=== PATIENT | male | born 1970 | race Caucasian/White ===

== ENCOUNTER 2020-04-11 14:17 | Outpatient (REF) | payer OTHER, SELFPAY | END 2020-04-11 14:18 | disposition home or self-care (01) | LOC: HO.LNP 14:17 | PROVIDERS: Visit Provider Nurse Practitioner Family | DX: Z20.828 Contact with and (suspected) exposure to other viral communicable diseases (principal) | CPT/HCPCS: U0003 ==

== ENCOUNTER 2020-09-05 15:10 | Emergency (ER) | payer OTHER, SELFPAY ==
[2020-09-05 15:13] VITALS: BP 135/74; PULSE 70; RESP 18; TEMP 36.9; O2SAT 96; BMI 40.8
--- NOTE | 2020-09-05 17:13 | ED.GENADULT ---
HPI - General Adult General Chief complaint: General Medical Stated complaint: vision loss Source: patient Mode of arrival: ambulatory Limitations: no limitations History of Present Illness HPI narrative: 50-year-old male with past medical history of chronic headaches presents with 3 weeks of right eye dilation and changes in vision. 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 He does not report any changes in his headaches, pain on eye movement, loss of balance, difficulty chewing or swallowing, changes in hearing, or any other neurological symptoms. Onset (ago): week(s) (3) Location: eyes Radiation: non-radiation Severity: moderate Severity scale (1-10): 5 Associated symptoms: denies other symptoms Related Data Home Medications Medication Instructions Recorded Confirmed indomethacin 25 mg capsule 0 mg PO 02/16/20 03/05/20 Previous Rx's Medication Instructions Recorded amoxicillin 500 mg capsule 500 mg PO TID 10 Days #30 cap 02/16/20 cetirizine 10 mg tablet 10 mg PO DAILY PRN #30 tab 02/16/20 clotrimazole 1 % topical cream 1 applic TOPICAL BID 28 Days #28 g 02/16/20 diphenhydramine HCl 25 mg capsule 25 mg PO BEDTIME PRN #30 cap 02/16/20 clobetasol 0.05 % lotion 1 appl TOPICAL BEDTIME 14 Days 03/03/20 #118 ml prednisone 20 mg tablet 20 mg PO DAILY 9 Days #18 tab 03/03/20 Allergies Allergy/AdvReac Type Severity Reaction Status Date / Time No Known Allergies Allergy Verified 04/11/20 11:22 Review of Systems Review of Systems: Constitutional: No Fever, No Chills ENT/Mouth: No Ear Pain, No Hoarseness, No sore throat Eyes: Positive right eye change in vision and pupil size, No Eye Pain, No Swelling, No Redness, No Foreign Body Cardiovascular: No Chest Pain, No SOB Respiratory: No Cough, No Dyspnea Gastrointestinal: No Nausea, No Vomiting, No Diarrhea, No abdominal Pain Genitourinary: No Dysuria, No Hematuria Musculoskeletal: No joint pain, No Myalgias, No Joint Swelling Skin: No Skin lacerations, No rash Neuro: No Weakness, No Numbness, No Paresthesias, No Loss of Consciousness, No Dizziness, No Headache Psych: No Anxiety/Panic, No Depression Heme/Lymph: no easy bruising, no Lymphadenopathy Endocrine: No Polyuria, No Polydipsia Yes all other systems are reviewed and are negative [facility] Past Medical History Attestation statement: The following information was validated with the patient. Source: old records reviewed Medical History Rash Social History Social History Alcohol intake: never Cigarettes Per Day: 8 Smoked in Last 30 Days: No Use of substances other than those prescribed or required for medical reasons: No Advance Directives: No Advance Directives Information Provided: No Physical Exam Vital Signs: Vital Signs: Last Vital Signs Temp 98.4 F 09/05/20 15:13 Pulse 70 09/05/20 15:13 Resp 18 09/05/20 15:13 BP 135/74 09/05/20 15:13 Pulse Ox 96 09/05/20 15:13 Body Mass Index 40.8 Appearance: Alert. Oriented X3. No acute distress. Eyes: Right pupil 5 mm in diameter, left pupil approximately 2 mm in diameter under light, minimally reactive right pupil. No pain on eye movement, otherwise cranial nerves are intact. Patient is unable to differentiate color in the right eye. ENT: Pharynx normal. Neck: Normal inspection. Neck supple. CVS: Normal heart rate and rhythm. Pulses normal. Respiratory: No respiratory distress. Breath sounds normal. Abdomen: Soft and nontender. Skin: Skin warm and dry. Normal skin color. Normal skin turgor. Extremities: No lower extremity edema. Neuro: No motor deficit. No sensory deficit. Course Course Course Narrative: 50-year-old male presents with 3 weeks of right eye pupil abnormality and changes in vision. States that he sees blanco, unable to differentiate light. Discussion with Dr. Oswald, right eye pressure on 10 on a tree is 18 x 2, left eye is 26 and 22. Negative ADP test. Plan is to refer to Dr. Mejia in the morning. No further action required at this time. Patient verbalized understanding of and agrees to plan of care discharge home. Consultations Consultation #1: Margret Time: 17:40 Discharge Plan Discharge Clinical Impression: Pupil asymmetry Patient Disposition: Home, Self-Care Instructions: Blurred Vision (ED) Additional Instructions: Please follow-up with Dr Oswald in the morning. Thank you for choosing this emergency department for evaluation. Please follow-up with primary care physician as needed. Return to the emergency department for any new, concerning, or worsening symptoms. Prescriptions: No Action prednisone 20 mg tablet 20 mg PO DAILY 9 Days Qty: 18 RF: 0 clobetasol 0.05 % lotion 1 appl topical BEDTIME 14 Days Qty: 118 RF: 0 indomethacin 25 mg capsule 0 mg PO RF: 0 amoxicillin 500 mg capsule 500 mg PO TID 10 Days Qty: 30 RF: 0 clotrimazole 1 % cream 1 applic topical BID 28 Days Qty: 28 RF: 0 cetirizine [Zyrtec] 10 mg tablet 10 mg PO DAILY PRN (Reason: itching) Qty: 30 RF: 0 diphenhydramine HCl [Benadryl] 25 mg capsule 25 mg PO BEDTIME PRN (Reason: sleep/itch) Qty: 30 RF: 0 Referrals: Moses Oswald [Physician] - 1 day (Please call tomorrow morning for an appointment.)
== END 2020-09-05 18:19 | disposition home or self-care (01) ==
PROVIDERS: Emergency Provider Internal Medicine; PCP Internal Medicine
DX: H57.02 Anisocoria (principal)
CPT/HCPCS: 99282; 99284

== ENCOUNTER 2020-09-06 14:33 | Outpatient (REF) | payer OTHER, SELFPAY ==
[2020-09-06 15:09] LABS: MANUAL DIFF FLAG NO
[2020-09-06 15:17] LABS: Basophils Absolute Auto 0.1 X10*3/uL (0.0-0.2); Basophils Percent Auto 0.8 % (0-2); Eosinophils Absolute Auto 0.3 X10*3/uL (0.0-0.4); Eosinophils Percent Auto 3.1 % (0-4); Hematocrit 43.9 % (42-52); Hemoglobin 14.5 g/dl (14.0-18.0); Imm Gran Abs Auto 0.03 X10*3/uL (0.00-0.03); Imm Gran Pct Auto 0.3 % (0.0-0.4); Lymphocytes Absolute Auto 3.2 X10*3/uL (1.2-4.9); Lymphocytes Percent Auto 29.5 % (20-40); Mean Corpuscular Hemoglobin 28.4 pg (27.0-33.0); Mean Corpuscular Volume 85.9 fL (80-98); Mean Platelet Volume 10.1 fL (9.4-12.4); Monocytes Absolute Auto 0.6 X10*3/uL (0.1-1.2); Monocytes Percent Auto 5.8 % (2-11); Neutrophils Absolute Auto 6.5 X10*3/uL (2.0-8.3); Neutrophils Percent Auto 60.5 % (45-73); Platelet Count 321 X10*3/uL (160-400); Red Blood Count 5.11 X10*6/uL (4.60-5.80); Red Cell Distribution Width 12.6 % (11.0-16.0); White Blood Count 10.8 X10*3/uL (4.8-10.8)
[2020-09-06 16:13] LABS: Erythrocyte Sedimentation Rate 22 MM/HR (0-15)
[2020-09-06 16:53] LABS: Blood Urea Nitrogen 19 mg/dL (9-16); C Reactive Protein 1.05 mg/dL (< or = 0.50); Estimated Glomerular Filt Rate > 60
== END 2020-09-06 14:34 | disposition home or self-care (01) ==
LOC: HO.LAB 14:33
PROVIDERS: PCP Internal Medicine; Visit Provider Ophthalmology
DX: H47.10 Unspecified papilledema (principal)
CPT/HCPCS: 36415; 82565; 84520; 85025; 85652; 86140

== ENCOUNTER → 2021-01-11 12:56 | Outpatient (BNVA) | payer OTHER, SELFPAY | PROVIDERS: PCP Internal Medicine; Visit Provider Surgery Vascular Surgery ==

== ENCOUNTER 2021-01-16 09:00 | Outpatient (REF) | payer OTHER, SELFPAY ==
[2021-01-16 12:18] LABS: Blood Urea Nitrogen 17 mg/dL (9-16); Estimated Glomerular Filt Rate > 60
== END 2021-01-16 09:01 | disposition home or self-care (01) ==
LOC: HO.HMGCLDS 09:00
PROVIDERS: PCP Internal Medicine; Visit Provider Surgery Vascular Surgery
DX: I65.23 Occlusion and stenosis of bilateral carotid arteries (principal)
CPT/HCPCS: 36415; 82565; 84520

== ENCOUNTER 2021-01-18 15:21 | Outpatient (REF) | payer OTHER, SELFPAY ==
--- NOTE | ~2021-01-18 | CT_ITS ---
CT ANGIOGRAM NECK CLINICAL INFORMATION: Occlusion and stenosis of the carotid arteries bilaterally. COMPARISON: None available. TECHNIQUE: Helical imaging was performed in the axial plane from the thoracic inlet to the mid calvarium following the administration of 70 mL of Omnipaque 350 intravenous contrast without complication.. The data was processed at the radiological technologist workstation for generation of MIP sequences. Angled MIPs and volume rendered reformatted images were also generated at an offline 3D workstation under concurrent supervision. Stenoses are assessed in accordance with NASCET criteria unless otherwise indicated. This CT examination was performed using dose optimization techniques as appropriate, variously including the following: *Automated exposure control *Adjustment of mA and/or kV according to patient size (this includes techniques or standardized protocols for targeted exams where dose is matched to indication/reason for exam; i.e. extremities or head) *Use of iterative reconstruction technique FINDINGS: There is a 3 great vessel branch configuration off of the aortic arch. The great vessel origins are widely patent. Left vertebral artery is dominant and the cervical vertebral arteries are widely patent throughout their course. There is a severe greater than 95% preocclusive stenosis of the proximal right internal carotid artery with the right cervical ICA exhibiting markedly small caliber string sign morphology. The intracranial right internal carotid artery is occluded from the petrous segments through the right internal carotid artery terminal segment which is reconstituted by the remaining [place]. The left carotid bifurcation and the left cervical internal carotid artery are widely patent. There is a retropharyngeal course of the left cervical ICA. Intracranial vertebrobasilar system is widely patent. Imaged anterior and middle cerebral artery complexes are widely patent. The imaged upper lungs are clear. There is multilevel cervical spondylosis. There are no significant soft tissue findings within the neck. CT/CT angio neck IMPRESSION: - There is a severe greater than 95% preocclusive stenosis of the proximal right internal carotid artery with the right cervical ICA exhibiting markedly small caliber string sign morphology throughout its entire cervical course. The intracranial right internal carotid artery is occluded from the petrous segments through the right internal carotid artery terminal segment which is reconstituted by the remaining [place]. - The left carotid bifurcation and the left cervical internal carotid artery are widely patent. There is a retropharyngeal course of the left cervical ICA. Covering provider paged with these findings at 2:49 PM on 01/24/2021.
== END 2021-01-18 15:22 | disposition home or self-care (01) ==
LOC: HO.CT 15:21
PROVIDERS: PCP Internal Medicine; Visit Provider Surgery Vascular Surgery
DX: I65.23 Occlusion and stenosis of bilateral carotid arteries (principal)
CPT/HCPCS: 70498

== ENCOUNTER → 2021-01-25 08:58 | Outpatient (BNVA) | payer OTHER, SELFPAY | PROVIDERS: PCP Internal Medicine; Visit Provider Surgery Vascular Surgery ==

== ENCOUNTER 2021-04-18 15:06 | Outpatient (REF) | payer OTHER, SELFPAY ==
[2021-04-18 16:23] LABS: MANUAL DIFF FLAG NO
[2021-04-18 16:27] LABS: Basophils Absolute Auto 0.1 X10*3/uL (0.0-0.2); Basophils Percent Auto 0.9 % (0-2); Eosinophils Absolute Auto 0.3 X10*3/uL (0.0-0.4); Eosinophils Percent Auto 3.2 % (0-4); Hematocrit 41.6 % (42.0-52.0); Hemoglobin 13.7 g/dl (14.0-18.0); Imm Gran Abs Auto 0.02 X10*3/uL (0.00-0.03); Imm Gran Pct Auto 0.2 % (0.0-0.4); Lymphocytes Absolute Auto 2.7 X10*3/uL (1.2-4.9); Lymphocytes Percent Auto 31.1 % (20-40); Mean Corpuscular HGB Conc 32.9 g/dl (31.0-36.0); Mean Corpuscular Hemoglobin 28.8 pg (27.0-33.0); Mean Corpuscular Volume 87.6 fL (80.0-98.0); Mean Platelet Volume 10.7 fL (9.4-12.4); Monocytes Absolute Auto 0.6 X10*3/uL (0.1-1.2); Monocytes Percent Auto 6.9 % (2-11); Neutrophils Absolute Auto 4.9 x10*3/uL (2.0-8.3); Neutrophils Percent Auto 57.7 % (45-73); Platelet Count 282 X10*3/uL (160-400); Red Blood Count 4.75 X10*6/uL (4.60-5.80); White Blood Count 8.6 X10*3/uL (4.8-10.8)
[2021-04-18 17:00] LABS: Alanine Aminotransferase 37 U/L (0-40); Albumin Level 3.9 g/dL (3.5-5.0); Alkaline Phosphatase 82 U/L (39-117); Anion Gap 11 (12-20); Aspartate Amino Transferase 27 U/L (5-37); Bilirubin Total 0.4 mg/dL (0.0-1.0); Blood Urea Nitrogen 14 mg/dL (9-16); Carbon Dioxide 28 mmol/L (22-29); Chloride 108 mmol/L (96-108); Estimated Glomerular Filt Rate > 60; Glucose Random 104 mg/dL (60-115); Potassium 4.4 mmol/L (3.3-5.1); Sodium 143 mmol/L (135-145); Total Protein 6.4 g/dL (6.5-8.0)
[2021-04-20 02:32] LABS: LDL Cholesterol Direct 59 mg/dL (<100)
== END 2021-04-18 15:07 | disposition home or self-care (01) ==
LOC: HO.HMGCLDS 15:06
PROVIDERS: PCP Internal Medicine; Visit Provider Internal Medicine
DX: G44.89 Other headache syndrome (principal); H34.231 Retinal artery branch occlusion, right eye; I10 Essential (primary) hypertension; E66.01 Morbid (severe) obesity due to excess calories
CPT/HCPCS: 36415; 80053; 83721; 85025

== ENCOUNTER 2021-08-02 15:17 | Outpatient (REF) | payer OTHER, SELFPAY ==
--- NOTE | ~2021-08-02 | US_ITS ---
EXAMINATION: US EXTRACRANIAL CAROTID DUPLEX, BILATERAL CLINICAL INFORMATION: This is a 51-year-old male with occlusion and stenosis of the carotid arteries. COMPARISON: CT angiogram dated 01/18/2021 TECHNIQUE: Real-time ultrasound and Doppler techniques (integrating B-mode 2-D vascular images, Doppler spectral analysis and color-flow Doppler imaging) were utilized to interrogate the extracranial carotid arteries, the vertebral arteries and proximal subclavian arteries bilaterally. The degree of stenosis is determined by criteria similar to NASCET. FINDINGS: Right Side: 1. There is moderate atherosclerotic plaque seen in the bifurcation/proximal ICA region. 2. The common carotid artery PSV proximally is 134 cm/s and distally 126 cm/s. 3. The proximal internal carotid artery velocities are 136 cm/s systolic and 12 cm/s diastolic. However, no flow could be demonstrated in the mid and distal internal carotid artery suggesting possible occlusion. 4. The proximal external carotid artery PSV is 212 cm/s. There is a mild stenosis of the external carotid artery. 5. The vertebral artery shows antegrade flow. 6. The subclavian artery waveforms are normal. Left Side: 1. There is moderate atherosclerotic plaque seen in the bifurcation/proximal ICA region. 2. The common carotid artery PSV proximally is 126 cm/s and distally 160 cm/s. 3. The proximal internal carotid artery velocities are 124 cm/s systolic and 88 cm/s diastolic. 4. The proximal external carotid artery PSV is 206 cm/s. There is a mild stenosis of the external carotid artery. 5. The vertebral artery shows antegrade flow. 6. The subclavian artery waveforms are normal. US/US carotid duplex BI IMPRESSION: 1. RIGHT: By velocity criteria, moderately, hemodynamically significant stenosis of the proximal right internal carotid artery corresponding to a 50-79% stenosis by velocity criteria. However, no flow could be demonstrated in the mid and distal internal carotid artery suggesting possible occlusion. This suggests progression of disease when compared to the previous CT angiogram. 2. LEFT: Minimal, non-hemodynamically significant stenosis of the proximal left internal carotid artery corresponding to a 0-49% stenosis by velocity criteria. 3. There is possible occlusion in the mid and distal right internal carotid artery.
== END 2021-08-02 15:18 | disposition home or self-care (01) ==
LOC: HO.HMGCX 15:17
PROVIDERS: PCP Internal Medicine; Visit Provider Surgery Vascular Surgery
DX: I65.23 Occlusion and stenosis of bilateral carotid arteries (principal)
CPT/HCPCS: 93880

== ENCOUNTER → 2021-08-14 11:39 | Outpatient (BNVA) | payer OTHER, SELFPAY | PROVIDERS: PCP Internal Medicine; Visit Provider Surgery Vascular Surgery | DX: I65.23 Occlusion and stenosis of bilateral carotid arteries (principal) ==

== ENCOUNTER 2021-10-16 12:38 | Outpatient (REF) | payer OTHER, SELFPAY ==
[2021-10-16 14:26] LABS: Alanine Aminotransferase 33 U/L (0-40); Albumin Level 4.2 g/dL (3.5-5.0); Alkaline Phosphatase 84 U/L (39-117); Anion Gap 11 (12-20); Aspartate Amino Transferase 23 U/L (5-37); Bilirubin Total 0.6 mg/dL (0.0-1.0); Blood Urea Nitrogen 15 mg/dL (9-16); Calcium 8.6 mg/dL (8.4-10.2); Carbon Dioxide 28 mmol/L (22-29); Chloride 107 mmol/L (96-108); Estimated Glomerular Filt Rate > 60; Glucose Random 121 mg/dL (60-115); Potassium 4.8 mmol/L (3.3-5.1); Sodium 141 mmol/L (135-145); Total Protein 6.6 g/dL (6.5-8.0)
== END 2021-10-16 12:39 | disposition home or self-care (01) ==
LOC: HO.HMGCLDS 12:38
PROVIDERS: PCP Internal Medicine; Visit Provider Internal Medicine
DX: E78.9 Disorder of lipoprotein metabolism, unspecified (principal)
CPT/HCPCS: 36415; 80053

== ENCOUNTER 2021-10-29 13:22 | Outpatient (REF) | payer OTHER, SELFPAY ==
[2021-10-29 13:42] LABS: MANUAL DIFF FLAG NO
[2021-10-29 13:51] LABS: Basophils Absolute Auto 0.1 X10*3/uL (0.0-0.2); Basophils Percent Auto 0.9 % (0-2); Eosinophils Absolute Auto 0.3 X10*3/uL (0.0-0.4); Eosinophils Percent Auto 2.8 % (0-4); Hematocrit 43.2 % (42.0-52.0); Hemoglobin 14.4 g/dl (14.0-18.0); Imm Gran Abs Auto 0.02 X10*3/uL (0.00-0.03); Imm Gran Pct Auto 0.2 % (0.0-0.4); Lymphocytes Absolute Auto 2.6 X10*3/uL (1.2-4.9); Mean Corpuscular HGB Conc 33.3 g/dl (31.0-36.0); Mean Corpuscular Hemoglobin 28.6 pg (27.0-33.0); Mean Corpuscular Volume 85.7 fL (80.0-98.0); Mean Platelet Volume 9.8 fL (9.4-12.4); Monocytes Absolute Auto 0.6 X10*3/uL (0.1-1.2); Monocytes Percent Auto 6.9 % (2-11); Neutrophils Absolute Auto 5.7 x10*3/uL (2.0-8.3); Neutrophils Percent Auto 61.2 % (45-73); Platelet Count 276 X10*3/uL (160-400); Red Blood Count 5.04 X10*6/uL (4.60-5.80); White Blood Count 9.3 X10*3/uL (4.8-10.8)
[2021-10-29 14:22] LABS: Blood Urea Nitrogen 17 mg/dL (9-16); Estimated Glomerular Filt Rate > 60
[2021-10-29 14:43] LABS: Erythrocyte Sedimentation Rate 23 MM/HR (0-15)
[2021-10-31 22:27] LABS: Anti Nuclear Antibody Screen NEGATIVE (NEGATIVE)
== END 2021-10-29 13:23 | disposition home or self-care (01) ==
LOC: HO.LAB 13:22
PROVIDERS: PCP Internal Medicine; Visit Provider Psychiatry & Neurology Neurology
DX: G45.1 Carotid artery syndrome (hemispheric) (principal)
CPT/HCPCS: 36415; 82565; 84520; 85025; 85652; 86038; 86039

== ENCOUNTER 2021-11-06 13:47 | Outpatient (REF) | payer OTHER, SELFPAY ==
--- NOTE | ~2021-11-06 | CT_ITS ---
EXAMINATION: CTA OF THE HEAD AND NECK CLINICAL INFORMATION: Carotid artery occlusion syndrome. COMPARISON: CT angiogram from 01/18/2021. TECHNIQUE: Test bolus sequences followed by intravenous administration 70 mL of Omnipaque 350. Helical imaging was performed in the axial plane from the mediastinum to the skull vertex. Delayed postcontrast imaging of the head was also performed. The data was processed at the radioisotope technologist's workstation for generation of MIP sequences. Three-dimensional volume rendered reformatted images were also generated at an offline 3-D workstation. Stenoses are assessed in accordance with NASCET criteria unless otherwise indicated. This CT examination was performed using dose optimization techniques as appropriate, variously including the following: *Automated exposure control *Adjustment of mA and/or kV according to patient size (this includes techniques or standardized protocols for targeted exams where dose is matched to indication/reason for exam; i.e. extremities or head) *Use of iterative reconstruction technique DLP: 2709 mGy-cm FINDINGS: CT HEAD: There is no evidence of acute intracranial hemorrhage or territorial infarction. There is no loss of blanco to white matter differentiation. No abnormal mass effect or midline shift is seen. No extra-axial fluid collections are identified. There is no abnormal enhancement. The ventricles are normal in size. There is no abnormal attenuation within the brain parenchyma. The osseous structures and soft tissues are normal. The mastoid air cells and visualized portions of the paranasal sinuses are well aerated. CTA NECK: The imaged aortic arch and origins of the great vessels are normal. The common carotid arteries are widely patent. The carotid bifurcations are normal. There is stable gradual tapering and severe luminal narrowing of the cervical right internal carotid artery with diminutive contrast opacification. No contrast is visible within the vessel at the atlantooccipital level. The left cervical internal carotid artery is normal with a retropharyngeal course. The vertebral arteries opacify normally and are of normal caliber. The soft tissues of the neck are unremarkable. [id number] cervical spondylosis again evident. The imaged portions of the lungs are clear. CTA HEAD: The intradural vertebral arteries and basilar artery are normal. The posterior cerebral arteries are widely patent. There is chronic absence of contrast opacification within the right internal carotid artery to the level of the supraclinoid communicating segment where there is reconstitution from collateral flow presumably via the left-sided anterior circulation versus the right PCOM segment. The left internal carotid artery is of normal caliber. The SALLY and MCA vascular complexes bilaterally are normal. The venous sinuses opacify normally. CT/CT angio head neck IMPRESSION: Stable imaging findings of severe tapered stenotic narrowing of the cervical right internal carotid artery with perceived wall thickening. Unchanged absence of contrast in the right ICA at the craniovertebral junction to the level of the supraclinoid communicating segment. No acute intracranial process.
[2021-11-06] MEDS: iohexoL 350 MG/ML 100 ML INFUS..BTL IV (15:24)
== END 2021-11-06 13:48 | disposition home or self-care (01) ==
LOC: HO.CT 13:47
PROVIDERS: PCP Internal Medicine; Visit Provider Psychiatry & Neurology Neurology
DX: G45.1 Carotid artery syndrome (hemispheric) (principal)
CPT/HCPCS: 70496; 70498; Q9967

== ENCOUNTER 2021-11-28 08:51 | Outpatient (REF) | payer OTHER, SELFPAY ==
--- NOTE | ~2021-11-28 | MR_ITS ---
EXAMINATION: MRI OF THE BRAIN WITHOUT AND WITH CONTRAST MRI OF THE ORBITS WITHOUT AND WITH CONTRAST CLINICAL INFORMATION: Optic neuritis. COMPARISON: CTA of the head and neck 11/06/2021.. TECHNIQUE: MRI of the brain and orbits was obtained using routine sequences without and with contrast. Intravenous contrast administration: Gadavist 10 mL. FINDINGS: The right optic nerve has a thinner caliber compared to the left. No abnormal enhancement is noted of the optic nerves on either side. The optic nerve heads appear normal. The extraocular muscles, globes, and lacrimal glands appear normal bilaterally. There is no infiltration of the intra- or extraconal orbital fat. No compressive enhancing mass lesions are seen at either orbital apex. The cavernous sinuses enhance symmetrically. There is loss of the hypointense flow voids from the right petrous, cavernous and paraclinoid internal carotid artery, demonstrated on prior imaging. The optic chiasm appears normal. No diffusion abnormalities are identified to suggest an acute or subacute infarct. No mass effect or midline shift is seen. The ventricles and sulci are normal in size. There are a few foci of hyperintense T2 and FLAIR signal in the periventricular and subcortical white matter which are most consistent with mild chronic microvascular ischemic changes. No extra-axial fluid collections are seen. The brainstem and cerebellum are normal. On postcontrast imaging, there is no abnormal parenchymal or leptomeningeal enhancement. No pathologic magnetic susceptibility artifact is identified on the gradient refocused acquisition. The craniovertebral junction, marrow signal, and midline structures are normal. As described above, the flow void from the right cavernous and paraclinoid internal carotid artery is absent. The flow voids from the other vessels of the [place] are maintained. The dural venous sinus flow-voids are maintained. There is now moderate fluid in the left mastoid air cells. There is mild mucoperiosteal thickening of the ethmoid sinuses bilaterally. MR/MR head/brain wo/w con IMPRESSION: 1. The right optic nerve has a thinner caliber compared to the left, but there is no abnormal enhancement of either optic nerve. No masses are demonstrated in the orbits. The globes appear symmetric. 2. No acute bleeds or infarcts. There are no masses or areas of abnormal enhancement. There are chronic microvascular ischemic changes. 3. The study demonstrates absence of flow in the right petrous, cavernous and supraclinoid internal carotid artery.
--- NOTE | ~2021-11-28 | MR_ITS ---
EXAMINATION: MRI OF THE BRAIN WITHOUT AND WITH CONTRAST MRI OF THE ORBITS WITHOUT AND WITH CONTRAST CLINICAL INFORMATION: Optic neuritis. COMPARISON: CTA of the head and neck 11/06/2021.. TECHNIQUE: MRI of the brain and orbits was obtained using routine sequences without and with contrast. Intravenous contrast administration: Gadavist 10 mL. FINDINGS: The right optic nerve has a thinner caliber compared to the left. No abnormal enhancement is noted of the optic nerves on either side. The optic nerve heads appear normal. The extraocular muscles, globes, and lacrimal glands appear normal bilaterally. There is no infiltration of the intra- or extraconal orbital fat. No compressive enhancing mass lesions are seen at either orbital apex. The cavernous sinuses enhance symmetrically. There is loss of the hypointense flow voids from the right petrous, cavernous and paraclinoid internal carotid artery, demonstrated on prior imaging. The optic chiasm appears normal. No diffusion abnormalities are identified to suggest an acute or subacute infarct. No mass effect or midline shift is seen. The ventricles and sulci are normal in size. There are a few foci of hyperintense T2 and FLAIR signal in the periventricular and subcortical white matter which are most consistent with mild chronic microvascular ischemic changes. No extra-axial fluid collections are seen. The brainstem and cerebellum are normal. On postcontrast imaging, there is no abnormal parenchymal or leptomeningeal enhancement. No pathologic magnetic susceptibility artifact is identified on the gradient refocused acquisition. The craniovertebral junction, marrow signal, and midline structures are normal. As described above, the flow void from the right cavernous and paraclinoid internal carotid artery is absent. The flow voids from the other vessels of the [place] are maintained. The dural venous sinus flow-voids are maintained. There is now moderate fluid in the left mastoid air cells. There is mild mucoperiosteal thickening of the ethmoid sinuses bilaterally. MR/MR orbits face neck wo/w con IMPRESSION: 1. The right optic nerve has a thinner caliber compared to the left, but there is no abnormal enhancement of either optic nerve. No masses are demonstrated in the orbits. The globes appear symmetric. 2. No acute bleeds or infarcts. There are no masses or areas of abnormal enhancement. There are chronic microvascular ischemic changes. 3. The study demonstrates absence of flow in the right petrous, cavernous and supraclinoid internal carotid artery.
== END 2021-11-28 08:52 | disposition home or self-care (01) ==
LOC: HO.MRI 08:51
PROVIDERS: Visit Provider Psychiatry & Neurology Neurology
DX: H46.9 Unspecified optic neuritis (principal)
CPT/HCPCS: 70543; 70553; A9585

== ENCOUNTER 2021-12-25 14:09 | Outpatient (REF) | payer OTHER, SELFPAY ==
[2021-12-25 16:35] LABS: MANUAL DIFF FLAG NO
[2021-12-25 16:37] LABS: Basophils Percent Auto 0.4 % (0-2); Eosinophils Absolute Auto 0.2 X10*3/uL (0.0-0.4); Eosinophils Percent Auto 1.4 % (0-4); Hematocrit 44.7 % (42.0-52.0); Hemoglobin 14.7 g/dl (14.0-18.0); Imm Gran Abs Auto 0.05 X10*3/uL (0.00-0.03); Imm Gran Pct Auto 0.5 % (0.0-0.4); Lymphocytes Absolute Auto 1.8 X10*3/uL (1.2-4.9); Lymphocytes Percent Auto 16.4 % (20-40); Mean Corpuscular HGB Conc 32.9 g/dl (31.0-36.0); Mean Corpuscular Volume 88.2 fL (80.0-98.0); Mean Platelet Volume 9.9 fL (9.4-12.4); Monocytes Absolute Auto 0.8 X10*3/uL (0.1-1.2); Monocytes Percent Auto 7.2 % (2-11); Neutrophils Absolute Auto 8.2 x10*3/uL (2.0-8.3); Neutrophils Percent Auto 74.1 % (45-73); Platelet Count 287 X10*3/uL (160-400); Red Blood Count 5.07 X10*6/uL (4.60-5.80); Red Cell Distribution Width 13.9 % (11.0-16.0); White Blood Count 11.1 X10*3/uL (4.8-10.8)
[2021-12-25 16:44] LABS: Blood Urea Nitrogen 20 mg/dL (9-16); Estimated Glomerular Filt Rate > 60
[2021-12-25 17:18] LABS: Erythrocyte Sedimentation Rate 34 MM/HR (0-15)
== END 2021-12-25 14:10 | disposition home or self-care (01) ==
LOC: HO.HMGCLDS 14:09
PROVIDERS: Surgery Vascular Surgery; PCP Internal Medicine; Visit Provider Psychiatry & Neurology Neurology
DX: I65.23 Occlusion and stenosis of bilateral carotid arteries (principal); H34.9 Unspecified retinal vascular occlusion
CPT/HCPCS: 36415; 82565; 84520; 85025; 85652

== ENCOUNTER 2022-02-19 10:10 | Outpatient (REF) | payer OTHER, SELFPAY ==
[2022-02-19 11:38] LABS: MANUAL DIFF FLAG NO
[2022-02-19 11:57] LABS: Estimated Average Glucose 148 mg/dL; Hemoglobin A1c % 6.8 %
[2022-02-19 12:04] LABS: Basophils Absolute Auto 0.1 X10*3/uL (0.0-0.2); Basophils Percent Auto 0.3 % (0-2); Eosinophils Absolute Auto 0.1 X10*3/uL (0.0-0.4); Eosinophils Percent Auto 0.8 % (0-4); Hematocrit 42.6 % (42.0-52.0); Hemoglobin 13.7 g/dl (14.0-18.0); Imm Gran Abs Auto 0.09 X10*3/uL (0.00-0.03); Imm Gran Pct Auto 0.5 % (0.0-0.4); Lymphocytes Absolute Auto 3.2 X10*3/uL (1.2-4.9); Lymphocytes Percent Auto 18.9 % (20-40); Mean Corpuscular HGB Conc 32.2 g/dl (31.0-36.0); Mean Corpuscular Hemoglobin 29.1 pg (27.0-33.0); Mean Corpuscular Volume 90.6 fL (80.0-98.0); Mean Platelet Volume 10.4 fL (9.4-12.4); Monocytes Absolute Auto 1.1 X10*3/uL (0.1-1.2); Monocytes Percent Auto 6.5 % (2-11); Neutrophils Absolute Auto 12.3 x10*3/uL (2.0-8.3); Platelet Count 351 X10*3/uL (160-400); Red Cell Distribution Width 14.2 % (11.0-16.0); White Blood Count 16.8 X10*3/uL (4.8-10.8)
[2022-02-19 12:31] LABS: Alanine Aminotransferase 33 U/L (0-40); Albumin Level 3.9 g/dL (3.5-5.0); Alkaline Phosphatase 53 U/L (39-117); Anion Gap 15 (12-20); Aspartate Amino Transferase 18 U/L (5-37); Bilirubin Direct 0.4 mg/dL (0.0-0.5); Bilirubin Total 0.9 mg/dL (0.0-1.0); Blood Urea Nitrogen 8 mg/dL (9-16); Calcium 9.1 mg/dL (8.4-10.2); Carbon Dioxide 27 mmol/L (22-29); Chloride 104 mmol/L (96-108); Estimated Glomerular Filt Rate > 60; Glucose Random 176 mg/dL (60-115); Potassium 4.3 mmol/L (3.3-5.1); Sodium 142 mmol/L (135-145); Total Protein 6.3 g/dL (6.5-8.0)
== END 2022-02-19 10:11 | disposition home or self-care (01) ==
LOC: HO.HMGCLDS 10:10
PROVIDERS: PCP Internal Medicine; Visit Provider Nurse Practitioner Family
DX: H53.8 Other visual disturbances (principal); R35.89 Other polyuria; R51.9 Headache, unspecified
CPT/HCPCS: 36415; 80048; 80076; 83036; 85025

== ENCOUNTER 2022-02-28 12:33 | Outpatient (REF) | payer OTHER, SELFPAY ==
[2022-02-28 14:08] LABS: Alanine Aminotransferase 33 U/L (0-40); Albumin Level 3.9 g/dL (3.5-5.0); Alkaline Phosphatase 52 U/L (39-117); Anion Gap 11 (12-20); Aspartate Amino Transferase 19 U/L (5-37); Bilirubin Total 1.2 mg/dL (0.0-1.0); Blood Urea Nitrogen 10 mg/dL (9-16); Calcium 9.7 mg/dL (8.4-10.2); Carbon Dioxide 33 mmol/L (22-29); Chloride 99 mmol/L (96-108); Estimated Glomerular Filt Rate > 60; Glucose Random 127 mg/dL (60-115); Sodium 139 mmol/L (135-145); Total Protein 6.2 g/dL (6.5-8.0)
[2022-03-01 15:17] LABS: Osmolality Urine 222 mosm/kg (373-1093)
== END 2022-02-28 12:34 | disposition home or self-care (01) ==
LOC: HO.HMGCLDS 12:33
PROVIDERS: PCP Internal Medicine; Visit Provider Internal Medicine
DX: E23.2 Diabetes insipidus (principal); E11.9 Type 2 diabetes mellitus without complications; E03.8 Other specified hypothyroidism; R90.0 Intracranial space-occupying lesion found on diagnostic imaging of central nervous system
CPT/HCPCS: 36415; 80053; 83935

== ENCOUNTER 2022-03-26 13:05 | Emergency (ER) | payer OTHER, SELFPAY | END 2022-03-26 19:26 | disposition left against medical advice (07) | PROVIDERS: Emergency Provider Emergency Medicine; PCP Internal Medicine | DX: K64.9 Unspecified hemorrhoids (principal) ==

== ENCOUNTER 2022-03-29 14:02 | Inpatient (IN) | payer OTHER, SELFPAY ==
--- NOTE | ~2022-03-29 | CT_ITS ---
EXAMINATION: CT ABDOMEN AND PELVIS WITH CONTRAST CLINICAL INFORMATION: Diarrhea. Rule out perirectal abscess. COMPARISON: None TECHNIQUE: Multidetector volumetric images were obtained from the superior aspect of the liver through the pubic symphysis following administration 85 mL of Omnipaque 350 intravenous contrast. Sagittal and coronal reformatted images were obtained on the technologist's workstation. Oral contrast: No This CT examination was performed using dose optimization techniques as appropriate, variously including the following: *Automated exposure control *Adjustment of mA and/or kV according to patient size (this includes techniques or standardized protocols for targeted exams where dose is matched to indication/reason for exam; i.e. extremities or head) *Use of iterative reconstruction technique DLP: 1210 mGy-cm FINDINGS: LUNG BASES: The heart size is normal. There is bilateral posterior pleural thickening. Minimal atelectatic changes are seen right lung base. LIVER, GALLBLADDER, AND BILIARY TREE: The liver is normal in size, shape, and attenuation. No focal hepatic lesion or biliary ductal dilatation is present. Small dependent gallstones are noted. No wall thickening or pericholecystic fluid collection. PANCREAS: Unremarkable. SPLEEN: Unremarkable. ADRENAL GLANDS: Unremarkable. KIDNEYS AND URETERS: The kidneys are normal in size, shape, and attenuation. No hydronephrosis, hydroureter, or calculi seen. No perinephric stranding. There is a 1.3 cm cyst upper pole left kidney. BLADDER: Unremarkable. GASTROINTESTINAL TRACT: There is scattered stool, gas and diverticuli seen throughout the colon without distention. The small bowel loops are normal caliber. Appendix is normal caliber. ABDOMINAL WALL: No significant hernia is appreciated. LYMPH NODES: Normal. VASCULAR: Unremarkable. PELVIC VISCERA: There is a left perirectal soft tissue thickening likely a small fissure or a blind-ending fistula but no perianal or ischiorectal abscess. It measures approximately 2.8 x 0.86 cm on coronal image 84/5. There is no fat stranding either. OSSEOUS STRUCTURES: There is vacuum disc phenomena and loss of disc height L4-L5 disc level. No aggressive lytic or sclerotic process seen. CT/CT abdomen pelvis w IV con IMPRESSION: 1. Left perirectal soft tissue thickening likely a small fissure or a blind-ending fistula but no perianal or ischiorectal abscess seen. 2. Colonic diverticulosis without diverticulitis. Mild constipation. 3. Cholelithiasis without wall thickening. Fleischner guidelines were followed.
--- NOTE | 2022-03-29 16:13 | ED_ITS ---
HPI - General Adult General Chief complaint: General Medical <Marta Arias CNP - Last Filed: 03/29/22 16:19> Stated complaint: Hemorrhoids <aMrta Arias CNP - Last Filed: 03/29/22 16:19> Time Seen by Provider: 03/29/22 18:10 <Marta Arias CNP - Last Filed: 03/29/22 16:19> Source: patient <Griselda Cruz MD - Last Filed: 03/29/22 22:06> Mode of arrival: ambulatory <Griselda Cruz MD - Last Filed: 03/29/22 22:06> Limitations: no limitations <Griselda Cruz MD - Last Filed: 03/29/22 22:06> History of Present Illness HPI narrative: Patient comes to the emergency room complaining perirectal pain and draining pus. Patient states it has been about 4 days that he noticed that he had pain, for the last 24 hours he has been constantly been wiping and cleaning pus from the perirectal area. Patient denies fever or chills. <Griselda Cruz MD - Last Filed: 03/29/22 22:06> Related Data Home medications: Home Medications Medication Instructions Recorded Confirmed blood sugar diagnostic (FreeStyle #10 ea 02/28/22 03/01/22 Lite Strips) blood-glucose meter (FreeStyle #1 ea 02/28/22 03/01/22 Lite Meter kit) lancets 28 gauge (FreeStyle #100 ea 02/28/22 03/01/22 Lancets) acetaminophen 325 mg tablet 650 mg PO Q6H PRN Pain (Scale 03/29/22 03/29/22 (Tylenol) Score 1-3) atorvastatin 80 mg tablet 80 mg PO BEDTIME 03/29/22 03/29/22 calcium carbonate 500 mg calcium 500 mg PO BIDWM 03/29/22 03/29/22 (1,250 mg) tablet cholecalciferol (vitamin D3) 25 1 tab PO DAILY 03/29/22 03/29/22 mcg (1,000 unit) tablet desmopressin 0.1 mg tablet 0.05 mg PO QPM 03/29/22 03/29/22 desmopressin 0.1 mg tablet 0.1 mg PO DAILY 03/29/22 03/29/22 dexamethasone 4 mg tablet 1 tab PO Q6H 03/29/22 03/29/22 levothyroxine 175 mcg tablet 1 tab PO DAILY 03/29/22 03/29/22 omeprazole 20 mg capsule,delayed 1 cap PO DAILY 03/29/22 03/29/22 release sodium chloride 0.65 % nasal spray 2 spray intranasal TID PRN 03/29/22 03/29/22 aerosol ([place] Nasal) Congestion sulfamethoxazole 800 1 tab PO BID 03/29/22 03/29/22 mg-trimethoprim 160 mg tablet Previous Rx's Medication Instructions Recorded glipizide 5 mg tablet 5 mg PO DAILY 90 days #90 tabs 03/01/22 <Marta Arias CNP - Last Filed: 03/29/22 16:19> Allergies/adverse reactions: Allergies Allergy/AdvReac Type Severity Reaction Status Date / Time No Known Allergies Allergy Verified 03/29/22 16:19 <Marta Arias CNP - Last Filed: 03/29/22 16:19> Review of Systems Review of Systems: Constitutional : No Weight loss, No Fever, No Chills, No Night Sweats, No Fatigue, No Malaise ENT/Mouth : No Hearing loss, No Ear Pain, No Nasal Congestion, No Sinus Pain, No Hoarseness, No sore throat, No Rhinorrhea, No Swallowing Difficulty Eyes: No Eye Pain, No Swelling, No Redness, No Foreign Body, No Discharge, No Vision Changes Cardiovascular : No Chest Pain, No SOB, No Dyspnea on Exertion, No Orthopnea, No Edema, No Palpitations Respiratory : No Cough, No Sputum, No Wheezing, No Smoke Exposure, No Dyspnea Gastrointestinal : No Nausea, No Vomiting, No Diarrhea, No Constipation, No abdominal Pain, No Hematochezia, No Melena, complaining of perirectal pain and pus drainage Genitourinary : no irregular bleeding, No Dysuria, No Urinary Frequency, No Hematuria, No Urinary Incontinence, No Urgency, No Flank Pain, No Urinary Flow Changes, No Hesitancy Musculoskeletal : No joint pain, No Myalgias, No Joint Swelling Skin : No Skin Lesions, No rash Neuro : No Weakness, No Numbness, No Paresthesias, No Loss of Consciousness, No Dizziness, No Headache Psych : No Anxiety/Panic, No Depression, No SI/HI/AH/VH, No Social Issues, Heme/Lymph: No Bruising, No Bleeding,No Lymphadenopathy Endocrine : No Polyuria, No Polydipsia, No Temperature Intolerance <Griselda Cruz MD - Last Filed: 03/29/22 22:06> [facility] Past Medical History Medical History: Medical History Central hypothyroidism History of lumbar puncture Migraine headache Pituitary tumor Primary central diabetes insipidus Rash <Marta Arias CNP - Last Filed: 03/29/22 16:19> Family History Family History: Family History (Updated 03/01/22 @ 11:08 by Rachell Rose CMA) Brother Brain cancer <Marta Arias CNP - Last Filed: 03/29/22 16:19> Social History Social History: Social History (Updated 03/01/22 @ 11:09 by Rachell Rose CMA) Household Members: None Housing: House Are you a primary patient care technician to a significant other at home: No Do you presently have visiting nurse or other home services: No Alcohol intake: current Alcohol intake frequency: holidays/special occasions only Alcohol type: beer Patient Tobacco Use Status: Current everyday Tobacco user Years Smoked: 20 years Smoked in Last 30 Days: Yes e-Cigarette/Vaping Use: Never Used Use of substances other than those prescribed or required for medical reasons: Yes Substance Use Type: Marijuana Substance Use Frequency: Monthly Advance Directives: No Advance Directives Information Provided: No service: No Current occupational status: unemployed (short term disability) and disabled Cognitive needs: No Hearing needs: No Vision needs: Yes <Marta Arias CNP - Last Filed: 03/29/22 16:19> Physical Exam ED Vital Signs: Vital Signs - 24 hr 03/29/22 16:14 03/29/22 18:22 03/29/22 21:45 Temperature 98.2 F 97.7 F Pulse Rate 92 90 82 Respiratory Rate 24 H 20 18 Blood Pressure 178/112 H 134/67 139/72 Pulse Oximetry 97 96 98 Oxygen Delivery Method Room Air Room Air Room Air BMI result Body Mass Index 46.5 <Marta Arias CNP - Last Filed: 03/29/22 16:19> Vital Signs - 24 hr 03/29/22 16:14 03/29/22 18:22 03/29/22 21:45 Temperature 98.2 F 97.7 F Pulse Rate 92 90 82 Respiratory Rate 24 H 20 18 Blood Pressure 178/112 H 134/67 139/72 Pulse Oximetry 97 96 98 Oxygen Delivery Method Room Air Room Air Room Air BMI result Body Mass Index 46.5 <Griselda Cruz MD - Last Filed: 03/29/22 22:06> Const Other: Appearance: Alert. Oriented X3. No acute distress. Eyes: Pupils equal, round and reactive to light. ENT: Pharynx normal. Neck: Normal inspection. Neck supple. No lymph nodes noted. No crepitus CVS: Normal heart rate and rhythm. Pulses normal. Normal S1 and S2 Respiratory: No respiratory distress. Breath sounds normal. No Wheezing. No rales Abdomen: Soft and nontender. No rigidity. No distention. Patient does have hemorrhoids, patient does have perirectal pus secretion Skin: Skin warm and dry. Normal skin color. Normal skin turgor. Extremities: No lower extremity edema. No Lacerations. No Rash Neuro: Oriented X 3. No motor deficit. No sensory deficit. Moving all extre mities. No slurred speech. CN 2 through 12 grossly intact Psych: calm, cooperative, normal affect <Griselda Cruz MD - Last Filed: 03/29/22 22:06> Course Course Course Narrative: This is an RME: Additional HPI, ROS, PE not included below will be deferred to primary provider. Patient is a 51-year-old male presents to the emergency department with complain ts of rectal pain, rash, hemorrhoids, bleeding;cant differentiate between bright or dark, and pus from rectum with onset 4 days ago. Has been using medicated wipes in creams which have provided him with some relief. Denies associated fevers, chills, nausea, vomiting, abdominal pain. Plan: labs, rectal examination deferred to primary provider <Marta Arias CNP - Last Filed: 03/29/22 16:19> This is an RME: Additional HPI, ROS, PE not included below will be deferred to primary provider. Patient is a 51-year-old male presents to the emergency department with complaints of rectal pain, rash, hemorrhoids, bleeding;cant differentiate between bright or dark, and pus from rectum with onset 4 days ago. Has been using medicated wipes in creams which have provided him with some relief. Denies associated fevers, chills, nausea, vomiting, abdominal pain. Plan: labs, rectal examination deferred to primary provider I discussed the CT scan with Dr. Gaytan. At this time, is borderline whether the patient can go home or should be admitted. However, given that the patient has been draining a fair amount of pus, we will admit him. Patient already received IV fluids, insulin 10 units, vancomycin and Zosyn. We will ask the medicine team to consult for diabetes management. Patient's glucose at 22:00 is 298 <Griselda Cruz MD - Last Filed: 03/29/22 22:06> Medications Administered Discontinued Medications Generic Name Dose Route Start Last Admin Trade Name Freq PRN Reason Stop Dose Admin Sodium Chloride 1,000 mls @ 999 mls/hr 03/29/22 18:49 03/29/22 20:11 Ns IVCONT 03/29/22 19:49 999 mls/hr .Q1H1M ONE Administration Vancomycin HCl 2,000 mg/ 540 mls @ 270 mls/hr 03/29/22 18:49 03/29/22 20:47 Sodium Chloride IV 03/29/22 20:48 270 mls/hr ONCE ONE Administration Piperacillin Sod/Tazobactam 50 mls @ 100 mls/hr 03/29/22 18:49 03/29/22 20:47 Sod 3.375 gm/ Sodium Chloride IV 03/29/22 19:18 Infused ONCE ONE Infusion Insulin Human Regular 10 unit 03/29/22 18:49 03/29/22 20:11 Insulin Regular, Human 100 Unit/Ml 3 Ml Vial IVPUSH 03/29/22 18:50 10 unit ONCE ONE Administration Iohexol 100 ml 03/29/22 20:11 03/29/22 20:11 Iohexol 350 Mg/Ml 100 Ml Infus..Btl IV 03/29/22 20:12 85 ml ONCE ONE Administration <Marta Arias CNP - Last Filed: 03/29/22 16:19> Medications Administered Discontinued Medications Generic Name Dose Route Start Last Admin Trade Name Freq PRN Reason Stop Dose Admin Sodium Chloride 1,000 mls @ 999 mls/hr 03/29/22 18:49 12/30/22 20:11 Ns IVCONT 03/29/22 19:49 999 mls/hr .Q1H1M ONE Administration Vancomycin HCl 2,000 mg/ 540 mls @ 270 mls/hr 03/29/22 18:49 03/29/22 20:47 Sodium Chloride IV 03/29/22 20:48 270 mls/hr ONCE ONE Administration Piperacillin Sod/Tazobactam 50 mls @ 100 mls/hr 03/29/22 18:49 03/29/22 20:47 Sod 3.375 gm/ Sodium Chloride IV 03/29/22 19:18 Infused ONCE ONE Infusion Insulin Human Regular 10 unit 03/29/22 18:49 03/29/22 20:11 Insulin Regular, Human 100 Unit/Ml 3 Ml Vial IVPUSH 03/29/22 18:50 10 unit ONCE ONE Administration Iohexol 100 ml 03/29/22 20:11 03/29/22 20:11 Iohexol 350 Mg/Ml 100 Ml Infus..Btl IV 03/29/22 20:12 85 ml ONCE ONE Administration <Griselda Cruz MD - Last Filed: 03/29/22 22:06> Medical Decision Making Differential Diagnosis Differential Diagnoses: The differential diagnosis associated with the presentation includes (Fistula, perirectal abscess) <Griselda Cruz MD - Last Filed: 03/29/22 22:06> Admission/Observation Consideration of admission/observation: Escalation of care including admission/observation considered <Griselda Cruz MD - Last Filed: 03/29/22 22:06> Consult Healthcare Provider Management of the patient was discussed with: Hospitalist (Dr. Mahajan copy the program evaluation consultant for diabetes management) and Financial Services Specialist (Dr. Gaytan will be admitting the patient) <Griselda Cruz MD - Last Filed: 03/29/22 22:06> Lab Data MDM Lab Attestation statement: I reviewed the patient's lab results. <Griselda Cruz MD - Last Filed: 03/29/22 22:06> Result Diagrams: : 03/29/22 17:09 03/29/22 17:09 <Marta Arias CNP - Last Filed: 03/29/22 16:19> Labs: Lab Results 12/30/22 12/30/22 12/30/22 Range/Units 17:09 17:09 19:26 WBC 12.0 H (4.8-10.8) X10*3/uL RBC 4.26 L (4.60-5.80) X10*6/uL Hgb 12.5 L (14.0-18.0) g/dl Hct 38.7 L (42.0-52.0) % MCV 90.8 (80.0-98.0) fL MCH 29.3 (27.0-33.0) pg MCHC 32.3 (31.0-36.0) g/dl RDW 14.2 (11.0-16.0) % Plt Count 313 (160-400) X10*3/uL MPV 9.4 (9.4-12.4) fL Immature Gran % (Auto) 1.3 H (0.0-0.4) % Neut % (Auto) 90.7 H (45-73) % Lymph % (Auto) 4.6 L (20-40) % [place] % (Auto) 3.2 (2-11) % Eos % (Auto) 0.0 (0-4) % Baso % (Auto) 0.2 (0-2) % Lymph # (Auto) 0.6 L (1.2-4.9) X10*3/uL [place] # (Auto) 0.4 (0.1-1.2) X10*3/uL Eos # (Auto) 0.0 (0.0-0.4) X10*3/uL Baso # (Auto) 0.0 (0.0-0.2) X10*3/uL Abs Immat Gran (auto) 0.15 H (0.00-0.03) X10*3/uL Absolute Neuts (auto) 10.9 H (2.0-8.3) x10*3/uL Absolute Nucleated RBC 0.000 (0.0-0.012) X10*3/uL Nucleated RBC % (auto) 0.0 (0.0-0.2) /100WBC Smear Tech's Comments VERIFIED Sodium 132 L (135-145) mmol/L Potassium 5.2 H D (3.3-5.1) mmol/L Chloride 97 (96-108) mmol/L Carbon Dioxide 27 (22-29) mmol/L Anion Gap 13 (12-20) BUN 18 H (9-16) mg/dL Creatinine 1.16 (0.5-1.4) mg/dL Estim Creat Clear Calc 91.3 Estimated GFR > 60 Random Glucose 660 H* (60-115) mg/dL Lactic Acid (0.5-2.0) mmol/L Calcium 8.9 D (8.4-10.2) mg/dL Total Bilirubin 0.9 0.9 (0.0-1.0) mg/dL Direct Bilirubin 0.6 H (0.0-0.5) mg/dL AST 18 21 (5-37) U/L ALT 70 H 69 H (0-40) U/L Alkaline Phosphatase 112 94 D (39-117) U/L Total Protein 5.7 L 5.7 L (6.5-8.0) g/dL Albumin 3.4 L 3.3 L (3.5-5.0) g/dL COVID-19 (SANDY) (Negative) COVID-19 Clin Com 03/29/22 03/29/22 Range/Units 19:26 19:26 WBC (4.8-10.8) X10*3/uL RBC (4.60-5.80) X10*6/uL Hgb (14.0-18.0) g/dl Hct (42.0-52.0) % MCV (80.0-98.0) fL MCH (27.0-33.0) pg MCHC (31.0-36.0) g/dl RDW (11.0-16.0) % Plt Count (160-400) X10*3/uL MPV (9.4-12.4) fL Immature Gran % (Auto) (0.0-0.4) % Neut % (Auto) (45-73) % Lymph % (Auto) (20-40) % [place] % (Auto) (2-11) % Eos % (Auto) (0-4) % Baso % (Auto) (0-2) % Lymph # (Auto) (1.2-4.9) X10*3/uL [place] # (Auto) (0.1-1.2) X10*3/uL Eos # (Auto) (0.0-0.4) X10*3/uL Baso # (Auto) (0.0-0.2) X10*3/uL Abs Immat Gran (auto) (0.00-0.03) X10*3/uL Absolute Neuts (auto) (2.0-8.3) x10*3/uL Absolute Nucleated RBC (0.0-0.012) X10*3/uL Nucleated RBC % (auto) (0.0-0.2) /100WBC Smear Tech's Comments Sodium (135-145) mmol/L Potassium (3.3-5.1) mmol/L Chloride (96-108) mmol/L Carbon Dioxide (22-29) mmol/L Anion Gap (12-20) BUN (9-16) mg/dL Creatinine (0.5-1.4) mg/dL Estim Creat Clear Calc Estimated GFR Random Glucose (60-115) mg/dL Lactic Acid 2.1 H* (0.5-2.0) mmol/L Calcium (8.4-10.2) mg/dL Total Bilirubin (0.0-1.0) mg/dL Direct Bilirubin (0.0-0.5) mg/dL AST (5-37) U/L ALT (0-40) U/L Alkaline Phosphatase (39-117) U/L Total Protein (6.5-8.0) g/dL Albumin (3.5-5.0) g/dL COVID-19 (SANDY) Negative (Negative) COVID-19 Clin Com See Note <Marta Arias CNP - Last Filed: 03/29/22 16:19> Lab Results 03/29/22 03/29/22 03/29/22 Range/Units 17:09 17:09 19:26 WBC 12.0 H (4.8-10.8) X10*3/uL RBC 4.26 L (4.60-5.80) X10*6/uL Hgb 12.5 L (14.0-18.0) g/dl Hct 38.7 L (42.0-52.0) % MCV 90.8 (80.0-98.0) fL MCH 29.3 (27.0-33.0) pg MCHC 32.3 (31.0-36.0) g/dl RDW 14.2 (11.0-16.0) % Plt Count 313 (160-400) X10*3/uL MPV 9.4 (9.4-12.4) fL Immature Gran % (Auto) 1.3 H (0.0-0.4) % Neut % (Auto) 90.7 H (45-73) % Lymph % (Auto) 4.6 L (20-40) % [place] % (Auto) 3.2 (2-11) % Eos % (Auto) 0.0 (0-4) % Baso % (Auto) 0.2 (0-2) % Lymph # (Auto) 0.6 L (1.2-4.9) X10*3/uL [place] # (Auto) 0.4 (0.1-1.2) X10*3/uL Eos # (Auto) 0.0 (0.0-0.4) X10*3/uL Baso # (Auto) 0.0 (0.0-0.2) X10*3/uL Abs Immat Gran (auto) 0.15 H (0.00-0.03) X10*3/uL Absolute Neuts (auto) 10.9 H (2.0-8.3) x10*3/uL Absolute Nucleated RBC 0.000 (0.0-0.012) X10*3/uL Nucleated RBC % (auto) 0.0 (0.0-0.2) /100WBC Smear Tech's Comments VERIFIED Sodium 132 L (135-145) mmol/L Potassium 5.2 H D (3.3-5.1) mmol/L Chloride 97 (96-108) mmol/L Carbon Dioxide 27 (22-29) mmol/L Anion Gap 13 (12-20) BUN 18 H (9-16) mg/dL Creatinine 1.16 (0.5-1.4) mg/dL Estim Creat Clear Calc 91.3 Estimated GFR > 60 Random Glucose 660 H* (60-115) mg/dL Lactic Acid (0.5-2.0) mmol/L Calcium 8.9 D (8.4-10.2) mg/dL Total Bilirubin 0.9 0.9 (0.0-1.0) mg/dL Direct Bilirubin 0.6 H (0.0-0.5) mg/dL AST 18 21 (5-37) U/L ALT 70 H 69 H (0-40) U/L Alkaline Phosphatase 112 94 D (39-117) U/L Total Protein 5.7 L 5.7 L (6.5-8.0) g/dL Albumin 3.4 L 3.3 L (3.5-5.0) g/dL COVID-19 (SANDY) (Negative) COVID-19 Clin Com 03/29/22 03/29/22 Range/Units 19:26 19:26 WBC (4.8-10.8) X10*3/uL RBC (4.60-5.80) X10*6/uL Hgb (14.0-18.0) g/dl Hct (42.0-52.0) % MCV (80.0-98.0) fL MCH (27.0-33.0) pg MCHC (31.0-36.0) g/dl RDW (11.0-16.0) % Plt Count (160-400) X10*3/uL MPV (9.4-12.4) fL Immature Gran % (Auto) (0.0-0.4) % Neut % (Auto) (45-73) % Lymph % (Auto) (20-40) % [place] % (Auto) (2-11) % Eos % (Auto) (0-4) % Baso % (Auto) (0-2) % Lymph # (Auto) (1.2-4.9) X10*3/uL [place] # (Auto) (0.1-1.2) X10*3/uL Eos # (Auto) (0.0-0.4) X10*3/uL Baso # (Auto) (0.0-0.2) X10*3/uL Abs Immat Gran (auto) (0.00-0.03) X10*3/uL Absolute Neuts (auto) (2.0-8.3) x10*3/uL Absolute Nucleated RBC (0.0-0.012) X10*3/uL Nucleated RBC % (auto) (0.0-0.2) /100WBC Smear Tech's Comments Sodium (135-145) mmol/L Potassium (3.3-5.1) mmol/L Chloride (96-108) mmol/L Carbon Dioxide (22-29) mmol/L Anion Gap (12-20) BUN (9-16) mg/dL Creatinine (0.5-1.4) mg/dL Estim Creat Clear Calc Estimated GFR Random Glucose (60-115) mg/dL Lactic Acid 2.1 H* (0.5-2.0) mmol/L Calcium (8.4-10.2) mg/dL Total Bilirubin (0.0-1.0) mg/dL Direct Bilirubin (0.0-0.5) mg/dL AST (5-37) U/L ALT (0-40) U/L Alkaline Phosphatase (39-117) U/L Total Protein (6.5-8.0) g/dL Albumin (3.5-5.0) g/dL COVID-19 (SANDY) Negative (Negative) COVID-19 Clin Com See Note <Griselda Cruz MD - Last Filed: 03/29/22 22:06> Independent Interpretation I performed an independent interpretation of an: CT Scan (Interpretation: I did not see an obvious perirectal fistula) <Griselda Cruz MD - Last Filed: 03/29/22 22:06> Radiology Impression Discussion of test interpretation with radiology: I have reviewed the radiologist's reading. <Griselda Cruz MD - Last Filed: 03/29/22 22:06> Radiologist Impression: FINDINGS: LUNG BASES: The heart size is normal. There is bilateral posterior pleural thickening. Minimal atelectatic changes are seen right lung base. LIVER, GALLBLADDER, AND BILIARY TREE: The liver is normal in size, shape, and attenuation. No focal hepatic lesion or biliary ductal dilatation is present. Small dependent gallstones are noted. No wall thickening or pericholecystic fluid collection.? PANCREAS: Unremarkable.? SPLEEN: Unremarkable.? ADRENAL GLANDS: Unremarkable.? KIDNEYS AND URETERS: The kidneys are normal in size, shape, and attenuation. No hydronephrosis, hydroureter, or calculi seen. No perinephric stranding. There is a 1.3 cm cyst upper pole left kidney.? BLADDER: Unremarkable.? GASTROINTESTINAL TRACT: There is scattered stool, gas and diverticuli seen throughout the colon without distention. The small bowel loops are normal caliber. Appendix is normal caliber.? ABDOMINAL WALL: No significant hernia is appreciated.? LYMPH NODES: Normal. VASCULAR: Unremarkable. PELVIC VISCERA: There is a left perirectal soft tissue thickening likely a small fissure or a blind-ending fistula but no perianal or ischiorectal abscess. It measures approximately 2.8 x 0.86 cm on coronal image 84/5. There is no fat stranding either.? OSSEOUS STRUCTURES: There is vacuum disc phenomena and loss of disc height L4-L5 disc level. No aggressive lytic or sclerotic process seen. ? CT/CT abdomen pelvis w IV con IMPRESSION: 1.? Left perirectal soft tissue thickening likely a small fissure or a blind-ending fistula but no perianal or ischiorectal abscess seen. 2.? Colonic diverticulosis without diverticulitis. Mild constipation. 3. Cholelithiasis without wall thickening. Fleischner guidelines were followed. <Griselda Cruz MD - Last Filed: 03/29/22 22:06> Discharge Plan Discharge Clinical Impression: Acute hyperglycemia, Perirectal fistula <Marta Arias CNP - Last Filed: 03/29/22 16:19> Patient Disposition: Admitted As Inpatient <Marta Arias CNP - Last Filed: 03/29/22 16:19> Prescriptions: No Action glipizide 5 mg tablet 5 mg PO DAILY 90 Days Qty: 90 0RF levothyroxine 175 mcg tablet 1 tab PO DAILY acetaminophen [Tylenol] 325 mg Tablet 650 mg PO Q6H PRN (Reason: Pain (Scale Score 1-3)) sulfamethoxazole-trimethoprim 800-160 mg tablet 1 tab PO BID calcium carbonate [Calcium 500] 500 mg calcium (1,250 mg) Tablet 500 mg PO BIDWM dexamethasone 4 mg tablet 1 tab PO Q6H omeprazole 20 mg capsule,delayed release(DR/EC) 1 cap PO DAILY desmopressin 0.1 mg tablet 0.1 mg PO DAILY desmopressin 0.1 mg tablet 0.05 mg PO QPM [place] Nasal 0.65 % Aerosol,[place] 2 spray INTRANASAL TID PRN (Reason: Congestion) cholecalciferol (vitamin D3) 25 mcg (1,000 unit) tablet 1 tab PO DAILY atorvastatin 80 mg tablet 80 mg PO BEDTIME (DME) lancets [FreeStyle Lancets] 28 gauge misc See Rx Instructions .ROUTE .MEDSUPPLY Qty: 100 Rx Instructions: As directed (DME) FreeStyle Lite Strips Strip See Rx Instructions .ROUTE .MEDSUPPLY Qty: 10 Rx Instructions: As directed (DME) blood-glucose meter [FreeStyle Lite Meter] Kit See Rx Instructions .ROUTE .MEDSUPPLY Qty: 1 Rx Instructions: As directed <Marta Arias, SURGERY TEACHER - Last Filed: 03/29/22 16:19>
[2022-03-29 16:14] VITALS: BP 178/112; PULSE 92; RESP 24; TEMP 36.8; O2SAT 97; BMI 46.5
[2022-03-29 17:17] LABS: Basophils Percent Auto 0.2 % (0-2); Hematocrit 38.7 % (42.0-52.0); Hemoglobin 12.5 g/dl (14.0-18.0); Imm Gran Abs Auto 0.15 X10*3/uL (0.00-0.03); Imm Gran Pct Auto 1.3 % (0.0-0.4); Lymphocytes Absolute Auto 0.6 X10*3/uL (1.2-4.9); Lymphocytes Percent Auto 4.6 % (20-40); MANUAL DIFF FLAG SCAN; Mean Corpuscular HGB Conc 32.3 g/dl (31.0-36.0); Mean Corpuscular Hemoglobin 29.3 pg (27.0-33.0); Mean Corpuscular Volume 90.8 fL (80.0-98.0); Mean Platelet Volume 9.4 fL (9.4-12.4); Monocytes Absolute Auto 0.4 X10*3/uL (0.1-1.2); Monocytes Percent Auto 3.2 % (2-11); Neutrophils Absolute Auto 10.9 x10*3/uL (2.0-8.3); Neutrophils Percent Auto 90.7 % (45-73); Platelet Count 313 X10*3/uL (160-400); Red Blood Count 4.26 X10*6/uL (4.60-5.80); Red Cell Distribution Width 14.2 % (11.0-16.0); SCAN SMEAR FLAG 1
[2022-03-29 17:41] LABS: Alanine Aminotransferase 70 U/L (0-40); Albumin Level 3.4 g/dL (3.5-5.0); Alkaline Phosphatase 112 U/L (39-117); Anion Gap 13 (12-20); Aspartate Amino Transferase 18 U/L (5-37); Bilirubin Total 0.9 mg/dL (0.0-1.0); Blood Urea Nitrogen 18 mg/dL (9-16); Calcium 8.9 mg/dL (8.4-10.2); Carbon Dioxide 27 mmol/L (22-29); Chloride 97 mmol/L (96-108); Creatinine Clr Calc Pharmacy 91.3; Estimated Glomerular Filt Rate > 60; Glucose Random 660 mg/dL (60-115); Potassium 5.2 mmol/L (3.3-5.1); Sodium 132 mmol/L (135-145); Total Protein 5.7 g/dL (6.5-8.0)
[2022-03-29 17:49] LABS: SLIDE REVIEW VERIFIED
[2022-03-29 18:22] VITALS: BP 134/67; PULSE 90; RESP 20; TEMP 36.5; O2SAT 96
[2022-03-29 19:49] LABS: COVID-19 Test Negative (Negative); IDNOW Serial# 6674DD1D
[2022-03-29 19:53] LABS: Alanine Aminotransferase 69 U/L (0-40); Albumin Level 3.3 g/dL (3.5-5.0); Alkaline Phosphatase 94 U/L (39-117); Aspartate Amino Transferase 21 U/L (5-37); Bilirubin Direct 0.6 mg/dL (0.0-0.5); Bilirubin Total 0.9 mg/dL (0.0-1.0); Lactic Acid 2.1 mmol/L (0.5-2.0); Total Protein 5.7 g/dL (6.5-8.0)
[2022-03-29] MEDS: 0.9 % Sodium Chloride 1,000 ML 999 ML IVCONT (20:11)
[2022-03-29] MEDS: iohexoL 350 MG/ML 100 ML INFUS..BTL IV (20:11)
[2022-03-29] MEDS: Insulin Regular, Human 100 UNIT/ML 3 ML VIAL 10 UNIT IVPUSH (20:11)
[2022-03-29] MEDS: Piperacillin Sodium/Tazobactam 3.375 GM in 0.9 % Sodium Chloride 50 ML IV (20:12)
--- NOTE | 2022-03-29 20:35 | PHA.MEDREC ---
Pharmacy Consult ? Medication Reconciliation Pharmacy has completed the medication reconciliation.
[2022-03-29 21:31] LABS: Reflex Lactate? Lactic Acid Added
[2022-03-29 21:45] VITALS: BP 139/72; PULSE 82; RESP 18; O2SAT 98
[2022-03-29 22:03] LABS: Glucose, Whole Blood 298 mg/dL (60-115)
[2022-03-29 22:46] LABS: ~Lactic Acid-LAB USE ONLY 2.3 mmol/L (0.5-2.0)
[2022-03-29] MEDS: 0.9 % Sodium Chloride 1,000 ML 100 ML IVCONT (22:55)
[2022-03-30] VITALS (8 sets, daily range): BP systolic 131–178; BP diastolic 73–111; PULSE 71–97; RESP 16–18; TEMP 36.1–36.3; O2SAT 97–99; BMI 46.0
[2022-03-30 00:26] LABS: Reflex Lactate? 2 Y
[2022-03-30] MEDS: 0.9 % Sodium Chloride Flush 3 ML SYRINGE IVFLUSH ×4 (01:23→21:19)
[2022-03-30] MEDS: Piperacillin Sodium/Tazobactam 3.375 GM in 0.9 % Sodium Chloride 50 ML IV ×4 (02:25→20:56)
[2022-03-30] MEDS: oxyCODONE HCl Immed Release 5 MG TABLET PO ×2 (06:06→21:10)
[2022-03-30 07:05] LABS: Hematocrit 34.2 % (42.0-52.0); Hemoglobin 11.3 g/dl (14.0-18.0); Imm Gran Pct Auto 1.1 % (0.0-0.4); Lymphocytes Absolute Auto 0.4 X10*3/uL (1.2-4.9); Lymphocytes Percent Auto 4.6 % (20-40); MANUAL DIFF FLAG SCAN; Mean Corpuscular Hemoglobin 29.5 pg (27.0-33.0); Mean Corpuscular Volume 89.3 fL (80.0-98.0); Mean Platelet Volume 9.2 fL (9.4-12.4); Monocytes Absolute Auto 0.2 X10*3/uL (0.1-1.2); Monocytes Percent Auto 2.7 % (2-11); Neutrophils Absolute Auto 8.3 x10*3/uL (2.0-8.3); Neutrophils Percent Auto 91.6 % (45-73); Platelet Count 234 X10*3/uL (160-400); Red Blood Count 3.83 X10*6/uL (4.60-5.80); Red Cell Distribution Width 14.3 % (11.0-16.0); SCAN SMEAR FLAG 1
[2022-03-30 07:16] LABS: Lactic Acid 2.5 mmol/L (0.5-2.0)
[2022-03-30 07:19] LABS: Glucose, Whole Blood 369 mg/dL (60-115)
[2022-03-30 07:20] LABS: Anion Gap 10 (12-20); Blood Urea Nitrogen 15 mg/dL (9-16); Calcium 8.4 mg/dL (8.4-10.2); Carbon Dioxide 27 mmol/L (22-29); Chloride 104 mmol/L (96-108); Creatinine Clr Calc Pharmacy 127.6; Estimated Glomerular Filt Rate > 60; Glucose Random 401 mg/dL (60-115); Potassium 4.5 mmol/L (3.3-5.1); Sodium 136 mmol/L (135-145)
[2022-03-30 07:37] LABS: SLIDE REVIEW VERIFIED
[2022-03-30 08:59] LABS: Reflex Lactate? Lactic Acid Added
--- NOTE | 2022-03-30 09:05 | PC.NURSE ---
the surgeon at bedside evaluating the pt, plan for the pt to go to surgery this afternoon because pt had breakfast, pt aware of npo starting now. spoke the the surgeon about the elevated glucose and if this rn will be covering it since pt is npo, surgeon responds to hold until she speaks to Vanna the hospitalist
[2022-03-30] MEDS: 0.9 % Sodium Chloride 1,000 ML 100 ML IVCONT (09:56)
[2022-03-30 10:08] LABS: ~Lactic Acid-LAB USE ONLY 2.5 mmol/L (0.5-2.0)
--- NOTE | 2022-03-30 10:49 | P.CONAN_ITS ---
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) Migraine headache (Acute) Cellulitis of foot (Acute) Tinea pedis (Acute) Atopic dermatitis (Acute) Encounter for screening for COVID-19 (Acute) Dissection of right carotid artery (Acute) Headache syndrome (Acute) Hospital discharge follow-up (Acute) Elevated blood pressure reading (Acute) Blind right eye (Acute) Morbid obesity due to excess calories (Acute) Carotid stenosis, bilateral (Acute) Hypertension, essential (Acute) Right retinal artery branch occlusion (Acute) Lipid disorder (Acute) Blurred vision, left eye (Acute) Encounter for screening colonoscopy (Acute) New onset type 2 diabetes mellitus (Acute) Intracranial mass (Acute) Acute hyperglycemia (Acute) Rash (Acute) Past Medical History Medical History Central hypothyroidism History of lumbar puncture Migraine headache Pituitary tumor Primary central diabetes insipidus Rash Functional capacity: independent ambulation Family History Family History Brother Brain cancer Family history of problems with anesthesia: No Surgical History History of Problems with Anesthesia: No Social History Social History Household Members: None Housing: House Are you a primary hourly caregiver to a significant other at home: No Do you presently have visiting nurse or other home services: No Alcohol intake: current Alcohol intake frequency: holidays/special occasions only Alcohol type: beer Patient Tobacco Use Status: Current everyday Tobacco user Years Smoked: 20 years e-Cigarette/Vaping Use: Never Used Substance Use Type: Marijuana service: No Current occupational status: unemployed (short term disability) and disabled Cognitive needs: No Hearing needs: No Vision needs: Yes Meds Allergies Allergy/AdvReac Type Severity Reaction Status Date / Time No Known Allergies Allergy Verified 03/29/22 16:19 Active Medications: Current Medications Dextrose (Dextrose 50 % 25 Gm/50 Ml Syringe) 25 gm IVPUSH Q15M PRN; Protocol PRN Reason: per Hypoglycemia Standing Ord. Glucose (Glucose Gel 15 Gm Gel..Gram.) 15 gm PO Q15M PRN; Protocol PRN Reason: per Hypoglycemia Standing Ord. Sodium Chloride (Ns) 1,000 mls @ 100 mls/hr IVCONT .Q10H [facility] Last Admin: 03/30/22 09:56 Dose: 100 mls/hr Piperacillin Sod/Tazobactam (Sod 3.375 gm/ Sodium Chloride) 50 mls @ 100 mls/hr IV Q6H [facility] Last Infusion: 03/30/22 09:09 Dose: Infused Insulin Human Lispro (Insulin Lispro 100 Unit/Ml 3 Ml Vial) 0 unit SUBCUT QIDACHS [facility]; Protocol Oxycodone HCl (Oxycodone Hcl Immed Release 5 Mg Tablet) 5 mg PO Q4H PRN PRN Reason: Pain, Severe (Pain Scale 7-10) Last Admin: 03/30/22 06:06 Dose: 5 mg Sodium Chloride (0.9 % Sodium Chloride Flush 3 Ml Syringe) [facility] Last Admin: 03/30/22 08:02 Dose: 3 ml Home Medications Medication Instructions Recorded Confirmed Last Taken Type blood sugar diagnostic (FreeStyle #10 ea 02/28/22 03/01/22 Unknown History Lite Strips) blood-glucose meter (FreeStyle #1 ea 02/28/22 03/01/22 Unknown History Lite Meter kit) lancets 28 gauge (FreeStyle #100 ea 02/28/22 03/01/22 Unknown History Lancets) acetaminophen 325 mg tablet 650 mg PO Q6H PRN Pain (Scale 03/29/22 03/29/22 Unknown History (Tylenol) Score 1-3) atorvastatin 80 mg tablet 80 mg PO BEDTIME 03/29/22 03/29/22 03/28/22 History calcium carbonate 500 mg calcium 500 mg PO BIDWM 03/29/22 03/29/22 03/29/22 History (1,250 mg) tablet cholecalciferol (vitamin D3) 25 1 tab PO DAILY 03/29/22 03/29/22 03/29/22 History mcg (1,000 unit) tablet desmopressin 0.1 mg tablet 0.05 mg PO QPM 03/29/22 03/29/22 03/28/22 History desmopressin 0.1 mg tablet 0.1 mg PO DAILY 03/29/22 03/29/22 03/29/22 History dexamethasone 4 mg tablet 1 tab PO Q6H 03/29/22 03/29/22 03/29/22 History levothyroxine 175 mcg tablet 1 tab PO DAILY 03/29/22 03/29/22 03/29/22 History omeprazole 20 mg capsule,delayed 1 cap PO DAILY 03/29/22 03/29/22 03/29/22 History release sodium chloride 0.65 % nasal spray 2 spray intranasal TID PRN 03/29/22 03/29/22 Unknown History aerosol ([place] Nasal) Congestion sulfamethoxazole 800 1 tab PO BID 03/29/22 03/29/22 03/29/22 History mg-trimethoprim 160 mg tablet Exam Exam Date and Time: March 30, 2022 1049 Height,Weight and Vital Signs: Height 5 ft 5 in Weight 127.006 kg Last Vital Signs Temp 97.7 F 03/29/22 18:22 Pulse 93 03/30/22 08:11 Resp 18 03/30/22 08:11 BP 148/75 H 03/30/22 08:11 Pulse Ox 99 03/30/22 08:11 O2 Del Method 03/30/22 08:11 Pertinent Lab Results Pertinent Lab Results: Laboratory Tests 03/29/22 03/29/22 03/29/22 17:09 17:09 19:26 WBC 12.0 H RBC 4.26 L Hgb 12.5 L Hct 38.7 L MCV 90.8 MCH 29.3 MCHC 32.3 RDW 14.2 Plt Count 313 MPV 9.4 Immature Gran % (Auto) 1.3 H Neut % (Auto) 90.7 H Lymph % (Auto) 4.6 L [place] % (Auto) 3.2 Eos % (Auto) 0.0 Baso % (Auto) 0.2 Lymph # (Auto) 0.6 L [place] # (Auto) 0.4 Eos # (Auto) 0.0 Baso # (Auto) 0.0 Abs Immat Gran (auto) 0.15 H Absolute Neuts (auto) 10.9 H Absolute Nucleated RBC 0.000 Nucleated RBC % (auto) 0.0 Smear Tech's Comments VERIFIED Sodium 132 L Potassium 5.2 H D Chloride 97 Carbon Dioxide 27 Anion Gap 13 BUN 18 H Creatinine 1.16 Estim Creat Clear Calc 91.3 Estimated GFR > 60 POC Glucose Random Glucose 660 H* Lactic Acid Lactic Acid F/U @ 2Hr Lactic Acid F/U @ 4Hr Calcium 8.9 D Total Bilirubin 0.9 0.9 Direct Bilirubin 0.6 H AST 18 21 ALT 70 H 69 H Alkaline Phosphatase 112 94 D Total Protein 5.7 L 5.7 L Albumin 3.4 L 3.3 L COVID-19 ([facility]) COVID-19 Clin Com 03/29/22 03/29/22 03/29/22 19:26 19:26 21:59 WBC RBC Hgb Hct MCV MCH MCHC RDW Plt Count MPV Immature Gran % (Auto) Neut % (Auto) Lymph % (Auto) [place] % (Auto) Eos % (Auto) Baso % (Auto) Lymph # (Auto) [place] # (Auto) Eos # (Auto) Baso # (Auto) Abs Immat Gran (auto) Absolute Neuts (auto) Absolute Nucleated RBC Nucleated RBC % (auto) Smear Tech's Comments Sodium Potassium Chloride Carbon Dioxide Anion Gap BUN Creatinine Estim Creat Clear Calc Estimated GFR POC Glucose 298 H Random Glucose Lactic Acid 2.1 H* Lactic Acid F/U @ 2Hr Lactic Acid F/U @ 4Hr Calcium Total Bilirubin Direct Bilirubin AST ALT Alkaline Phosphatase Total Protein Albumin COVID-19 ([facility]) Negative COVID-19 [employer] Com See Note 03/29/22 03/30/22 03/30/22 22:19 01:15 06:54 WBC 9.0 RBC 3.83 L Hgb 11.3 L Hct 34.2 L MCV 89.3 MCH 29.5 MCHC 33.0 RDW 14.3 Plt Count 234 D MPV 9.2 L Immature Gran % (Auto) 1.1 H Neut % (Auto) 91.6 H Lymph % (Auto) 4.6 L [place] % (Auto) 2.7 Eos % (Auto) 0.0 Baso % (Auto) 0.0 Lymph # (Auto) 0.4 L [place] # (Auto) 0.2 Eos # (Auto) 0.0 Baso # (Auto) 0.0 Abs Immat Gran (auto) 0.10 H Absolute Neuts (auto) 8.3 Absolute Nucleated RBC 0.000 Nucleated RBC % (auto) 0.0 Smear Tech's Comments VERIFIED Sodium Potassium Chloride Carbon Dioxide Anion Gap BUN Creatinine Estim Creat Clear Calc Estimated GFR POC Glucose Random Glucose Lactic Acid Lactic Acid F/U @ 2Hr 2.3 H* Lactic Acid F/U @ 4Hr 1.0 Calcium Total Bilirubin Direct Bilirubin AST ALT Alkaline Phosphatase Total Protein Albumin COVID-19 ([facility]) COVID-19 [employer] 03/30/22 03/30/22 03/30/22 06:54 06:54 07:15 WBC RBC Hgb Hct MCV MCH MCHC RDW Plt Count MPV Immature Gran % (Auto) Neut % (Auto) Lymph % (Auto) [place] % (Auto) Eos % (Auto) Baso % (Auto) Lymph # (Auto) [place] # (Auto) Eos # (Auto) Baso # (Auto) Abs Immat Gran (auto) Absolute Neuts (auto) Absolute Nucleated RBC Nucleated RBC % (auto) Smear Tech's Comments Sodium 136 Potassium 4.5 Chloride 104 Carbon Dioxide 27 Anion Gap 10 L BUN 15 Creatinine 0.83 Estim Creat Clear Calc 127.6 Estimated GFR > 60 POC Glucose 369 H* Random Glucose 401 H* Lactic Acid 2.5 H* Lactic Acid F/U @ 2Hr Lactic Acid F/U @ 4Hr Calcium 8.4 Total Bilirubin Direct Bilirubin AST ALT Alkaline Phosphatase Total Protein Albumin COVID-19 ([facility]) COVID-19 [employer] 03/30/22 09:31 WBC RBC Hgb Hct MCV MCH MCHC RDW Plt Count MPV Immature Gran % (Auto) Neut % (Auto) Lymph % (Auto) [place] % (Auto) Eos % (Auto) Baso % (Auto) Lymph # (Auto) [place] # (Auto) Eos # (Auto) Baso # (Auto) Abs Immat Gran (auto) Absolute Neuts (auto) Absolute Nucleated RBC Nucleated RBC % (auto) Smear Tech's Comments Sodium Potassium Chloride Carbon Dioxide Anion Gap BUN Creatinine Estim Creat Clear Calc Estimated GFR POC Glucose Random Glucose Lactic Acid Lactic Acid F/U @ 2Hr 2.5 H* Lactic Acid F/U @ 4Hr Calcium Total Bilirubin Direct Bilirubin AST ALT Alkaline Phosphatase Total Protein Albumin COVID-19 ([facility]) COVID-19 [employer] Mallampati Class: IV TM Dist: >3cm Neck ROM: Full Heart: RRR Lungs: CTA Assessment and Plan Final Anesthetic Review Family History of Problems with Anesthesia: No History of Problems with Anesthesia: No ASA Class: III and Emergency Final Preanesthetic Review: Meds/Allgs Chart Reviewed, Consent Obtained/Reviewed and Anes Risks/Benef Reviewed Patient Risk: High Procedure Risk: Low Anesthetic Plan Anesthetic Plan: GA Disposition: Standard PACU
[2022-03-30 11:42] LABS: Reflex Lactate? 2 Y
--- NOTE | 2022-03-30 12:06 | HO.PM.IMCN ---
History of Present Illness Data of Consult Service Date: 03/30/22 Primary Care Provider: Ulisses Whitmore MD [facility] Reason for consult: Diabetes and Medical Management Patient is 51-year-old male does the past history significant for central diabetes insipidus, DM2, and blindness in right eye who presents to the ED today with a 4-day history of perirectal pain with bleeding and draining pus. Pt is admitted under general surgery who will evaluate him for a drainable abscess later in the day. Pt's labs showed elevated POC and random glucose. Hospitalist consult for diabetes and medical management. Pt was recently diagnosed with DM2, non-insulin dependent on glipizide. Besides his presenting symptoms, pt has no other acute complaints. Denies F/C, headache, N/V. No chest pain/pressure, palpitations, SOB. No orthopnea. Review of Systems Review of Systems: Perirectal pain with draining pus x4 days No chest pain/pressure Denies SOB Denies abdominal pain Yes all other systems are reviewed and are negative [facility] Medical History Central hypothyroidism History of lumbar puncture Migraine headache Pituitary tumor Primary central diabetes insipidus Rash Family History (Updated 03/01/22 @ 11:08 by Rachell Rose CMA) Brother Brain cancer Social History (Updated 03/01/22 @ 11:09 by Rachell Rose CMA) Household Members: None Housing: House Are you a primary complex care nurse to a significant other at home: No Do you presently have visiting nurse or other home services: No Alcohol intake: current Alcohol intake frequency: holidays/special occasions only Alcohol type: beer Patient Tobacco Use Status: Current everyday Tobacco user Years Smoked: 20 years Smoked in Last 30 Days: Yes e-Cigarette/Vaping Use: Never Used Use of substances other than those prescribed or required for medical reasons: Yes Substance Use Type: Marijuana Substance Use Frequency: Monthly Advance Directives: No Advance Directives Information Provided: No service: No Current occupational status: unemployed (short term disability) and disabled Cognitive needs: No Hearing needs: No Vision needs: Yes Meds Allergies Allergy/AdvReac Type Severity Reaction Status Date / Time No Known Allergies Allergy Verified 03/29/22 16:19 Active Medications: Current Medications Dextrose (Dextrose 50 % 25 Gm/50 Ml Syringe) 25 gm IVPUSH Q15M PRN; Protocol PRN Reason: per Hypoglycemia Standing Ord. Glucose (Glucose Gel 15 Gm Gel..Gram.) 15 gm PO Q15M PRN; Protocol PRN Reason: per Hypoglycemia Standing Ord. Sodium Chloride (Ns) 1,000 mls @ 100 mls/hr IVCONT .Q10H [facility] Last Admin: 03/30/22 09:56 Dose: 100 mls/hr Piperacillin Sod/Tazobactam (Sod 3.375 gm/ Sodium Chloride) 50 mls @ 100 mls/hr IV Q6H [facility] Last Infusion: 03/30/22 09:09 Dose: Infused Insulin Human Lispro (Insulin Lispro 100 Unit/Ml 3 Ml Vial) 0 unit SUBCUT QIDACHS [facility]; Protocol Oxycodone HCl (Oxycodone Hcl Immed Release 5 Mg Tablet) 5 mg PO Q4H PRN PRN Reason: Pain, Severe (Pain Scale 7-10) Last Admin: 03/30/22 06:06 Dose: 5 mg Sodium Chloride (0.9 % Sodium Chloride Flush 3 Ml Syringe) [facility] Last Admin: 03/30/22 08:02 Dose: 3 ml Home Medications Medication Instructions Recorded Confirmed Last Taken Type blood sugar diagnostic (FreeStyle #10 ea 02/28/22 03/01/22 Unknown History Lite Strips) blood-glucose meter (FreeStyle #1 ea 02/28/22 03/01/22 Unknown History Lite Meter kit) lancets 28 gauge (FreeStyle #100 ea 02/28/22 03/01/22 Unknown History Lancets) acetaminophen 325 mg tablet 650 mg PO Q6H PRN Pain (Scale 03/29/22 03/29/22 Unknown History (Tylenol) Score 1-3) atorvastatin 80 mg tablet 80 mg PO BEDTIME 03/29/22 03/29/22 03/28/22 History calcium carbonate 500 mg calcium 500 mg PO BIDWM 03/29/22 03/29/22 03/29/22 History (1,250 mg) tablet cholecalciferol (vitamin D3) 25 1 tab PO DAILY 03/29/22 03/29/22 03/29/22 History mcg (1,000 unit) tablet desmopressin 0.1 mg tablet 0.05 mg PO QPM 03/29/22 03/29/22 03/28/22 History desmopressin 0.1 mg tablet 0.1 mg PO DAILY 03/29/22 03/29/22 03/29/22 History dexamethasone 4 mg tablet 1 tab PO Q6H 03/29/22 03/29/22 03/29/22 History levothyroxine 175 mcg tablet 1 tab PO DAILY 03/29/22 03/29/22 03/29/22 History omeprazole 20 mg capsule,delayed 1 cap PO DAILY 03/29/22 03/29/22 03/29/22 History release sodium chloride 0.65 % nasal spray 2 spray intranasal TID PRN 03/29/22 03/29/22 Unknown History aerosol ([place] Nasal) Congestion sulfamethoxazole 800 1 tab PO BID 03/29/22 03/29/22 03/29/22 History mg-trimethoprim 160 mg tablet Physical Exam Vital Signs and Narrative: Vital Signs: Last Vital Signs Temp 97.7 F 03/29/22 18:22 Pulse 93 03/30/22 08:11 Resp 18 03/30/22 08:11 BP 148/75 H 03/30/22 08:11 Pulse Ox 99 03/30/22 08:11 O2 Del Method 03/30/22 08:11 BMI result Body Mass Index 46.5 General: AOx3, no acute distress Resp: CTA bilaterally CVS: S1, S2, RRR GI: +BS, NT, no distention Skin: No rash Neuro: Motor grossly intact Extremities: 3+ pitting edema bilaterally Psych: Appropriate affect Results Labs CBC and Chem 7: 03/30/22 06:54 03/30/22 06:54 Labs: Laboratory Results - last 24 hr 03/29/22 03/29/22 03/29/22 17:09 17:09 19:26 MCV 90.8 MCH 29.3 MCHC 32.3 RDW 14.2 Plt Count 313 MPV 9.4 Immature Gran % (Auto) 1.3 H Neut % (Auto) 90.7 H Lymph % (Auto) 4.6 L [place] % (Auto) 3.2 Eos % (Auto) 0.0 Baso % (Auto) 0.2 Lymph # (Auto) 0.6 L [place] # (Auto) 0.4 Eos # (Auto) 0.0 Baso # (Auto) 0.0 Abs Immat Gran (auto) 0.15 H Absolute Neuts (auto) 10.9 H Absolute Nucleated RBC 0.000 Nucleated RBC % (auto) 0.0 Smear Tech's Comments VERIFIED Anion Gap 13 Estim Creat Clear Calc 91.3 Estimated GFR > 60 POC Glucose Random Glucose 660 H* Lactic Acid Lactic Acid F/U @ 2Hr Lactic Acid F/U @ 4Hr Calcium 8.9 D Total Bilirubin 0.9 0.9 Direct Bilirubin 0.6 H AST 18 21 ALT 70 H 69 H Alkaline Phosphatase 112 94 D Total Protein 5.7 L 5.7 L Albumin 3.4 L 3.3 L COVID-19 ([facility]) COVID-19 Clin Com 03/29/22 03/29/22 03/29/22 19:26 19:26 21:59 MCV MCH MCHC RDW Plt Count MPV Immature Gran % (Auto) Neut % (Auto) Lymph % (Auto) [place] % (Auto) Eos % (Auto) Baso % (Auto) Lymph # (Auto) [place] # (Auto) Eos # (Auto) Baso # (Auto) Abs Immat Gran (auto) Absolute Neuts (auto) Absolute Nucleated RBC Nucleated RBC % (auto) Smear Tech's Comments Anion Gap Estim Creat Clear Calc Estimated GFR POC Glucose 298 H Random Glucose Lactic Acid 2.1 H* Lactic Acid F/U @ 2Hr Lactic Acid F/U @ 4Hr Calcium Total Bilirubin Direct Bilirubin AST ALT Alkaline Phosphatase Total Protein Albumin COVID-19 ([facility]) Negative COVID-19 Clin Com See Note 03/29/22 03/30/22 03/30/22 22:19 01:15 06:54 MCV 89.3 MCH 29.5 MCHC 33.0 RDW 14.3 Plt Count 234 D MPV 9.2 L Immature Gran % (Auto) 1.1 H Neut % (Auto) 91.6 H Lymph % (Auto) 4.6 L [place] % (Auto) 2.7 Eos % (Auto) 0.0 Baso % (Auto) 0.0 Lymph # (Auto) 0.4 L [place] # (Auto) 0.2 Eos # (Auto) 0.0 Baso # (Auto) 0.0 Abs Immat Gran (auto) 0.10 H Absolute Neuts (auto) 8.3 Absolute Nucleated RBC 0.000 Nucleated RBC % (auto) 0.0 Smear Tech's Comments VERIFIED Anion Gap Estim Creat Clear Calc Estimated GFR POC Glucose Random Glucose Lactic Acid Lactic Acid F/U @ 2Hr 2.3 H* Lactic Acid F/U @ 4Hr 1.0 Calcium Total Bilirubin Direct Bilirubin AST ALT Alkaline Phosphatase Total Protein Albumin COVID-19 ([facility]) COVID-19 [employer] 03/30/22 03/30/22 03/30/22 06:54 06:54 07:15 MCV MCH MCHC RDW Plt Count MPV Immature Gran % (Auto) Neut % (Auto) Lymph % (Auto) [place] % (Auto) Eos % (Auto) Baso % (Auto) Lymph # (Auto) [place] # (Auto) Eos # (Auto) Baso # (Auto) Abs Immat Gran (auto) Absolute Neuts (auto) Absolute Nucleated RBC Nucleated RBC % (auto) Smear Tech's Comments Anion Gap 10 L Estim Creat Clear Calc 127.6 Estimated GFR > 60 POC Glucose 369 H* Random Glucose 401 H* Lactic Acid 2.5 H* Lactic Acid F/U @ 2Hr Lactic Acid F/U @ 4Hr Calcium 8.4 Total Bilirubin Direct Bilirubin AST ALT Alkaline Phosphatase Total Protein Albumin COVID-19 ([facility]) [employer] 03/30/22 09:31 MCV MCH MCHC RDW Plt Count MPV Immature Gran % (Auto) Neut % (Auto) Lymph % (Auto) [place] % (Auto) Eos % (Auto) Baso % (Auto) Lymph # (Auto) [place] # (Auto) Eos # (Auto) Baso # (Auto) Abs Immat Gran (auto) Absolute Neuts (auto) Absolute Nucleated RBC Nucleated RBC % (auto) Smear Tech's Comments Anion Gap Estim Creat Clear Calc Estimated GFR POC Glucose Random Glucose Lactic Acid Lactic Acid F/U @ 2Hr 2.5 H* Lactic Acid F/U @ 4Hr Calcium Total Bilirubin Direct Bilirubin AST ALT Alkaline Phosphatase Total Protein Albumin COVID-19 ([facility]Y) COVID-19 [employer] [facility] Radiologist's Impressions: Impressions Abdomen/Pelvis CT 03/29/22 20:12 IMPRESSION: 1. Left perirectal soft tissue thickening likely a small fissure or a blind-ending fistula but no perianal or ischiorectal abscess seen. 2. Colonic diverticulosis without diverticulitis. Mild constipation. 3. Cholelithiasis without wall thickening. Fleischner guidelines were followed. Assessment and Plan (1) Perirectal abscess: Status: Acute (2) Primary central diabetes insipidus: Status: Acute (3) Morbid obesity due to excess calories: Status: Acute (4) New onset type 2 diabetes mellitus: Status: Acute Plan Patient is 51-year-old male does the past history significant for central diabetes insipidus, DM2, and blindness in right eye who presents to the ED today with a 4-day history of perirectal pain with bleeding and draining pus. Pt is admitted under general surgery who will evaluate him for a drainable abscess later in the day. Pt's labs showed elevated POC and random glucose. Hospitalist consult for diabetes and medical management. # hyperglycemia -- POC elevated at 298 and then 369, possibly secondary to stress, infection -- A1C 6.8 on 02/19/22 -- pt non-insulin dependent DM on glipizide -- hold glipizide -- ssi for now, recheck POC after surgery -- repeat A1C -- diabetic diet once no longer NPO # diabetes insipidus -- secondary to pituitary tumor, under outpatient management -- continue steroids, desmopression # peripheral edema -- 3+ pitting edema bilaterally, apparently chronic but worse since starting steroids a month ago -- possibly secondary to steroid use, hypothyroidism -- check BNP # hypothyroisdim -- recheck TSH, T4 levels -- continue levothyroxine Thank you for allowing us to participate in the care of this patient. We will follow him during his stay in the hospital. Time Spent With Patient Time: Total time managing care of this patient today ____ minutes.
--- NOTE | 2022-03-30 12:20 | P.HPGS_ITS ---
History of Present Illness History of Present Illness Date of Service: 03/30/22 Chief complaint: Rectal Pain Narrative: Gurdeep Jordan is a 51 year old male who has been having rectal pain and discomfort over the last 3-4 days and daughter was putting cream on what they thought was hemorrhoids and noticed pus draining. pt has been able to have bowel movements no blood. has never had this before but has had hemorrhoids in past. he recently had a pituitary mass biopsied and is diabetic. Review of Systems Constitutional: Constitutional: Reports no additional constitutional complain ts Cardiovascular: Cardiovascular: Denies chest pain Gastrointestinal: Gastrointestinal: Denies abdominal pain, Denies change in bowel habits and Denies change in stool character Musculoskeletal: Musculoskeletal: Reports no additional musculoskeletal complaints Psychiatric: Psychiatric: Reports no additional psychiatric complaints [facility] Past Medical History Medical History Central hypothyroidism History of lumbar puncture Migraine headache Pituitary tumor Primary central diabetes insipidus Rash Family History Family History (Updated 03/01/22 @ 11:08 by Rachell Rose CMA) Brother Brain cancer Social History Social History (Updated 03/01/22 @ 11:09 by Rachell Rose CMA) Household Members: None Housing: House Are you a primary pet care assistant to a significant other at home: No Do you presently have visiting nurse or other home services: No Alcohol intake: current Alcohol intake frequency: holidays/special occasions only Alcohol type: beer Patient Tobacco Use Status: Current everyday Tobacco user Years Smoked: 20 years Smoked in Last 30 Days: Yes e-Cigarette/Vaping Use: Never Used Use of substances other than those prescribed or required for medical reasons: Yes Substance Use Type: Marijuana Substance Use Frequency: Monthly Advance Directives: No Advance Directives Information Provided: No service: No Current occupational status: unemployed (short term disability) and disabled Cognitive needs: No Hearing needs: No Vision needs: Yes Meds Allergies Allergy/AdvReac Type Severity Reaction Status Date / Time No Known Allergies Allergy Verified 03/29/22 16:19 Active Medications: Current Medications Dextrose (Dextrose 50 % 25 Gm/50 Ml Syringe) 25 gm IVPUSH Q15M PRN; Protocol PRN Reason: per Hypoglycemia Standing Ord. Glucose (Glucose Gel 15 Gm Gel..Gram.) 15 gm PO Q15M PRN; Protocol PRN Reason: per Hypoglycemia Standing Ord. Sodium Chloride (Ns) 1,000 mls @ 100 mls/hr IVCONT .Q10H [facility] Last Admin: 03/30/22 09:56 Dose: 100 mls/hr Piperacillin Sod/Tazobactam (Sod 3.375 gm/ Sodium Chloride) 50 mls @ 100 mls/hr IV Q6H [facility] Last Infusion: 03/30/22 09:09 Dose: Infused Insulin Human Lispro (Insulin Lispro 100 Unit/Ml 3 Ml Vial) 0 unit SUBCUT QIDACHS [facility]; Protocol Oxycodone HCl (Oxycodone Hcl Immed Release 5 Mg Tablet) 5 mg PO Q4H PRN PRN Reason: Pain, Severe (Pain Scale 7-10) Last Admin: 03/30/22 06:06 Dose: 5 mg Sodium Chloride (0.9 % Sodium Chloride Flush 3 Ml Syringe) [address] [facility] Last Admin: 03/30/22 08:02 Dose: 3 ml Home Medications Medication Instructions Recorded Confirmed Last Taken Type blood sugar diagnostic (FreeStyle #10 ea 02/28/22 03/01/22 Unknown History Lite Strips) blood-glucose meter (FreeStyle #1 ea 02/28/22 03/01/22 Unknown History Lite Meter kit) lancets 28 gauge (FreeStyle #100 ea 02/28/22 03/01/22 Unknown History Lancets) acetaminophen 325 mg tablet 650 mg PO Q6H PRN Pain (Scale 03/29/22 03/29/22 Unknown History (Tylenol) Score 1-3) atorvastatin 80 mg tablet 80 mg PO BEDTIME 03/29/22 03/29/22 03/28/22 History calcium carbonate 500 mg calcium 500 mg PO BIDWM 03/29/22 03/29/22 03/29/22 History (1,250 mg) tablet cholecalciferol (vitamin D3) 25 1 tab PO DAILY 03/29/22 03/29/22 03/29/22 History mcg (1,000 unit) tablet desmopressin 0.1 mg tablet 0.05 mg PO QPM 03/29/22 03/29/22 03/28/22 History desmopressin 0.1 mg tablet 0.1 mg PO DAILY 03/29/22 03/29/22 03/29/22 History dexamethasone 4 mg tablet 1 tab PO Q6H 03/29/22 03/29/22 03/29/22 History levothyroxine 175 mcg tablet 1 tab PO DAILY 03/29/22 03/29/22 03/29/22 History omeprazole 20 mg capsule,delayed 1 cap PO DAILY 03/29/22 03/29/22 03/29/22 History release sodium chloride 0.65 % nasal spray 2 spray intranasal TID PRN 03/29/22 03/29/22 Unknown History aerosol ([place] Nasal) Congestion sulfamethoxazole 800 1 tab PO BID 03/29/22 03/29/22 03/29/22 History mg-trimethoprim 160 mg tablet Physical Exam Vital Signs: Vital Signs: Last Vital Signs Temp 97.7 F 03/29/22 18:22 Pulse 93 03/30/22 08:11 Resp 18 03/30/22 08:11 BP 148/75 H 03/30/22 08:11 Pulse Ox 99 03/30/22 08:11 O2 Del Method 03/30/22 08:11 BMI result Body Mass Index 46.5 Const: General: cooperative, healthy appearing and acute distress mild HEENT: Head: Yes normal to inspection Neck: Neck: Yes normal visual inspection Resp: Effort & Inspection: normal respiratory effort Cardio: Rate: regular rate Rhythm: regular rhythm GI: Other: soft obese nontender Inspection: No distended Rectal Exam - Male: Yes other (anal area with raw skin area bilateral external but too uncomfortable recta) Results Results Labs: Short CBC 03/29/22 03/30/22 Range/Units 17:09 06:54 WBC 12.0 H 9.0 (4.8-10.8) X10*3/uL Hgb 12.5 L 11.3 L (14.0-18.0) g/dl Hct 38.7 L 34.2 L (42.0-52.0) % Plt Count 313 234 D (160-400) X10*3/uL BMP 03/29/22 03/30/22 17:09 06:54 Sodium 132 L 136 Potassium 5.2 H D 4.5 Chloride 97 104 Carbon Dioxide 27 27 BUN 18 H 15 Creatinine 1.16 0.83 Calcium 8.9 D 8.4 Liver Function 03/29/22 03/29/22 Range/Units 17:09 19:26 Total Bilirubin 0.9 0.9 (0.0-1.0) mg/dL Direct Bilirubin 0.6 H (0.0-0.5) mg/dL AST 18 21 (5-37) U/L ALT 70 H 69 H (0-40) U/L Alkaline Phosphatase 112 94 D (39-117) U/L Albumin 3.4 L 3.3 L (3.5-5.0) g/dL CT scan - pelvis: report reviewed and image reviewed Additional studies: Ordering Physician: Griselda Cruz MD Date of Service: 03/29/22 Procedure(s): CT abdomen pelvis w IV con Accession Number(s): [id number] cc: Griselda Cruz MD~ EXAMINATION: CT ABDOMEN AND PELVIS WITH CONTRAST? CLINICAL INFORMATION: Diarrhea. Rule out perirectal abscess.? COMPARISON: None? TECHNIQUE: Multidetector volumetric images were obtained from the superior aspect of the liver through the pubic symphysis following administration 85 mL of Omnipaque 350 intravenous contrast. Sagittal and coronal reformatted images were obtained on the technologist's workstation.? Oral contrast: No This CT examination was performed using dose optimization techniques as appropriate, variously including the following: *Automated exposure control *Adjustment of mA and/or kV according to patient size (this includes techniques or standardized protocols for targeted exams where dose is matched to indication/reason for exam; i.e. extremities or head) *Use of iterative reconstruction technique DLP: 1210 mGy-cm FINDINGS: LUNG BASES: The heart size is normal. There is bilateral posterior pleural thickening. Minimal atelectatic changes are seen right lung base. LIVER, GALLBLADDER, AND BILIARY TREE: The liver is normal in size, shape, and attenuation. No focal hepatic lesion or biliary ductal dilatation is present. Small dependent gallstones are noted. No wall thickening or pericholecystic fluid collection.? PANCREAS: Unremarkable.? SPLEEN: Unremarkable.? ADRENAL GLANDS: Unremarkable.? KIDNEYS AND URETERS: The kidneys are normal in size, shape, and attenuation. No hydronephrosis, hydroureter, or calculi seen. No perinephric stranding. There is a 1.3 cm cyst upper pole left kidney.? BLADDER: Unremarkable.? GASTROINTESTINAL TRACT: There is scattered stool, gas and diverticuli seen throughout the colon without distention. The small bowel loops are normal caliber. Appendix is normal caliber.? ABDOMINAL WALL: No significant hernia is appreciated.? LYMPH NODES: Normal. VASCULAR: Unremarkable. PELVIC VISCERA: There is a left perirectal soft tissue thickening likely a small fissure or a blind-ending fistula but no perianal or ischiorectal abscess. It measures approximately 2.8 x 0.86 cm on coronal image 84/5. There is no fat stranding either.? OSSEOUS STRUCTURES: There is vacuum disc phenomena and loss of disc height L4-L5 disc level. No aggressive lytic or sclerotic process seen. ? CT/CT abdomen pelvis w IV con IMPRESSION: 1.? Left perirectal soft tissue thickening likely a small fissure or a blind-ending fistula but no perianal or ischiorectal abscess seen. 2.? Colonic diverticulosis without diverticulitis. Mild constipation. 3. Cholelithiasis without wall thickening. Fleischner guidelines were followed. Dictated By: Sav Sweet MD Signed By: <Electronically signed by Sav Sweet MD in [place]> 03/29/222108 DD/ 11 TD/TT:? Quarter Section Ironer: ARLEN Assessment and Plan (1) Perirectal abscess: Start date: 03/30/22 Status: Acute 51 year old diabetic male with perirectal abscess- pt has purulent drainage but ct scan not showing true abscess collection - pt admitted overnight and by am still with pain and drainage but after vanco and zosyn wbc normal but lactic acid still high and gluocse level still high - vitals ok plan to take to OR to do EUA and drain abscess as needed - cont to do iv antibx and warm compresss and med management for hyperglycemia and other causes of lactic acidosis. pt understands and agrees with the plan (2) New onset type 2 diabetes mellitus: Status: Acute Time Spent With Patient Time: Total time managing care of this patient today ____ minutes. Quality Stroke Does the patient have a stroke diagnosis?: No VTE Prior VTE?: No VTE Risk Level:: Surgical - low VTE Device Contraindication: Treatment Not Indicated VTE Drug Contraindication: Treatment Not Indicated Procedures Date of Service Date of Service: 03/30/22
[2022-03-30 12:22] LABS: ~Lactic Acid-LAB USE ONLY 1.5 mmol/L (0.5-2.0)
--- NOTE | 2022-03-30 12:25 | PC.NURSE ---
report given to norm greene at pac[facility]
[2022-03-30 12:29] LABS: Glucose, Whole Blood 292 mg/dL (60-115)
[2022-03-30 12:37] LABS: Estimated Average Glucose 166 mg/dL; Hemoglobin A1c % 7.4 %
[2022-03-30] MEDS: Insulin Lispro 100 UNIT/ML 3 ML VIAL SUBCUT ×3 (12:39→21:08)
--- NOTE | 2022-03-30 12:47 | PC.NURSE ---
pt of to or with norm greene, insulin given prior by anesthesiologist order
[2022-03-30 13:00] LABS: Thyroid Stimulating Hormone < 0.01 uIU/mL (0.32-4.0)
--- NOTE | 2022-03-30 14:47 | PM.EVENT ---
Event Note Date of Service: 03/30/22 Event Note: pt to OR and only raw circumferential skin breakdown noted - ulcerated areas no purulent drainage - rectal exam felt normal and exam with direct visualization distal rectal vault normal - more proximal with stool present bx taken an zinc oxide placed pt will need cscope at some point no findings to explain his persistent lactic acidosis and elevated glucose cont with iv antibx management for 24 hrs and glucose control and consider dc home tomorrow with po meds for antibx and see GI as outpt for Cscope Time Spent With Patient Time: Total time managing care of this patient today ____ minutes.
[2022-03-30 14:51] LABS: Glucose, Whole Blood 217 mg/dL (60-115)
[2022-03-30 16:40] LABS: Glucose, Whole Blood 220 mg/dL (60-115)
[2022-03-30] MEDS: dexAMETHasone 4 MG TABLET PO (17:54)
[2022-03-30 18:54] LABS: B Type Natriuretic Peptide 46 pg/mL (<100)
[2022-03-30 20:39] LABS: Glucose, Whole Blood 323 mg/dL (60-115)
[2022-03-30] MEDS: Desmopressin Acetate 0.2 MG TABLET 0.05 MG PO (21:08)
[2022-03-30] MEDS: Atorvastatin Calcium 80 MG TABLET PO (21:11)
[2022-03-30] MEDS: Sulfamethox/Trimeth 800/160 TABLET 1 TAB PO (22:06)
[2022-03-31] MEDS: Piperacillin Sodium/Tazobactam 3.375 GM in 0.9 % Sodium Chloride 50 ML IV ×2 (01:55→08:15)
[2022-03-31] MEDS: dexAMETHasone 4 MG TABLET PO ×3 (01:55→12:51)
[2022-03-31 03:19] VITALS: BP 135/66; PULSE 80; RESP 14; TEMP 36.1; O2SAT 96
[2022-03-31] MEDS: oxyCODONE HCl Immed Release 5 MG TABLET PO (03:38)
[2022-03-31] MEDS: Omeprazole 20 MG CAPSULE.DR PO (05:56)
[2022-03-31] MEDS: Levothyroxine Sodium 175 MCG TABLET PO (05:56)
[2022-03-31 07:11] VITALS: BP 129/78; PULSE 72; RESP 18; TEMP 36.4; O2SAT 95
[2022-03-31 07:40] LABS: Glucose, Whole Blood 247 mg/dL (60-115)
[2022-03-31] MEDS: Insulin Lispro 100 UNIT/ML 3 ML VIAL SUBCUT ×2 (08:09→11:32)
[2022-03-31] MEDS: Desmopressin Acetate 0.2 MG TABLET 0.1 MG PO (08:11)
[2022-03-31] MEDS: Cholecalciferol (Vitamin D3) 25 MCG TABLET PO (08:12)
[2022-03-31] MEDS: 0.9 % Sodium Chloride Flush 3 ML SYRINGE IVFLUSH (08:21)
[2022-03-31] MEDS: Nystatin Cream 15 GM TUBE 1 APPL TOPICAL (08:21)
[2022-03-31] MEDS: Zinc Oxide 20% Ointment 28.35 GM TUBE 1 APPL TOPICAL (08:21)
[2022-03-31] MEDS: glipiZIDE 10 MG TABLET PO (08:34)
--- NOTE | 2022-03-31 09:41 | HO.PM.IMPN ---
Subjective Subjective Date of Service: 03/31/22 Interval History: the patient was seen and evaluated this morning Laying in bed, feels comfortable Denies any fever, chills or shortness of breath still reporting pain in lower back No reported other overnight events. Review of Systems Review of Systems: Yes all other systems are reviewed and are negative Physical Exam Vital Signs: Vital Signs: Last Vital Signs Temp 97.6 F 03/31/22 07:11 Pulse 72 03/31/22 07:11 Resp 18 03/31/22 07:11 BP 129/78 03/31/22 07:11 Pulse Ox 95 03/31/22 07:11 O2 Del Method 03/31/22 07:11 BMI result Body Mass Index 46.0 Const: Other: Constitutional : Awake, interactive, castellanos face, not in distress Neck : Normal inspection, Supple Cardiovascular : RRR, no JVP, +1 bilateral lower extremity edema Respiratory : good bilateral air entry, no crackles, wheezes or rhonchi Gastrointestinal: soft, lax, Normal bowel sounds, Non tender Skin : Warm, Dry Neurological : Alert & oriented x3, No focal deficit Objective Data Active Medications Acetaminophen (Acetaminophen 325 Mg Tablet) 650 mg PO Q6H PRN PRN Reason: Pain (Scale Score 1-3) Atorvastatin Calcium (Atorvastatin Calcium 80 Mg Tablet) 80 mg PO BEDTIME REPLACED BY [facility] Last Admin: 03/30/22 21:11 Dose: 80 mg Documented By: EVON Calcium Carbonate (Calcium Carbonate 500 Mg Tablet) 500 mg PO BIDWM REPLACED BY [facility] Last Admin: 03/31/22 08:12 Dose: 500 mg Documented By: ALESSIO Desmopressin Acetate (Desmopressin Acetate 0.2 Mg Tablet) 0.05 mg PO BEDTIME REPLACED BY [facility] Last Admin: 03/30/22 21:08 Dose: 0.05 mg Documented By: EVON Desmopressin Acetate (Desmopressin Acetate 0.2 Mg Tablet) 0.1 mg PO DAILY REPLACED BY [facility] Last Admin: 03/31/22 08:11 Dose: 0.1 mg Documented By: ALESSIO Dexamethasone (Dexamethasone 4 Mg Tablet) 4 mg PO Q6H REPLACED BY [facility] Last Admin: 03/31/22 05:56 Dose: 4 mg Documented By: EVON Dextrose (Dextrose 50 % 25 Gm/50 Ml Syringe) 25 gm IVPUSH Q15M PRN; Protocol PRN Reason: per Hypoglycemia Standing Ord. Glipizide (Glipizide 10 Mg Tablet) 10 mg PO DAILY REPLACED BY [facility] Last Admin: 03/31/22 08:34 Dose: 10 mg Documented By: ALESSIO Glucose (Glucose Gel 15 Gm Gel..Gram.) 15 gm PO Q15M PRN; Protocol PRN Reason: per Hypoglycemia Standing Ord. Piperacillin Sod/Tazobactam (Sod 3.375 gm/ Sodium Chloride) 50 mls @ 100 mls/hr IV Q6H REPLACED BY [facility] Last Infusion: 03/31/22 09:01 Dose: 100 mls/hr Documented By: ALESSIO Insulin Human Lispro (Insulin Lispro 100 Unit/Ml 3 Ml Vial) 0 unit SUBCUT QIDACHS REPLACED BY [facility]; Protocol Last Admin: 03/31/22 08:09 Dose: 4 unit Documented By: ALESSIO Levothyroxine Sodium (Levothyroxine Sodium 175 Mcg Tablet) 175 mcg PO DAILY@0600 REPLACED BY [facility] Last Admin: 03/31/22 05:56 Dose: 175 mcg Documented By: EVON Nystatin (Nystatin Cream 15 Gm Tube) 1 appl TOPICAL DAILY REPLACED BY [facility]; Protocol Last Admin: 03/31/22 08:21 Dose: 1 appl Documented By: ALESSIO Omeprazole (Omeprazole 20 Mg Capsule.Dr) 20 mg PO DAILY@0630 REPLACED BY [facility] Last Admin: 03/31/22 05:56 Dose: 20 mg Documented By: EVON Oxycodone HCl (Oxycodone Hcl Immed Release 5 Mg Tablet) 5 mg PO Q4H PRN PRN Reason: Pain, Severe (Pain Scale 7-10) Last Admin: 03/31/22 03:38 Dose: 5 mg Documented By: EVON Oxycodone HCl (Oxycodone Hcl Immed Release 5 Mg Tablet) 5 mg PO Q6H PRN PRN Reason: Pain, Severe (Pain Scale 7-10) Sodium Chloride (0.9 % Sodium Chloride Flush 3 Ml Syringe) 3 ml IVFLUSH QSHIFT REPLACED BY [facility] Last Admin: 03/31/22 08:21 Dose: 3 ml Documented By: ALESSIO Sodium Chloride (Sodium Chloride 0.65 % Nasal 44 Ml Sprbtl) 2 spray NOSTRIL-B TID PRN PRN Reason: Congestion Trimethoprim/Sulfamethoxazole (Sulfamethox/Trimeth 800/160 Tablet) 1 tab PO MoWeFr@0900 [facility] Last Admin: 03/30/22 22:06 Dose: 1 tab Documented By: EVON Vitamin D (Cholecalciferol (Vitamin D3) 25 Mcg Tablet) 25 mcg PO DAILY [facility] Last Admin: 03/31/22 08:12 Dose: 25 mcg Documented By: ALESSIO Zinc Oxide (Zinc Oxide 20% Ointment 28.35 Gm Tube) 1 appl TOPICAL DAILY [facility]; Protocol Last Admin: 03/31/22 08:21 Dose: 1 appl Documented By: ALESSIO Labs CBC & Chem 7: 03/30/22 06:54 03/30/22 06:54 Labs: Laboratory Results - last 24 hr 03/30/22 03/30/22 03/30/22 06:54 06:54 09:31 POC Glucose Estimat Average Glucose 166 Hemoglobin A1c % 7.4 Lactic Acid F/U @ 2Hr 2.5 H* Lactic Acid F/U @ 4Hr B-Natriuretic Peptide TSH < 0.01 L 03/30/22 03/30/22 03/30/22 11:58 12:23 14:45 POC Glucose 292 H 217 H Estimat Average Glucose Hemoglobin A1c % Lactic Acid F/U @ 2Hr Lactic Acid F/U @ 4Hr 1.5 B-Natriuretic Peptide TSH 03/30/22 03/30/22 03/30/22 16:16 18:10 20:31 POC Glucose 220 H 323 H Estimat Average Glucose Hemoglobin A1c % Lactic Acid F/U @ 2Hr Lactic Acid F/U @ 4Hr B-Natriuretic Peptide 46 TSH 03/31/22 07:16 POC Glucose 247 H Estimat Average Glucose Hemoglobin A1c % Lactic Acid F/U @ 2Hr Lactic Acid F/U @ 4Hr B-Natriuretic Peptide TSH Microbiology Microbiology Results: Microbiology 03/29/22 20:06 Blood Culture - Preliminary Blood - Venous No growth after 24 hours. 03/29/22 19:26 Blood Culture - Preliminary Blood - Venous No growth after 24 hours. Assessment and Plan (1) Perirectal abscess: Status: Acute (2) Acute hyperglycemia: Status: Acute Plan ?51-year-old male does the past history significant for central diabetes insipidus, DM2, and blindness in right eye who presents to the ED today with a 4-day history of perirectal pain with bleeding and draining pus.? Blood work was consistent with hyperglycemia. # Hyperglycemia secondary to steroid usage No history of diabetes per the patient On high steroid therapy for brain mass Increase glipizide to 10 mg daily Patient mentions plan to start weaning down steroids HbA1c of 7.6 He will continue to monitor sugar as outpatient, to be discharged on glipizide 10 mg daily for now # peripheral edema Plus two bilateral edema, likely related to steroid usage and hypothyroidism Patient being followed for apparently diabetes insipidus from pituitary tumor, will defer this management to his primary team # skin breakdown Evaluated by surgery Plan to discharge on oral antibiotics Thank you for the consult, conduct hospital stay with any further questions Time Spent With Patient Time: Total time managing care of this patient today ____ minutes. Quality Stroke Does the patient have a stroke diagnosis?: No VTE Prior VTE?: No VTE Risk Level:: Surgical - low VTE Device Contraindication: Treatment Not Indicated VTE Drug Contraindication: Treatment Not Indicated
[2022-03-31 11:30] LABS: Glucose, Whole Blood 312 mg/dL (60-115)
--- NOTE | 2022-03-31 13:14 | P.DS_ITS ---
DS: Providers Provider Date of Service: 03/31/22 Date of admission: 03/29/22 21:59 Date of discharge: 03/31/22 Primary care physician: Ulisses Whitmore MD Admitting clinician: Prachi Ricks Lucila Consults: 03/30/22 09:24 Consult to Hospitalist Routine Consulting Provider: Hospitalist Reason For Exam: diabetes and med management DS: Diagnosis Discharge Diagnosis (1) Perirectal abscess: Status: Acute (2) Acute hyperglycemia: Status: Acute DS: Summary Hospital Course Hospital Course: pt is a 51 year old male who was rcently diagnosed with apituitary tumor and who has had a bx and who is being treated for it in [place] - getting high dose steroids. treatment has lead to hyperglycemia dn noeeds better control. came in complaining of rectal pain and ulcers and draining pus. pt had CT scan which showed mayb fistula but no abscess but sugars remained high and lactic acid so was taken to OR for exam and noted no fistula or abscess but perianal ulcerations no pus noted. bx of skin taken. pt should have cscope at some time soon too. he was treated with antibx and feeling better. topical zinc oxide and nystatin cream. f.u oupt prn but needs to work with his [facility] marketing proposal coordinator for tightr glucose control - wass 600+ when he came in and now better in 200-300 range. pt understands and agrees with the plan Status at Discharge Functional status at discharge: independent ambulation Time Spent with Patient Time attestation: Total time managing care of this patient today ____ minutes. Discharge coordination time: Less than 30 minutes Quality: Safe Use of Opioids Does Pt have an Active Cancer Diagnosis on the Problem List?: No Quality: Stroke Does the patient have a stroke diagnosis?: No Physical Exam Vital Signs: Vital Signs: Last Vital Signs Temp 97.6 F 03/31/22 07:11 Pulse 72 03/31/22 07:11 Resp 18 03/31/22 07:11 BP 129/78 03/31/22 07:11 Pulse Ox 95 03/31/22 07:11 O2 Del Method 03/31/22 07:11 BMI result Body Mass Index 46.0 Skin: Other: improved Psych: Appearance: grossly normal DS: Data Data Completed and Pending Pending studies at discharge: Pending at discharge 03/30/22 15:14 Surgical [PTH] Routine Labs on day of discharge: Laboratory Results - last 24 hr 03/30/22 03/30/22 03/30/22 14:45 16:16 18:10 POC Glucose 217 H 220 H B-Natriuretic Peptide 46 03/30/22 03/31/22 03/31/22 20:31 07:16 11:02 POC Glucose 323 H 247 H 312 H B-Natriuretic Peptide Preliminary micro results at discharge 03/29/22 20:06 Blood Culture - Preliminary Blood - Venous No growth after 24 hours. 03/29/22 19:26 Blood Culture - Preliminary Blood - Venous No growth after [address] scan - pelvis: Radiologist's impression: ITS Impressions Abdomen/Pelvis CT 03/29/22 20:12 IMPRESSION: 1. Left perirectal soft tissue thickening likely a small fissure or a blind-ending fistula but no perianal or ischiorectal abscess seen. 2. Colonic diverticulosis without diverticulitis. Mild constipation. 3. Cholelithiasis without wall thickening. Fleischner guidelines were followed. Discharge Plan Discharge Anticipated Discharge Date/Time: 03/31/22 13:08 Patient Disposition: Home, Self-Care Discharge Diagnosis: perianal ulcers and hyperglycemia Referrals: Ulisses Whitmore MD [Primary Care Provider] - 1 Week Discharge Medications: New glipizide 10 mg Tablet 10 mg PO DAILY 30 Days Qty: 30 0RF cephalexin 500 mg capsule 500 mg PO QID Qty: 20 0RF Discontinued glipizide 5 mg tablet 5 mg PO DAILY 90 Days Qty: 90 0RF No Action levothyroxine 175 mcg tablet 1 tab PO DAILY acetaminophen [Tylenol] 325 mg Tablet 650 mg PO Q6H PRN (Reason: Pain (Scale Score 1-3)) sulfamethoxazole-trimethoprim 800-160 mg tablet 1 tab PO BID calcium carbonate [Calcium 500] 500 mg calcium (1,250 mg) Tablet 500 mg PO BIDWM dexamethasone 4 mg tablet 1 tab PO Q6H omeprazole 20 mg capsule,delayed release(DR/EC) 1 cap PO DAILY desmopressin 0.1 mg tablet 0.1 mg PO DAILY desmopressin 0.1 mg tablet 0.05 mg PO QPM Brenda Nasal 0.65 % Aerosol,[place] 2 spray INTRANASAL TID PRN (Reason: Congestion) cholecalciferol (vitamin D3) 25 mcg (1,000 unit) tablet 1 tab PO DAILY atorvastatin 80 mg tablet 80 mg PO BEDTIME (DME) lancets [FreeStyle Lancets] 28 gauge misc See Rx Instructions .ROUTE .MEDSUPPLY Qty: 100 Rx Instructions: As directed (DME) FreeStyle Lite Strips Strip See Rx Instructions .ROUTE .MEDSUPPLY Qty: 10 Rx Instructions: As directed (DME) blood-glucose meter [FreeStyle Lite Meter] Kit See Rx Instructions .ROUTE .MEDSUPPLY Qty: 1 Rx Instructions: As directed Discharge Orders: Discharge Order (Routine); Ordered 03/31/22 Ordered By: Prachi Gaytan Diet: Diabetic diet Activity on Discharge: As tolerated Stand Alone Forms: Patient Portal Discharge page Activity Restrictions/Additional Instructions: use zinc oxide and antifungal cream to perianal area daily and as needed until run out of tubes. then use over the ocunter zinc oxide. can use baby wipes for care of skin Care Plan Goals: fu with marketing proposal coordinator at [facility] for tighter glucose control and titration with steroid meds Health Concerns: hypergycemia - diet counselling and checking in closer with [facility] marketing proposal coordinator Plan of Treatment: fu with surgical office at [facility] prn Assessment: doing well, feeling better. glucose meds adjusted
--- NOTE | 2022-04-01 13:40 | P.OP_ITS ---
Operative Note Operative Note Date of Service: 03/30/22 Narrative: Preop diagnosis-- perirectal abscess postop diagnosis-- perianal skin ulcers procedure done-- exam under anesthesia and biopsy of skin surgeon-- Javyjian anesthesia-- general endotracheal tube anesthesia the patient is a 51-year-old male who has been complaining perirectal pain and who has been having some purulent drainage from that area. He has been using hemorrhoid cream for it but the pain got really bad that he came into the emergency room. Here it was noted that he had purulent drainage but it was difficult to evaluate. CT scan did not reveal a true abscess but did show questionable fistula and blind and connection. Patient was admitted and treated with antibiotics however continue to have a high lactic acidosis and to rule out missing anything was brought to the operative room to carry out exam under anesthesia potential drainage of abscess. Findings-- all around the anal opening there was ulcerated raw tissue but no true abscess was noted. The tissue here was very soft not from an injury it. Rectal exam did not reveal any significant collections or irritation. Procedure-- patient was brought to the operative room and placed in lithotomy position underwent at [facility]. Please see anesthesia records for details. The perineal and perianal area low was prepped and draped in standard surgical fashion. In examining the area once again no purulent material was noted to be draining in that area seemed very soft. The skin around the perianal opening circumferentially was very raw with ulcers going into the fatty tissue. Rectal exam and examining with partial scope did not reveal any intra anal or lower rectal collections. There was stool in the rectal vault. It was decided to do a biopsy of some of the skin and this was done with the scalpel. Specimen was sent for pathology. Local was used to numb the area and then barrier cream was used to applied circumferentially around the anal opening to these raw areas. Patient has never had a colonoscopy and would recommend 1 to rule out Crohn's disease and perianal manifestations of the skin. Patient was extubated returned stable to the recovery room. All sponge instrument needle counts are correct estimated blood loss was minimal specimen sent was the skin of the perianal
--- NOTE | 2022-04-02 14:24 | HO.POSTANES ---
Post Anesthesia Evaluation Post Anesthesia Evaluation Anesthesia: General Endotracheal-GETA Mental Status: Awake Pain Control: Satisfactory Nausea/Vomiting: None Hydration: Adequate Anesthesia-Related Issues: No Anes. Related Issues
== END 2022-03-31 14:18 | disposition home or self-care (01) | DRG 380 ==
LOC: HO.ED 22:06 → HO.EDOVER 22:13 → HO.S3 03-30 13:10
PROVIDERS: Nurse Practitioner Family; Student in an Organized Health Care Education/Training Program; Admitting Provider Surgery; Emergency Provider Emergency Medicine; PCP Internal Medicine; Visit Provider Surgery
PROC: 0HB9XZX Excision of Perineum Skin, External Approach, Diagnostic (ICD-10-PCS; CPT 46040; principal; 2022-03-30 13:00)
DX: L98.491 Non-pressure chronic ulcer of skin of other sites limited to breakdown of skin (principal); E23.2 Diabetes insipidus; E03.8 Other specified hypothyroidism; F17.210 Nicotine dependence, cigarettes, uncomplicated; Z68.42 Body mass index [BMI] 45.0-49.9, adult; E66.01 Morbid (severe) obesity due to excess calories; E11.65 Type 2 diabetes mellitus with hyperglycemia; Z71.6 Tobacco abuse counseling; Z79.84 Long term (current) use of oral hypoglycemic drugs; Z79.890 Hormone replacement therapy; Z79.899 Other long term (current) drug therapy
CPT/HCPCS: 46999; 36415; 74177; 80048; 80053; 80076; 82947; 83036; 83605; 83880; 84443; 85025; 87040; 87635; 88304; 88305; 96361; 96365; 96375; 99218; 99221; 99285; J2250; J2405; J2543; J2765; J3010; J3370; J8540; Q9967

== ENCOUNTER 2022-04-04 12:43 | Outpatient (RCR) | payer OTHER, SELFPAY | END 2022-06-07 16:00 | disposition home or self-care (01) | LOC: HO.WCC 12:43 | PROVIDERS: PCP Internal Medicine; Visit Provider Surgery | DX: E11.628 Type 2 diabetes mellitus with other skin complications (principal); L20.89 Other atopic dermatitis; E23.6 Other disorders of pituitary gland; Z87.891 Personal history of nicotine dependence | CPT/HCPCS: 99213 ==

== ENCOUNTER 2022-09-19 12:54 | Outpatient (REF) | payer OTHER, SELFPAY ==
[2022-09-19 13:47] LABS: MANUAL DIFF FLAG NO
[2022-09-19 14:08] LABS: Basophils Absolute Auto 0.1 X10*3/uL (0.0-0.2); Basophils Percent Auto 0.5 % (0-2); Eosinophils Absolute Auto 0.1 X10*3/uL (0.0-0.4); Hematocrit 42.9 % (42.0-52.0); Hemoglobin 13.5 g/dl (14.0-18.0); Imm Gran Abs Auto 0.03 X10*3/uL (0.00-0.03); Imm Gran Pct Auto 0.3 % (0.0-0.4); Lymphocytes Percent Auto 8.5 % (20-40); Mean Corpuscular HGB Conc 31.5 g/dl (31.0-36.0); Mean Corpuscular Hemoglobin 27.4 pg (27.0-33.0); Mean Platelet Volume 10.6 fL (9.4-12.4); Monocytes Absolute Auto 0.4 X10*3/uL (0.1-1.2); Monocytes Percent Auto 3.6 % (2-11); Neutrophils Percent Auto 86.1 % (45-73); Platelet Count 382 X10*3/uL (160-400); Red Blood Count 4.93 X10*6/uL (4.60-5.80); Red Cell Distribution Width 14.5 % (11.0-16.0); White Blood Count 11.6 X10*3/uL (4.8-10.8)
[2022-09-19 14:41] LABS: Estimated Average Glucose 91 mg/dL; Hemoglobin A1c % 4.8 %
[2022-09-19 14:59] LABS: Alanine Aminotransferase 32 U/L (0-40); Albumin Level 3.6 g/dL (3.5-5.0); Alkaline Phosphatase 73 U/L (39-117); Anion Gap 10 (12-20); Aspartate Amino Transferase 30 U/L (5-37); Bilirubin Total 0.7 mg/dL (0.0-1.0); Blood Urea Nitrogen 6 mg/dL (9-16); Calcium 9.2 mg/dL (8.4-10.2); Carbon Dioxide 28 mmol/L (22-29); Chloride 112 mmol/L (96-108); Estimated Glomerular Filt Rate > 60; Glucose Random 146 mg/dL (60-115); Potassium 3.8 mmol/L (3.3-5.1); Sodium 146 mmol/L (135-145); Total Protein 6.4 g/dL (6.5-8.0)
== END 2022-09-19 12:55 | disposition home or self-care (01) ==
LOC: HO.HMGCLDS 12:54
PROVIDERS: PCP Internal Medicine; Visit Provider Internal Medicine
DX: D35.2 Benign neoplasm of pituitary gland (principal); E11.9 Type 2 diabetes mellitus without complications; I10 Essential (primary) hypertension; E23.2 Diabetes insipidus
CPT/HCPCS: 36415; 80053; 83036; 85025

== ENCOUNTER 2022-11-08 06:41 | Emergency (ER) | payer OTHER, SELFPAY ==
[2022-11-08 06:51] VITALS: BP 121/82; PULSE 91; RESP 16; TEMP 36.6; O2SAT 96; BMI 39.0
--- NOTE | 2022-11-08 07:40 | ED.GENADULT ---
HPI - General Adult General Chief complaint: Eye Problems Stated complaint: Eye swelling/itchy Time Seen by Provider: 11/08/22 07:15 Source: patient Mode of arrival: ambulatory Limitations: no limitations History of Present Illness HPI narrative: 52-year-old male who presents to the emergency department for evaluation facial rash. He states that 2 weeks ago he did notice a rash to the back of his left calf area which was consistent with his eczema. He has been applying cortisone cream. States that 3 days prior he did have 1 episode of shaking chills which then resolved. He then developed a rash on his face. He states that the rash initially started around his eyes then spread to his forehead and cheeks. The rash is pruritic and painful. He has applied cortisone cream to the rash which did not help and actually burned when he applied it. The patient has been taking Benadryl with no relief of the pain more rash. Patient was concerned that his eyelids were getting swollen so came to the emergency department for evaluation. He denied fever but did have 1 episode of shaking chills 3 days prior. He denied rhinorrhea, sore throat, cough, chest pain, shortness of breath, nausea, vomiting or diarrhea. The patient states this is 1st time he has had a rash on his face. Related Data Home Medications Medication Instructions Recorded Confirmed blood sugar diagnostic (FreeStyle #10 ea 02/28/22 09/19/22 Lite Strips) blood-glucose meter (FreeStyle #1 ea 02/28/22 09/11/22 Lite Meter kit) lancets 28 gauge (FreeStyle #100 ea 02/28/22 09/19/22 Lancets) sodium chloride 0.65 % nasal spray 2 spray intranasal TID PRN 03/29/22 09/11/22 aerosol ([place] Nasal) Congestion calcium carbonate 500 mg calcium See Rx Instructions PO DAILY 09/06/22 09/19/22 (1,250 mg) tablet prednisone 5 mg tablet 10 mg PO DAILY 09/06/22 09/19/22 Previous Rx's Medication Instructions Recorded acetaminophen 325 mg tablet 325 mg PO Q6H Pain (Scale Score 09/09/22 (Tylenol) 1-3) 90 days #360 tabs cholecalciferol (vitamin D3) 25 25 mcg PO DAILY #180 tabs 09/09/22 mcg (1,000 unit) tablet levothyroxine 150 mcg tablet 150 mcg PO DAILY #90 tabs 09/09/22 omeprazole 20 mg capsule,delayed 20 mg PO DAILY #90 caps 09/09/22 release desmopressin 0.1 mg tablet 0.05 mg PO BID 90 days #90 tabs 09/19/22 cephalexin 500 mg capsule 500 mg PO QID 10 days #40 caps 11/08/22 Allergies Allergy/AdvReac Type Severity Reaction Status Date / Time No Known Allergies Allergy Verified 11/08/22 06:55 Review of Systems Review of Systems: Yes all other systems are reviewed and are negative [facility] Past Medical History [facility] Narrative: Past medical history: 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, hypertension, hyperlipidemia, migraines, eczema, patient states that he has an immunodeficiency and does received IVIG. Social history: He does smoke cigarettes. He denies alcohol use. He denies drug use. Medical History Central hypothyroidism History of lumbar puncture Migraine headache Pituitary tumor Primary central diabetes insipidus Rash Family History Family History Brother Brain cancer Social History Social History Household Members: None Household Members Other:: 1 Housing: House Are you a primary administrator health care facility to a significant other at home: No Do you presently have visiting nurse or other home services: No Alcohol intake: current Alcohol intake frequency: holidays/special occasions only Alcohol type: beer Patient Tobacco Use Status: Current everyday Tobacco user Tobacco use type: Cigarette Cigarettes Per Day: 4 Years Smoked: 20 years e-Cigarette/Vaping Use: Never Used Substance Use Type: Marijuana Advance Directives: No service: No Current occupational status: unemployed (short term disability) and disabled Cognitive needs: No Hearing needs: No Vision needs: Yes Physical Exam ED Vital Signs: Vital Signs - 24 hr 11/08/22 06:51 Temperature 97.8 F Pulse Rate 91 Respiratory Rate 16 Blood Pressure 121/82 Pulse Oximetry 96 Oxygen Delivery Method Room Air BMI result Body Mass Index 39.0 Vital signs were normal Exam General: Awake, alert in no distress Head: Normocephalic, atraumatic EENT: PERRL, patient does have angioedema of his upper and lower eyelids, he has a course, erythematous, warm rash to his forehead and along his cheeks and a butterfly pattern, the rash does petra with pressure, there is no discharge from the rash Neck: Supple, no adenopathy, trachea midline and nontender Lung: breath sounds symmetric, no wheezing, rales or rhonchi Chest: symmetric movement, nontender Heart: regular rate and rhythm, normal S1, S2 no murmurs or rubs Abdomen: soft, non-tender, nondistended, normal bowel sounds Back: no vertebral tenderness, no CVAT Extremities: no deformities, moves all extremities symmetrically Skin: Facial rash as described above, no lesion Neuro: Awake, alert, oriented, normal speech, cranial nerves intact, moves all extremities symmetrically Psych: Pleasant, cooperative Medications Administered Discontinued Medications Generic Name Dose Route Start Last Admin Trade Name Freq PRN Reason Stop Dose Admin Cephalexin HCl 500 mg 11/08/22 07:38 11/08/22 07:52 Cephalexin 500 Mg Capsule PO 11/08/22 07:39 500 mg ONCE ONE Administration Medical Decision Making Medical Decision Making [facility] Narrative: 52-year-old male who presents emergency department for evaluation of a facial rash x3 days which is getting worse. He did have 1 episode of shaking chills 3 days prior but has had no further episodes and no fever. The patient's facial rash is consistent with erysipelas. I did discuss this with the patient. The patient was treated with Keflex 500 mg orally here in the emergency department. He was started on Keflex 500 mg 4 times a day for 10 days. The patient is immunocompromised and states that he does get IVIG but he does not having systemic signs and does not appear to be septic or toxic therefore I believe they can star oral antibiotics as an outpatient however I did strongly advised him to return to the emergency department if he develops any systemic symptoms. Patient was discharged home with printed and verbal instructions Differential Diagnosis Differential Diagnoses: The differential diagnosis associated with the presentation includes Differential diagnosis includes but is not limited to cellulitis, erysipelas, allergic reaction Admission/Observation Consideration of admission/observation: Escalation of care including admission/observation considered Given the fact that he is immunocompromised I did consider admission however at this time I think that he can start oral antibiotic and if there is no significant improvement he was advised to return for possible admission. Tests considered The following testing was considered but not selected: Laboratory evaluation Prescription Management I considered prescription management with: Antibiotic Chronic Conditions Patient?s care impacted by: Diabetes, Hypertension and Other (Hyperlipidemia, immunocompromise treated with IVIG) Discharge Plan Discharge Clinical Impression: Erysipelas Patient Disposition: Home, Self-Care Instructions: Cellulitis (ED) Additional Instructions: The rash on your skin is consistent with erysipelas which is an infection caused by either Streptococcus or Staph like coccus bacteria. Take Keflex (cephalexin) 500 mg pills, 1 pill 4 times a day for 10 days. Cellulitis Discharge Instructions You have an infection of your skin. This is called cellulitis and 1 involves the face with a butterfly and forehead pattern the cellulitis is called Aricept list. This is usually caused by bacteria on your skin that gets under your skin and then causes the infection Take Keflex 500 mg pills, 1 pill 4 times a day for 10 days. This is an antibiotic that should help your body fight off the infection. Also apply a heating pad on low or a warm compress for 15 minutes, 4-6 times a day. This will increase the blood flow to the area and will bring white blood cells to the area which will help your body fight off the infection. Take Motrin(ibuprofen) 200mg pills, 2 pills every 6 hours as needed for pain. Also take Tylenol( acetaminophen) 325 mg pills, 2 pills every 4 hours as needed for pain. Other signs of worsening infection include fever, chills, weakness, increased pain, increased redness, or increased swelling. If you develop any of these symptoms or any other symptoms that are concerning to you, see your doctor immediately or return to the Emergency Department. Follow up with your doctor in 3 days for a recheck Please read the other printed instructions that we printed for you. Prescriptions: New cephalexin 500 mg capsule 500 mg PO QID 10 Days Qty: 40 0RF No Action acetaminophen [Tylenol] 325 mg tablet 325 mg PO Q6H 90 Days Qty: 360 0RF cholecalciferol (vitamin D3) 25 mcg (1,000 unit) tablet 25 mcg PO DAILY Qty: 180 0RF levothyroxine 150 mcg tablet 150 mcg PO DAILY Qty: 90 0RF omeprazole 20 mg capsule,delayed release(DR/EC) 20 mg PO DAILY Qty: 90 0RF [place] Nasal 0.65 % Aerosol,[place] 2 spray INTRANASAL TID PRN (Reason: Congestion) calcium carbonate 500 mg calcium (1,250 mg) tablet See Rx Instructions PO DAILY Rx Instructions: 600mg orally daily; prednisone 5 mg tablet 10 mg PO DAILY desmopressin 0.1 mg tablet 0.05 mg PO BID 90 Days Qty: 90 0RF (DME) lancets [FreeStyle Lancets] 28 gauge misc See Rx Instructions .ROUTE .MEDSUPPLY Qty: 100 Rx Instructions: As directed (DME) FreeStyle Lite Strips Strip See Rx Instructions .ROUTE .MEDSUPPLY Qty: 10 Rx Instructions: As directed (DME) blood-glucose meter [FreeStyle Lite Meter] Kit See Rx Instructions .ROUTE .MEDSUPPLY Qty: 1 Rx Instructions: As directed Stand Alone Forms: Work/School Release Interventions: ED Discharge Assessment Last Done: 11/08/22 07:53 Discharge Date/Time: 11/08/22 07:53
[2022-11-08] MEDS: cephALEXin 500 MG CAPSULE PO (07:52)
== END 2022-11-08 07:53 | disposition home or self-care (01) ==
PROVIDERS: Emergency Provider Emergency Medicine Emergency Medical Services; PCP Internal Medicine
DX: A46 Erysipelas (principal); R21 Rash and other nonspecific skin eruption; E11.9 Type 2 diabetes mellitus without complications; I10 Essential (primary) hypertension; E78.5 Hyperlipidemia, unspecified; F17.210 Nicotine dependence, cigarettes, uncomplicated; F12.90 Cannabis use, unspecified, uncomplicated
CPT/HCPCS: 99282; 99283

== ENCOUNTER 2022-11-19 12:41 | Outpatient (AMB) | payer OTHER, SELFPAY ==
[2022-11-19 12:43] VITALS: BP 106/64; PULSE 87; O2SAT 98; BMI 38.8
--- NOTE | 2022-11-19 12:43 | MHC.PC.OV ---
Vital Signs 11/19/22 12:43 Height 5 ft 5 in Weight 233 lb BMI 38.8 BP 106/64 Blood Pressure Location Lt brachial Position Sitting Pulse 87 Pulse Source Pulse Oximeter Pulse Oximetry (%) 98 Oxygen Delivery Method Room Air Intake Visit Reasons: [facility] for eye infection 11/08 recurring Intake Note: Pt is here today for Hospital follow up visit.Pt states that his R eue is still swollen and painful. Allergies No Known Allergies Allergy (Verified 11/19/22 12:47) Medication List - Last Reconciled 11/19/22 by Ulisses Whitmore MD acetaminophen (Tylenol) 325 mg PO Q6H 90 days blood sugar diagnostic (FreeStyle Lite Strips) As directed blood-glucose meter (FreeStyle Lite Meter kit) As directed calcium carbonate 600mg orally daily; cholecalciferol (vitamin D3) 25 mcg PO DAILY desmopressin 0.05 mg (1/2 x 0.1 mg) PO BID 90 days lancets (FreeStyle Lancets) As directed levothyroxine 150 mcg PO DAILY omeprazole 20 mg PO DAILY prednisone 10 mg PO DAILY sodium chloride 0.65% ([place] Nasal) 2 sprays intranasal TID PRN Tobacco use date assessed: 05/21/22 Dental Screening Dental Screen Date: 11/19/22 Did you have a dental visit in the last 12 months?: No Did you have a dental problem in the last 6 months where you did not have access to dental care?: No Was dental information given to patient?: Patient declined [facility] for eye infection 11/08 recurring HPI Details Patient is 52-year-old gentlemen who was in emergency room on 11/08/2022 with a chief complaint of facial rash. Patient states that 2 weeks ago he noticed a rash back of his left calf which responded to cortisone cream. He does have a history of eczema. He then developed rash on his face starting and on his forehead and then cheeks, he applied [id number] cortisone cream which did not help rash is pruritic and painful. Patient have blurring of vision to begin with In emergency room he was treated with Keflex 500 mg orally and then was discharge 4 times a day for 10 days Patient is immunocompromised and is getting IVIG His next dose is on December 06 Patient says that while he was taking antibiotic his rash improved and he was feeling better He finished the does 2 days ago and rash is coming back Last set of labs was in August, I have ordered a new set of lab for the patient I have sent Augmentin to be taken b.i.d. for 10 days. Patient is to call me in 10 days to update me. [facility] Medical History Central hypothyroidism History of lumbar puncture Migraine headache Pituitary tumor Primary central diabetes insipidus Rash Family History Brother Brain cancer Social History Household Members: None Household Members Other:: 1 Housing: House Are you a primary healthcare advisory services manager to a significant other at home: No Do you presently have visiting nurse or other home services: No Alcohol intake: current Alcohol intake frequency: holidays/special occasions only Alcohol type: beer Patient Tobacco Use Status: Current everyday Tobacco user Tobacco use type: Cigarette Cigarettes Per Day: 4 Years Smoked: 20 years e-Cigarette/Vaping Use: Never Used Substance Use Type: Marijuana service: No Current occupational status: unemployed (short term disability) and disabled Cognitive needs: No Hearing needs: No Vision needs: Yes Questionnaire PHQ-9 Over the last 2 weeks, how often have you been bothered by any of the following problems? 1. Little interest or pleasure in doing things: several days 2. Feeling down, depressed, or hopeless: not at all 3. Trouble falling or staying asleep, or sleeping too much: more than half the days 4. Feeling tired or having little energy: more than half the days 5. Poor appetite or overeating: several days 6. Feeling bad about yourself - or that you are a failure or have let yourself or your family down: not at all 7. Trouble concentrating on things, such as reading the newspaper or watching television: not at all 8. Moving or speaking so slowly that other people could have noticed. Or the opposite - being so fidgety or restless that you have been moving around a lot more than usual: not at all 9. Thoughts that you would be better off or of hurting yourself in some way: not at all Total score: 6 Depression Screening Interpretation: Negative [id number] - PHQ-9 Billing: Yes Source: Developed by Drs. Alfred Duran, Ivanna Samayoa, Jermain Sue and colleagues, with an educational alli from [employer]. Thrive Questionnaire Date Thrive assessed: 11/19/22 I am a: Patient What is your living situation today?: I have a steady place to live Within the past 12 months, did the food you bought not last and you didn't have the money to get more?: Never true Within the past 12 months, did you worry whether your food would run out before you got money to buy more?: Never true Do you have trouble paying for medicines?: No Do you have trouble getting transportation to medical appointments?: No Do you have trouble paying your heating and electricity bill?: No Do you have trouble taking care of your child, family member or friend?: No Do you have trouble with day-to-day activities such as bathing, preparing meals, shopping, managing finances, etc.?: No Are you currently unemployed and looking for a job?: No Are you interested in more education?: No RAMONA-7 AMB Questionnaire RAMONA-7 Date RAMONA - 7 assessed: 11/19/22 Source: Developed by Drs. Alfred Duran, Ivanna Samayoa, Jermain Sue and colleagues, with an educational alli from [employer]. RAMONA-7 Assessment Billing RAMONA-7 Assessment Tool: pt declined-do not bill Review of Systems Const Denies chills and Denies fever(s) ENT Denies epistaxis and Denies nasal discharge Card Denies chest pain Resp Denies chest congestion, Denies cough and Denies hemoptysis GI Denies diarrhea and Denies nausea Skin/Breast Denies rash Neuro Reports no additional complaints Psych Reports no additional complaints Endo Reports no additional complaints Physical exam (Primary Care) Vital Signs: Last Vital Signs Pulse 87 11/19/22 12:43 BP 106/64 11/19/22 12:43 Pulse Ox 98 11/19/22 12:43 Oxygen Delivery Method Room Air 11/19/22 12:43 BMI result Body Mass Index 38.8 Tobacco/Smoking Status: Tobacco use Status Tobacco use date assessed 05/21/22 11/19/22 12:44 Patient Tobacco Use Status Current everyday Tobacco 11/19/22 12:44 Tobacco use type Cigarette 11/19/22 12:44 e-Cigarette/Vaping Use Never Used 11/19/22 12:44 PHQ-9: PHQ-9 Score PHQ-9: Total score 6 11/19/22 13:02 Depression Screening Interpretation: Negative Thrive Assessment: Date of Thrive Assessment Date Thrive assessed 11/19/22 11/19/22 12:51 Const General: cooperative, comfortable and no acute distress Orientation/consciousness: patient oriented x3 HENMT Head: Yes normocephalic Eyes Eyes/upper lids images: 1. Inflammation and erythema conjunctiva slightly injected but no discharge noticed no pain with palpation 2. Same findings as above Neck Neck: Yes supple Resp Effort & Inspection: normal respiratory effort, no cough and no stridor Cardio Rhythm: regular rhythm Heart sounds: S1 normal heart sound present and S2 normal heart sound present Skin General skin exam: turgor normal Neuro General: patient oriented x3, tone normal and moves all extremities Assessment and Plan Assessment & Plan (1) Cellulitis, face: Code(s): L03.211 - Cellulitis of face (2) Pituitary adenoma: Code(s): D35.2 - Benign neoplasm of pituitary gland (3) Diabetes insipidus: Code(s): E23.2 - Diabetes insipidus (4) Primary central diabetes insipidus: Code(s): E23.2 - Diabetes insipidus (5) Central hypothyroidism: Code(s): E03.8 - Other specified hypothyroidism (6) Migraine headache: Code(s): G43.909 - Migraine, unspecified, not intractable, without status migrainosus (7) Hypertension, essential: Code(s): I10 - Essential (primary) hypertension (8) Blurred vision, left eye: Code(s): H53.8 - Other visual disturbances (9) New onset type 2 diabetes mellitus: Code(s): E11.9 - Type 2 diabetes mellitus without complications (10) Rash: Code(s): R21 - Rash and other nonspecific skin eruption Plan Patient is 52-year-old gentlemen who was in emergency room on 11/08/2022 with a chief complaint of facial rash. Patient states that 2 weeks ago he noticed a rash back of his left calf which responded to cortisone cream. He does have a history of eczema. He then developed rash on his face starting and on his forehead and then cheeks, he applied [id number] cortisone cream which did not help rash is pruritic and painful. Patient have blurring of vision to begin with In emergency room he was treated with Keflex 500 mg orally and then was discharge 4 times a day for 10 days Patient is immunocompromised and is getting IVIG due to pituitary adenoma His next dose is on December 06 Patient has central diabetes insipidus and central hypothyroidism as well as diabetes Patient says that while he was taking antibiotic his rash improved and he was feeling better He finished the does 2 days ago and rash is coming back Last set of labs was in August, I have ordered a new set of lab for the patient I have sent Augmentin to be taken b.i.d. for 10 days. Patient is to call me in 10 days to update me. Orders: Orders Comprehensive Met. Panel Today D35.2 - Benign neoplasm of pituitary gland, E03.8 - Other specified hypothyroidism, E11.9 - Type 2 diabetes mellitus without complications, E23.2 - Diabetes insipidus, G43.909 - Migraine, unspecified, not intractable, without status migrainosus, H53.8 - Other visual disturbances, I10 - Essential (primary) hypertension, R21 - Rash and other nonspecific skin eruption Complete Blood Count Auto Diff Today D35.2 - Benign neoplasm of pituitary gland, E03.8 - Other specified hypothyroidism, E11.9 - Type 2 diabetes mellitus without complications, E23.2 - Diabetes insipidus, G43.909 - Migraine, unspecified, not intractable, without status migrainosus, H53.8 - Other visual disturbances, I10 - Essential (primary) hypertension, R21 - Rash and other nonspecific skin eruption Medications: New amoxicillin-pot clavulanate 875-125 mg 1 tab PO BID 20 tabs 0RF 10 days Coding Level of Care Code Est Pt Level 4 (71862) Diagnoses Cellulitis, face L03.211 Pituitary adenoma D35.2 Diabetes insipidus E23.2 Primary central diabetes insipidus E23.2 Central hypothyroidism E03.8 Migraine headache G43.909 Hypertension, essential I10 Blurred vision, left eye H53.8 New onset type 2 diabetes mellitus E11.9 Rash R21
== END 2022-11-19 14:20 | disposition home or self-care (01) ==
PROVIDERS: PCP Internal Medicine; Visit Provider Internal Medicine
DX: L03.211 Cellulitis of face (principal); D35.2 Benign neoplasm of pituitary gland; E23.2 Diabetes insipidus; E03.8 Other specified hypothyroidism; G43.909 Migraine, unspecified, not intractable, without status migrainosus; I10 Essential (primary) hypertension; H53.8 Other visual disturbances; E11.9 Type 2 diabetes mellitus without complications; R21 Rash and other nonspecific skin eruption
CPT/HCPCS: 99214

== ENCOUNTER 2022-11-19 13:04 | Outpatient (REF) | payer OTHER, SELFPAY ==
[2022-11-19 16:10] LABS: MANUAL DIFF FLAG NO
[2022-11-19 16:19] LABS: Basophils Absolute Auto 0.1 X10*3/uL (0.0-0.2); Basophils Percent Auto 0.9 % (0-2); Eosinophils Absolute Auto 0.7 X10*3/uL (0.0-0.4); Eosinophils Percent Auto 6.4 % (0-4); Hematocrit 43.2 % (42.0-52.0); Hemoglobin 13.9 g/dl (14.0-18.0); Imm Gran Abs Auto 0.03 X10*3/uL (0.00-0.03); Imm Gran Pct Auto 0.3 % (0.0-0.4); Lymphocytes Absolute Auto 1.6 X10*3/uL (1.2-4.9); Lymphocytes Percent Auto 14.9 % (20-40); Mean Corpuscular HGB Conc 32.2 g/dl (31.0-36.0); Mean Corpuscular Hemoglobin 27.9 pg (27.0-33.0); Mean Corpuscular Volume 86.7 fL (80.0-98.0); Mean Platelet Volume 10.8 fL (9.4-12.4); Monocytes Absolute Auto 0.9 X10*3/uL (0.1-1.2); Monocytes Percent Auto 8.4 % (2-11); Neutrophils Absolute Auto 7.4 x10*3/uL (2.0-8.3); Neutrophils Percent Auto 69.1 % (45-73); Platelet Count 413 X10*3/uL (160-400); Red Blood Count 4.98 X10*6/uL (4.60-5.80); Red Cell Distribution Width 13.4 % (11.0-16.0); White Blood Count 10.7 X10*3/uL (4.8-10.8)
[2022-11-19 17:01] LABS: Alanine Aminotransferase 37 U/L (0-40); Albumin Level 3.9 g/dL (3.5-5.0); Alkaline Phosphatase 63 U/L (39-117); Anion Gap 12 (12-20); Aspartate Amino Transferase 35 U/L (5-37); Bilirubin Total 0.4 mg/dL (0.0-1.0); Blood Urea Nitrogen 9 mg/dL (9-16); Calcium 10.1 mg/dL (8.4-10.2); Carbon Dioxide 25 mmol/L (22-29); Chloride 110 mmol/L (96-108); Estimated Glomerular Filt Rate > 60; Glucose Random 89 mg/dL (60-115); Sodium 143 mmol/L (135-145); Total Protein 6.7 g/dL (6.5-8.0)
== END 2022-11-19 13:05 | disposition home or self-care (01) ==
LOC: HO.HMGCLDS 13:04
PROVIDERS: PCP Internal Medicine; Visit Provider Internal Medicine
DX: D35.2 Benign neoplasm of pituitary gland (principal); E03.8 Other specified hypothyroidism; E11.9 Type 2 diabetes mellitus without complications; E23.2 Diabetes insipidus; G43.909 Migraine, unspecified, not intractable, without status migrainosus; H53.8 Other visual disturbances; I10 Essential (primary) hypertension; R21 Rash and other nonspecific skin eruption
CPT/HCPCS: 36415; 80053; 85025

== ENCOUNTER 2022-11-27 06:59 | Emergency (ER) | payer OTHER, SELFPAY ==
[2022-11-27 07:05] VITALS: BP 113/75; PULSE 94; RESP 19; TEMP 36.6; O2SAT 97; BMI 38.9
--- NOTE | 2022-11-27 07:58 | ED_ITS ---
HPI - General Adult General Chief complaint: General Medical Stated complaint: Bacteria infection? Seen 2 weeks ago Time Seen by Provider: 11/27/22 07:42 Source: patient Mode of arrival: ambulatory History of Present Illness HPI narrative: 52-year-old male comes in with worsening redness around both eyes, with increased skin flaking and itchiness that also involves bilateral lower extremities with edema that is nonpitting, areas noted to the back of the neck as well. Patient denies any fevers or chills. Related Data Home Medications Medication Instructions Recorded Confirmed blood sugar diagnostic (FreeStyle #10 ea 02/28/22 11/19/22 Lite Strips) blood-glucose meter (FreeStyle #1 ea 02/28/22 11/19/22 Lite Meter kit) lancets 28 gauge (FreeStyle #100 ea 02/28/22 11/19/22 Lancets) sodium chloride 0.65 % nasal spray 2 spray intranasal TID PRN 03/29/22 11/19/22 aerosol ([place] Nasal) Congestion calcium carbonate 500 mg calcium See Rx Instructions PO DAILY 09/06/22 11/19/22 (1,250 mg) tablet prednisone 5 mg tablet 10 mg PO DAILY 09/06/22 11/19/22 Previous Rx's Medication Instructions Recorded acetaminophen 325 mg tablet 325 mg PO Q6H Pain (Scale Score 09/09/22 (Tylenol) 1-3) 90 days #360 tabs cholecalciferol (vitamin D3) 25 25 mcg PO DAILY #180 tabs 09/09/22 mcg (1,000 unit) tablet levothyroxine 150 mcg tablet 150 mcg PO DAILY #90 tabs 09/09/22 omeprazole 20 mg capsule,delayed 20 mg PO DAILY #90 caps 09/09/22 release desmopressin 0.1 mg tablet 0.05 mg PO BID 90 days #90 tabs 09/19/22 amoxicillin 875 mg-potassium 1 tab PO BID 10 days #20 tabs 11/19/22 clavulanate 125 mg tablet polymyxin B sulfate 10,000 1 drp ophthalmic (eye) QID 7 days 11/22/22 unit-trimethoprim 1 mg/mL eye #10 mL drops (Polytrim) naphazoline 0.025 %-pheniramine 1 drp ophthalmic (eye) BID-QID PRN 11/26/22 0.3 % eye drops (Naphcon-A) Itchy eyes 30 days #15 mL prednisone 50 mg tablet 50 mg PO DAILY 4 days #4 tabs 11/27/22 Allergies Allergy/AdvReac Type Severity Reaction Status Date / Time No Known Allergies Allergy Verified 11/27/22 07:04 Review of Systems Review of Systems: Pertinent positives and negatives as stated in [facility] Past Medical History Source: nursing notes reviewed Medical History Central hypothyroidism History of lumbar puncture Migraine headache Pituitary tumor Primary central diabetes insipidus Rash Family History Family History Brother Brain cancer Social History Social History Household Members: None Household Members Other:: 1 Housing: House Are you a primary certified social workers in health care to a significant other at home: No Do you presently have visiting nurse or other home services: No Alcohol intake: current Alcohol intake frequency: does not drink Alcohol type: beer Patient Tobacco Use Status: Current everyday Tobacco user Tobacco use type: Cigarette Cigarettes Per Day: 4 Years Smoked: 20 years Smoked in Last 30 Days: Yes e-Cigarette/Vaping Use: Never Used Use of substances other than those prescribed or required for medical reasons: No Substance Use Type: Marijuana Advance Directives: No Advance Directives Information Provided: No service: No Current occupational status: unemployed (short term disability) and disabled Cognitive needs: No Hearing needs: No Vision needs: Yes Physical Exam ED Vital Signs: Vital Signs - 24 hr 11/27/22 07:05 11/27/22 08:36 11/27/22 10:15 Temperature 98 F 98.5 F 98.4 F Pulse Rate 94 81 85 Respiratory Rate 19 16 16 Blood Pressure 113/75 116/59 L 113/68 Pulse Oximetry 97 100 98 Oxygen Delivery Method Room Air Room Air Room Air BMI result Body Mass Index 38.9 VITAL SIGNS: Reviewed. GENERAL: Well developed, well nourished, in no acute distress. HEAD: Normocephalic/atraumatic EYES: PERRLA, EOMI, bilateral periorbital mild discoloration/erythema with significant skin flaking EARS: Ext canals without abnormality NOSE: Nares patent bilateral OROPHARYNX: no oral lesions noted, posterior pharynx clear NECK: Supple, no adenopathy LUNGS: Normal breath sounds. No adventitious sounds or accessory muscle use. SpO2<97> CARDIOVASCULAR: Regular rate and rhythm without noted murmurs ABDOMEN: Soft, non-tender, non-distended with bowel sounds. MUSCULOSKELETAL: No tenderness, deformities, or effusions noted on gross inspection. EXTREMITIES: No cyanosis, clubbing or edema. BLLE: There is swelling that involves bilateral lower extremities with nonpitting edema and evidence of patient having scratched the skin significantly SKIN: Inspection of the skin reveals no rashes NEUROLOGIC: Alert and oriented x 4. Strength and sensation to light touch were grossly intact x 4. Medical Decision Making Medical Decision Making MDM Narrative: 52-year-old male with history and clinical presentation, DDX: Psoriasis or other autoimmune condition. 1208: I finally was able to get a hold of patient's information assistant who is managing his underlying pituitary adenoma with does month prazosin and this was Dr. Roper, who says that he can go on a short course of prednisone for his skin condition and then resume the 5 mg of prednisone after that is complete. This was communicated with the patient and he understands to reach out to the primary care provider today to get a referral for Dermatology. Differential Diagnosis Differential Diagnoses: The differential diagnosis associated with the presentation includes Please see the discussion above Lab Data Labs: Lab Results 11/27/22 Range/Units 08:35 POC Glucose 112 (60-115) mg/dL Critical Care Time Critical Care Time Critical Care Time: Yes Total Critical Care Time: 30 Attestation: I personally attest to this time spent taking care of the patient. Discharge Plan Discharge Clinical Impression: Dermatitis, Dermatitis contact, eyelid Patient Disposition: Home, Self-Care Instructions: Dermatitis (ED) Additional Instructions: 1. Resume all home medications except your 5 mg of prednisone. You will be taking 50 mg of prednisone for the next 4 days and then should resume your 5 mg of prednisone thereafter. This has been approved by your information assistant in [place]. 2. You will complete a short course of oral steroids and be aware that this will increase your blood pressure and your sugar levels. 3. Please call your primary care doctor today to get a referral to follow-up with Dermatology for better evaluation and characterization of your skin condition which could be either a version of eczema or psoriasis. Return to the ER for any worsening symptoms. Prescriptions: New prednisone 50 mg tablet 50 mg PO DAILY 4 Days Qty: 4 0RF No Action acetaminophen [Tylenol] 325 mg tablet 325 mg PO Q6H 90 Days Qty: 360 0RF cholecalciferol (vitamin D3) 25 mcg (1,000 unit) tablet 25 mcg PO DAILY Qty: 180 0RF levothyroxine 150 mcg tablet 150 mcg PO DAILY Qty: 90 0RF omeprazole 20 mg capsule,delayed release(DR/EC) 20 mg PO DAILY Qty: 90 0RF polymyxin B sulf-trimethoprim [Polytrim] 10,000 unit- 1 mg/mL drops 1 drp ophthalmic (eye) QID 7 Days Qty: 10 0RF Naphcon-A 0.025-0.3 % drops 1 drp ophthalmic (eye) BID-QID PRN (Reason: Itchy eyes) 30 Days Qty: 15 0RF [place] Nasal 0.65 % Aerosol,[place] 2 spray INTRANASAL TID PRN (Reason: Congestion) calcium carbonate 500 mg calcium (1,250 mg) tablet See Rx Instructions PO DAILY Rx Instructions: 600mg orally daily; prednisone 5 mg tablet 10 mg PO DAILY desmopressin 0.1 mg tablet 0.05 mg PO BID 90 Days Qty: 90 0RF amoxicillin-pot clavulanate 875-125 mg tablet 1 tab PO BID 10 Days Qty: 20 0RF (DME) lancets [FreeStyle Lancets] 28 gauge misc See Rx Instructions .ROUTE .MEDSUPPLY Qty: 100 Rx Instructions: As directed (DME) FreeStyle Lite Strips Strip See Rx Instructions .ROUTE .MEDSUPPLY Qty: 10 Rx Instructions: As directed (DME) blood-glucose meter [FreeStyle Lite Meter] Kit See Rx Instructions .ROUTE .MEDSUPPLY Qty: 1 Rx Instructions: As directed Referrals: Ulisses Whitmore MD [Primary Care Provider] -
[2022-11-27 08:36] VITALS: BP 116/59; PULSE 81; RESP 16; TEMP 36.9; O2SAT 100
[2022-11-27 08:45] LABS: Glucose, Whole Blood 112 mg/dL (60-115)
[2022-11-27 10:15] VITALS: BP 113/68; PULSE 85; RESP 16; TEMP 36.9; O2SAT 98
[2022-11-27 12:00] VITALS: RESP 16
[2022-11-27] MEDS: predniSONE 10 MG TABLET 50 MG PO (12:10)
== END 2022-11-27 12:31 | disposition home or self-care (01) ==
PROVIDERS: Emergency Provider Student in an Organized Health Care Education/Training Program; PCP Internal Medicine
DX: L25.9 Unspecified contact dermatitis, unspecified cause (principal); H01.8 Other specified inflammations of eyelid; R60.0 Localized edema; E11.9 Type 2 diabetes mellitus without complications; I10 Essential (primary) hypertension; E78.5 Hyperlipidemia, unspecified; D49.7 Neoplasm of unspecified behavior of endocrine glands and other parts of nervous system; E66.9 Obesity, unspecified; Z68.38 Body mass index [BMI] 38.0-38.9, adult; F17.210 Nicotine dependence, cigarettes, uncomplicated
CPT/HCPCS: 82947; 99283; 99284

== ENCOUNTER 2022-11-28 10:27 | Outpatient (AMB) | payer OTHER, SELFPAY ==
--- NOTE | 2022-11-28 10:24 | MHC.PC.OV ---
Intake Visit Reasons: follow up on HD Allergies No Known Allergies Allergy (Verified 11/27/22 07:04) Medication List - Last Reconciled 11/28/22 by Ulisses Whitmore MD acetaminophen (Tylenol) 325 mg PO Q6H 90 days amoxicillin-pot clavulanate 875-125 mg 1 tab PO BID 10 days blood sugar diagnostic (FreeStyle Lite Strips) As directed blood-glucose meter (FreeStyle Lite Meter kit) As directed calcium carbonate 600mg orally daily; cholecalciferol (vitamin D3) 25 mcg PO DAILY desmopressin 0.05 mg (1/2 x 0.1 mg) PO BID 90 days lancets (FreeStyle Lancets) As directed levothyroxine 150 mcg PO DAILY naphazoline-pheniramine 0.025-0.3 % (Naphcon-A) 1 drp ophthalmic (eye) BID-QID PRN 30 days omeprazole 20 mg PO DAILY polymyxin B sulf-trimethoprim 10,000 unit- 1 mg/mL (Polytrim) 1 drp ophthalmic (eye) QID 7 days prednisone 50 mg PO DAILY 4 days prednisone 10 mg PO DAILY sodium chloride 0.65% ([place] Nasal) 2 sprays intranasal TID PRN Tobacco use date assessed: 11/28/22 Dental Screening Dental Screen Date: 11/28/22 Did you have a dental visit in the last 12 months?: Yes Did you have a dental problem in the last 6 months where you did not have access to dental care?: No Was dental information given to patient?: No HPI follow up on HD HPI Details Patient is 52-year-old gentleman this is a telemedicine video visit. Patient has developed redness and itching all over his face few days ago he was evaluated in emergency room and was treated with antibiotic. Patient responded to antibiotic the rash got better but stays around his eyes. He was seen by me after that and was treated with another course of antibiotic the rash did get better with antibiotic and then came back again. He also complaining of dating in his eyes so he was directed to emergency room again as he could not sees eye doctor for another few days. Patient is under care of surface water manager for the management of pituitary adenoma Dr. Roper Patient is on small dose of prednisone 5 mg daily through endocrinology. Emergency room provider was able to get hold of surface water manager and discuss patient care is. Short course of higher dose of prednisone was consulted and then started. Patient is now taking prednisone 50 mg he was given 5 tablets 5 days. I sent in a fog on a eyedrops earlier which patient is using as well and it has helped with itching in his eyes. High dose of prednisone has helped with redness and itching. Today on a medial conference I see that his rash has improved a lot. I have sent 7 tablets of 20 mg prednisone that he is to take after he had done with the 50 mg 5 days of 20 mg and then half a tablet until finished. And then he can go back to his baseline prednisone dose of 5 mg I have also placed dermatology referral urgent. [facility] Medical History Central hypothyroidism History of lumbar puncture Migraine headache Pituitary tumor Primary central diabetes insipidus Rash Family History Brother Brain cancer Social History Household Members: None Household Members Other:: 1 Housing: House Are you a primary rn progressive care unit to a significant other at home: No Do you presently have visiting nurse or other home services: No Alcohol intake: current Alcohol intake frequency: does not drink Alcohol type: beer Patient Tobacco Use Status: Current everyday Tobacco user Tobacco use type: Cigarette Cigarettes Per Day: 4 Years Smoked: 20 years Packs per year/per ci.00 e-Cigarette/Vaping Use: Never Used Substance Use Type: Marijuana service: No Current occupational status: unemployed (short term disability) and disabled Cognitive needs: No Hearing needs: No Vision needs: Yes Questionnaire Thrive Questionnaire Date Thrive assessed: 11/19/22 AUDIT C Alcohol Use Questionnaire (AUDIT-C) 1. How often do you have a drink containing alcohol?: Never 3. How often do you have six or more drinks on one occasion?: Never Total Score: 0 Score Reviewed/Action Taken: Yes RAMONA-7 AMB Questionnaire RAMONA-7 Date RAMONA - 7 assessed: 11/19/22 Source: Developed by Drs. Alfred Duran, Ivanna Samayoa, Jermain Sue and colleagues, with an educational alli from [facility]. Review of Systems Const Denies chills and Denies fever(s) ENT Denies epistaxis and Denies nasal discharge Card Denies chest pain Resp Denies chest congestion, Denies cough and Denies hemoptysis GI Denies diarrhea and Denies nausea Neuro Reports no additional complaints Psych Reports no additional complaints Endo Reports no additional complaints Physical exam (Primary Care) Tobacco/Smoking Status: Tobacco use Status Tobacco use date assessed 11/28/22 11/28/22 10:25 Patient Tobacco Use Status Current everyday Tobacco 11/28/22 10:25 Tobacco use type Cigarette 11/28/22 10:25 e-Cigarette/Vaping Use Never Used 11/28/22 10:25 Thrive Assessment: Date of Thrive Assessment Date Thrive assessed 11/19/22 11/28/22 10:25 Const General: cooperative, comfortable and no acute distress Orientation/consciousness: patient oriented x3 HENMT Head: Yes normocephalic Eyes General: appearance normal, both eyes and all related structures Neck Neck: Yes supple Resp Effort & Inspection: normal respiratory effort, no cough and no stridor Cardio Rhythm: regular rhythm Heart sounds: S1 normal heart sound present and S2 normal heart sound present Skin General skin exam: turgor normal Neuro General: patient oriented x3, tone normal and moves all extremities Extrem Right lower extremity: no edema Left lower extremity: no edema Telehealth Telehealth Location of provider rendering services: practice address Location of patient: address on file Patient Identification confirmed using: Name, : Yes Telehealth method: video Patient verbally consented to treatment: Yes Patient verbally consented to billing insurance company: Yes Patient informed of any privacy concerns related to visit: Yes Assessment and Plan Assessment & Plan (1) Facial dermatitis: Code(s): L30.9 - Dermatitis, unspecified (2) Pituitary adenoma: Code(s): D35.2 - Benign neoplasm of pituitary gland (3) Blind right eye: Code(s): H54.40 - Blindness, one eye, unspecified eye (4) Blurred vision, left eye: Code(s): H53.8 - Other visual disturbances (5) Itch of eye: Code(s): H57.9 - Unspecified disorder of eye and adnexa (6) Pruritic condition: Code(s): L29.9 - Pruritus, unspecified Plan Patient is 52-year-old gentleman this is a telemedicine video visit. Patient has developed redness and itching all over his face few days ago he was evaluated in emergency room and was treated with antibiotic. Patient responded to antibiotic the rash got better but stays around his eyes. He was seen by me after that and was treated with another course of antibiotic the rash did get better with antibiotic and then came back again. He also complaining of dating in his eyes so he was directed to emergency room again as he could not sees eye doctor for another few days. Patient is under care of surface water manager for the management of pituitary adenoma Dr. Roper Patient is on small dose of prednisone 5 mg daily through endocrinology. Emergency room provider was able to get hold of surface water manager and discuss patient care is. Short course of higher dose of prednisone was consulted and then started. Patient is now taking prednisone 50 mg he was given 5 tablets 5 days. I sent in a fog on a eyedrops earlier which patient is using as well and it has helped with itching in his eyes. High dose of prednisone has helped with redness and itching. Today on a medial conference I see that his rash has improved a lot. I have sent 7 tablets of 20 mg prednisone that he is to take after he had done with the 50 mg 5 days of 20 mg and then half a tablet until finished. And then he can go back to his baseline prednisone dose of 5 mg I have also placed dermatology referral urgent. Orders: Referrals Dermatology Referral L30.9 - Dermatitis, unspecified Medications: Changed From omeprazole 20 mg PO DAILY 90 caps 0RF To omeprazole 20 mg PO DAILY 7 caps 0RF 7 days Coding Level of Care Code Tele Est Pt Level 4 (96864) Diagnoses Facial dermatitis L30.9 Pituitary adenoma D35.2 Blind right eye H54.40 Blurred vision, left eye H53.8 Itch of eye H57.9 Pruritic condition L29.9 Time Spent (min) 30 Comment 5 preparation, 15 with patient, 10 charting/ref/meds
== END 2022-11-28 15:26 | disposition home or self-care (01) ==
LOC: HO.HMGC 10:27
PROVIDERS: PCP Internal Medicine; Visit Provider Internal Medicine
DX: L30.9 Dermatitis, unspecified (principal); D35.2 Benign neoplasm of pituitary gland; H54.40 Blindness, one eye, unspecified eye; H53.8 Other visual disturbances; H57.9 Unspecified disorder of eye and adnexa; L29.9 Pruritus, unspecified
CPT/HCPCS: 99214

== ENCOUNTER 2022-12-24 08:43 | Outpatient (AMB) | payer OTHER, SELFPAY ==
[2022-12-24 08:45] VITALS: BP 110/72; PULSE 96; BMI 41.3
--- NOTE | 2022-12-24 08:45 | A.OFFVIS_ITS ---
Intake Vital Signs 12/24/22 08:45 Height 5 ft 5 in Weight 248 lb 3.848 oz BMI 41.3 BP 110/72 Blood Pressure Location Lt brachial Position Sitting Pulse 96 Pulse Source Pulse Oximeter Intake Visit Reasons: Benign neoplasm of pituitary gland/Confirmed Intake Note: New patient present today for Benign Neoplasm of Pituitary gland visit. Strap Cutter Required: No Accompanied by: Self / Same As Patient Allergies No Known Allergies Allergy (Verified 12/24/22 08:51) Medication List - Last Reconciled 12/24/22 by Alfred Wheatley MD acetaminophen (Tylenol) 325 mg PO Q6H 90 days blood sugar diagnostic (FreeStyle Lite Strips) As directed blood-glucose meter (FreeStyle Lite Meter kit) As directed calcium carbonate 600mg orally daily; cholecalciferol (vitamin D3) 25 mcg PO DAILY desmopressin 0.05 mg (1/2 x 0.1 mg) PO BID 90 days lancets (FreeStyle Lancets) As directed levothyroxine 150 mcg PO DAILY naphazoline-pheniramine 0.025-0.3 % (Naphcon-A) 1 drp ophthalmic (eye) BID-QID PRN 30 days omeprazole 20 mg PO DAILY 90 days polymyxin B sulf-trimethoprim 10,000 unit- 1 mg/mL (Polytrim) 1 drp ophthalmic (eye) QID 7 days prednisone 10 mg PO DAILY sodium chloride 0.65% ([place] Nasal) 2 sprays intranasal TID PRN HPI HPI Comments History of Present Illness Details This is a 52-year-old male followed by [facility] neuroendocrine unit last seen on 09/26/2022. 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 He has resultant panhypopituitarism with central hypothyroidism, central adrenal insufficiency and central diabetes insipidus. He is currently on prednisone 5 mg daily and rituximab infusions as well as IVIG therapy started on 07/22/2022 he is currently on desmopressin 0.1 mg q.a.m. and 0.5 mg q.p.m.. He takes prednisone 5 mg daily. He also takes levothyroxine 150 mcg q.d.. No frequent urination. No energy level or libido. Does snore at night . Not worked up for sleep apnea. No hx of DVT or PE PFSH Medical History (Updated 12/24/22 @ 09:04 by Alfrde Wheatley MD) Panhypopituitarism Pituitary tumor History of lumbar puncture Central hypothyroidism Primary central diabetes insipidus Migraine headache Rash Family History Brother Brain cancer Social History Household Members: None Household Members Other:: 1 Housing: House Are you a primary body care manager to a significant other at home: No Do you presently have visiting nurse or other home services: No Alcohol intake: current Alcohol intake frequency: does not drink Alcohol type: beer Patient Tobacco Use Status: Current everyday Tobacco user Tobacco use type: Cigarette Cigarettes Per Day: 4 Years Smoked: 20 years e-Cigarette/Vaping Use: Never Used Substance Use Type: Marijuana service: No Current occupational status: unemployed and disabled Cognitive needs: No Hearing needs: No Vision needs: Yes Physical Exam Vital Signs: Last Vital Signs Pulse 96 12/24/22 08:45 BP 110/72 12/24/22 08:45 BMI result Body Mass Index 41.3 Const Other: Absence of visual field loss by gross confrontation. Presence of cushingoid features. Thyroid gland is normal size weighs about 15 g . Lungs are clear to auscultation. Heart is S1-S2. 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 He is currently replaced on levothyroxine, DDAVP and prednisone. Recent electrolytes within normal limits. He also has secondary hypogonadism Plan is to check free T4, a.m. will adjust levothyroxine keep free T4 in mid normal range. Continue current prednisone dose and desmopressin dose Will talk to patient about possible testosterone initiation. Before we can do so, patient will talk to primary care provider about getting referral for sleep study and if sleep apnea is present will need CPAP. Will recheck LH, FSH in a.m. testosterone. Will also speak to patient about growth or replacement and may retest IGF-1. Well we can supplement with local care, Considering complexity of situation and rare diagnosis, patient should follow up with [facility] Orders: Orders Lutenizing Hormone Today E23.0 - Hypopituitarism Follicle Stimulating Hormone Today E23.0 - Hypopituitarism IGF-1 (Somatomedin C) Today E23.0 - Hypopituitarism Testosterone, Free/Total Today E23.0 - Hypopituitarism Prostate Specific Antigen Today E23.0 - Hypopituitarism Coding Level of Care Code New Pt Level 4 (22424) Diagnoses Panhypopituitarism E23.0
== END 2022-12-24 09:31 | disposition home or self-care (01) ==
PROVIDERS: PCP Internal Medicine; Visit Provider Internal Medicine Endocrinology, Diabetes & Metabolism
DX: E23.0 Hypopituitarism (principal)
CPT/HCPCS: 99204

== ENCOUNTER → 2022-12-24 08:43 | Outpatient (BNVA) | payer OTHER, SELFPAY | PROVIDERS: PCP Internal Medicine; Visit Provider Internal Medicine Endocrinology, Diabetes & Metabolism ==

== ENCOUNTER 2022-12-24 12:47 | Outpatient (AMB) | payer OTHER, SELFPAY ==
--- NOTE | 2022-12-24 12:48 | MHC.PC.OV ---
Vital Signs 12/24/22 12:56 Height 5 ft 5 in Weight 250 lb BMI 41.6 BP 120/70 Blood Pressure Location Rt brachial Position Sitting Pulse 93 Pulse Source Pulse Oximeter Pulse Oximetry (%) 97 Oxygen Delivery Method Room Air Intake Visit Reasons: 3m follow up Allergies No Known Allergies Allergy (Verified 12/24/22 12:48) Medication List - Last Reconciled 12/24/22 by Ulisses Whitmore MD acetaminophen (Tylenol) 325 mg PO Q6H 90 days blood sugar diagnostic (FreeStyle Lite Strips) As directed blood-glucose meter (FreeStyle Lite Meter kit) As directed calcium carbonate 600mg orally daily; cholecalciferol (vitamin D3) 25 mcg PO DAILY desmopressin 0.05 mg (1/2 x 0.1 mg) PO BID 90 days lancets (FreeStyle Lancets) As directed levothyroxine 150 mcg PO DAILY naphazoline-pheniramine 0.025-0.3 % (Naphcon-A) 1 drp ophthalmic (eye) BID-QID PRN 30 days omeprazole 20 mg PO DAILY 90 days polymyxin B sulf-trimethoprim 10,000 unit- 1 mg/mL (Polytrim) 1 drp ophthalmic (eye) QID 7 days prednisone 10 mg PO DAILY sodium chloride 0.65% ([place] Nasal) 2 sprays intranasal TID PRN Tobacco use date assessed: 12/24/22 Dental Screening Dental Screen Date: 12/24/22 Did you have a dental problem in the last 6 months where you did not have access to dental care?: No HPI 3m follow up HPI Details Patient is 52-year-old gentleman with a jittery adenoma causing diabetes, hypothyroidism, diabetes insipidus, most slightly low testosterone level Patient has seen Dr. Wheatley recently note reviewed. More labs were ordered to see his testosterone level Patient is morbidly obese with BMI of 41.6 He is also complaining of snoring and daytime somnolence I have ordered home sleep study, most likely patient have sleep apnea. He also brought in disability paperwork to be filled. 50% time was spent feeling paperwork for the patient. Patient is totally disabled and is not able to work He is blind in his right eye and have blurred vision in left. [facility] Medical History Panhypopituitarism Pituitary tumor History of lumbar puncture Central hypothyroidism Primary central diabetes insipidus Migraine headache Rash Family History Brother Brain cancer Social History Household Members: None Household Members Other:: 1 Housing: House Are you a primary certified social workers in health care to a significant other at home: No Do you presently have visiting nurse or other home services: No Alcohol intake: current Alcohol intake frequency: does not drink Alcohol type: beer Patient Tobacco Use Status: Current everyday Tobacco user Tobacco use type: Cigarette Cigarettes Per Day: 4 Years Smoked: 20 years Packs per year/per ci.00 e-Cigarette/Vaping Use: Never Used Substance Use Type: Marijuana service: No Current occupational status: unemployed and disabled Cognitive needs: No Hearing needs: No Vision needs: Yes Questionnaire Thrive Questionnaire Date Thrive assessed: 11/19/22 AUDIT C Alcohol Use Questionnaire (AUDIT-C) 1. How often do you have a drink containing alcohol?: Never 3. How often do you have six or more drinks on one occasion?: Never Total Score: 0 Score Reviewed/Action Taken: Yes RAMONA-7 AMB Questionnaire RAMONA-7 Date RAMONA - 7 assessed: 11/19/22 Source: Developed by Drs. Alfred Duran, Ivanna Samayoa, Jermain Sue and colleagues, with an educational alli from [employer]. Review of Systems Const Denies chills and Denies fever(s) ENT Denies epistaxis and Denies nasal discharge Card Denies chest pain Resp Denies chest congestion, Denies cough and Denies hemoptysis GI Denies diarrhea and Denies nausea Skin/Breast Denies rash Neuro Reports no additional complaints Psych Reports no additional complaints Endo Reports no additional complaints Physical exam (Primary Care) Vital Signs: Last Vital Signs Pulse 93 12/24/22 12:56 BP 120/70 12/24/22 12:56 Pulse Ox 97 12/24/22 12:56 Oxygen Delivery Method Room Air 12/24/22 12:56 BMI result Body Mass Index 41.6 Tobacco/Smoking Status: Tobacco use Status Tobacco use date assessed 12/24/22 12/24/22 12:50 Patient Tobacco Use Status Current everyday Tobacco 12/24/22 12:50 Tobacco use type Cigarette 12/24/22 12:50 e-Cigarette/Vaping Use Never Used 12/24/22 12:50 Thrive Assessment: Date of Thrive Assessment Date Thrive assessed 11/19/22 12/24/22 12:50 Const General: cooperative, comfortable and no acute distress Orientation/consciousness: patient oriented x3 HENMT Head: Yes normocephalic Neck Neck: Yes supple Resp Effort & Inspection: normal respiratory effort, no cough and no stridor Cardio Rhythm: regular rhythm Heart sounds: S1 normal heart sound present and S2 normal heart sound present Skin General skin exam: turgor normal Neuro General: patient oriented x3, tone normal and moves all extremities Assessment and Plan Assessment & Plan (1) Morbid obesity due to excess calories: Code(s): E66.01 - Morbid (severe) obesity due to excess calories (2) Snoring: Code(s): R06.83 - Snoring (3) Daytime somnolence: Code(s): R40.0 - Somnolence (4) Pituitary adenoma: Code(s): D35.2 - Benign neoplasm of pituitary gland (5) Blind right eye: Code(s): H54.40 - Blindness, one eye, unspecified eye Qualifiers: Left eye visual impairment category: left - category 3 Qualified Code(s): H54.3 - Unqualified visual loss, both eyes (6) Blurred vision, left eye: Code(s): H53.8 - Other visual disturbances (7) Primary central diabetes insipidus: Code(s): E23.2 - Diabetes insipidus (8) Central hypothyroidism: Code(s): E03.8 - Other specified hypothyroidism Plan Patient is 52-year-old gentleman with a jittery adenoma causing diabetes, hypothyroidism, diabetes insipidus, most slightly low testosterone level Patient has seen Dr. Wheatley recently note reviewed. More labs were ordered to see his testosterone level Patient is morbidly obese with BMI of 41.6 He is also complaining of snoring and daytime somnolence I have ordered home sleep study, most likely patient have sleep apnea. He also brought in disability paperwork to be filled. 50% time was spent feeling paperwork for the patient. Patient is totally disabled and is not able to work He is blind in his right eye and have blurred vision in left. Orders: Orders RT home sleep study Today E66.01 - Morbid (severe) obesity due to excess calories, R06.83 - Snoring, R40.0 - Somnolence Coding Level of Care Code Est Pt Level 4 (87752) Diagnoses Morbid obesity due to excess calories E66.01 Snoring R06.83 Daytime somnolence R40.0 Pituitary adenoma D35.2 Blindness of right eye with category 3 blindness of left eye H54.3 Left eye visual impairment category: left - category 3 Blurred vision, left eye H53.8 Primary central diabetes insipidus E23.2 Central hypothyroidism E03.8
[2022-12-24 12:56] VITALS: BP 120/70; PULSE 93; O2SAT 97; BMI 41.6
== END 2022-12-24 13:56 | disposition home or self-care (01) ==
PROVIDERS: PCP Internal Medicine; Visit Provider Internal Medicine
DX: E23.2 Diabetes insipidus (principal); E66.01 Morbid (severe) obesity due to excess calories; D35.2 Benign neoplasm of pituitary gland; Z68.41 Body mass index [BMI] 40.0-44.9, adult; E03.8 Other specified hypothyroidism; R06.83 Snoring; R40.0 Somnolence; H54.3 Unqualified visual loss, both eyes; H53.8 Other visual disturbances
CPT/HCPCS: 99214

== ENCOUNTER 2023-03-05 14:51 | Outpatient (AMB) | payer OTHER, SELFPAY ==
--- NOTE | 2023-03-05 14:54 | A.OFFPC_ITS ---
Vital Signs 03/05/23 14:55 Height 5 ft 5 in Weight 238 lb BMI 39.6 BP 124/72 Blood Pressure Location Rt brachial Position Sitting Pulse 84 Pulse Source Pulse Oximeter Pulse Oximetry (%) 98 Oxygen Delivery Method Room Air Intake Visit Reasons: Blurred vision, Diabetes Insipidus Allergies No Known Allergies Allergy (Verified 03/05/23 14:55) Medication List - Last Reconciled 03/05/23 by Ulisses Whitmore MD acetaminophen (Tylenol) 325 mg PO Q6H 90 days blood sugar diagnostic (FreeStyle Lite Strips) As directed blood-glucose meter (FreeStyle Lite Meter kit) As directed calcium carbonate 600mg orally daily; cholecalciferol (vitamin D3) 25 mcg PO DAILY desmopressin 0.05 mg (1/2 x 0.1 mg) PO BID 90 days lancets (FreeStyle Lancets) As directed levothyroxine 150 mcg PO DAILY naphazoline-pheniramine 0.025-0.3 % (Naphcon-A) 1 drp ophthalmic (eye) BID-QID PRN 30 days omeprazole 20 mg PO DAILY 90 days polymyxin B sulf-trimethoprim 10,000 unit- 1 mg/mL (Polytrim) 1 drp ophthalmic (eye) QID 7 days prednisone 10 mg PO DAILY sodium chloride 0.65% ([place] Nasal) 2 sprays intranasal TID PRN Tobacco use date assessed: 03/05/23 Dental Screening Dental Screen Date: 03/05/23 Did you have a dental visit in the last 12 months?: Yes Did you have a dental problem in the last 6 months where you did not have access to dental care?: No Was dental information given to patient?: Patient has dentist HPI Blurred vision, Diabetes Insipidus HPI Details Patient is 52-year-old gentleman with pituitary adenoma causing diabetes, hypothyroidism, diabetes insipidus, Patient is currently seeing Dr. Wheatley endocrinology [facility] for the management Patient says that Dr. Wheatley has ordered some labs but every time he goes to lab it is closed He came in here to ask me if he can go somewhere else I see the order in the system but I do not see the TSH level and I noticed that it has not been done for a while I have added TSH along with metabolic profile and CBC as well. Patient may have labs done in next door to this clinic Patient has managed to lose some weight his BMI is now 39.6 it was about 40 before Patient is on disability he is blind in his right eye and his left eye has a blurry vision Currently patient is having cough and chest congestion on auscultation I heard some rhonchi right side of his lung I have ordered chest x-ray as well I have sent extra prednisone for 3 days along with azithromycin. Further management after the chest x-ray report [facility] Medical History Panhypopituitarism Pituitary tumor History of lumbar puncture Central hypothyroidism Primary central diabetes insipidus Migraine headache Rash Family History Brother Brain cancer Social History Household Members: None Household Members Other:: 1 Housing: House Are you a primary manager long term care to a significant other at home: No Do you presently have visiting nurse or other home services: No Alcohol intake: current Alcohol intake frequency: does not drink Alcohol type: beer Patient Tobacco Use Status: Current everyday Tobacco user Tobacco use type: Cigarette Cigarettes Per Day: 4 Years Smoked: 20 years e-Cigarette/Vaping Use: Never Used Substance Use Type: Marijuana service: No Current occupational status: unemployed and disabled Cognitive needs: No Hearing needs: No Vision needs: Yes Questionnaire Thrive Questionnaire Date Thrive assessed: 11/19/22 AUDIT C Alcohol Use Questionnaire (AUDIT-C) 1. How often do you have a drink containing alcohol?: Never 3. How often do you have six or more drinks on one occasion?: Never Total Score: 0 RAMONA-7 AMB Questionnaire RAMONA-7 Date RAMONA - 7 assessed: 11/19/22 Source: Developed by Drs. Alfred Duran, Ivanna Samayoa, Jermain Sue and colleagues, with an educational alli from [employer]. Review of Systems Const Denies chills and Denies fever(s) ENT Denies epistaxis and Denies nasal discharge Card Denies chest pain Resp Denies hemoptysis GI Denies diarrhea and Denies nausea Skin/Breast Denies rash Neuro Reports no additional complaints Psych Reports no additional complaints Endo Reports no additional complaints Physical exam (Primary Care) Vital Signs: Last Vital Signs Pulse 84 03/05/23 14:55 BP 124/72 03/05/23 14:55 Pulse Ox 98 03/05/23 14:55 Oxygen Delivery Method Room Air 03/05/23 14:55 BMI result Body Mass Index 39.6 Tobacco/Smoking Status: Tobacco use Status Tobacco use date assessed 03/05/23 03/05/23 14:58 Patient Tobacco Use Status Current everyday Tobacco 03/05/23 14:58 Tobacco use type Cigarette 03/05/23 14:58 e-Cigarette/Vaping Use Never Used 03/05/23 14:58 Thrive Assessment: Date of Thrive Assessment Date Thrive assessed 11/19/22 03/05/23 14:58 Const General: cooperative, comfortable and no acute distress Orientation/consciousness: patient oriented x3 HENMT Head: Yes normocephalic Neck Neck: Yes supple Resp Other: Rhonchi right lower base posteriorly Effort & Inspection: normal respiratory effort and no stridor Cardio Rhythm: regular rhythm Heart sounds: S1 normal heart sound present and S2 normal heart sound present Skin General skin exam: turgor normal Neuro General: patient oriented x3, tone normal and moves all extremities Assessment and Plan Assessment & Plan (1) Chest congestion: Code(s): R09.89 - Other specified symptoms and signs involving the circulatory and respiratory systems (2) Other specified hypothyroidism: Code(s): E03.8 - Other specified hypothyroidism (3) Panhypopituitarism: Code(s): E23.0 - Hypopituitarism (4) Pituitary adenoma: Code(s): D35.2 - Benign neoplasm of pituitary gland (5) Morbid obesity due to excess calories: Code(s): E66.01 - Morbid (severe) obesity due to excess calories (6) Blind right eye: Code(s): H54.40 - Blindness, one eye, unspecified eye Qualifiers: Left eye visual impairment category: left - category 3 Qualified Code(s): H54.3 - Unqualified visual loss, both eyes (7) Blurred vision, left eye: Code(s): H53.8 - Other visual disturbances (8) Primary central diabetes insipidus: Code(s): E23.2 - Diabetes insipidus (9) Central hypothyroidism: Code(s): E03.8 - Other specified hypothyroidism Plan Patient is 52-year-old gentleman with pituitary adenoma causing diabetes, hypothyroidism, diabetes insipidus, Patient is currently seeing Dr. Wheatley endocrinology [facility] for the management Patient says that Dr. Wheatley has ordered some labs but every time he goes to lab it is closed He came in here to ask me if he can go somewhere else I see the order in the system but I do not see the TSH level and I noticed that it has not been done for a while I have added TSH along with metabolic profile and CBC as well. Patient may have labs done in next door to this clinic Patient has managed to lose some weight his BMI is now 39.6 it was about 40 before Patient is on disability he is blind in his right eye and his left eye has a blurry vision Currently patient is having cough and chest congestion on auscultation I heard some rhonchi right side of his lung I have ordered chest x-ray as well I have sent extra prednisone for 3 days along with azithromycin. Further management after the chest x-ray report Orders: Orders TSH reflex Free T4 Today E03.8 - Other specified hypothyroidism Complete Blood Count Auto Diff Today D35.2 - Benign neoplasm of pituitary gland, E03.8 - Other specified hypothyroidism, E23.0 - Hypopituitarism, E23.2 - Diabetes insipidus Comprehensive Met. Panel Today D35.2 - Benign neoplasm of pituitary gland, E03.8 - Other specified hypothyroidism, E23.0 - Hypopituitarism, E23.2 - Diabetes insipidus Vitamin D 25-OH (D2 and D3) Today D35.2 - Benign neoplasm of pituitary gland, E03.8 - Other specified hypothyroidism, E23.0 - Hypopituitarism, E23.2 - Diabetes insipidus XR chest 2V Today R09.89 - Other specified symptoms and signs involving the circulatory and respiratory systems Medications: New azithromycin Take 2 tablets today then 1 daily 250 mg PO ONCE 6 tabs 0RF 5 days J06.9 - Acute upper respiratory infection, unspecified Changed From prednisone 10 mg PO DAILY To prednisone 10 mg (2 x 5 mg) PO DAILY 6 tabs 0RF 3 days Coding Level of Care Code Est Pt Level 4 (13916) Diagnoses Chest congestion R09.89 Other specified hypothyroidism E03.8 Panhypopituitarism E23.0 Pituitary adenoma D35.2 Morbid obesity due to excess calories E66.01 Blindness of right eye with category 3 blindness of left eye H54.3 Left eye visual impairment category: left - category 3 Blurred vision, left eye H53.8 Primary central diabetes insipidus E23.2 Central hypothyroidism E03.8
[2023-03-05 14:55] VITALS: BP 124/72; PULSE 84; O2SAT 98; BMI 39.6
== END 2023-03-05 16:02 | disposition home or self-care (01) ==
PROVIDERS: PCP Internal Medicine; Visit Provider Internal Medicine
DX: E23.0 Hypopituitarism (principal); E66.01 Morbid (severe) obesity due to excess calories; Z68.39 Body mass index [BMI] 39.0-39.9, adult; E23.2 Diabetes insipidus; D35.2 Benign neoplasm of pituitary gland; R09.89 Other specified symptoms and signs involving the circulatory and respiratory systems; E03.8 Other specified hypothyroidism; H54.3 Unqualified visual loss, both eyes; H53.8 Other visual disturbances
CPT/HCPCS: 99214

== ENCOUNTER 2023-03-05 15:13 | Outpatient (REF) | payer OTHER, SELFPAY ==
--- NOTE | ~2023-03-05 | XR_ITS ---
EXAMINATION: XR CHEST CLINICAL INFORMATION: Patient states cough for one week. COMPARISON: 10/22/2019 TECHNIQUE: 2 views of the chest were obtained. FINDINGS: There is no gross pneumothorax. Heart size is normal. Moderate degenerative changes in the [id number] thoracic spine. Horizontal opacity along the lateral aspect of the mid right hemithorax likely represents fluid in the fissure with possible subsegmental atelectasis/scar. XR/XR chest 2V IMPRESSION: Horizontal opacity along the lateral aspect of the mid right hemithorax likely represents fluid in the fissure with possible subsegmental atelectasis/scar. Recommend follow-up imaging in 4-6 weeks to confirm resolution and exclude underlying pathology.
[2023-03-05 16:09] LABS: MANUAL DIFF FLAG NO
[2023-03-05 16:25] LABS: Basophils Absolute Auto 0.1 X10*3/uL (0.0-0.2); Basophils Percent Auto 1.1 % (0-2); Eosinophils Absolute Auto 0.2 X10*3/uL (0.0-0.4); Eosinophils Percent Auto 1.9 % (0-4); Hematocrit 44.7 % (42.0-52.0); Hemoglobin 14.4 g/dl (14.0-18.0); Imm Gran Abs Auto 0.02 X10*3/uL (0.00-0.03); Imm Gran Pct Auto 0.2 % (0.0-0.4); Lymphocytes Percent Auto 21.1 % (20-40); Mean Corpuscular HGB Conc 32.2 g/dl (31.0-36.0); Mean Corpuscular Hemoglobin 27.8 pg (27.0-33.0); Mean Corpuscular Volume 86.3 fL (80.0-98.0); Mean Platelet Volume 10.4 fL (9.4-12.4); Monocytes Absolute Auto 0.6 X10*3/uL (0.1-1.2); Monocytes Percent Auto 6.8 % (2-11); Neutrophils Absolute Auto 6.5 x10*3/uL (2.0-8.3); Neutrophils Percent Auto 68.9 % (45-73); Platelet Count 400 X10*3/uL (160-400); Red Blood Count 5.18 X10*6/uL (4.60-5.80); Red Cell Distribution Width 13.2 % (11.0-16.0); White Blood Count 9.4 X10*3/uL (4.8-10.8)
[2023-03-05 17:09] LABS: Alanine Aminotransferase 23 U/L (0-40); Albumin Level 4.2 g/dL (3.5-5.0); Alkaline Phosphatase 77 U/L (39-117); Anion Gap 12 (12-20); Aspartate Amino Transferase 28 U/L (5-37); Bilirubin Total 0.5 mg/dL (0.0-1.0); Blood Urea Nitrogen 7 mg/dL (9-16); Calcium 9.8 mg/dL (8.4-10.2); Carbon Dioxide 28 mmol/L (22-29); Chloride 108 mmol/L (96-108); Estimated Glomerular Filt Rate > 60; Glucose Random 102 mg/dL (60-115); Potassium 3.7 mmol/L (3.3-5.1); Sodium 144 mmol/L (135-145); Total Protein 7.3 g/dL (6.5-8.0)
[2023-03-05 17:24] LABS: Prostate Specific Antigen 0.41 ng/mL (<0.05-4.0)
[2023-03-05 17:48] LABS: TSH reflex Free T4 < 0.01 uIU/mL (0.32-4.0)
[2023-03-05 18:51] LABS: Free T4 (Free Thyroxine) 1.79 ng/dL (0.71-1.85)
[2023-03-09 09:18] LABS: Follicle Stimulating Hormone 3.8 mIU/mL (1.4-12.8); Lutenizing Hormone 1.8 mIU/mL (1.5-9.3)
[2023-03-11 18:35] LABS: Vitamin D 25-OH, D2 <4 ng/mL; Vitamin D 25-OH, D3 47 ng/mL; Vitamin D 25-OH, Total 47 ng/mL (30-100)
[2023-03-12 19:43] LABS: Testosterone, Total 41 ng/dL (250-1100)
[2023-03-13 14:34] LABS: IGF-1 (Somatomedin C) 88 ng/mL (50-317); IGF-1 Z Score (Male) -0.9 SD (-2.0 - +2.0)
== END 2023-03-05 15:14 | disposition home or self-care (01) ==
LOC: HO.HMGCX 15:13
PROVIDERS: Internal Medicine Endocrinology, Diabetes & Metabolism; PCP Internal Medicine; Visit Provider Internal Medicine
DX: R09.89 Other specified symptoms and signs involving the circulatory and respiratory systems (principal); E23.0 Hypopituitarism; E03.8 Other specified hypothyroidism; D35.2 Benign neoplasm of pituitary gland; E23.2 Diabetes insipidus
CPT/HCPCS: 36415; 71046; 80053; 82306; 83001; 83002; 84153; 84305; 84402; 84403; 84439; 84443; 85025

== ENCOUNTER 2023-08-20 12:29 | Outpatient (AMB) | payer OTHER, SELFPAY ==
--- NOTE | 2023-08-20 12:38 | MHC.PC.OV ---
Vital Signs 08/20/23 12:39 Weight 265 lb BP 128/84 Blood Pressure Location Rt brachial Position Sitting Pulse 82 Pulse Source Pulse Oximeter Pulse Oximetry (%) 98 Oxygen Delivery Method Room Air Intake Visit Reasons: Pituitary adenoma, Diabetes Insipidus, Blindness Allergies No Known Allergies Allergy (Verified 08/20/23 12:39) Medication List - Last Reviewed 08/20/23 by CURT Jimenez acetaminophen (Tylenol) 325 mg PO Q6H 90 days azithromycin 250 mg PO ONCE 5 days blood sugar diagnostic (FreeStyle Lite Strips) As directed blood-glucose meter (FreeStyle Lite Meter kit) As directed calcium carbonate 600mg orally daily; cholecalciferol (vitamin D3) 25 mcg PO DAILY desmopressin Take 1 tab 0.1 in AM and 1/2 tab 0.05 mg in PM orally 2 times a day; lancets (FreeStyle Lancets) As directed levothyroxine 150 mcg PO DAILY naphazoline-pheniramine 0.025-0.3 % (Naphcon-A) 1 drp ophthalmic (eye) BID-QID PRN 30 days omeprazole 20 mg PO DAILY 90 days prednisone 10 mg (2 x 5 mg) PO DAILY 3 days sodium chloride 0.65% ([place] Nasal) 2 sprays intranasal TID PRN testosterone enanthate 50 mg subcut QWEEK Tobacco use date assessed: 03/05/23 Dental Screening Dental Screen Date: 03/05/23 HPI Pituitary adenoma, Diabetes Insipidus, Blindness HPI Details Patient is 53-year-old gentleman with pituitary adenoma causing diabetes, hypothyroidism, diabetes insipidus, and hypogonadism Patient was seeing Dr. Wheatley endocrinology [facility] but now is only being managed by endocrinology and neuro night shift supervisor in [place] Dr. Gunter catalyst plant supervisor and neuro night shift supervisor Patient have MRI scheduled September 05 in [place] and follow-up appointment with Dr. Gunter September 24 He has appointment with neuro night shift supervisor November 09 He also had labs done in June through those providers Patient is on disability he is blind in his right eye and his left eye has a blurry vision He came in today with his daughter Melanie Patient is at his baseline taking all his medications Complaining of crackling sound in his ears On examination he has developed some fluid behind the tympanic membrane There is no pain or hearing difficulty there is no wax. [facility] Medical History Panhypopituitarism Pituitary tumor History of lumbar puncture Central hypothyroidism Primary central diabetes insipidus Migraine headache Rash Family History Brother Brain cancer Social History Household Members: None Household Members Other:: 1 Housing: House Are you a primary hospice care consultant to a significant other at home: No Do you presently have visiting nurse or other home services: No Alcohol intake: current Alcohol intake frequency: does not drink Alcohol type: beer Patient Tobacco Use Status: Current everyday Tobacco user Tobacco use type: Cigarette Cigarettes Per Day: 4 Years Smoked: 20 years e-Cigarette/Vaping Use: Never Used Substance Use Type: Marijuana service: No Current occupational status: unemployed and disabled Cognitive needs: No Hearing needs: No Vision needs: Yes Questionnaire Thrive Questionnaire Date Thrive assessed: 11/19/22 RAMONA-7 AMB Questionnaire RAMONA-7 Date RAMONA - 7 assessed: 11/19/22 Source: Developed by Drs. Alfred Duran, Ivanna Samayoa, Jermain Sue and colleagues, with an educational alli from [employer]. Review of Systems Const Denies chills and Denies fever(s) ENT Denies epistaxis and Denies nasal discharge Card Denies chest pain Resp Denies chest congestion, Denies cough and Denies hemoptysis GI Denies diarrhea and Denies nausea Skin/Breast Denies rash Neuro Reports no additional complaints Psych Reports no additional complaints Endo Reports no additional complaints Physical exam (Primary Care) Vital Signs: Last Vital Signs Pulse 82 08/20/23 12:39 BP 128/84 08/20/23 12:39 Pulse Ox 98 08/20/23 12:39 Oxygen Delivery Method Room Air 08/20/23 12:39 Tobacco/Smoking Status: Tobacco use Status Tobacco use date assessed 03/05/23 08/20/23 12:39 Patient Tobacco Use Status Current everyday Tobacco 08/20/23 12:39 Tobacco use type Cigarette 08/20/23 12:39 e-Cigarette/Vaping Use Never Used 08/20/23 12:39 Thrive Assessment: Date of Thrive Assessment Date Thrive assessed 11/19/22 08/20/23 12:39 Const General: cooperative, comfortable and no acute distress Orientation/consciousness: patient oriented x3 HENMT Other: No signs of infection, no wax there is no pain with tricuspid pressure, slight dullness of tympanic membrane noted bilateral Head: Yes normocephalic Neck Neck: Yes supple Resp Effort & Inspection: normal respiratory effort, no cough and no stridor Cardio Rhythm: regular rhythm Heart sounds: S1 normal heart sound present and S2 normal heart sound present Skin General skin exam: turgor normal Neuro General: patient oriented x3, tone normal and moves all extremities Extrem Right lower extremity: no edema Left lower extremity: no edema Assessment and Plan Assessment & Plan (1) Blind right eye: Code(s): H54.40 - Blindness, one eye, unspecified eye Qualifiers: Left eye visual impairment category: left - category 3 Qualified Code(s): H54.3 - Unqualified visual loss, both eyes (2) Morbid obesity due to excess calories: Code(s): E66.01 - Morbid (severe) obesity due to excess calories (3) Carotid stenosis, bilateral: Code(s): I65.23 - Occlusion and stenosis of bilateral carotid arteries (4) Hypertension, essential: Code(s): I10 - Essential (primary) hypertension (5) Lipid disorder: Code(s): E78.9 - Disorder of lipoprotein metabolism, unspecified (6) Primary central diabetes insipidus: Code(s): E23.2 - Diabetes insipidus (7) Central hypothyroidism: Code(s): E03.8 - Other specified hypothyroidism (8) Pituitary tumor: Code(s): D49.7 - Neoplasm of unspecified behavior of endocrine glands and other parts of nervous system (9) Panhypopituitarism: Code(s): E23.0 - Hypopituitarism (10) 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: Code(s): E11.9 - Type 2 diabetes mellitus without complications Qualifiers: 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 type: type 2 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 assisted insulin use: without adjunct faculty for medical terminology use 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 complication status: with other specified complication Qualified Code(s): E11.69 - Type 2 diabetes mellitus with other specified complication (11) Pituitary adenoma: Code(s): D35.2 - Benign neoplasm of pituitary gland (12) Blurred vision, left eye: Code(s): H53.8 - Other visual disturbances (13) Crackling sound in ear: Code(s): H93.8X9 - Other specified disorders of ear, unspecified ear Qualifiers: Laterality: bilateral Qualified Code(s): H93.8X3 - Other specified disorders of ear, bilateral Plan Patient is 53-year-old gentleman with pituitary adenoma causing diabetes, hypothyroidism, diabetes insipidus, and hypogonadism Patient was seeing Dr. Wheatley endocrinology [facility] but now is only being managed by endocrinology and neuro night shift supervisor in [place] Dr. Gunter catalyst plant supervisor and neuro night shift supervisor Patient have MRI scheduled September 05 in [place] and follow-up appointment with Dr. Gunter September 24 He has appointment with neuro night shift supervisor November 09 He also had labs done in June through those providers Patient is on disability he is blind in his right eye and his left eye has a blurry vision He came in today with his daughter Melanie Patient is at his baseline taking all his medications Complaining of crackling sound in his ears On examination he has developed some fluid behind the tympanic membrane There is no pain or hearing difficulty there is no wax. Orders: Orders TSH reflex Free T4 Today D49.7 - Neoplasm of unspecified behavior of endocrine glands and other parts of nervous system, E03.8 - Other specified hypothyroidism, E11.9 - Type 2 diabetes mellitus without complications, E23.0 - Hypopituitarism, E23.2 - Diabetes insipidus, E66.01 - Morbid (severe) obesity due to excess calories, E78.9 - Disorder of lipoprotein metabolism, unspecified, I10 - Essential (primary) hypertension, I65.23 - Occlusion and stenosis of bilateral carotid arteries Complete Blood Count Auto Diff Today D49.7 - Neoplasm of unspecified behavior of endocrine glands and other parts of nervous system, E03.8 - Other specified hypothyroidism, E11.9 - Type 2 diabetes mellitus without complications, E23.0 - Hypopituitarism, E23.2 - Diabetes insipidus, E66.01 - Morbid (severe) obesity due to excess calories, E78.9 - Disorder of lipoprotein metabolism, unspecified, I10 - Essential (primary) hypertension, I65.23 - Occlusion and stenosis of bilateral carotid arteries Comprehensive Met. Panel Today D49.7 - Neoplasm of unspecified behavior of endocrine glands and other parts of nervous system, E03.8 - Other specified hypothyroidism, E11.9 - Type 2 diabetes mellitus without complications, E23.0 - Hypopituitarism, E23.2 - Diabetes insipidus, E66.01 - Morbid (severe) obesity due to excess calories, E78.9 - Disorder of lipoprotein metabolism, unspecified, I10 - Essential (primary) hypertension, I65.23 - Occlusion and stenosis of bilateral carotid arteries Hemoglobin A1c Today D49.7 - Neoplasm of unspecified behavior of endocrine glands and other parts of nervous system, E03.8 - Other specified hypothyroidism, E11.9 - Type 2 diabetes mellitus without complications, E23.0 - Hypopituitarism, E23.2 - Diabetes insipidus, E66.01 - Morbid (severe) obesity due to excess calories, E78.9 - Disorder of lipoprotein metabolism, unspecified, I10 - Essential (primary) hypertension, I65.23 - Occlusion and stenosis of bilateral carotid arteries Coding Level of Care Code Est Pt Level 4 (46575) Diagnoses Blindness of right eye with category 3 blindness of left eye H54.3 Left eye visual impairment category: left - category 3 Morbid obesity due to excess calories E66.01 Carotid stenosis, bilateral I65.23 Hypertension, essential I10 Lipid disorder E78.9 Primary central diabetes insipidus E23.2 Central hypothyroidism E03.8 Pituitary tumor D49.7 Panhypopituitarism E23.0 Type 2 diabetes mellitus with other specified complication, without long-term current use of insulin E11.69 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 type: type 2 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 adjunct faculty for medical terminology insulin use: without assisted use 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 complication status: with other specified complication Pituitary adenoma D35.2 Blurred vision, left eye H53.8 Crackling sound in both ears H93.8X3 Laterality: bilateral
[2023-08-20 12:39] VITALS: BP 128/84; PULSE 82; O2SAT 98
== END 2023-08-20 13:01 | disposition home or self-care (01) ==
PROVIDERS: PCP Internal Medicine; Visit Provider Internal Medicine
DX: E11.69 Type 2 diabetes mellitus with other specified complication (principal); E66.01 Morbid (severe) obesity due to excess calories; E23.2 Diabetes insipidus; E23.0 Hypopituitarism; D35.2 Benign neoplasm of pituitary gland; H54.3 Unqualified visual loss, both eyes; I65.23 Occlusion and stenosis of bilateral carotid arteries; I10 Essential (primary) hypertension; E78.9 Disorder of lipoprotein metabolism, unspecified; E03.8 Other specified hypothyroidism; D49.7 Neoplasm of unspecified behavior of endocrine glands and other parts of nervous system; H53.8 Other visual disturbances
CPT/HCPCS: 99214

== ENCOUNTER 2023-11-14 11:27 | Outpatient (REF) | payer OTHER, SELFPAY ==
--- NOTE | ~2023-11-14 | MM_ITS ---
EXAMINATION: BONE DENSITOMETRY CLINICAL INDICATION: Adrenal insufficiency. COMPARISON: This is the patient's baseline examination. TECHNIQUE: Using a Mind Palette DXA System (software version: 13.1) manufactured by [employer], dual-energy x-ray absorptiometry was performed of the lumbar spine and left hip. The images are of good technical quality. Summary results are attached. FINDINGS: LEFT FEMUR, NECK: BMD 0.831 g/cm2, Z-score -1.6, T-score -1.8, osteopenia. LEFT FEMUR, TOTAL: BMD 0.846 g/cm2, Z-score -1.8, T-score -1.8, osteopenia. AP SPINE L1-L4: BMD 0.892 g/cm2, Z-score -3.2, T-score -2.7, osteoporosis. IDENTIFIED RISK FACTORS: Glucocorticoids, current smoker. HISTORY OF FRACTURE: None listed. MEDICATIONS: None listed. MM/XR DEXA axial skeleton IMPRESSION: 1. DIAGNOSIS: Osteoporosis based on the lowest T-score value of -2.7 in the lumbar spine applying World Health Organization criteria. 2. 10-YEAR FRACTURE RISK PREDICTION, FRAX: According to the guidelines, FRAX calculation should only be performed on patients in the osteopenia bone density category. Therefore, FRAX was not performed on this patient. 3. Treatment Recommendations: NOF guidelines recommend consideration for treatment in postmenopausal women and men age 50 and older presenting with the following: -A hip or vertebral (clinical or morphometric) fracture. -T-score less than or equal to -2.5 at the femoral neck or spine after appropriate evaluation to exclude secondary causes. -Low bone mass at the hip or spine and a 10-year fracture probability by FRAX of greater than or equal to 3% for hip fracture or greater than or equal to 20% for major osteoporotic fracture based on the [place] adapted WHO algorithm. 4. Other Recommendations: All treatment decisions require clinical judgment and consideration of individual patient factors, including patient preferences, comorbidities, previous drug use, risk factors not captured in the FRAX model (e.g. frailty, falls, vitamin D deficiency, increased bone turnover, interval significant decline in bone density) and possible under or overestimation of fracture risk by FRAX. Additional medical evaluation for secondary cause of low bone mineral density may be appropriate. FUTURE SCAN RECOMMENDATION: People with diagnosed cases of osteoporosis or at high risk for fracture should have regular bone mineral density tests. For patients eligible for Medicare, routine testing is allowed once every 2 years. The testing frequency can be increased to one year for patients who have rapidly progressing disease, those who are receiving or discontinuing medical therapy to restore bone mass, or have additional risk factors.
== END 2023-11-14 11:28 | disposition home or self-care (01) ==
LOC: HO.MAMMO 11:27
PROVIDERS: PCP Internal Medicine; Visit Provider Internal Medicine
DX: Z13.820 Encounter for screening for osteoporosis (principal); E27.40 Unspecified adrenocortical insufficiency; M81.0 Age-related osteoporosis without current pathological fracture
CPT/HCPCS: 77080

== ENCOUNTER 2023-11-20 11:59 | Outpatient (AMB) | payer OTHER, SELFPAY ==
--- NOTE | 2023-11-20 12:00 | AM.OFFWIN_ITS ---
Intake Vital Signs 11/20/23 12:04 Height 5 ft 5 in Weight 264 lb BMI 43.9 BP 110/74 Blood Pressure Location Rt brachial Position Sitting Pulse 95 Pulse Source Pulse Oximeter Temp 98.7 F Temp Source Oral Pulse Oximetry (%) 96 Oxygen Delivery Method Room Air Intake Visit Reasons: EP- UTI?, fever, nauseous , burning, cloudy Intake Note: pt c/o Fever, nausea, burning while urinating and cloudy urine. Started 4 days ago Patient Tobacco Use Status: Current everyday Tobacco user Allergies No Known Allergies Allergy (Verified 11/20/23 12:00) Do you need a note to return to daycare/school/sports/work: No HPI HPI Comments History of Present Illness Details 53 y/o male patient who presents to the walk in clinic with c/o urinary symptoms for the past 2 days now. Reports urinary urgency and dsyuria. He also does c/o Nausea, vomiting and diarrhea. He does admit eating out these past few days. [facility] Medical History Panhypopituitarism Pituitary tumor History of lumbar puncture Central hypothyroidism Primary central diabetes insipidus Migraine headache Rash Family History Brother Brain cancer Social History Household Members: None Household Members Other:: 1 Housing: House Are you a primary intensive care ambulance paramedic to a significant other at home: No Do you presently have visiting nurse or other home services: No Alcohol intake: current Alcohol intake frequency: does not drink Alcohol type: beer Patient Tobacco Use Status: Current everyday Tobacco user Tobacco use type: Cigarette Cigarettes Per Day: 4 Years Smoked: 20 years e-Cigarette/Vaping Use: Never Used Substance Use Type: Marijuana service: No Current occupational status: unemployed and disabled Cognitive needs: No Hearing needs: No Vision needs: Yes Review of Systems Const All systems reviewed & are unremarkable except as noted in HPI and below Physical Exam Vital Signs: Last Vital Signs Temp 98.7 F 11/20/23 12:04 Pulse 95 11/20/23 12:04 BP 110/74 11/20/23 12:04 Pulse Ox 96 11/20/23 12:04 Oxygen Delivery Method Room Air 11/20/23 12:04 BMI result Body Mass Index 43.9 Const General: cooperative and no acute distress Nutritional Appearance: obese Orientation/consciousness: patient oriented x3 GI Inspection: Yes Abdominal panniculus present Palpation (GI): Soft to palpation, not firm, Tenderness to palpation present (GI) suprapubicly and No hepatosplenomegaly present Auscultation: normal bowel sounds Rectal Exam - Male: Yes deferred General: Yes no CVA tenderness Back/Spine/Pelvis Back: no CVA tenderness Skin General skin exam: no rashes or lesions noted Neuro General: patient oriented x3, gait normal and moves all extremities Psych Speech and movement: Normal speech and movement present Results AMB Urinalysis, Automated UA Leukoctes 0 Facundo/uL Last Edit by Thom Garner CMA on 11/20/23 12:40 UA Nitrite Negative Last Edit by Thom Garner CMA on 11/20/23 12:40 UA Urobilinogen 0.2 mg/dL Last Edit by Thom Garner CMA on 11/20/23 12:40 UA Protein 0 mg/dL Last Edit by Thom Garner CMA on 11/20/23 12:40 UA pH Last Edit by Thom Garner CMA on 11/20/23 12:40 UA Blood 0 Gorge/uL Last Edit by Thom Garner CMA on 11/20/23 12:40 UA Specific Dunnegan 1.010 Last Edit by Thom Garner CMA on 11/20/23 12:40 UA Ketone Negative Last Edit by Thom Garner CMA on 11/20/23 12:40 UA Bilirubin 0 mg/dL Last Edit by Thom Garner CMA on 11/20/23 12:40 UA Glucose 0 mg/dL Last Edit by hTom Garner CMA on 11/20/23 12:40 Assessment & Plan Assessment & Plan (1) Urinary tract infection symptoms: Code(s): R39.9 - Unspecified symptoms and signs involving the genitourinary system Plan: Sent urine for culture. In office U/A negative. (2) Nausea vomiting and diarrhea: Code(s): R11.2 - Nausea with vomiting, unspecified; R19.7 - Diarrhea, unspecified Plan: Ordered Reglan Advised to avoid spicy and oily foods. BLAND diet. Orders: Orders AMB Urinalysis Automated Today Violeta Thompson PA-C Z13.9 - Encounter for screening, unspecified UA CC w/rflx Micro + Cult Today Caridad Londono NP R39.9 - Unspecified symptoms and signs involving the genitourinary system Medications: New metoclopramide HCl (Reglan) 10 mg PO Q6H PRN 30 tabs 0RF nausea and vomiting Caridad Londono NP R11.2 - Nausea with vomiting, unspecified, R19.7 - Diarrhea, unspecified Coding Level of Care Code Est Pt Level 3 (50953) Diagnoses Urinary tract infection symptoms R39.9 Nausea vomiting and diarrhea R11.2; R19.7 Time Spent (min) 15
[2023-11-20 12:04] VITALS: BP 110/74; PULSE 95; TEMP 37.1; O2SAT 96; BMI 43.9
--- OUTSIDE RECORDS SUMMARY | 2023-11-22 23:43 | XMS_ITS | Continuity of Care Document ---
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 Attending Physician: Lizeth Block Admitting Physician: AdmtrLizeth Referring Physician: Admtr, Ar8 Allergies, Adverse Reactions, Alerts No Known Allergies Medications (Vitamin D3) Cholecalciferol 400 RESIDENTIAL units/mL oral syringe 1 mL = 10 mcg, By Mouth, Daily, 0 Refills, Maintenance, 03/29/22 13:01:00 EST, Partial fill upon patientrequest if the prescription is for a schedule II opioid drug. Start Date: 03/29/22 Status: Ordered Alcohol Pads See Instructions, # 200 each, Maintenance, To use 2-3 times/day for DM2, 02/25/22 13:40:00 EST, Supply, 165, cm, 02/25/22 7:22:00 EST, Height, 127, kg, 02/22/22 16:01:00 EST, Dry Weight Start Date: 02/25/22 Status: Ordered Aspirin Tablet 81 mg, By Mouth, Daily, Refills 0, Maintenance, 02/22/22 16:04:00 EST, Partial fill upon patient request if the prescription is for a schedule II opioid drug. Start Date: 02/22/22 Status: Ordered brimonidine 0.2% ophthalmic solution 1 drops, Eye, Left, 2 times a day, 0 Refills, Maintenance, 02/22/22 16:03:00 EST, Partial fill uponpatient request if the prescription is for a schedule II opioid drug. Start Date: 02/22/22 Status: Ordered Calcium Carbonate By Mouth, 0 Refills, Maintenance, 03/29/22 13:00:00 EST, Partial fill upon patient request if the prescription is for a schedule II opioid drug. Start Date: 03/29/22 Status: Ordered desmopressin 0.1 mg oral tablet 0.5 tablet = 0.05 mg, By Mouth, Daily at bedtime, # 15 tablet, 0 Refills, Maintenance, 02/25/22 13:00:00 EST, Tablet, [facility], Partial fill upon patient request if the prescription is for a schedule II opioid drug., 165, cm, 02/25/22... Start Date: 02/25/22 Status: Ordered GlipiZIDE By Mouth, Daily, 0 Refills, Maintenance, 03/29/22 13:01:00 EST, Partial fill upon patient request if the prescription is for a schedule II opioid drug. Start Date: 03/29/22 Status: Ordered Glucose Monitor See Instructions, # 1 each, Maintenance, Newly diagnosed DM, 02/25/22 13:39:00 EST, Supply, 165, cm, 02/25/22 7:22:00 EST, Height, 127, kg, 02/22/22 16:01:00 EST, Dry Weight Start Date: 02/25/22 Status: Ordered Glucose Test Strips See Instructions, # 100 each, Maintenance, to use 2-3 times/day, 02/25/22 13:39:00 EST, Supply, 165, cm, 02/25/22 7:22:00 EST, Height, 127, kg, 02/22/22 16:01:00 EST, Dry Weight Start Date: 02/25/22 Status: Ordered indomethacin 50 mg oral capsule 1 capsule = 50 mg, By Mouth, 2 times a day with meals, 0 Refills, Maintenance, 02/22/22 16:03:00 EST, Partial fill upon patient request if the prescription is for a schedule II opioid drug. Start Date: 02/22/22 Status: Ordered Lancets See Instructions, # 200 each, Maintenance, to use 2-3 times /day, 02/25/22 13:40:00 EST, Supply, 165, cm, 02/25/22 7:22:00 EST, Height, 127, kg, 02/22/22 16:01:00 EST, Dry Weight Start Date: 02/25/22 Status: Ordered levothyroxine 125 mcg (0.125 mg) oral tablet = 125 mcg, By Mouth, Daily, # 30 tablet, 0 Refills, Maintenance, 02/25/22 12:57:00 EST, Tablet, [facility], Partial fill upon patient request if the prescription is for a schedule II opioid drug., 165, cm, 02/25/22 7:22:00 EST, Height, 1... Start Date: 02/25/22 Status: Ordered Lipitor 80 mg oral tablet 1 tablet = 80 mg, By Mouth, Daily at bedtime, 0 Refills, Maintenance, 02/22/22 16:03:00 EST, Partial fill upon patient request if the prescription is for a schedule II opioid drug. Start Date: 02/22/22 Status: Ordered metFORMIN 500 mg oral tablet 1 tablet = 500 mg, By Mouth, 2 times a day, # 60 tablet, 0 Refills, Maintenance, 02/25/22 13:02:00 EST, Tablet, [facility], Partial fill upon patient request if the prescription is for a schedule II opioid drug., 165, cm, 02/25/22 7:22:0... Start Date: 02/25/22 Status: Ordered Omeprazole By Mouth, Daily, 0 Refills, Maintenance, 03/29/22 13:02:00 EST, Partial fill upon patient request if the prescription is for a schedule II opioid drug. Start Date: 03/29/22 Status: Ordered predniSONE 5 mg oral tablet 4 tablet = 20 mg, By Mouth, Daily, Taper as directed, 0 Refills, Maintenance, 02/22/22 16:04:00 EST, Partial fill upon patient request if the prescription is for a schedule II opioid drug. 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 Name: Zoey Castro RN Position: [facility] RN Member Role: Primary Care Nurse Care Team Related Persons Name: MICHAEL DELAROSA Address: [place] [address]
--- OUTSIDE RECORDS SUMMARY | 2023-11-22 23:43 | XMS_ITS | Continuity of Care Document ---
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 Start Date: 02/22/22 Status: Ordered desmopressin 0.1 mg oral tablet 0.5 tablet = 0.05 mg, By Mouth, Daily at bedtime, # 15 tablet, 0 Refills, Maintenance, 02/25/22 13:00:00 EST, Tablet, [facility], Partial fill upon patient request if the prescription is for a schedule II opioid drug., 165, cm, 02/25/22... Start Date: 02/25/22 Status: Ordered Glucose Monitor See Instructions, # [...] 0 Refills, Maintenance, 02/25/22 12:57:00 EST, Tablet, [facility] 3, Partial fill upon patient request if [...] 0 Refills, Maintenance, 02/25/22 13:02:00 EST, Tablet, [facility], Partial fill upon patient request if the prescription is for a schedule II opioid drug., 165, cm, 02/25/22 7:22:0... Start Date: 02/25/22 Status: Ordered predniSONE 5 mg oral tablet [...] Care team information Care Team Personnel Name: Haim TIPTON, Ulisses Position: [facility] Physician (General Medicine) Member Role: PCP Address: Address: [address] [place] [address]- Name: Zoey Castro RN Position: [facility] RN Member Role: Primary Care Nurse Care Team Related Persons Name: MICHAEL DELAROSA Address: [place] [address]
--- OUTSIDE RECORDS SUMMARY | 2023-11-22 23:43 | XMS_ITS | Continuity of Care Document ---
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 Refills 0, Maintenance, 09/08/20 14:33:00 EDT, Route to Pharmacy Electronically, [facility] 3, Partial fill upon patient request if the prescription is for a schedule II opioid drug., 1... Start Date: 09/08/20 Stop Date: 10/08/20 Status: Ordered atorvastatin 80 mg oral tablet 1 tablet = 80 mg, By Mouth, Daily, # 30 tablet, 0 Refills, Maintenance, 09/08/20 14:34:00 EDT, Tablet, [facility], Partial fill upon patient request if the prescription is for a schedule II opioid drug., 163, cm, 09/08/20 10:59:00 EDT, H... Start Date: 09/08/20 Status: Ordered gabapentin 300 mg oral capsule 300 mg, 1, capsule, By Mouth, 3 times a day, # 90 capsule, Refills 0, Tot. Refills 0, Maintenance, 09/08/20 14:34:00 EDT, Route to Pharmacy Electronically, [facility], Partial fill uponpatient request if the prescription is for a schedu... Start Date: 09/08/20 Status: Ordered gabapentin 300 mg oral capsule 300 mg, Capsule, By Mouth, 09/08/20 15:00:00 EDT Start Date: 09/08/20 Stop Date: 09/08/20 Status: Completed Vital Signs Most recent to oldest [Reference Range]: 1 2 3 Height 163 cm (09/08/20 10:59 AM) 163 cm (09/07/20 8:40 PM) 163 cm (09/07/20 2:04 PM) Weight 115 kg (09/07/20 2:04 PM) 115 kg (09/07/20 10:47 AM) 115 kg (09/07/20 9:58 AM) Oxygen Saturation [94-100 %] 99 % (09/08/20 3:00 PM) 97 % (09/08/20 10:59 AM) 96 % (09/08/20 8:00 AM) Pulse Rate [55-90 bpm] 64 bpm (09/08/20 3:00 PM) 62 bpm (09/08/20 10:59 AM) 70 bpm (09/08/20 8:00 AM) Body Mass Index [18.5-24.99] 43.28 *>HHI* (09/07/20 2:04 PM) 43.28 *>HHI* (09/07/20 10:47 AM) 43.28 *>HHI* (09/07/20 9:58 AM) Blood Pressure [90-138/55-84 mm Hg] 136/94mm Hg (09/08/20 3:00 PM) 124/66mm Hg (09/08/20 10:59 AM) 127/77mm Hg (09/08/20 8:00 AM) Respiratory Rate [16-30 br/min] 18 br/min (09/08/20 4:49 PM) 18 br/min (09/08/20 3:00 PM) 18 br/min (09/08/20 10:59 AM) Temperature [96.8-100.4 DegF] 98.2 DegF (09/08/20 3:00 PM) 97.0 DegF (09/08/20 10:59 AM) 98.0 DegF (09/08/20 8:00 AM) Mode of Delivery (Oxygen) Room air (09/08/20 3:00 PM) Room air (09/08/20 10:59 AM) Room air (09/08/20 8:00 AM) Blood pressure sites Arm, right (09/08/20 3:00 PM) Arm, right (09/08/20 10:59 AM) Arm, left (09/08/20 8:00 AM) Temperature Route Oral (09/08/20 3:00 PM) Temporal (09/08/20 10:59 AM) Oral (09/08/20 8:00 AM)
--- OUTSIDE RECORDS SUMMARY | 2023-11-22 23:44 | XMS_ITS | Continuity of Care Document ---
Author Organization [facility] ter Address [address] [place] [id number] Care Team Providers Care Pantograph Watcher Name Role Phone Haim TIPTON, [facility] Primary [facility] Phys[facility] [phone] Encounter [facility] Date(s): 02/22/22 - 02/25/[address] [id number] Encounter Diagnosis Central hypothyroidism(Final) - 02/22/22 Discharge Disposition: A-D/C Home Attending Physician: Niru Rosa MD Admitting Physician: Chelo TIPTON, Fred Referring Physician: Not on Staff, Referring MD Allergies, Adverse Reactions, Alerts No Known Allergies [...] 0 Refills, Maintenance, 02/25/22 13:00:00 EST, Tablet, [facility], Partial fill upon patient [...] 0 Refills, Maintenance, 02/25/22 12:57:00 EST, Tablet, [facility], Partial fill upon patient [...] 0 Refills, Maintenance, 02/25/22 13:02:00 EST, Tablet, [facility], Partial fill upon patient [...] obesity Confirmed Active Visual loss Confirmed Active Results Orders for Microbiology Reports Name Date CSF Culture w/ Gram Smear 02/24/22 Microbiology Reports TEST:Spinal Fluid Culture STATUS:Unauthenticated BODY SITE: SOURCE:CEREBR COLLECTED DATE/TIME:02/24/22 1:41 PM Spinal Fluid Culture SPECIMEN DESCRIPTION : CEREBROSPINAL FLUID SPECIAL REQUESTS : NONE GRAM STAIN : 1+ WHITE BLOOD CELLS NO ORGANISMS SEEN CULTURE : NO GROWTH TO DATE REPORT STATUS : PRELIMINARY REPORT Radiology Reports * Exam Date Time Procedure Performing Provider Status 02/24/22 10:[address] Abd/Pelvis W/ IV Contrast Only Negin Rausch; Auth (Verified) Notes: (CT Abd/Pelvis W/ IV Contrast Only) Reason For Exam: pituitary tumor;Other: RESULT: CT Abd/Pelvis W/ IV Contrast Only CT Chest W/ Contrast, CT Abd/Pelvis W/ IV Contrast Only INDICATION: Pituitary lesion; Clinical Question(s): Carcinoma TECHNIQUE: Helical CT scan of the chest, abdomen, and pelvis with IV contrast, formatted in 3 planes. 100 cc of Omnipaque 300 was administered intravenously. This study was performed without oral contrast. Weight-based protocol was performed using automatic exposure control. CTDIvol Body: 27.60 mGy, DLP Body: 1925 mGy*cm. COMPARISON: None. FINDINGS: Buttermaker view findings, lines and tubes: None. Trachea and airways: Patent without evidence of tracheal or endobronchial lesion. Lungs and pleura: Right lower lobe calcified granuloma. Lungs are otherwise clear. No effusion or pneumothorax. Mediastinum and renae: No mass or hematoma. No mediastinal or hilar lymphadenopathy. No esophageal abnormality. Heart: Heart is normal in size. No pericardial effusion. Aorta: No aortic aneurysm. Pulmonary arteries: Normal caliber. No evidence of pulmonary embolism on this study performed without angiographic technique. Chest wall soft tissues: No acute abnormality. Diaphragm: Intact. Liver: Normal in attenuation and morphology. No suspicious lesion. Gallbladder: Cholelithiasis without evidence of acute cholecystitis. Bile ducts: No biliary ductal dilation. Spleen: Normal in size. Pancreas: No suspicious lesion or ductal dilatation. Adrenal glands: No nodule. Kidneys and ureters: No hydronephrosis, stone, or suspicious lesion. Dilated calyx versus cyst in the left upper pole, requiring no further follow-up. Bladder: No wall thickening or surrounding stranding. Reproductive organs: Unremarkable. Stomach, small bowel, and large bowel: Normal caliber stomach and bowel loops. Mild colonic diverticulosis. No surrounding inflammatory changes. Appendix: Normal appendix. Peritoneum and retroperitoneum: No ascites or pneumoperitoneum. No omental or mesenteric lesions. Lymph nodes: No enlarged lymph nodes. Blood vessels: No vascular calcifications or aneurysm. Retroaortic left renal vein. No evidence of venous thrombosis. Abdominal and pelvic wall soft tissues: No acute abnormality. Bones: No acute abnormality. Mild degenerative change in the thoracolumbar spine. IMPRESSION: 1. No evidence of primary or metastatic lesion in the chest abdomen or pelvis. 2. Cholelithiasis without evidence of acute cholecystitis. I have personally reviewed the images and I agree with this report. WSN: [id number] Ordering Physician: Niru Rosa Dictated By: Terrance Anthony DO Dictated Date/Time: 02/25/22 9:34 am Reviewed By: Dianna Martines MD Signed By: Dianna Martines MD Signed Date/Time: 02/25/22 9:39 am Transcribed By: PAULIE Transcribed Date/Time: 02/25/22 9:18 am * Exam Date Time Procedure Performing Provider Status 02/24/22 10:[address] Chest W/ Contrast Negin Rausch; Auth (Verified) Notes: (CT Chest W/ Contrast) Reason For Exam: pitutary lesion;Other: RESULT: CT Chest W/ Contrast CT Chest W/ Contrast, CT Abd/Pelvis W/ IV Contrast Only INDICATION: Pituitary lesion; Clinical Question(s): Carcinoma TECHNIQUE: Helical CT scan of the chest, abdomen, and pelvis with IV contrast, formatted in 3 planes. 100 cc of Omnipaque 300 was administered intravenously. This study was performed without oral contrast. Weight-based protocol was performed using automatic exposure control. CTDIvol Body: 27.60 mGy, DLP Body: 1925 mGy*cm. COMPARISON: None. FINDINGS: Buttermaker view findings, lines and tubes: None. Trachea and airways: Patent without evidence of tracheal or endobronchial lesion. Lungs and pleura: Right lower lobe calcified granuloma. Lungs are otherwise clear. No effusion or pneumothorax. Mediastinum and renae: No mass or hematoma. No mediastinal or hilar lymphadenopathy. No esophageal abnormality. Heart: Heart is normal in size. No pericardial effusion. Aorta: No aortic aneurysm. Pulmonary arteries: Normal caliber. No evidence of pulmonary embolism on this study performed without angiographic technique. Chest wall soft tissues: No acute abnormality. Diaphragm: Intact. Liver: Normal in attenuation and morphology. No suspicious lesion. Gallbladder: Cholelithiasis without evidence of acute cholecystitis. Bile ducts: No biliary ductal dilation. Spleen: Normal in size. Pancreas: No suspicious lesion or ductal dilatation. Adrenal glands: No nodule. Kidneys and ureters: No hydronephrosis, stone, or suspicious lesion. Dilated calyx versus cyst in the left upper pole, requiring no further follow-up. Bladder: No wall thickening or surrounding stranding. Reproductive organs: Unremarkable. Stomach, small bowel, and large bowel: Normal caliber stomach and bowel loops. Mild colonic diverticulosis. No surrounding inflammatory changes. Appendix: Normal appendix. Peritoneum and retroperitoneum: No ascites or pneumoperitoneum. No omental or mesenteric lesions. Lymph nodes: No enlarged lymph nodes. Blood vessels: No vascular calcifications or aneurysm. Retroaortic left renal vein. No evidence of venous thrombosis. Abdominal and pelvic wall soft tissues: No acute abnormality. Bones: No acute abnormality. Mild degenerative change in the thoracolumbar spine. IMPRESSION: 1. No evidence of primary or metastatic lesion in the chest abdomen or pelvis. 2. Cholelithiasis without evidence of acute cholecystitis. I have personally reviewed the images and I agree with this report. WSN: [id number] Ordering Physician: Niru Rosa Dictated By: Terrance Anthony DO Dictated Date/Time: 02/25/22 9:34 am Reviewed By: Dianna Martines MD Signed By: Dianna Martines MD Signed Date/Time: 02/25/22 9:39 am Transcribed By: PAULIE Transcribed Date/Time: 02/25/22 9:18 am * Exam Date Time Procedure Performing Provider Status 02/23/22 7:58 PM MRI Pituitary W+W/O Contrast Juliette Beal; Auth (Verified) Notes: (MRI Pituitary W+W/O Contrast) Reason For Exam: Panhypopituitarism RESULT: MRI Pituitary W+W/O Contrast MRI Pituitary W+W/O Contrast INDICATION / CLINICAL QUESTION: Reason: Panhypopituitarism; Clinical Question(s): Pituitary Tumor; Order Comment: Please see Reference Text for complete list of contraindications Pituitary Tumor TECHNIQUE: MRI of the brain with attention to the sella was performed with and without contrast utilizing sagittal T1, coronal T1, coronal T2, coronal FLAIR, and post-contrast sagittal and coronal T1-weighted sequences. 10 mL of Clariscan was administered intravenously. COMPARISON: MRI of the brain performed earlier in the day. FINDINGS: SELLA: A sellar mass is identified measuring approximately 14 mm in height and 16 x 18 mm transversely. This structure heterogeneously enhances. There is no discrete separate visualization of the pituitary gland. Abnormal tissue extends superiorly into the suprasellar cistern. The optic high as some is expanded and demonstrates areas of enhancement. A 5 mm ring enhancing structure demonstrating central T2 hyperintensity is present within, or immediately adjacent to, the chiasm. There is questionably an additional 2 mm ring-enhancing structure in the midline of the chiasm. There is mild T2 hyperintensity of the optic nerves immediately anterior to the chiasm as well as mild T2 hyperintensityof the left optic track anteriorly. The anterior communicating artery is mildly displaced anteriorly. There is no definite evidence for cavernous sinus invasion but the enhancing tissue extends superior to the left internal carotid artery flow void. There is either occlusion or slow flow in the right internal carotid artery with an absent flow void and enhancement of the lumen. There is questionable thickening of the right cavernous sinus but no abnormal enhancement is noted. There is extensionof T2 hyperintensity superiorly from the chiasm into the hypothalamus. The abnormal enhancing tissue extends posterior to the dorsum sella slightly bulging into the prepontine cistern. There is retrosellar component measures approximately 2 mm in thickness. No invasion of the sphenoid sinus is shown Abnormality involving the chiasm and hypothalamus measures from 8 to 13 mm. BRAIN and EXTRA-AXIAL SPACES: No significant abnormality is noted elsewhere. No additional site of abnormal contrast enhancement is noted but the entirety of the brain is not included on the enhancedexamination and the prior study did not include enhancement. EXTRACRANIAL SOFT TISSUES: Visualized portions of the extracranial soft tissues are unremarkable. BONES: Visualized marrow signal is preserved. IMPRESSION: Heterogeneously enhancing mass involving the pituitary gland and extending into the suprasellar cistern to involve the optic chiasm and hypothalamus. There is slight extension of abnormal T2 hyperintensity into the anterior left optic track and posterior optic nerves. The pituitary component measures up to 18 mm in diameter and the chiasmatic/hypothalamic abnormality measures up to 13 mm. The appearance is unusual and lymphocytic hypophysitis, lymphoma and pituitary carcinoma should be considered. Langerhans' cell histiocytosis and metastasis are also possible. The appearance would be atypical for pituitary adenoma. Correlation with CSF cytology and enhanced MRI of the entire brain is suggested. WSN: [id number] Ordering Physician: Niru Rosa Dictated By: Ron Gómez MD Dictated Date/Time: 02/25/22 7:53 am Reviewed By: Ron Gómez MD Signed By: Ron Gómez MD Signed Date/Time: 02/25/22 7:53 am Transcribed By: PAULIE Transcribed Date/Time: 02/25/22 7:34 am * Exam Date Time Procedure Performing Provider Status 02/23/22 12:40 AM MRI Brain W/O Contrast David Hopkins; Auth (Verified) Notes: (MRI Brain W/O Contrast) Reason For Exam: Central hypo-pit;Other: RESULT: MRI Brain W/O Contrast MRI Brain W/O Contrast INDICATION: Reason: Other:; Central hypo-pit; Clinical Question(s): Infarction; Patient's deficits;Order Comment: Please see Reference Text for complete list of contraindications Infarction TECHNIQUE: MRI of the brain was performed without contrast utilizing sagittal T1, axial T2, axial FLAIR, axial SWAN, and axial DWI sequences. COMPARISON: MRI of 09/07/2020, CT of 11/08/2021, CTA of 09/06/2020 FINDINGS: BRAIN and EXTRA-AXIAL SPACES: The pituitary gland appears irregular and mildly increased in size when compared to the prior examination with heterogeneous T2 signal and restricted diffusion. There isabnormal FLAIR hyperintensity involving the infundibulum which appears thickened extending into thehypothalamus posteriorly and optic chiasm anterosuperiorly. The optic chiasm appears thickened withabnormal signal which appears to extend into the immediate prechiasmatic optic nerves. There is also abnormal signal extending posteriorly into the optic tracts. The mamillary bodies appear intact and displaced posteriorly. There may be susceptibility signal within the pituitary gland. The midline structures, including sella, corpus callosum, and craniocervical junction, are otherwise unremarkable. There is no midline shift or effacement of the basal cisterns. On diffusion weighted imaging, there are no regions of restricted diffusion to indicate an acute or subacute infarct. There is no evide nce of intracranial hemorrhage on susceptibility sensitive sequence. Brain parenchyma demonstrates no significant signal abnormality. Ventricles, cisterns, and sulci are normal in size and configuration, without hydrocephalus. No abnormal extra-axial fluid collections are seen. Meningeal surfaces are normal. There is lack of a flow void involving the right intracranial internal carotid artery to the level of the supraclinoid segment, similar to prior CTA of 09/06/2020 consistent with occlusion. EXTRACRANIAL SOFT TISSUES: Orbits are unremarkable. The paranasal sinuses are clear. There is fluidin the left mastoid air cells. The right mastoid air cells are clear. BONES: Marrow signal is preserved. IMPRESSION: New abnormal contour of a mildly enlarged pituitary gland with abnormal signal and thickening of the infundibulum extending to the hypothalamus posterior superiorly, abnormal signal of the optic chiasm which appears thickened with signal extending into the immediate prechiasmatic optic nerves and posteriorly into the optic tracts. Possible evidence of blood products within the pituitary gland. Differential considerations would include lymphocytic hypophysitis as well as other granulomatous hypophysitis. The imaging characteristics are not typical of pituitary hemorrhage, although it is not excluded. Consider a dedicated MRI of the pituitary with and without contrast to better characterize the pituitary soft tissues. No acute/subacute infarct or intraparenchymal hemorrhage. A critical result message ([place]) has been communicated via the [employer] system on 02/23/2022 7:25 AM, Message ID [id number]. WSN: [id number] Ordering Physician: Rene Pandya Dictated By: Miriam Cabral MD Dictated Date/Time: 02/23/22 7:25 am Reviewed By: Miriam Cabral MD Signed By: Miriam Cabral MD Signed Date/Time: 02/23/22 7:25 am Transcribed By: PAULIE Transcribed Date/Time: 02/23/22 6:58 am * Exam Date Time Procedure Performing Provider Status 02/22/22 1:18 PM Chest 2 Views Frontal and Lat Farhan , Felipa; Auth (Verified) Notes: (Chest 2 Views Frontal and Lat) Reason For Exam: Shortness of Breath RESULT: Chest 2 Views Frontal and Lat Chest 2 Views Frontal and Lat Hx of Present Illness: Pt from home c o weak for the past 2 weeks, +dehydration, increased urination, + nausea, no vomiting, + headache, + dry mouth; Reason: Shortness of Breath; Clinical Question(s): CHF COMPARISON: None. FINDINGS: No acute cardiopulmonary process IMPRESSION: No acute abnormality. WSN: [id number] Ordering Physician: Rene Pandya Dictated By: Nilo Sweet MD Dictated Date/Time: 02/22/22 1:22 pm Reviewed By: Nilo Sweet MD Signed By: Nilo Sweet MD Signed Date/Time: 02/22/22 1:22 pm Transcribed By: PAULIE Transcribed Date/Time: 02/22/22 1:21 pm Vital Signs Most recent to oldest [Reference Range]: 1 2 3 Height 165 cm (02/25/22 7:22 AM) 165 cm (02/25/22 4:00 AM) 165 cm (02/24/22 7:21 PM) Weight 127 kg (02/22/22 4:01 PM) 127 kg (02/22/22 11:31 AM) 127 kg (02/22/22 11:23 AM) Oxygen Saturation [94-100 %] 99 % (02/25/22 7:22 AM) 99 % (02/25/22 4:00 AM) 98 % (02/24/22: PM) Pulse Rate [55-90 bpm] 85 bpm (02/25/22:22 AM) 65 bpm (02/25/22 4:00 AM) 70 bpm (02/24/22 7: PM) Body Mass Index [18.5-24.99 kg/m2] 46.65 kg/m2 *>HHI* (02/22/22 4:01 PM) 46.65 kg/m2 *>HHI* (02/22/22 11:23 AM) Blood Pressure [90-138/55-84 mm Hg] 150/80mm Hg *H* (02/25/22:22 AM) 124/79mm Hg (02/25/22 4:00 AM) 142/87mm Hg *H* (02/24/22: PM) Respiratory Rate [16-30 br/min] 18 br/min (02/25/22 9:21 AM) 20 br/min (02/25/22: AM) 19 br/min (02/25/22 4:00 AM) Temperature [96.8-100.4 DegF] 98.6 DegF (02/25/22:22 AM) 97.7 DegF (02/25/22 4:00 AM) 97.9 DegF (02/24/22: PM) Mode of Delivery (Oxygen) Room air (02/25/22:22 AM) Room air (02/25/22 4:00 AM) Room air (02/24/22 7: PM) Blood pressure sites Arm, left (02/25/22: AM) Arm, left (02/25/22 4:00 AM) Arm, left (02/24/22: PM) Temperature Route Oral (02/25/22:22 AM) Oral (02/25/22 4:00 AM) Oral (02/24/22: PM) Dry Weight 127 kg (02/22/22 4:01 PM) 127 kg (02/22/22 11:31 AM) 127 kg (02/22/22 11:23 AM) Weight Obtained Via Patient/family state d (02/22/22 11:23 AM) Dry Weight Obtained Via Patient/family s tated (02/22/22 11:23 AM) Note * Viloeta Diaz RN: PERFORM Event Display: Discharge/Transfer Note Hospital Authored Date: [id number] Nursing Discharge Note Entered On: 02/25/2022 16:14 EST Performed On: 02/25/2022 16:14 EST by Violeta Diaz RN Nursing Discharge Note 2 Discharge Time : 02/25/2022 15:21 EST Discharge Level of Care at Discharge : Home/Longterm/Foster Care Patient Left Unit Via : Wheelchair Patient Accompanied Off Unit with : Responsible adult DC Instructions Provided & Signed by Pt : Yes Patient Understands D/C Instructions : Yes Patient Instructions Discharge Signed : Yes Did Pt have Specialty Bed or Wound Vac : No Violeta Diaz RN - 02/25/2022 16:14 EST * Gabe TIPTON, Isaac: MODIFY, MODIFY, MODIFY, MODIFY, PERFORM, MODIFY, MODIFY, MODIFY, MODIFY Event Display: Discharge/Transfer Note Hospital Authored Date: [id number] Patient: ??SAMAN JORDAN ? Age:??51 Years?Sex:??Male?:??1970?? 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 Secondary diagnoses: Iatrogenic adrenal insufficiency from long-term high-dose steroids. ?? 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 _ Discharge Medications Aspirin (Aspirin Tablet)?81?Milligram?By Mouth?Daily Atorvastatin (Lipitor 80 mg oral tablet)?1?tab(s)?80?Milligram?By Mouth?Daily at bedtime Brimonidine Ophthalmic (brimonidine 0.2% ophthalmic solution)?1?Drops?Eye, Left?2 timesa day Desmopressin (desmopressin 0.1 mg oral tablet)?0.5?tab(s)?0.05?Milligram?By Mouth?Daily at bedtime Indomethacin (indomethacin 50 mg oral capsule)?1?capsule?50?Milligram?By Mouth?2 times a day with meals Levothyroxine (levothyroxine 125 mcg (0.125 mg) oral tablet)?125?Microgram?By Mouth?Daily Metformin (metFORMIN 500 mg oral tablet)?1?tab(s)?500?Milligram?By Mouth?2 times a day PredniSONE (predniSONE 5 mg oral tablet)?4?tab(s)?20?Milligram?By Mouth?Daily?Taper as directed ?? Medications Started Levothyroxine (levothyroxine 125 mcg (0.125 mg) oral tablet)?125?Microgram?By Mouth?Daily Metformin (metFORMIN 500 mg oral tablet)?1?tab(s)?500?Milligram?By Mouth?2 times a day Medications Discontinued None Doses Changed None Allergies Allergies ?(Active and Proposed Allergies Only) NKA? (Severity: Unknown severity, Onset: Unknown) No Known Medication Allergies? (Severity: Unknown severity, Onset: Unknown) ? 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 Patient was found to be hyperglycemic with an HbA1c of 7.1 central DI, and central hypothyroidism. The patient underwent an MRI of his brain and his pituitary which showed a mass involving the pituitary gland and extending into the suprasellar cistern to involve the optic chiasm and hypothalamus. The appearance was atypical for pituitary adenoma and more concerning for other etiologies such as lymphocytic hypophysitis, lymphoma and pituitary carcinoma. Langerhans' cell histiocytosis and metastasis are also possible. Thus, the patient underwent an LP for further evaluation. As the pituitary is a difficult location to be biopsied, he underwent a contreras-CT scan of his chest, abdomen and pelvis to evaluate for sources of potential infiltrative deposits that can be biopsied that were unremarkable except for cholelithiasis with no evidence of cholecystitis. The patient was started on levothyroxine for his hypothyroidism, desmopressin for the diabetes insipidus, and metformin for??diabetes mellitus.?? The patient??will follow up with endocrinology and??ophthalmology outpatient??for further evaluation and management of his??pituitary findings. Objective Vital Signs?? Temperature: 98.6 DegF (02/25/22 07:22:00) Temperature Route: Oral (02/25/22 07:22:00) Pulse Rate: 85 bpm (02/25/22 07:22:00) Respiratory Rate: 18 br/min (02/25/22 09:21:00) Systolic Blood Pressure:??150 mm Hg??High (02/25/22 07:22:00) Diastolic Blood Pressure: 80 mm Hg (02/25/22 07:22:00) Blood pressure sites: Arm, left (02/25/22 07:22:00) Mean Arterial Pressure: 103 mm Hg (02/25/22 07:22:00) Pulse Pressure: 70 mm Hg (02/25/22 07:22:00) Oxygen Saturation: 99 % (02/25/22 07:22:00) Mode of Delivery (Oxygen): Room air (02/25/22 07:22:00) Early Warning Score: 0 (02/25/22 12:15:21) ? . Physical Exam General:??No acute distress Respiratory:??Clear to auscultation bilaterally, no increased work of breathing Cardiovascular:??Normal rate, regular rhythm, no murmurs Abdomen:??Normal active bowel sounds. Non tender, distended abdomen. Musculoskeletal: Normal ROM Neurologic:??Alert & Oriented Skin:??Warm and dry Psychiatric:??Normal mood/affect, normal cognition, normal judgement Consultants Chadwick TIPTON, Daniela Hanks - Endocrinology Patient Education Titles Hypothyroidism?? The Role of the Thyroid Gland?? Desmopressin Oral Tablet?? The Role of the Thyroid Gland?? Patient Instructions You presented to the hospital complaining of excessive urination and increased thirst, nausea and arecent headache however progressive to the point where he had to come to the hospital.?He had some blood work done which showed abnormal thyroid gland function and so you were started on a medication called levothyroxine which is basically a thyroid hormone supplement. 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 This can happen when there are problems with a hormone called antidiuretic hormone, which helps balance the amount of fluid in the body. the body doesn't make enough antidiuretic hormone to keep the amount of fluid in balance.?is a condition that causes the body to make too much urine. This can happen when there are problems with ahormone called antidiuretic hormone, which helps balance the amount of fluid in the body. Your??body doesn't make enough antidiuretic hormone to keep the amount of fluid in balance, which explains her symptoms needing to urinate often, making large amounts of urine, and feeling very thirsty. ??Thus, you were started on a medication called desmopressin.?In order??to??figure out the right doseof desmopressin for you,??you need to go to the lab in 1 week to have the blood work that is already ordered for you, preferably in the afternoon.?Your sugar levels were also found to be??elevated, likely due to your??chronic prednisone use??, so you now have diabetes mellitus type 2 so you werestarted on??an antidiabetic medication called??metformin that you should take twice daily and you should??keep checking your??blood sugar levels. During your stay, you also had imaging of your brain?? done to evaluate your symptoms and you were found to have??some abnormal findings of your pituitarygland on your??brain MRI, so you need to follow-up with your design printer balloon??outpatient??for further evaluation. ?? Please make sure??to keep up with all of your medications??and your doctor appointments. ?? Please make sure to follow-up with your PCP. Post Discharge Care Code Status: ?? Full Resuscitation Results Discharge Labs BLOOD COUNT & DIFF WBC 13.1 k/mm3 (High)?? 02/25/2022 01:29 RBC 4.61 m/mm3 (Low)?? 02/25/2022 01:29 Hgb 13.4 Gm/dL (Low)?? 02/25/2022 01:29 Hct 42.8 % ()?? 02/25/2022 01:29 MCV 92.8 femtoliters ()?? 02/25/2022 01:29 MCH 29.1 pg ()?? 02/25/2022 01:29 MCHC 31.3 g/dL (Low)?? 02/25/2022 01:29 Platelet Count 272 k/mm3 ()?? 02/25/2022 01:29 RDW-SD 49.4 femtoliters (High)?? 02/25/2022 01:29 MPV 10.0 femtoliters ()?? 02/25/2022 01:29 Nucleated RBC (Automated) 0.0 #/100 WBC'S ()?? 02/25/2022 01:29 Abs. NRBC 0.0 k/mm3 ()?? 02/25/2022 01:29 Abs. Neut 12.1 k/mm3 (High)?? 02/22/2022 12:18 Abs. Lymph 2.3 k/mm3 ()?? 02/22/2022 12:18 Abs. [place] 0.9 k/mm3 ()?? 02/22/2022 12:18 Abs. Eo 0.1 k/mm3 ()?? 02/22/2022 12:18 Abs. Baso 0.1 k/mm3 ()?? 02/22/2022 12:18 Neut % 77.6 % (High)?? 02/22/2022 12:18 Lymph % 14.5 % (Low)?? 02/22/2022 12:18 [place] % 5.6 % ()?? 02/22/2022 12:18 Eos % 0.7 % ()?? 02/22/2022 12:18 Baso % 0.4 % ()?? 02/22/2022 12:18 Imm Gran 1.2 % ()?? 02/22/2022 12:18 Abs. Imm Gran 0.2 k/mm3 ()?? 02/22/2022 12:18 ?? CARDIAC CK, Total 93 units/L ()?? 02/22/2022 14:00 CK MB Confirmation - Quant 1.1 ng/mL ()?? 02/22/2022 14:00 High Sensitivity Troponin (HSTnT) 12 ng/L ()?? 02/22/2022 14:00 ? CHEM GENERAL Sodium 144 mmol/L ()?? 02/25/2022 08:31 Potassium 4.4 mmol/L ()?? 02/25/2022 08:31 Chloride 103 mmol/L ()?? 02/25/2022 08:31 Bicarbonate Level 27 mmol/L ()?? 02/25/2022 08:31 Anion Gap 14 ()?? 02/25/2022 08:31 Glucose Level 169 mg/dL (High)?? 02/25/2022 08:31 Glucose, POC 136 mg/dL (High)?? 02/25/2022 12:10 Hemoglobin A1C (Monitoring) 7.1 % (High)?? 02/22/2022 12:18 BUN 13 mg/dL ()?? 02/25/2022 08:31 Creatinine-Blood 1.2 mg/dL ()?? 02/25/2022 08:31 Estimated GFR Creatinine 74 ML/MIN/1.73 M2 ()?? 02/25/2022 08:31 Calcium 9.4 mg/dL ()?? 02/25/2022 08:31 Phosphorus 3.8 mg/dL ()?? 02/25/2022 01:29 Magnesium 2.2 mg/dL ()?? 02/25/2022 01:29 AST (SGOT) 16 units/L ()?? 02/22/2022 12:18 ALT (SGPT) 32 units/L ()?? 02/22/2022 12:18 ?? CSF CSF Cell Count Color COLORLESS ()?? 02/24/2022 13:41 CSF Cell Count Appearance CLEAR ()?? 02/24/2022 13:41 CSF Cell Count WBC 120 per Cubic Millimeter (High)?? 02/24/2022 13:41 CSF Cell Count RBC 68 per Cubic Millimeter (High)?? 02/24/2022 13:41 CSF Cells, Seg 1 % ()?? 02/24/2022 13:41 CSF Cells, Lymph 98 % ()?? 02/24/2022 13:41 Total Protein, CSF 77 mg/dL (High)?? 02/24/2022 13:41 Glucose, CSF 93 mg/dL (High)?? 02/24/2022 13:41 LDH, CSF 30 units/L (Low)?? 02/24/2022 13:41 ? ENDOCRINE/TUMOR MARKER TSH 0.04 uIU/mL (Low)?? 02/22/2022 12:18 Free T4 0.47 ng/dL (Low)?? 02/22/2022 12:18 T3, Free 1.8 pg/mL (Low)?? 02/22/2022 18:49 Prolactin 20.5 ng/mL (High)?? 02/24/2022 09:26 ?? HEME OTHER Hold Lavender Top SPECIMEN DISCARDED AFTER 24 HOURS. ()?? 02/25/2022 08:31 Hold Blue Top SPECIMEN DISCARDED AFTER 4 HOURS. ()?? 02/22/2022 12:18 ?? MISC. CHEMISTRY Procalcitonin 0.07 ng/mL ()?? 02/24/2022 09:26 ? UA/URINALYSIS Appear/Color, Urine COLORLESS ()?? 02/22/2022 11:56 Specific [place], Urine 1.002 ()?? 02/22/2022 11:56 pH, Urine 6.5 ()?? 02/22/2022 11:56 Albumin, Urine NEGATIVE ()?? 02/22/2022 11:56 Glucose, Urine NEGATIVE ()?? 02/22/2022 11:56 Ketones, Urine NEGATIVE ()?? 02/22/2022 11:56 Bilirubin, Urine NEGATIVE ()?? 02/22/2022 11:56 Hemoglobin, Urine NEGATIVE ()?? 02/22/2022 11:56 Nitrite, Urine NEGATIVE ()?? 02/22/2022 11:56 Leukocyte, Urine NEGATIVE ()?? 02/22/2022 11:56 Urobilinogen NORMAL mg/dL ()?? 02/22/2022 11:56 WBC's, Urine NONE SEEN /HPF ()?? 02/22/2022 11:56 RBC's, Urine <1 /HPF ()?? 02/22/2022 11:56 Bacteria SLIGHT HPF (Abnormal)?? 02/22/2022 11:56 Hold Urine Culture Testing available 48 hours from time of collection. ()?? 02/22/2022 11:56 ? URINE OTHER Calcium, Urine Random 3.2 mg/dL ()?? 02/22/2022 19:40 Creatinine, Urine Random 45.2 mg/dL ()?? 02/22/2022 19:40 Sodium, Urine Random 29 mmol/L ()?? 02/24/2022 20:32 Osmolality, Urine Random 138 mOsm/kg ()?? 02/24/2022 20:32 Magnesium, Urine Meq/L 1.6 mg/dL ()?? 02/22/2022 19:40 ? VIROLOGY Influenza A PCR NEGATIVE ()?? 02/22/2022 12:10 Influenza B PCR NEGATIVE ()?? 02/22/2022 12:10 RSV PCR NEGATIVE ()?? 02/22/2022 12:10 COVID-19 PCR Specimen Source NASAL ()?? 02/22/2022 12:10 COVID-19 PCR Result NEGATIVE ()?? 02/22/2022 12:10 ? Imaging(s) ?CT Chest W/ Contrast ?? 02/24/2022 22:55??by Dianna Martines MD ?1. No evidence of primary or metastatic lesion in the chest abdomen or pelvis. 2. Cholelithiasis without evidence of acute cholecystitis. ?MRI Brain W/O Contrast ?? 02/23/2022 00:40??by Miriam Cabral MD ?New abnormal contour of a mildly enlarged pituitary gland with abnormal signal and thickening of the infundibulum extending to the hypothalamus posterior superiorly, abnormal signal of the optic chiasm which appears thickened with signal extending into the immediate prechiasmatic optic nerves and posteriorly into the optic tracts. Possible evidence of blood products within the pituitary gland. Differential considerations would include lymphocytic hypophysitis as well as other granulomatous hypophysitis. The imaging characteristics are not typical of pituitary hemorrhage, although it is not excluded. Consider a dedicated MRI of the pituitary with and without contrast to better characterize the pituitary soft tissues. ?? No acute/subacute infarct or intraparenchymal hemorrhage. ?CT Abd/Pelvis W/ IV Contrast Only ?? 02/24/2022 22:55??by Dianna Martines MD ?1. No evidence of primary or metastatic lesion in the chest abdomen or pelvis. 2. Cholelithiasis without evidence of acute cholecystitis. ?MRI Pituitary W+W/O Contrast ?? 02/23/2022 19:58??by Ron Gómez MD ?Heterogeneously enhancing mass involving the pituitary gland and extending into the suprasellar cistern to involve the optic chiasm and hypothalamus. There is slight extension of abnormalT2 hyperintensity into the anterior left optic track and posterior optic nerves. The pituitary component measures up to 18 mm in diameter and the chiasmatic/hypothalamic abnormality measures up to 13mm. The appearance is unusual and lymphocytic hypophysitis, lymphoma and pituitary carcinoma shouldbe considered. Langerhans' cell histiocytosis and metastasis are also possible. The appearance would be atypical for pituitary adenoma. Correlation with CSF cytology and enhanced MRI of the entire brain is suggested. ?Other Image ?EKG showing normal sinus rhythm with a heart rate of 60 ? Patient has been??seen and discussed with Dr. Shelley Gray??MD [facility] ?? 60??minutes spent on discharge * Niru Rosa MD: PERFORM Event Display: Discharge/Transfer Note Hospital Authored Date: Patient was seen and examined at bedside Discussed the case and his management with the resident Agree with documentation above Patient will be on metformin 500 mg twice daily for diabetes, prescription strips and lancets provided on discharge He will be on desmopressin 0.5 mg daily, Intracranial recommends to obtain electrolytes, urine osmolality in 1 week, discussed this with the patient, patient mention he will follow-up with his PCP, he will call his PCP office tomorrow to arrange this follow-up labs ??Pt has appointment with Ophthalmology tomorrow * Joe LINDQUIST, Violeta: PERFORM Event Display: Patient Education/Instruction Authored Date: [id number] Inpatient Adult Discharge Instructions [address] [address] Name: SAMAN JORDAN : 1970 Visit: 02/22/2022 14:43:00 Current Date: 02/25/2022 14:48 Account: [id number] Inpatient Adult Discharge Instructions We would like to thank you for allowing us to assist you with your healthcare needs. The following includes patient education materials and information regarding your injury/illness. Our entire staffstrives to provide an excellent experience for our patients and their families. PLEASE ENSURE YOU FOLLOW-UP PER THE INSTRUCTIONS BELOW! ?? YOUR OPINION IS IMPORTANT TO US! Please complete the survey you may receive by mail or email. Your feedback will be used to make improvements to the healthcare experiences of our patients and their families. Surveys are administered by [employer] ?? If further treatment with your primary care physician or another doctor is recommended, it is important for you to keep the appointment. Call your primary care physician or return to the Emergency Department immediately if your condition worsens, fails to improve, or new symptoms develop. If you need to find a doctor, you can call [facility] for a referral at [phone] or toll free at [phone] ([phone]) or log in to [email or web address].. ?? You can view and manage your care through the patient portal or by using a health care megan of your choosing. [email or web address] is a website that allows you to securely view your medical information including your hospital discharge summary, office visit summaries, medications and follow-up visits. You can also request appointments, renew medications, and request access to your medical information using a health care megan of your choosing, or just ask a question. You can enroll at [email or web address] or register during your next office visit. You have been discharged from [facility], Patient Care Unit: D3B. If you have any questions regarding these instructions after you leave, please call us and we will be happy to assist you. [facility] Your Care Team Attending Physician Shelley TIPTON, Niru Consulting Providers Niru Rosa MD; Emre TIPTON, Luna; Marcos TIPTON, Vincent; Daniela Genao MD Discharging Providers Niru Rosa MD Reason for Admission Pt from home c/o weak for the past 2 weeks, +dehydration, increased urination, + nausea, no vomiting, + headache, + dry mouth denies PMH diabetes Your Diagnosis Central hypothyroidism Tests Performed Below is a partial list of the tests performed during your hospitalization. You may have had other tests and procedures not included in this list. Please discuss all test results with your provider. ALT AST Basic Metabolic Panel BUN CBC CBC w/ Differential Cell Count CSF CK (CREATINE KINASE) CKMB CONFIRMATION/QUANT COVID-19, RSV, and Flu A/B, Rapid PCR Creatinine CSF-DIFFERENTIAL Electrolytes FREE T3 FREE T4 Glucose CSF GLUCOSE POC HEMOGLOBIN A1C High??Sensitivity??Troponin T HOLD BLUE TUBE HOLD LAVENDER TUBE LDH CSF Magnesium Level Phosphorus Level PROCALCITONIN, SERUM PROLACTIN Protein CSF Sodium Urine TSH with T4 Reflex (Adults Only) Urinalysis w/hold for Urine Culture Urine Calcium Urine Creatinine Urine Magnesium Urine Na Urine Osmolality Urine Sodium Chest CT W/ Contrast CT Abd/Pelvis W/ IV Contrast Only MRI Brain W/O Contrast MRI Pituitary W+W/O Contrast XR Chest 2 Views Frontal and Lat Primary Care Provider Hami TIPTON, Asma Advance Directive Health Care Proxy on File Yes - Health Care Proxy No qualifying data available. Discharge Vitals Temperature: 98.6 DegF Height: 165 cm Pulse Rate: 85 bpm Weight: 127 kg Respiratory Rate: 18 br/min Body Mass Index:??46.65 kg/m2??Critical Systolic Blood Pressure:??150 mm Hg??High Body surface area: 2.41 Diastolic Blood Pressure: 80 mm Hg ?? Oxygen Saturation: 99 % ?? Studies Pending All tests and labs ordered during this hospital stay have been completed unless listed below. Please discuss all pending results with your provider listed above in these instructions. ?? AFP CSF Add On Lab Order Angiotensin Converting Enzyme BUN Basic Metabolic Panel CBC COVID-19 (2019 Novel Coronavirus) PCR CSF Culture w/ Gram Smear Creatinine Cytology CSF Tube Cytology Reports General () Hold Lavender Tube (BB) Misc Referral Lab Test Osmolality Urine (Urine Osmolality) Prolactin Monomeric (PROLACTIN, MONOMERIC) Sodium Urine (Urine Sodium) Somatomedin C (SOMATOMEDIN) What to do next Instructions From Your Doctor You presented to the hospital complaining of excessive urination and increased thirst, nausea and arecent headache however progressive to the point where he had to come to the hospital.?He had some blood work done which showed abnormal thyroid gland function and so you were started on a medication called levothyroxine which is basically a thyroid hormone supplement. 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 This can happen when there are problems with a hormone called antidiuretic hormone, which helps balance the amount of fluid in the body. the body doesn't make enough antidiuretic hormone to keep the amount of fluid in balance.?is a condition that causes the body to make too much urine. This can happen when there are problems with ahormone called antidiuretic hormone, which helps balance the amount of fluid in the body. Your??body doesn't make enough antidiuretic hormone to keep the amount of fluid in balance, which explains her symptoms needing to urinate often, making large amounts of urine, and feeling very thirsty. ??Thus, you were started on a medication called desmopressin.?In order??to??figure out the right doseof desmopressin for you,??you need to go to the lab in 1 week to have the blood work that is already ordered for you, preferably in the afternoon.?Your sugar levels were also found to be??elevated, likely due to your??chronic prednisone use??, so you now have diabetes mellitus type 2 so you werestarted on??an antidiabetic medication called??metformin that you should take twice daily and you should??keep checking your??blood sugar levels. During your stay, you also had imaging of your brain?? done to evaluate your symptoms and you were found to have??some abnormal findings of your pituitarygland on your??brain MRI, so you need to follow-up with your design printer balloon??outpatient??for further evaluation. ?? Please make sure??to keep up with all of your medications??and your doctor appointments. ?? Please make sure to follow-up with your PCP. Discharge Orders Code Status:?? Full Resuscitation Discharge Medications SAMAN JORDAN :1970 Visit Date:02/22/2022 Medications: Please continue your medications until treatment is completed or stopped by your provider. Medications not listed below should be discontinued. Discuss any questions related to medications with your provider. What How Much When Instructions Next Dose New Desmopressin (desmopressin 0.1 mg oral tablet) 0.5 tab(s) Oral Daily at Bedtime Pickup at [place] [address] tonight New Durable Medical Equipment (Alcohol Pads) See instructions To use ??2-3 times/ day ??for DM2 ?? Pickup at [place] [address] as ordered New Durable Medical Equipment (Glucose Monitor) See instructions Newly diagnosed DM ?? Pickup at [place] [address] as ordered New Durable Medical Equipment (Glucose Test Strips) See instructions to use 2-3 times/ day ?? Pickup at [place] [address] as ordered New Durable Medical Equipment (Lancets) See instructions to use 2-3 times / day ?? Pickup at [place] [address] as ordered New Levothyroxine (levothyroxine 125 mcg (0.125 mg) oral tablet) 125 Microgram Oral Daily Pickup at [place] [address] 02/26 before breakfast New Metformin (metFORMIN 500 mg oral tablet) 1 tab(s) Oral Twice a day Pickup at [place] [address] 02/25 at dinnertime Unchanged Aspirin (Aspirin Tablet) 81 Milligram Oral Daily 02/26 9am Unchanged Atorvastatin (Lipitor 80 mg oral tablet) 1 tab(s) Oral Daily at Bedtime tonight Unchanged Brimonidine Ophthalmic (brimonidine 0.2% ophthalmic solution) 1 Drops Left eye Twice a day tonight Unchanged Indomethacin (indomethacin 50 mg oral capsule) 1 capsule Oral Two times a day with meals tonight Unchanged PredniSONE (predniSONE 5 mg oral tablet) 4 tab(s) Oral Daily Taper as directed ?? 02/26 9 am Pharmacy Information [facility]: [address], [place] [id number] [phone] Test Results Below is a partial list of the most recent Laboratory test results done prior to this discharge. You may have had other tests and procedures not included in this list. Please discuss all test resultswith your provider. ALT (02/22/2022) ???ALT (SGPT) - 32 units/L AST (02/22/2022) ???AST (SGOT) - 16 units/L Basic Metabolic Panel (02/25/2022) ???Sodium - 144 mmol/L???Potassium - 4.4 mmol/L???Chloride - 103 mmol/L???Bicarbonate Level - 27 mmol/L???Anion Gap - 14???Glucose Level - 169 mg/dL???BUN - 13 mg/dL???Creatinine-Blood - 1.2 mg/dL???Estimated GFR Creatinine - 74 ML/MIN/1.73 M2???Calcium - 9.4 mg/dL BUN (02/25/2022) ???BUN - 15 mg/dL CBC (02/25/2022) ???WBC - 13.1 k/mm3???RBC - 4.61 m/mm3???Hgb - 13.4 Gm/dL???Hct - 42.8 %???MCV - 92.8 femtoliters???MCH - 29.1 pg???MCHC - 31.3 g/dL???Platelet Count - 272 k/mm3???RDW-SD - 49.4 femtoliters???MPV - 10.0 femtoliters???Nucleated RBC (Automated) - 0.0 #/100 WBC'S???Abs. NRBC - 0.0 k/mm3 CBC w/ Differential (02/22/2022) ???WBC - 15.6 k/mm3???RBC - 4.90 m/mm3???Hgb - 14.3 Gm/dL???Hct - 45.3 %???MCV - 92.4 femtoliters???MCH - 29.2 pg???MCHC - 31.6 g/dL???Platelet Count - 338 k/mm3???RDW-SD - 48.6 femtoliters???MPV - 10.0 femtoliters???Nucleated RBC (Automated) - 0.0 #/100 WBC'S???Abs. NRBC - 0.0 k/mm3???Abs. Neut - 12.1 k/mm3???Abs. Lymph - 2.3 k/mm3???Abs. [place] - 0.9 k/mm3???Abs. Eo - 0.1 k/mm3???Abs. Baso - 0.1 k/mm3???Neut % - 77.6 %???Lymph % - 14.5 %???[place] % - 5.6 %???Eos % - 0.7 %???Baso % - 0.4 %???Imm Gran - 1.2 %???Abs. Imm Gran - 0.2 k/mm3 Cell Count CSF (02/24/2022) ???CSF Cell Count Color - COLORLESS???CSF Cell Count Appearance - CLEAR???CSF Cell Count WBC - 120 per Cubic Millimeter???CSF Cell Count RBC - 68 per Cubic Millimeter CK (CREATINE KINASE) (02/22/2022) ???CK, Total - 93 units/L CKMB CONFIRMATION/QUANT (02/22/2022) ???CK MB Confirmation - Quant - 1.1 ng/mL COVID-19, RSV, and Flu A/B, Rapid PCR (02/22/2022) ???Influenza A PCR - NEGATIVE???Influenza B PCR - NEGATIVE???RSV PCR - NEGATIVE???COVID-19 PCR Specimen Source - NASAL???COVID-19 PCR Result - NEGATIVE Creatinine (02/25/2022) ???Creatinine-Blood - 1.1 mg/dL???Estimated GFR Creatinine - 80 ML/MIN/1.73 M2 CSF-DIFFERENTIAL (02/24/2022) ???CSF Cells, Seg - 2 %???CSF Cells, Lymph - 98 % Electrolytes (02/25/2022) ???Sodium - 142 mmol/L???Potassium - 4.3 mmol/L???Chloride - 104 mmol/L???Bicarbonate Level - 27 mmol/L???Anion Gap - 11 FREE T3 (02/22/2022) ???T3, Free - 1.8 pg/mL FREE T4 (02/22/2022) ???Free T4 - 0.47 ng/dL Glucose CSF (02/24/2022) ???Glucose, CSF - 93 mg/dL GLUCOSE POC (02/25/2022) ???Glucose, POC - 136 mg/dL HEMOGLOBIN A1C (02/22/2022) ???Hemoglobin A1C (Monitoring) - 7.1 % High??Sensitivity??Troponin T (02/22/2022) ???High Sensitivity Troponin (HSTnT) - 12 ng/L HOLD BLUE TUBE (02/22/2022) ???Hold Blue Top - SPECIMEN DISCARDED AFTER 4 HOURS. HOLD LAVENDER TUBE (02/25/2022) ???Hold Lavender Top - SPECIMEN DISCARDED AFTER 24 HOURS. LDH CSF (02/24/2022) ???LDH, CSF - 30 units/L Magnesium Level (02/25/2022) ???Magnesium - 2.2 mg/dL Phosphorus Level (02/25/2022) ???Phosphorus - 3.8 mg/dL PROCALCITONIN, SERUM (02/24/2022) ???Procalcitonin - 0.07 ng/mL PROLACTIN (02/24/2022) ???Prolactin - 20.5 ng/mL Protein CSF (02/24/2022) ???Total Protein, CSF - 77 mg/dL Sodium Urine (02/24/2022) ???Sodium, Urine Random - 29 mmol/L TSH with T4 Reflex (Adults Only) (02/22/2022) ???TSH - 0.04 uIU/mL Urinalysis w/hold for Urine Culture (02/22/2022) ???Appear/Color, Urine - COLORLESS???Specific [place], Urine - 1.002???pH, Urine - 6.5???Albumin, Urine - NEGATIVE???Glucose, Urine - NEGATIVE???Ketones, Urine - NEGATIVE???Bilirubin, Urine - NEGATIVE???Hemoglobin, Urine - NEGATIVE???Nitrite, Urine - NEGATIVE???Leukocyte, Urine - NEGATIVE???Urobilinogen - NORMAL? ?WBC's, Urine - NONE SEEN? ?RBC's, Urine - <1 /HPF? ?Bacteria - SLIGHT? ?Hold Urine Culture - Testing available 48 hours from time of collection. Urine Calcium (02/22/2022) ???Calcium, Urine Random - 3.2 mg/dL Urine Creatinine (02/22/2022) ???Creatinine, Urine Random - 45.2 mg/dL Urine Magnesium (02/22/2022) ???Magnesium, Urine Meq/L - 1.6 mg/dL Urine Na (02/22/2022) ? ?Sodium, Urine Random - <20 mmol/L Urine Osmolality (02/25/2022) ???Osmolality, Urine Random - 113 mOsm/kg Urine Sodium (02/25/2022) ???Sodium, Urine Random - 22 mmol/L Allergies (NKA means No Known Allergies) NKA No Known Medication Allergies Problems Active Problems??(4) AION (anterior ischemic optic neuropathy)?? Central retinal artery occlusion of right eye?? Severe obesity?? Visual loss?? Education Materials Below is the list of Educational Leaflet Providered with your Discharge Instructions. Hypothyroidism?? The Role of the Thyroid Gland?? Desmopressin Oral Tablet?? The Role of the Thyroid Gland?? Valuables and Belongings I fully understand and agree that [facility] accepts no responsibility for all my personal property including clothing, toilet articles, radios, jewelry, dentures, hearing aids, rings, money, or any other property that is in my possession or is brought to me after admission. I understand certain valuables may be placed in a hospital safe for a short period of time. I understand that the hospital is not liable for loss or damage due to accident, fire, or other natural occurrence while said property is in the safe. I accept full responsibility for any personal property that I keep with me, and will not hold the hospital responsible in case of loss or disappearance. I acknowledge that i have been encouraged to send valuables and belongings home. ?? Review of Valuable and Belonging List: With patient Date for Pt to Sign Valuables/Belongings: 02/22/22 14:36:00 ?? Other Discharge Information ? Pulmonary Rehab Status?? Pulmonary Rehab Discharge Status?? Respiratory Rate: 18 br/min ? Common Emergency Awareness Tips IS IT A STROKE? Act FAST and Check for these signs: FACE Does the face look uneven? ARM Does one arm drift down? SPEECH Does their speech sound strange? TIME Call at any sign of stroke ?? Heart Attack Signs Chest discomfort: Most heart attacks involve discomfort in the center of the chest and lasts more than a few minutes, or goes away and comes back. It can feel like uncomfortable pressure, squeezing, fullness or pain. Discomfort in upper body: Symptoms can include pain or discomfort in one or both arms, back, neck, jaw or stomach. Shortness of breath: With or without discomfort. Other signs: Breaking out in a cold sweat, nausea, or lightheaded. Remember, MINUTES DO MATTER. If you experience any of these heart attack warning signs, call to get immediate medical attention! ?? Smoking can increase your chances of developing chronic health problems and can cause harmful effects to other family members in your house. If you smoke, you are strongly encouraged to quit. Please call [facility] at [phone] or [phone] or log in to [email or web address] for referrals to smoking cessation programs. ?? The National Suicide Prevention Hotline is available 21/10 if you or someone you know needs to find a reason to keep living. By calling 4-104-176-3sun (8333) you'll be connected to a skilled, trained counselor at a crisis center in your area. INPATIENT DISCHARGE INSTRUCTIONS SIGNATURE PAGE SAMAN JORDAN Location:[facility] Registration Date and Time:02/22/2022 14:43 EST Primary Care Physician: Haim TIPTON, Asma, I SAMAN JORDAN, have received the above patient education materials/instructions and have verbalized understanding. If ambulance or transport services are being used I further acknowledge being givena choice of service. ?? If you need to contact me, please call me at this number: . 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 [id number] Hypothyroidism You have been diagnosed with hypothyroidism. This means your thyroid gland doesn't make enough thyroid hormone. This hormone is vital to body growth and metabolism. If you don???t make enough, many body processes slow down. This can cause symptoms. Hypothyroidism can range from mild to severe. The most severe form is called myxedema coma. There are many causes of hypothyroidism. A common cause is Colby???s thyroiditis. This is a disease that causes the immune system to attack the thyroid gland. Other causes include: ??? Radiation to the thyroid gland ??? Surgery to remove the thyroid gland ??? Not enough hormones from the pituitary gland ??? Medicines such as lithium or amiodarone Symptoms of hypothyroidism can include: ??? Fatigue ??? Trouble concentrating, thinking clearly, or remembering ??? Dry skin ??? Hair loss ??? Weight gain ??? Low tolerance to cold ??? Constipation ??? Depression ??? Personality changes ??? Tingling or prickling of the hands or feet ??? Heavy, absent, or irregular periods Older adults may sometimes have other symptoms. These can include: ??? Muscle aches and weakness ??? Confusion ??? Problems controlling urine or stool (incontinence) ??? Trouble moving around ??? Falling Treatment for hypothyroidism is done by taking thyroid hormone pills daily. These pills replace thehormone your thyroid doesn???t make. You'll likely??need to take a daily pill for the rest of your life. Tips for taking this medicine are below. Home care Tips for taking your medicine ??? Take your thyroid hormone pills exactly as prescribed. This is most often 1 pill a day on an empty stomach. Use a pillbox labeled with the days of the week. This will help you remember to take your pill each day. ??? Don???t take iron, calcium, or antacids within 4 hours of taking your thyroid hormone pills. ??? Don???t take other medicines with your thyroid hormone pill without checking withyour provider first. ??? Tell your provider if you have any side effects from your medicines. Tell them if you have chest pain or irregular heartbeats. ??? Don't change the dose??or stop taking your thyroid pills. Talk to your provider first. General care ??? Always talk with your provider before trying other treatments for your thyroid. ??? Tell all of your healthcare providers you have hypothyroidism. ??? Tell your provider if you get . Your dose of thyroid hormone will need to be changed. ?? Follow-up care See your provider for checkups as advised. You'll need regular tests to check the level of thyroid hormone in your blood. ?? When to get medical care Call your healthcare provider right away if you have any of these: ??? New symptoms ??? Symptoms that return, continue, or get worse even with treatment ??? Extreme fatigue ??? Puffy hands, face, or feet ??? Fast or irregular heartbeat ??? Confusion ?? Call 911 Call 911 if any of these occur: ??? Fainting ??? Chest pain ??? Shortness of breath or trouble breathing ?? Last Reviewed Date: 2021 ?? 6929-1168 [employer]. All rights reserved. This information is not intended as a substitute for professional medical care. Always follow your healthcare professional's instructions. ?? * Isaac Bernal MD: PERFORM Event Display: Patient Education Leaflets Authored Date: [id number] The Role of the Thyroid Gland ?? [id number] The Role of the Thyroid Gland The thyroid is a gland in the neck, just below the voicebox. It is an endocrine gland. Endocrine glands make hormones. These are chemicals that carry messages through the bloodstream to other parts of the body. The thyroid gland makes thyroid hormones. The thyroid gland is managed by the pituitary gland, which sits at the base of the brain. Keeping the body working right Thyroid hormones help keep all the cells in the body working right. It does this by controlling themetabolism. This is the rate at which every part of the body functions. The right amount of thyroidhormones keep the metabolism at a healthy pace. This helps the brain, heart, muscles, and other organs work well. A balanced metabolism also helps ensure a healthy temperature, heart rate, energy level, and growth rate. Thyroid hormones also play a vital role in children's growth. ?? The thyroid-pituitary cycle The thyroid hormone needs to be kept at a healthy level. A complex cycle maintains this level. The cycle starts with the pituitary gland. This gland checks the thyroid hormone level in the blood. Depending on the level, the pituitary sends thyroid stimulating hormone (TSH) through the blood to the thyroid gland. TSH tells the thyroid gland how much thyroid hormone to make. In response to TSH,the thyroid makes thyroid hormone. Then thyroid hormone is sent into the blood to the rest of the body. The pituitary senses the hormone level, adjusts the TSH level, and the cycle continues. ?? Last Reviewed Date: 2019 ?? [id number] [employer]. All rights reserved. This information is not intended as a substitute for professional medical care. Always follow your healthcare professional's instructions. ?? * BHSPNAEL noble S: TRANSCRIBE Ron Gómez MD: VERIFY Event Display: Result: Authored Date: [id number] MRI Pituitary W+W/O Contrast INDICATION / CLINICAL QUESTION: Reason: Panhypopituitarism; Clinical Question(s): Pituitary Tumor; Order Comment: Please see Reference Text for complete list of contraindications Pituitary Tumor TECHNIQUE: MRI of the brain with attention to the sella was performed with and without contrast utilizing sagittal T1, coronal T1, coronal T2, coronal FLAIR, and post-contrast sagittal and coronal T1-weighted sequences. 10 mL of Clariscan was administered intravenously. COMPARISON: MRI of the brain performed earlier in the day. FINDINGS: SELLA: A sellar mass is identified measuring approximately 14 mm in height and 16 x 18 mm transversely. This structure heterogeneously enhances. There is no discrete separate visualization of the pituitary gland. Abnormal tissue extends superiorly into the suprasellar cistern. The optic high as some is expanded and demonstrates areas of enhancement. A 5 mm ring enhancing structure demonstrating central T2 hyperintensity is present within, or immediately adjacent to, the chiasm. There is questionably an additional 2 mm ring-enhancing structure in the midline of the chiasm. There is mild T2 hyperintensity of the optic nerves immediately anterior to the chiasm as well as mild T2 hyperintensityof the left optic track anteriorly. The anterior communicating artery is mildly displaced anteriorly. There is no definite evidence for cavernous sinus invasion but the enhancing tissue extends superior to the left internal carotid artery flow void. There is either occlusion or slow flow in the right internal carotid artery with an absent flow void and enhancement of the lumen. There is questionable thickening of the right cavernous sinus but no abnormal enhancement is noted. There is extensionof T2 hyperintensity superiorly from the chiasm into the hypothalamus. The abnormal enhancing tissue extends posterior to the dorsum sella slightly bulging into the prepontine cistern. There is retrosellar component measures approximately 2 mm in thickness. No invasion of the sphenoid sinus is shown Abnormality involving the chiasm and hypothalamus measures from 8 to 13 mm. BRAIN and EXTRA-AXIAL SPACES: No significant abnormality is noted elsewhere. No additional site of abnormal contrast enhancement is noted but the entirety of the brain is not included on the enhancedexamination and the prior study did not include enhancement. EXTRACRANIAL SOFT TISSUES: Visualized portions of the extracranial soft tissues are unremarkable. BONES: Visualized marrow signal is preserved. IMPRESSION: Heterogeneously enhancing mass involving the pituitary gland and extending into the suprasellar cistern to involve the optic chiasm and hypothalamus. There is slight extension of abnormal T2 hyperintensity into the anterior left optic track and posterior optic nerves. The pituitary component measures up to 18 mm in diameter and the chiasmatic/hypothalamic abnormality measures up to 13 mm. The appearance is unusual and lymphocytic hypophysitis, lymphoma and pituitary carcinoma should be considered. Langerhans' cell histiocytosis and metastasis are also possible. The appearance would be atypical for pituitary adenoma. Correlation with CSF cytology and enhanced MRI of the entire brain is suggested. WSN: [id number] Ordering Physician: Niru Rosa Dictated By: Ron Gómez MD Dictated Date/Time: 02/25/22 7:53 am Reviewed By: Ron Gómez MD Signed By: Ron Gómez MD Signed Date/Time: 02/25/22 7:53 am Transcribed By: PAULIE Transcribed Date/Time: 02/25/22 7:34 am * Event Display: Cytology Reports General Authored Date: [id number] Patient Name: SAMAN JORDAN Patient : 1970 (Age: 51) Lab Collection Date: 02/24/2022 Accession Date: 02/25/2022 Sign Out Date: 02/25/2022 Tissue Source: 1: CEREBROSPINAL FLUID: Final Diagnosis: CEREBROSPINAL FLUID: NEGATIVE FOR MALIGNANT CELLS. Clinical History: Date of Last Menstrual Period: not available Menstrual History: not available Contraceptive History: not available Ancillary Testing: not available Clinical History (other): 51 year old male with optical neuropathy obesity, hypertension presents with fatigue + Polydipsia + Polyuria + Left RENE. Pituitary mass on MRI with evidence of central hypothyroidism + diabetes insipidus. Received an add on requisition that is a duplicate order Gross Description: Received 1cc of colorless, clear fluid 1 ThinPrep cellular enhancement technique Primary Pathologist: JERMAINE HARVEY M.D. Phone #: [phone], On-Call Pathologist: [id number] * Zoey Castro RN: PERFORM Event Display: Patient Education Leaflets Authored Date: [id number] Desmopressin Oral Tablet ?? [id number] Desmopressin Oral Tablet Brands: DDAVP Uses This medicine is used for the following purposes: ??? bed wetting ??? hormone imbalance ?? Instructions It is very important that you take the medicine at about the same time every day. It will work bestif you do this. Store at room temperature away from heat, light, and moisture. Do not keep in the bathroom. Limit the amount of water or other beverages while using this medicine. Tell your doctor if you have severe or persistent sweating, diarrhea or vomiting. These can increase your risk of a serious side effect. If you are using this medicine regularly, it is important to take each dose of medicine on time. Keep taking the medicine even if you feel well. If you forget to take a dose on time, take it as soon as you remember. If it is almost time for thenext dose, do not take the missed dose. Return to your normal dosing schedule. Do not take 2 doses of this medicine at one time. Drug interactions can change how medicines work or increase risk for side effects. Tell your healthcare providers about all medicines taken. Include prescription and jgjv-sfd-innqlow medicines, vitamins, and herbal medicines. Speak with your doctor or pharmacist before starting or stopping any medicine. Tell your doctor if symptoms do not get better or if they get worse. Keep all appointments for medical exams and tests while on this medicine. ?? Cautions Tell your doctor and pharmacist if you ever had an allergic reaction to a medicine. Some patients taking this medicine have experienced serious side effects. Please speak with your doctor to understand the risks and benefits associated with this medicine. Do not use the medication any more than instructed. Please check with your doctor before drinking alcohol while on this medicine. Avoid becoming overheated during exercise or other activities. Try to stay cool in hot weather. Call the doctor if there are any signs of confusion or unusual changes in behavior. Contact your doctor if you develop any signs of a new infection such as fever, cough, sore throat, or chills. Tell the doctor or pharmacist if you are , planning to be , or . Do not share this medicine with anyone who has not been prescribed this medicine. ?? Side Effects The following is a list of some common side effects from this medicine. Please speak with your doctor about what you should do if you experience these or other side effects. ??? feeling of heat or flushing ??? nausea ??? stomach upset or abdominal pain Call your doctor or get medical help right away if you notice any of these more serious side effects: ??? confusion ??? dizziness or drowsiness ??? severe or persistent headache ??? high blood pressure??? mood changes ??? muscle cramps ??? restlessness ??? seizures ??? unusual or unexplained tiredness or weakness A few people may have an allergic reaction to this medicine. Symptoms can include difficulty breathing, skin rash, itching, swelling, or severe dizziness. If you notice any of these symptoms, seek medical help quickly. ?? Extra Please speak with your doctor, nurse, or pharmacist if you have any questions about this medicine. ?? [email or web address] IMPORTANT NOTE: This document tells you briefly how to take your medicine, but it does not tell youall there is to know about it. Your doctor or pharmacist may give you other documents about your medicine. Please talk to them if you have any questions. Always follow their advice. There is a more complete description of this medicine available in [employer] [place]. Scan this code on your smartphone or tablet or use the web address below. You can also ask your pharmacist for a printout. If you have any questions, please ask your pharmacist. The display and use of this drug information is subject to Terms of Use. Copyright(c) 2021 [employer]. ?? [employer]. All rights reserved. This information is not intended as a substitute for professional medical care. Always follow your healthcare professional's instructions. ?? * BHSPowerscribe , CIS S: TRANSCRIBE Nilo Sweet MD: VERIFY Event Display: Result: Authored Date: Chest 2 Views Frontal and Lat Hx of Present Illness: Pt from home c o weak for the past 2 weeks, +dehydration, increased urination, + nausea, no vomiting, + headache, + dry mouth; Reason: Shortness of Breath; Clinical Question(s): CHF COMPARISON: None. FINDINGS: No acute cardiopulmonary process IMPRESSION: No acute abnormality. WSN: [id number] Ordering Physician: Rene Pandya Dictated By: Nilo Sweet MD Dictated Date/Time: 02/22/22 1:22 pm Reviewed By: Nilo Sweet MD Signed By: Nilo Sweet MD Signed Date/Time: 02/22/22 1:22 pm Transcribed By: PAULIE Transcribed Date/Time: 02/22/22 1:21 pm History and physical note * Rudy Velazquez DO S: MODIFY, MODIFY, MODIFY, PERFORM Event Display: History and Physical Hospital Authored Date: [id number] Patient: ??SAMAN JORDAN ? Age:??51 Years?Sex:??Male?:??1970?? Chief Complaint/Reason for Consultation Pt from home c/o weak for the past 2 weeks, +dehydration, increased urination, + nausea, no vomiting, + headache, + dry mouth denies PMH diabetes History of Present Illness This is a 51-year-old male??with past medical history??of central retinal??artery occlusion??versus??anterior ischemic optic neuropathy??affecting bilateral??with??right-sided??visual loss,??and hypertension,??who currently presents to??hospital??with complaint??increased thirst, night sweats,??and headache.?? The patient reports that the symptoms began about 2 weeks ago??when he noticed that he was increasingly more thirsty than normal.?? This continued to worsen and then he developed??headache, primarily??on the left side of his head and??with??tenderness even to the touch.?? Subsequently he noted having night sweats??and then would awaken in the morning with??shaking chills??and feeling cold.?? Due to progressively worsening symptoms, he presented to??the ED for further assessment.?? In the ED, the patient had lab work done that showed him to have a white count of 15.6.?? Other labs were notable for slightly elevated sodium of 146 with a bicarb level of 33 and a glucose level of 157.?? Hemoglobin A1c was obtained and noted to be 7.1.?? The patient's TSH was 0.04 with a free T4 of0.47 and free T3 of 1.8.?? UA was unremarkable.?? The patient did undergo a chest x-ray in the ED that showed no acute abnormality.?? 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 Began steroids about 2 months ago and was initially on 80 mg daily.?? He states that he is currently on 20 mg a day. The patient's low TSH, low free T4 and T3, endocrinology was contacted by the ED.?? Their recommendation was for an MRI of the brain/pituitary gland to evaluate for central hypothyroidism versus progression of thyroiditis from hyperactive hypothyroid phase.?? In addition, they recommended strict I's and O's and following the sodium level and urine osmolality given this patient's polydipsia, polyuria, and hypernatremia.?? The patient is now admitted for further management. Review of Systems A complete review of systems was obtained and noted to be negative except as stated above in the HPI. Objective Measurements?? Height: 165 cm (02/22/22) Weight: 127 kg (02/22/22) Dry Weight: 127 kg (02/22/22) Body Mass Index:??46.65 kg/m2??Critical (02/22/22) ? Vital Signs?? Temperature: 97.6 DegF (02/22/22 23:08:00) Temperature Route: Oral (02/22/22:08:00) Pulse Rate: 72 bpm (02/22/22:08:00) Respiratory Rate: 18 br/min (02/22/22 23:08:00) Systolic Blood Pressure: 131 mm Hg (02/22/22 23:08:00) Diastolic Blood Pressure: 81 mm Hg (02/22/22:08:00) Blood pressure sites: Arm, left (02/22/22:08:00) Mean Arterial Pressure: 98 mm Hg (02/22/22 23:08:00) Pulse Pressure: 50 mm Hg (02/22/22:08:00) Oxygen Saturation: 100 % (02/22/22:08:00) Mode of Delivery (Oxygen): Room air (02/22/22 23:08:00) Early Warning Score: 2 (02/22/22::22) ? Physical Exam General: Alert, in no acute cardiopulmonary distress. Mental Status: Oriented to person, place and time. Normal affect. Head: Normocephalic. Eyes: Pupils are equal, round and reactive to light. Extraocular muscles intact. Ear, Nose and Throat: Oropharynx clear, mucous membranes moist. Ears and nose without masses, lesions or deformities. Trachea midline. Neck: Supple, Full range of motion. Respiratory: Clear to auscultation and percussion. No wheezing, rales or rhonchi. Cardiovascular: Heart sounds normal. Regular rate and rhythm, no murmurs, rubs or gallops. Gastrointestinal: Abdomen soft, non-tender, non-distended. Normal bowel sounds. No pulsatile mass. No hepatosplenomegaly. Neurologic: Cranial nerves II-XII grossly intact. No focal neurological deficits. Moves all extremities spontaneously. Sensation intact bilaterally. Skin: No rashes or lesions. No petechiae or purpura.?? Trace to 1+ lower extremity edema bilaterally Musculoskeletal: No cyanosis or clubbing. No gross deformities. Normal range of motion. Assessment/Plan This is a 51-year-old male with past medical history as noted above,[facility] of??polydipsia,??polyuria,??left-sided headache,??night sweats??and morning c hills.?? His lab work here was notable for an elevated white count of 15.6. ??He also??was noted chris hyperglycemic??with a hemoglobin A1c of 7.1.?? His TSH was noted to be low??at??0.04,??with a low free T4 and free T3 as well. ?? Central hypothyroidism ??(E03.8) This patient will be admitted to an observation??medical bed.?? He presents with multiple symptoms??as outlined above, and was noted??on laboratory evaluation to have a low TSH,??as well as low free T4 and??T3.?? These laboratory results suggest possible??abnormal hypothalamic???pituitary function??and central hypothyroidism.?? An MRI scan of the brain has been??ordered and is pending.?? As per recommendations from??endocrinology, the patient has been initiated on levothyroxine 125 mcg daily. ?? Polyuria,??polydipsia,??mild hyponatremia We will follow his Is/Os closely on this patient.?? We will follow-up??on serial sodium and urine osmolality levels. ?? Adrenal insufficiency gated??steroid usage. Patient has been??steroids for the last 2 months, beginning at 80 mg??of prednisone daily.?? He is currently on 20 which we will??continue him on. ?? Leukocytosis. Patient with elevated white count, but likely in the setting of steroid use. ??We will continue to monitor. ?? 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. Patient noted to have an elevated??we will follow POC's and cover with sliding scale insulin coverage for now. ?? CODE STATUS. ??Patient is a full code. ?? DVT prophylaxis. ??We will use subcu.?? Lovenox and encourage early mobilization. ?? Patient seen on February 22, 2022. ? Histories Allergies Allergies ?(Active and Proposed Allergies Only) NKA? (Severity: Unknown severity, Onset: Unknown) No Known Medication Allergies? (Severity: Unknown severity, Onset: Unknown) ? Past Medical History/Problem List Active Problems??(4) ?AION (anterior ischemic optic neuropathy) ?Central retinal artery occlusion of right eye Severe obesity Visual loss Hyperlipidemia ? Past Surgical History Patient denies ? Social History She is single and lives alone.?? He??is a former smoker,??half pack a day starting at age 18 and quit a month ago.?? He denies significant alcohol intake and denies any drug use history. ?? Family Medical History Mother at 78 with congestive heart failure.?? Father at 85 with MT and COPD. Medications Home Medications??(Confirmed with the patient) Aspirin (Aspirin Tablet)?81?Milligram?By Mouth?Daily Atorvastatin (Lipitor 80 mg oral tablet)?1?tab(s)?80?Milligram?By Mouth?Daily at bedtime Brimonidine Ophthalmic (brimonidine 0.2% ophthalmic solution)?1?Drops?Eye, Left?2 timesa day Indomethacin (indomethacin 50 mg oral capsule)?1?capsule?50?Milligram?By Mouth?2 times a day with meals PredniSONE (predniSONE 5 mg oral tablet)?4?tab(s)?20?Milligram?By Mouth?Daily?Taper as directed ? Results Recent Labs BLOOD COUNT & DIFF WBC 15.6 k/mm3 (High)?? 02/22/2022 12:18 RBC 4.90 m/mm3 ()?? 02/22/2022 12:18 Hgb 14.3 Gm/dL ()?? 02/22/2022 12:18 Hct 45.3 % ()?? 02/22/2022 12:18 MCV 92.4 femtoliters ()?? 02/22/2022 12:18 MCH 29.2 pg ()?? 02/22/2022 12:18 MCHC 31.6 g/dL (Low)?? 02/22/2022 12:18 Platelet Count 338 k/mm3 ()?? 02/22/2022 12:18 RDW-SD 48.6 femtoliters (High)?? 02/22/2022 12:18 MPV 10.0 femtoliters ()?? 02/22/2022 12:18 Nucleated RBC (Automated) 0.0 #/100 WBC'S ()?? 02/22/2022 12:18 Abs. NRBC 0.0 k/mm3 ()?? 02/22/2022 12:18 Abs. Neut 12.1 k/mm3 (High)?? 02/22/2022 12:18 Abs. Lymph 2.3 k/mm3 ()?? 02/22/2022 12:18 Abs. [place] 0.9 k/mm3 ()?? 02/22/2022 12:18 Abs. Eo 0.1 k/mm3 ()?? 02/22/2022 12:18 Abs. Baso 0.1 k/mm3 ()?? 02/22/2022 12:18 Neut % 77.6 % (High)?? 02/22/2022 12:18 Lymph % 14.5 % (Low)?? 02/22/2022 12:18 [place] % 5.6 % ()?? 02/22/2022 12:18 Eos % 0.7 % ()?? 02/22/2022 12:18 Baso % 0.4 % ()?? 02/22/2022 12:18 Imm Gran 1.2 % ()?? 02/22/2022 12:18 Abs. Imm Gran 0.2 k/mm3 ()?? 02/22/2022 12:18 ?? CARDIAC CK, Total 93 units/L ()?? 02/22/2022 14:00 CK MB Confirmation - Quant 1.1 ng/mL ()?? 02/22/2022 14:00 High Sensitivity Troponin (HSTnT) 12 ng/L ()?? 02/22/2022 14:00 ?? CHEM GENERAL Sodium 143 mmol/L ()?? 02/22/2022 18:49 Potassium 4.5 mmol/L ()?? 02/22/2022 18:49 Chloride 104 mmol/L ()?? 02/22/2022 18:49 Bicarbonate Level 29 mmol/L ()?? 02/22/2022 18:49 Anion Gap 10 ()?? 02/22/2022 18:49 Glucose Level 157 mg/dL (High)?? 02/22/2022 12:18 Glucose, POC 135 mg/dL (High)?? 02/22/2022 20:19 Hemoglobin A1C (Monitoring) 7.1 % (High)?? 02/22/2022 12:18 BUN 8 mg/dL ()?? 02/22/2022 12:18 Creatinine-Blood 1.1 mg/dL ()?? 02/22/2022 12:18 Estimated GFR Creatinine 80 ML/MIN/1.73 M2 ()?? 02/22/2022 12:18 Calcium 9.5 mg/dL ()?? 02/22/2022 12:18 Magnesium 2.2 mg/dL ()?? 02/22/2022 12:18 AST (SGOT) 16 units/L ()?? 02/22/2022 12:18 ALT (SGPT) 32 units/L ()?? 02/22/2022 12:18 ?? ENDOCRINE/TUMOR MARKER TSH 0.04 uIU/mL (Low)?? 02/22/2022 12:18 Free T4 0.47 ng/dL (Low)?? 02/22/2022 12:18 T3, Free 1.8 pg/mL (Low)?? 02/22/2022 18:49 ?? HEME OTHER Hold Blue Top SPECIMEN DISCARDED AFTER 4 HOURS. ()?? 02/22/2022 12:18 ?? UA/URINALYSIS Appear/Color, Urine COLORLESS ()?? 02/22/2022 11:56 Specific [place], Urine 1.002 ()?? 02/22/2022 11:56 pH, Urine 6.5 ()?? 02/22/2022 11:56 Albumin, Urine NEGATIVE ()?? 02/22/2022 11:56 Glucose, Urine NEGATIVE ()?? 02/22/2022 11:56 Ketones, Urine NEGATIVE ()?? 02/22/2022 11:56 Bilirubin, Urine NEGATIVE ()?? 02/22/2022 11:56 Hemoglobin, Urine NEGATIVE ()?? 02/22/2022 11:56 Nitrite, Urine NEGATIVE ()?? 02/22/2022 11:56 Leukocyte, Urine NEGATIVE ()?? 02/22/2022 11:56 Urobilinogen NORMAL mg/dL ()?? 02/22/2022 11:56 WBC's, Urine NONE SEEN /HPF ()?? 02/22/2022 11:56 RBC's, Urine <1 /HPF ()?? 02/22/2022 11:56 Bacteria SLIGHT HPF (Abnormal)?? 02/22/2022 11:56 Hold Urine Culture Testing available 48 hours from time of collection. ()?? 02/22/2022 11:56 ?? URINE OTHER Calcium, Urine Random 3.2 mg/dL ()?? 02/22/2022 19:40 Creatinine, Urine Random 45.2 mg/dL ()?? 02/22/2022 19:40 Sodium, Urine Random <20 mmol/L ()?? 02/22/2022 19:40 Osmolality, Urine Random 135 mOsm/kg ()?? 02/22/2022 19:40 Magnesium, Urine Meq/L 1.6 mg/dL ()?? 02/22/2022 19:40 ?? VIROLOGY Influenza A PCR NEGATIVE ()?? 02/22/2022 12:10 Influenza B PCR NEGATIVE ()?? 02/22/2022 12:10 RSV PCR NEGATIVE ()?? 02/22/2022 12:10 COVID-19 PCR Specimen Source NASAL ()?? 02/22/2022 12:10 COVID-19 PCR Result NEGATIVE ()?? 02/22/2022 12:10 ? Imaging(s) ?Other Image ?EKG showing normal sinus rhythm with a heart rate of 60 ?(02/22/2022 13:18 EST Chest 2 Views Frontal and Lat) IMPRESSION: ?? No acute abnormality. [1] [1]??Chest 2 Views Frontal and Lat; Nilo Sweet MD 02/22/2022 13:18 [facility] Hospital Progress note * Marcial Lucio MD: PERFORM, MODIFY, MODIFY Event Display: Progress Note Hospital Authored Date: Patient: ??SAMAN JORDAN ? Age:??51 Years?Sex:??Male?:??1970?? Subjective He had the LP performed yesterday, he noted some headache after, which is resolving today. He stated that he noticed his thirst and urination increases again around 4-5PM. This morning, sodium 144, overnight UOsm 138, Kannan 29, 24hr UOP 3.13L. Chest/Abdomen/Pelvic CT, without evidence of lesions suggestive of malignancy. Pituitary MRI done: Heterogeneously enhancing mass involving the pituitary gland and extending into the suprasellar cistern to involve the optic chiasm and hypothalamus. There is slight extension of abnormal T2 hyperintensity into the anterior left optic track and posterior optic nerves. The pituitary component measures up to 18 mm in diameter and the chiasmatic/hypothalamic abnormality measures up to 13 mm. The appearance is unusual and lymphocytic hypophysitis, lymphoma and pituitary carcinoma should be considered. Langerhans' cell histiocytosis and metastasis are also possible. The appearance would be atypical for pituitary adenoma. Correlation with CSF cytology and enhanced MRI of the entire brain is suggested. Review of Systems Reviewed and negative except??as noted??above. Allergies Allergies ?(Active and Proposed Allergies Only) NKA? (Severity: Unknown severity, Onset: Unknown) No Known Medication Allergies? (Severity: Unknown severity, Onset: Unknown) ? 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 Past Surgical History No surgery history documented. ? Social History No social history documented. ? Psychosocial History ? Family History No family history recorded. ? Objective Vital Signs?? Temperature: 98.6 DegF (02/25/22 07:22:00) Temperature Route: Oral (02/25/22 07:22:00) Pulse Rate: 85 bpm (02/25/22 07:22:00) Respiratory Rate: 18 br/min (02/25/22 09:21:00) Systolic Blood Pressure:??150 mm Hg??High (02/25/22 07:22:00) Diastolic Blood Pressure: 80 mm Hg (02/25/22 07:22:00) Blood pressure sites: Arm, left (02/25/22 07:22:00) Mean Arterial Pressure: 103 mm Hg (02/25/22 07:22:00) Pulse Pressure: 70 mm Hg (02/25/22 07:22:00) Oxygen Saturation: 99 % (02/25/22 07:22:00) Mode of Delivery (Oxygen): Room air (02/25/22 07:22:00) Early Warning Score: 0 (02/25/22 10:01:54) ? Physical Exam GENERAL APPEARANCE:??In no acute distress. HEENT: sclerae anicteric, conjunctivae pink and moist. EOMI. Oral mucosa moist NECK: Supple and symmetric. LUNGS: No respiratory distress. CARDIOVASCULAR: Regular rate and rhythm. SKIN: no rashes, ulcerations or petechiae. EXTREMITIES: No cyanosis or clubbing. NEUROLOGIC: Alert and oriented x 3. Normal affect. ??Right eye vision loss. _ Inpatient Medications Medications (15) Active SCHEDULED: (8) Aspirin 81 mg EC Tablet (Aspirin Tablet) ??81 mg, By Mouth, Daily Atorvastatin 80 mg Tablet (Lipitor 80 mg oral tablet) ??80 mg, By Mouth, Daily at bedtime Brimonidine 0.2% Ophthalmic Solution (brimonidine 0.2% ophthalmic solution) ??0.2 % 1 drops, Eye, Left, 2 times a day DDAVP ??0.1 mg Tablet (desmopressin 0.1 mg oral tablet) ??0.05 mg, By Mouth, Daily at bedtime Insulin Lispro 100 units/mL Inj (3mL) (Insulin LISPRO Sliding Scale) ??2-10 units, Subcutaneous Injection, 3 times a day before meals Levothyroxine 125 mcg Tablet (levothyroxine 0.125 mg oral tablet) ??125 mcg, By Mouth, Daily NaCl 0.9% Flush 3ml (NaCL 0.9% Flush) ??3 mL, IV Push, Every 8 hours PredniSONE 20 mg Tablet (predniSONE 20 mg oral tablet) ??20 mg, By Mouth, Daily CONTINUOUS: (0) PRN: (7) Acetaminophen 325 mg Tablet (Acetaminophen Tablet) ??650 mg, By Mouth, Every 4 hours Dextromethorphan-Guaifenesin 20 mg-200 mg/10 mL Liqu UD (Robitussin DM Liquid) ??10 mL, By Mouth, Every 4 hours Melatonin 3 mg Tablet (Melatonin Tablet) ??3 mg, By Mouth, Daily at bedtime NaCl 0.9% Flush 3ml (NaCL 0.9% Flush) ??3 mL, IV Push, Every 8 hours Polyethylene Glycol 17 Gm Powder (MiraLax Powder) ??17 Gm 1 pack/packet, By Mouth, Daily Senna 8.6 mg / Docusate 50 mg tablet (Docusate/Senna Tablet) ??1 tablet, By Mouth, 2 times a day Simethicone 80 mg Chewable Tablet (Simethicone Tablet) ??80 mg, Chew, 3 times a day ? Results Recent Labs BLOOD COUNT & DIFF WBC 13.1 k/mm3 (High)?? 02/25/2022 01:29 RBC 4.61 m/mm3 (Low)?? 02/25/2022 01:29 Hgb 13.4 Gm/dL (Low)?? 02/25/2022 01:29 Hct 42.8 % ()?? 02/25/2022 01:29 MCV 92.8 femtoliters ()?? 02/25/2022 01:29 MCH 29.1 pg ()?? 02/25/2022 01:29 MCHC 31.3 g/dL (Low)?? 02/25/2022 01:29 Platelet Count 272 k/mm3 ()?? 02/25/2022 01:29 RDW-SD 49.4 femtoliters (High)?? 02/25/2022 01:29 MPV 10.0 femtoliters ()?? 02/25/2022 01:29 Nucleated RBC (Automated) 0.0 #/100 WBC'S ()?? 02/25/2022 01:29 Abs. NRBC 0.0 k/mm3 ()?? 02/25/2022 01:29 ?? CHEM GENERAL Sodium 144 mmol/L ()?? 02/25/2022 08:31 Potassium 4.4 mmol/L ()?? 02/25/2022 08:31 Chloride 103 mmol/L ()?? 02/25/2022 08:31 Bicarbonate Level 27 mmol/L ()?? 02/25/2022 08:31 Anion Gap 14 ()?? 02/25/2022 08:31 Glucose Level 169 mg/dL (High)?? 02/25/2022 08:31 Glucose, POC 93 mg/dL ()?? 02/25/2022 06:21 BUN 13 mg/dL ()?? 02/25/2022 08:31 Creatinine-Blood 1.2 mg/dL ()?? 02/25/2022 08:31 Estimated GFR Creatinine 74 ML/MIN/1.73 M2 ()?? 02/25/2022 08:31 Calcium 9.4 mg/dL ()?? 02/25/2022 08:31 Phosphorus 3.8 mg/dL ()?? 02/25/2022 01:29 Magnesium 2.2 mg/dL ()?? 02/25/2022 01:29 ?? CSF CSF Cell Count Color COLORLESS ()?? 02/24/2022 13:41 CSF Cell Count Appearance CLEAR ()?? 02/24/2022 13:41 CSF Cell Count WBC 120 per Cubic Millimeter (High)?? 02/24/2022 13:41 CSF Cell Count RBC 68 per Cubic Millimeter (High)?? 02/24/2022 13:41 CSF Cells, Seg 1 % ()?? 02/24/2022 13:41 CSF Cells, Lymph 98 % ()?? 02/24/2022 13:41 Total Protein, CSF 77 mg/dL (High)?? 02/24/2022 13:41 Glucose, CSF 93 mg/dL (High)?? 02/24/2022 13:41 LDH, CSF 30 units/L (Low)?? 02/24/2022 13:41 ?? ENDOCRINE/TUMOR MARKER Prolactin 20.5 ng/mL (High)?? 02/24/2022 09:26 ?? HEME OTHER Hold Lavender Top SPECIMEN DISCARDED AFTER 24 HOURS. ()?? 02/25/2022 08:31 ?? MISC. CHEMISTRY Procalcitonin 0.07 ng/mL ()?? 02/24/2022 09:26 ?? URINE OTHER Sodium, Urine Random 29 mmol/L ()?? 02/24/2022 20:32 Osmolality, Urine Random 138 mOsm/kg ()?? 02/24/2022 20:32 ? Abnormal Labs ?? BLOOD COUNT & DIFF ??Abs. NRBC ??0.0 k/mm3 () ??02/25/2022 01:29 ??Hgb ??13.4 Gm/dL (Low) ??02/25/2022 01:29 ??MCHC ??31.3 g/dL (Low) ??02/25/2022 01:29 ??Nucleated RBC (Automated) ??0.0 #/100 WBC'S () ??02/25/2022 01:29 ??RBC ??4.61 m/mm3 (Low) ??02/25/2022 01:29 ??RDW-SD ??49.4 femtoliters (High) ??02/25/2022 01:29 ??WBC ??13.1 k/mm3 (High) ??02/25/2022 01:29 ? CHEM GENERAL ??Estimated GFR Creatinine ??74 ML/MIN/1.73 M2 () ??02/25/2022 08:31 ??Glucose Level ??169 mg/dL (High) ??02/25/2022 08:31 ? CSF ??CSF Cell Count Color ??COLORLESS () ??02/24/2022 13:41 ??CSF Cell Count Appearance ??CLEAR () ??02/24/2022 13:41 ??CSF Cell Count WBC ??120 per Cubic Millimeter (High) ??02/24/2022 13:41 ??CSF Cell Count RBC ??68 per Cubic Millimeter (High) ??02/24/2022 13:41 ??Glucose, CSF ??93 mg/dL (High) ??02/24/2022 13:41 ??LDH, CSF ??30 units/L (Low) ??02/24/2022 13:41 ??Total Protein, CSF ??77 mg/dL (High) ??02/24/2022 13:41 ? HEME OTHER ??Hold Lavender Top ??SPECIMEN DISCARDED AFTER 24 HOURS. () ??02/25/2022 08:31 ? URINE OTHER ??Sodium, Urine Random ??29 mmol/L () ??02/24/2022 20:32 ? Note: Critical results are displayed in red. ? Blood Glucose Trend Glucose Level:??169 mg/dL??High (02/25/22 08:31:00) Glucose Level:??144 mg/dL??High (02/24/22 21:40:00) Glucose, POC: 93 mg/dL (02/25/22 06:21:00) Glucose, POC:??142 mg/dL??High (02/24/22 20:19:00) Glucose, POC:??114 mg/dL??High (02/24/22 17:22:00) Glucose, POC:??147 mg/dL??High (02/24/22 12:47:00) ? Blood Gases?? No qualifying data available. ?? Assessment/Plan 51-year-old male with medical history of central retinal artery occlusion of the right eye, opticalneuropathy of the left eye required high-dose prednisone for visual loss, obesity, hypertension present on 02/22/2022 with multiple complaints of profound fatigue, polydipsia, polyuria, night sweats and left- sided headache that have been progressively worsening.?? On initial evaluation thyroid function labs were obtained and were abnormal with suppressed TSH along with low free T4 and free T3, which prompted an endocrinology consult due to concern of central hypothyroidism. ? #Abnormal pituitary findings on brain MRI Given the brain MRI findings in the setting of??biochemical evidence of??central hypothyroidism??and clinical symptoms of diabetes insipidus, will evaluate for other??functional abnormalities of the pituitary??that are appropriate at this time.??IGF-1 ordered and pending. Prolactin mildly elevated 20.5.?? Due to the acute setting,??the gonadal axis will be accessed as an outpatient when patient is more stable. Since he is already on prednisone,??the adrenal axis??cannot be assessed. Differentials of these findings include??infiltrative/granulomatous process??versus malignancy. REESE ordered and pending. LP completed, elevated WBC, protein and glucose, but low LDH. Cytology, AFP, culture and gram stainordered and pending. Chest/Abdomen/Pelvic?? CT without evidence of any lesions that are amenable to biopsy. Dedicated pituitary MRI findings detailed above. He can be tentatively discharged??today from the endocrine standpoint since clinically he appears stable. He will need to follow up with endocrine on discharge to have further outpatient workup completed. ?? #Abnormal thyroid function: TSH 0.04, free T4 0.47, free T3 1.8.?? Likely secondary to central hypothyroidism??in the setting of abnormal??pituitary MRI??and??no history of??symptoms??suggestive of thyroiditis??in the past few weeks. CK normal. Continue levothyroxine 125 mcg daily. We discussed the appropriate way to take??Levothyroxine, first thing in the morning on an empty stomach,??with water and wait at??least??1 hour before??meals or taking other medications. ? 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 This morning, sodium 144, overnight UOsm 138, Kannan 29, 24hr UOP 3.13L.?? Continue??DDAVP 0.05 mg at bedtime.?We discussed the possibility of taking 0.025 (1/4 of tablet)if symptoms during the day are very bothersome, however, we prefer if he just drinks to thirst and avoid this additional dosing due to the chances of him becoming hyponatremic. He was encouraged to drink to thirst. He will need closing monitoring outpatient. He will need repeat BMP, urine osmolality and urine sodium in 1 week, ideally in the afternoon to determine the dosing appropriateness of DDAVP. ?? #Iatrogenic adrenal insufficiency from long-term high-dose steroids. ?? Started on prednisone 80 mg??daily back in September for optic neuropathy, at this time he is on prednisone 20 mg daily.? Continue prednisone 20mg daily. We discussed the importance of continuing steroids, since he likelyhas panhypopituitarism at this time and one of the hormones under control of the pituitary is cortisol. ?? #Steroid-induced hyperglycemia HbA1c 7.1% on 02/22/22. Glycemic trends reviewed. ??Continue??Humalog sliding scale 2 units start at 150mg/dL with intervalincrease of 2 units for every??50mg/dL 3 times daily AC while inpatient. He can be discharged on Metformin 500mg BID. Please provide him with a prescription for glucometer, test strips and lancets on discharge. He was advised to test twice a day, fasting and at bedtime. His goal blood glucose will be <150,however, if BG is consistently >180, he should contact his PCP for further dose titration. ? Plan of care discussed with Dr. Andrea, addendum to follow. The plan was also discussed with the patient and the primary team.? Thank you for the consultation. Please contact us with any questions or concerns.? Marcial Lucio MD Endocrinology Fellow, PGY-IV ?Order Date/Time ??Order Action ??Order Name ??Order Detail ??02/25/2022 10:23 ??Cancel ??Angiotensin Converting Enzyme ??KRISTINE, 02/25/22 10:06:00 EST ??02/25/2022 10:22 ??Order ??Angiotensin Converting Enzyme ??ADDON, 02/25/22 8:31:00 EST ??02/25/2022 10:06 ??Order ??Angiotensin Converting Enzyme ??KRISTINE, 02/25/22 10:06:00 EST ??02/25/2022 10:06 ??Discontinue ??Add On Lab Order ??Routine, Test(s) Requested: angiotensin converting enzyme, Use Last Specimen, If Spec Is Unacceptable: Notify Ordering Physician, 02/25/22 9:17:00 EST ??02/25/2022 09:17 ??Order ??Add On Lab Order ??Routine, Test(s) Requested: angiotensin converting enzyme, Use Last Specimen, If Spec Is Unacceptable: Notify Ordering Physician, 02/25/22 9:17:00 EST ??02/25/2022 09:17 ??Discontinue ??Add On Lab Order ??Routine, Test(s) Requested: REESE, Use Last Specimen, If Spec Is Unacceptable: Notify Ordering Physician, 02/25/22 9:16:00 EST ??02/25/2022 09:16 ??Order ??Add On Lab Order ??Routine, Test(s) Requested: REESE, Use Last Specimen, If Spec Is Unacceptable: Notify Ordering Physician, 02/25/22 9:16:00 EST ??02/25/2022 09:14 ??Order ??Hold Lavender Top Tube ??Routine, 02/25/22 8:31:00 EST ? * Luna Andrea MD: PERFORM Event Display: Progress Note Hospital Authored Date: ??I have seen and evaluated this patient. ??I have discussed the case and its management with the fellow and agree with the findings and plan as documented in the fellow???s note.?? * Violeta Diaz RN: VERIFY, PERFORM, SIGN Event Display: Progress Note Hospital Authored Date: Patient: SAMAN JORDAN Age: 51 years Sex: Male : 1970 Associated Diagnoses: None Author: Violeta Diaz RN Findings Narrative/Incidental Denies pain, lilghtheadedness dizziness. Bandaid CDI to low back puncture site. POC 93. Patient educated on taking Thyroid pill on empty stomach.. * Niru Rosa MD: PERFORM Event Display: Progress Note Hospital Authored Date: Patient: ??SAMAN JORDAN ? Age:??51 Years?Sex:??Male?:??1970?? Subjective Patient was seen and examined at bedside Overnight overnight event noted Patient mention he is feeling better No new complaint Dr. Vincent Hopkins performed lumbar puncture at bedside Review of Systems All other systems reviewed, negative except mentioned.?? Allergies Allergies ?(Active and Proposed Allergies Only) NKA? (Severity: Unknown severity, Onset: Unknown) No Known Medication Allergies? (Severity: Unknown severity, Onset: Unknown) ? Objective Measurements?? Height: 165 cm (02/24/22) Weight: 127 kg (02/22/22) Dry Weight: 127 kg (02/22/22) Body Mass Index:??46.65 kg/m2??Critical (02/22/22) ? Physical Exam GENERAL: In no apparent distress, cushiogoid HEENT: Head normocephalic, PERRL,Moist mucous membrane. Neck supple CARDIOVASCULAR: Normal rate and rhythm, no murmurs, no rubs, no gallops RESPIRATORY: Lungs clear to auscultation, no wheezes , no crackles ABDOMEN/GI: Nondistended, soft, nontender, normal bowel sounds EXTREMITIES: No pitting edema PHOTO OFFSET PRINTER: Alert and oriented x 3.Non focal neuro exam. ? Results Recent Labs BLOOD COUNT & DIFF WBC 15.1 k/mm3 (High)?? 02/24/2022 01:51 RBC 4.42 m/mm3 (Low)?? 02/24/2022 01:51 Hgb 13.1 Gm/dL (Low)?? 02/24/2022 01:51 Hct 41.4 % ()?? 02/24/2022 01:51 MCV 93.7 femtoliters ()?? 02/24/2022 01:51 MCH 29.6 pg ()?? 02/24/2022 01:51 MCHC 31.6 g/dL (Low)?? 02/24/2022 01:51 Platelet Count 303 k/mm3 ()?? 02/24/2022 01:51 RDW-SD 49.7 femtoliters (High)?? 02/24/2022 01:51 MPV 9.8 femtoliters ()?? 02/24/2022 01:51 Nucleated RBC (Automated) 0.0 #/100 WBC'S ()?? 02/24/2022 01:51 Abs. NRBC 0.0 k/mm3 ()?? 02/24/2022 01:51 ?? CHEM GENERAL Sodium 143 mmol/L ()?? 02/24/2022 09:26 Potassium 4.8 mmol/L ()?? 02/24/2022 09:26 Chloride 101 mmol/L ()?? 02/24/2022 09:26 Bicarbonate Level 34 mmol/L (High)?? 02/24/2022 09:26 Anion Gap 8 ()?? 02/24/2022 09:26 Glucose Level 120 mg/dL (High)?? 02/24/2022 09:26 Glucose, POC 147 mg/dL (High)?? 02/24/2022 12:47 BUN 15 mg/dL ()?? 02/24/2022 09:26 Creatinine-Blood 1.2 mg/dL ()?? 02/24/2022 09:26 Estimated GFR Creatinine 70 ML/MIN/1.73 M2 ()?? 02/24/2022 09:26 Calcium 9.2 mg/dL ()?? 02/24/2022 09:26 Magnesium 2.2 mg/dL ()?? 02/24/2022 01:51 ?? ENDOCRINE/TUMOR MARKER Prolactin 20.5 ng/mL (High)?? 02/24/2022 09:26 ?? MISC. CHEMISTRY Procalcitonin 0.07 ng/mL ()?? 02/24/2022 09:26 ?? URINE OTHER Sodium, Urine Random 78 mmol/L ()?? 02/24/2022 08:36 Osmolality, Urine Random 532 mOsm/kg ()?? 02/24/2022 08:36 ? Assessment/Plan ?This is a 51-year-old male with past medical history?? of obesity, right central retinal artery occlusion with resultant blindness in the right eye, left nonarteritic anterior ischemic optic neuropathy, adrenal insufficiency who currently presents to the hospital??with 2 weeks of??polydipsia,??polyuria,??left-sided headache,??night sweats??and morning chills.?? His lab work here was notable for an elevated white count of15.6. ??He also??was noted to be hyperglycemic??with a hemoglobin A1c of 7.1.?? His TSH was noted to be low??at??0.04,??with a low free T4 and free T3 as well. He was mildly hypernatremic as well. Was seen by Endocrinology in ED. MRI brain w pituitary stalk lesion. ? 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 These laboratory results suggest possible??abnormal hypothalamic???pituitary function??and central hypothyroidism.?? An MRI scan of the brain with piyuitary stalk lesion ?? As per recommendations from??endocrinology, the patient has been initiated on levothyroxine 125 mcg daily. ?? Pt is on serial?? sodium and urine osmolality check Endo?? started?DDAVP 0.05 mg at bedtime. Pituitary MRI??don e- result pending?Dr. Rodríguez??did?? LP at bedside?Requested - cell count, cytology, cytology,??cells and??protein, beta hCG, human placental alk phos, AFP. Spoke with the [facility] lab, they do not run ??beta-hCG and human placental alkaline phos on CSF, they will send?? requisition to [facility] , will contact reference laboratory tomorrow [id number] Since it is very difficult to biopsy the pituitary,endo ??recommend??contreras scan??to evaluate for other sources of potential infiltrative deposits that can be??biopsied. ct chest and and ordered? Spoke with Dr. Patel , he is managing pt as OP , recommends?? to continue current dose of steroid, pt lary has appointment with him on Friday ? Adrenal insufficiency gated??steroid usage. Patient has been??steroids for the last 2 months, beginning at 80 mg??of prednisone daily.?? He is currently on 20 which we will??continue him on. ?? Leukocytosis. Patient with elevated white count, but likely in the setting of steroid use. ??We will continue to monitor. ?? 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. Patient noted to have an elevated??we will follow POC's and cover with sliding scale insulin coverage for now. ?? CODE STATUS. ??Patient is a full code. ?? DVT prophylaxis.? pneumoboots for now ,?? resume lovenox ?? MR Brain WO contrast * [facility] , CIS S: TRANSCRIESTEFANY Cabral MD, Miriam: VERIFY Event Display: Result: Authored Date: MRI Brain W/O Contrast INDICATION: Reason: Other:; Central hypo-pit; Clinical Question(s): Infarction; Patient's deficits;Order Comment: Please see Reference Text for complete list of contraindications Infarction TECHNIQUE: MRI of the brain was performed without contrast utilizing sagittal T1, axial T2, axial FLAIR, axial SWAN, and axial DWI sequences. COMPARISON: MRI of 09/07/2020, CT of 11/08/2021, CTA of 09/06/2020 FINDINGS: BRAIN and EXTRA-AXIAL SPACES: The pituitary gland appears irregular and mildly increased in size when compared to the prior examination with heterogeneous T2 signal and restricted diffusion. There isabnormal FLAIR hyperintensity involving the infundibulum which appears thickened extending into thehypothalamus posteriorly and optic chiasm anterosuperiorly. The optic chiasm appears thickened withabnormal signal which appears to extend into the immediate prechiasmatic optic nerves. There is also abnormal signal extending posteriorly into the optic tracts. The mamillary bodies appear intact and displaced posteriorly. There may be susceptibility signal within the pituitary gland. The midline structures, including sella, corpus callosum, and craniocervical junction, are otherwise unremarkable. There is no midline shift or effacement of the basal cisterns. On diffusion weighted imaging, there are no regions of restricted diffusion to indicate an acute or subacute infarct. There is no evide nce of intracranial hemorrhage on susceptibility sensitive sequence. Brain parenchyma demonstrates no significant signal abnormality. Ventricles, cisterns, and sulci are normal in size and configuration, without hydrocephalus. No abnormal extra-axial fluid collections are seen. Meningeal surfaces are normal. There is lack of a flow void involving the right intracranial internal carotid artery to the level of the supraclinoid segment, similar to prior CTA of 09/06/2020 consistent with occlusion. EXTRACRANIAL SOFT TISSUES: Orbits are unremarkable. The paranasal sinuses are clear. There is fluidin the left mastoid air cells. The right mastoid air cells are clear. BONES: Marrow signal is preserved. IMPRESSION: New abnormal contour of a mildly enlarged pituitary gland with abnormal signal and thickening of the infundibulum extending to the hypothalamus posterior superiorly, abnormal signal of the optic chiasm which appears thickened with signal extending into the immediate prechiasmatic optic nerves and posteriorly into the optic tracts. Possible evidence of blood products within the pituitary gland. Differential considerations would include lymphocytic hypophysitis as well as other granulomatous hypophysitis. The imaging characteristics are not typical of pituitary hemorrhage, although it is not excluded. Consider a dedicated MRI of the pituitary with and without contrast to better characterize the pituitary soft tissues. No acute/subacute infarct or intraparenchymal hemorrhage. A critical result message ([place]) has been communicated via the [employer] system on 02/23/2022 7:25 AM, Message ID [id number]. WSN: [id number] Ordering Physician: Rene Pandya Dictated By: Miriam Cabral MD Dictated Date/Time: 02/23/22 7:25 am Reviewed By: Miriam Cabral MD Signed By: Miriam Cabral MD Signed Date/Time: 02/23/22 7:25 am Transcribed By: PAULIE Transcribed Date/Time: 02/23/22 6:[address] Abdomen and Pelvis W contrast IV * [facility] , NAEL S: TRANSCRIBE Terrance Anthony DO L: Dianna Benitez MD: VERIFY Event Display: Result: Authored Date: [id number] CT Chest W/ Contrast, CT Abd/Pelvis W/ IV Contrast Only INDICATION: Pituitary lesion; Clinical Question(s): Carcinoma TECHNIQUE: Helical CT scan of the chest, abdomen, and pelvis with IV contrast, formatted in 3 planes. 100 cc of Omnipaque 300 was administered intravenously. This study was performed without oral contrast. Weight-based protocol was performed using automatic exposure control. CTDIvol Body: 27.60 mGy, DLP Body: 1925 mGy*cm. COMPARISON: None. FINDINGS: Buttermaker view findings, lines and tubes: None. Trachea and airways: Patent without evidence of tracheal or endobronchial lesion. Lungs and pleura: Right lower lobe calcified granuloma. Lungs are otherwise clear. No effusion or pneumothorax. Mediastinum and renae: No mass or hematoma. No mediastinal or hilar lymphadenopathy. No esophageal abnormality. Heart: Heart is normal in size. No pericardial effusion. Aorta: No aortic aneurysm. Pulmonary arteries: Normal caliber. No evidence of pulmonary embolism on this study performed without angiographic technique. Chest wall soft tissues: No acute abnormality. Diaphragm: Intact. Liver: Normal in attenuation and morphology. No suspicious lesion. Gallbladder: Cholelithiasis without evidence of acute cholecystitis. Bile ducts: No biliary ductal dilation. Spleen: Normal in size. Pancreas: No suspicious lesion or ductal dilatation. Adrenal glands: No nodule. Kidneys and ureters: No hydronephrosis, stone, or suspicious lesion. Dilated calyx versus cyst in the left upper pole, requiring no further follow-up. Bladder: No wall thickening or surrounding stranding. Reproductive organs: Unremarkable. Stomach, small bowel, and large bowel: Normal caliber stomach and bowel loops. Mild colonic diverticulosis. No surrounding inflammatory changes. Appendix: Normal appendix. Peritoneum and retroperitoneum: No ascites or pneumoperitoneum. No omental or mesenteric lesions. Lymph nodes: No enlarged lymph nodes. Blood vessels: No vascular calcifications or aneurysm. Retroaortic left renal vein. No evidence of venous thrombosis. Abdominal and pelvic wall soft tissues: No acute abnormality. Bones: No acute abnormality. Mild degenerative change in the thoracolumbar spine. IMPRESSION: 1. No evidence of primary or metastatic lesion in the chest abdomen or pelvis. 2. Cholelithiasis without evidence of acute cholecystitis. I have personally reviewed the images and I agree with this report. WSN: [id number] Ordering Physician: Niru Rosa Dictated By: Terrance Anthony DO Dictated Date/Time: 02/25/22 9:34 am Reviewed By: Dianna Martines MD Signed By: Dianna Martines MD Signed Date/Time: 02/25/22 9:39 am Transcribed By: PAULIE Transcribed Date/Time: 02/25/22 9:[address] Chest W contrast IV * [facility] , CIS S: TRANSCRIBE Terrance Anthony DO L: SIGN Dianna Martines MD: VERIFY Event Display: Result: Authored Date: [id number] CT Chest W/ Contrast, CT Abd/Pelvis W/ IV Contrast Only INDICATION: Pituitary lesion; Clinical Question(s): Carcinoma TECHNIQUE: Helical CT scan of the chest, abdomen, and pelvis with IV contrast, formatted in 3 planes. 100 cc of Omnipaque 300 was administered intravenously. This study was performed without oral contrast. Weight-based protocol was performed using automatic exposure control. CTDIvol Body: 27.60 mGy, DLP Body: 1925 mGy*cm. COMPARISON: None. FINDINGS: Buttermaker view findings, lines and tubes: None. Trachea and airways: Patent without evidence of tracheal or endobronchial lesion. Lungs and pleura: Right lower lobe calcified granuloma. Lungs are otherwise clear. No effusion or pneumothorax. Mediastinum and renae: No mass or hematoma. No mediastinal or hilar lymphadenopathy. No esophageal abnormality. Heart: Heart is normal in size. No pericardial effusion. Aorta: No aortic aneurysm. Pulmonary arteries: Normal caliber. No evidence of pulmonary embolism on this study performed without angiographic technique. Chest wall soft tissues: No acute abnormality. Diaphragm: Intact. Liver: Normal in attenuation and morphology. No suspicious lesion. Gallbladder: Cholelithiasis without evidence of acute cholecystitis. Bile ducts: No biliary ductal dilation. Spleen: Normal in size. Pancreas: No suspicious lesion or ductal dilatation. Adrenal glands: No nodule. Kidneys and ureters: No hydronephrosis, stone, or suspicious lesion. Dilated calyx versus cyst in the left upper pole, requiring no further follow-up. Bladder: No wall thickening or surrounding stranding. Reproductive organs: Unremarkable. Stomach, small bowel, and large bowel: Normal caliber stomach and bowel loops. Mild colonic diverticulosis. No surrounding inflammatory changes. Appendix: Normal appendix. Peritoneum and retroperitoneum: No ascites or pneumoperitoneum. No omental or mesenteric lesions. Lymph nodes: No enlarged lymph nodes. Blood vessels: No vascular calcifications or aneurysm. Retroaortic left renal vein. No evidence of venous thrombosis. Abdominal and pelvic wall soft tissues: No acute abnormality. Bones: No acute abnormality. Mild degenerative change in the thoracolumbar spine. IMPRESSION: 1. No evidence of primary or metastatic lesion in the chest abdomen or pelvis. 2. Cholelithiasis without evidence of acute cholecystitis. I have personally reviewed the images and I agree with this report. WSN: [id number] Ordering Physician: Niru Rosa Dictated By: Terrance Anthony DO Dictated Date/Time: 02/25/22 9:34 am Reviewed By: Dianna Martines MD Signed By: Dianna Martines MD Signed Date/Time: 02/25/22 9:39 am Transcribed By: PAULIE Transcribed Date/Time: 02/25/22 9:18 am Patient Care team information Care Team Personnel Name: Ulisses Whitmore MD Position: [facility] Physician (General Medicine) Member Role: PCP Address: Address: [address] [place] [id number] Name: Zoey Castro RN Position: [facility] RN Member Role: Primary Care Nurse Name: Izaiah Sage MD Position: [facility] ED Medicine MD Member Role: ED Attending Physician Address: Address: [address] [place] [address]- Name: Cathy Soliman Position: [facility] ED RN W/OE and Tasks Member Role: Patient Care Provider Name: Rene Pandya DO Position: [facility] Resident Member Role: Chart Review Address: Address: [address] [place] [address] Name: Marta Estrella RN Position: [facility] ED RN W/OE and Tasks Member Role: Patient Care Provider Care Team Related Persons Name: MICHAEL JORDAN Address: [place] [address]
--- OUTSIDE RECORDS SUMMARY | 2023-11-22 23:44 | XMS_ITS | Continuity of Care Document ---
Author Organization [facility] Address Unknown Care Team Providers Care Seam Feller Name Role Phone Haim TIPTON, Ulisses Primary Care Physician [phone] [id number] Date(s): 12/13/20 - 01/12/21 [facility] Attending Physician: Lizeth Block Admitting Physician: AdmLizeth hernández Referring Physician: AdmtrLizeth Allergies, Adverse Reactions, Alerts No Known Medication Allergies Substance Reaction Severity Status NKA Active Medications aspirin 325 mg oral delayed release tablet 325 mg, By Mouth, Daily, # 30 tablet, Refills 0, Tot. Refills 0, Maintenance, 09/08/20 14:33:00 EDT, Route to Pharmacy Electronically, [facility], Partial fill upon patient request if the prescription is for a schedule II opioid drug., 1... Start Date: 09/08/20 Stop Date: 10/08/20 Status: Ordered atorvastatin 80 mg oral tablet 1 tablet = 80 mg, By Mouth, Daily, # 30 tablet, 0 Refills, Maintenance, 09/08/20 14:34:00 EDT, Tablet, [facility], Partial fill upon patient request if the prescription is for a schedule II opioid drug., 163, cm, 09/08/20 10:59:00 EDT, H... Start Date: 09/08/20 Status: Ordered gabapentin 300 mg oral capsule 300 mg, 1, capsule, By Mouth, 3 times a day, # 90 capsule, Refills 0, Tot. Refills 0, Maintenance, 09/08/20 14:34:00 EDT, Route to Pharmacy Electronically, [facility], Partial fill uponpatient request if the prescription is for a schedu... Start Date: 09/08/20 Status: Ordered
--- OUTSIDE RECORDS SUMMARY | 2023-11-22 23:44 | XMS_ITS | Continuity of Care Document ---
Author Organization [facility] ter Address [address] [place] [address]- Care Team Providers Care Smoking Tobacco Packer Hand Name Role Phone Haim TIPTON, Asma Primary Care Physician [phone] [place] [facility] [place]/08/21 - 11/08/[address] [address]- Discharge Disposition: A-D/C Home Attending Physician: Patricia Hunt MD Admitting Physician: Patricia Hunt MD Referring Physician: Not on Staff, Referring MD Allergies, Adverse Reactions, Alerts No Known Allergies Medications aspirin 325 mg oral delayed release tablet 325 mg, By Mouth, Daily, # 30 tablet, Refills 0, Tot. Refills 0, Maintenance, 09/08/20 14:33:00 EDT, Route to Pharmacy Electronically, [facility], Partial fill upon patient request if the prescription is for a schedule II opioid drug., 1... Start Date: 09/08/20 Stop Date: 10/08/20 Status: Ordered atorvastatin 80 mg oral tablet 1 tablet = 80 mg, By Mouth, Daily, # 30 tablet, 0 Refills, Maintenance, 09/08/20 14:34:00 EDT, Tablet, [facility], Partial fill upon patient request if the prescription is for a schedule II opioid drug., 163, cm, 09/08/20 10:59:00 EDT, H... Start Date: 09/08/20 Status: Ordered brimonidine 0.2% ophthalmic solution 1 drops, Eyes, Both, 2 times a day, # 15 mL, 0 Refills, Maintenance, 11/08/21 17:57:00 EDT, Solution, [facility], Partial fill upon patient request if the prescription is for a scheduleII opioid drug., 1 drops Eyes, Both 2 times a day,x... Start Date: 11/08/21 Stop Date: 11/29/21 Status: Ordered gabapentin 300 mg oral capsule 300 mg, 1, capsule, By Mouth, 3 times a day, # 90 capsule, Refills 0, Tot. Refills 0, Maintenance, 09/08/20 14:34:00 EDT, Route to Pharmacy Electronically, [facility], Partial fill uponpatient request if the prescription is for a schedu... Start Date: 09/08/20 Status: Ordered Problem List Condition Effective Dates Status Health Status Inform ant Severe obesity(Confirmed) Active Vital Signs Most recent to oldest [Reference Range]: 1 2 3 Height 165 cm (11/08/21 10:39 AM) 165 cm (11/08/21 10:22 AM) Weight 118.5 kg (11/08/21 10:39 AM) 118.5 kg (11/08/21 10:22 AM) Oxygen Saturation [94-100 %] 99 % (11/08/21 2:47 PM) 98 % (11/08/21 10:39 AM) 97 % (11/08/21 10:22 AM) Pulse Rate [55-90 bpm] 58 bpm (11/08/21 2:47 PM) 74 bpm (11/08/21 10:39 AM) 76 bpm (11/08/21 10:22 AM) Body Mass Index [18.5-24.99] 43.53 *>HHI* (11/08/21 10:39 AM) 43.53 *>HHI* (11/08/21 10:22 AM) Blood Pressure [90-138/55-84 mm Hg] 131/85mm Hg (11/08/21 2:47 PM) 114/75mm Hg (11/08/21 10:39 AM) 129/81mm Hg (11/08/21 10:22 AM) Respiratory Rate [16-30 br/min] 18 br/min (11/08/21 2:47 PM) 16 br/min (11/08/21 10:39 AM) 16 br/min (11/08/21 10:22 AM) Temperature [96.8-100.4 DegF] 97.8 DegF (11/08/21 10:39 AM) 98.6 DegF (11/08/21 10:22 AM) Mode of Delivery (Oxygen) Room air (11/08/21 2:47 PM) Room air (11/08/21 10:39 AM) Room air (11/08/21 10:22 AM) Blood pressure sites Arm, right (11/08/21 10:39 AM) Arm, right (11/08/21 10:22 AM) Temperature Route Oral (11/08/21 10:39 AM) Oral (11/08/21 10:22 AM) Dry Weight 118.5 kg (11/08/21 10:39 AM) 118.5 kg (11/08/21 10:22 AM) Weight Obtained Via Patient/family state d (11/08/21 10:22 AM) Dry Weight Obtained Via Patient/family s tated (11/08/21 10:22 AM)
--- OUTSIDE RECORDS SUMMARY | 2023-11-22 23:44 | XMS_ITS | Continuity of Care Document ---
Author Organization [facility] Address [address] [place] [address]- Care Team Providers Care Deli Worker Name Role Phone Haim TIPTON, Ulisses Primary Care Physician [place] [facility] [place]23 [facility] [address] [place] [id number] Attending Physician: Daniela Coats MD Admitting Physician: Daniela oCats MD Referring Physician: Ulisses Whitmore MD Allergies, Adverse Reactions, Alerts No Known Allergies Medications (Vitamin D3) Cholecalciferol 400 MCFP units/mL oral syringe 1 mL = 10 [...] 0 Refills, Maintenance, 02/25/22 13:00:00 EST, Tablet, [facility], Partial fill upon patient request if [...] 0 Refills, Maintenance, 02/25/22 12:57:00 EST, Tablet, [facility], Partial fill upon patient [...] 0 Refills, Maintenance, 02/25/22 13:02:00 EST, Tablet, [facility], Partial fill upon patient [...] Team Personnel Name: Ulisses Whitmore MD Position: [facility] Physician - Primary Care Member Role: PCP Address: Address: [address] [place], [place] [address] Name: Zoey Castro RN Position: [facility] RN Member Role: Primary Care Nurse Care Team Related Persons Name: MICHAEL DELAROSA Address: [place] [address]
--- OUTSIDE RECORDS SUMMARY | 2023-11-22 23:44 | XMS_ITS | Continuity of Care Document ---
Author Organization [facility] Address [address] [facility], [address] Floor, [address] [place] [id number]- Care Team Providers Care Tariff Expert Name Role Phone Haim TIPTON, Asma Primary Care Physician [place] [facility] [place] 12/05/21 - 01/04/22 [facility] [address], [address], [address] [place] [id number] Attending Physician: Lizeth Block Admitting Physician: AdmLizeth hernández Referring Physician: AdmtrLizeth Allergies, Adverse Reactions, Alerts No Known Allergies Medications aspirin 325 mg oral delayed release tablet 325 mg, By Mouth, Daily, # 30 tablet, Refills 0, Tot. Refills 0, Maintenance, 09/08/20 14:33:00 EDT, Route to Pharmacy Electronically, [facility], Partial fill upon patient request if the prescription is for a schedule II opioid drug., 1... Start Date: 09/08/20 Stop Date: 10/08/20 Status: Ordered atorvastatin 80 mg oral tablet 1 tablet = 80 mg, By Mouth, Daily, # 30 tablet, 0 Refills, Maintenance, 09/08/20 14:34:00 EDT, Tablet, [facility], Partial fill upon patient request if the prescription is for a schedule II opioid drug., 163, cm, 09/08/20 10:59:00 EDT, H... Start Date: 09/08/20 Status: Ordered brimonidine 0.2% ophthalmic solution 1 drops, Eyes, Both, 2 times a day, # 15 mL, 0 Refills, Maintenance, 11/08/21 17:57:00 EDT, Solution, [facility], Partial fill upon patient [...] 09/08/20 14:34:00 EDT, Route to Pharmacy Electronically, [facility], Partial fill uponpatient request if the prescription is for a schedu... Start Date: 09/08/20 Status: Ordered Problem List Condition Confirmation Course Effective Dates Status Health [facility] Informant Severe obesity Confirmed Active Patient Care team information Personnel Name: Haim TIPTON, Mikaa Address: Address: [address] [place] [id number]
--- OUTSIDE RECORDS SUMMARY | 2023-11-22 23:44 | XMS_ITS | Continuity of Care Document ---
Author Organization [facility] Address [address] [place] [address]- Care Team Providers Care Engine Service Repairer Name Role Phone Haim TIPTON, Asma Primary Care Physician Encounter [facility] [place] Date(s): 03/20/23 - 04/19/23 [facility] [address] [place] [id number] Attending Physician: Lizeth Block Admitting Physician: AdmtrLizeth Referring Physician: Admtr, Ar8 Allergies, Adverse Reactions, Alerts No Known Allergies Medications (Vitamin D3) Cholecalciferol 400 ALF units/mL oral syringe 1 mL = 10 [...] 0 Refills, Maintenance, 02/25/22 13:00:00 EST, Tablet, [facility], Partial fill upon patient request if [...] 0 Refills, Maintenance, 02/25/22 12:57:00 EST, Tablet, [facility], Partial fill upon patient [...] 0 Refills, Maintenance, 02/25/22 13:02:00 EST, Tablet, [facility], Partial fill upon patient [...] Team Personnel Name: Ulisses Whitmore MD Position: [facility] Physician - Primary Care Member Role: PCP Address: Address: [address] [place], [place] [address] Name: Zoey Castro RN Position: [facility] RN Member Role: Primary Care Nurse Care Team Related Persons Name: MICHAEL DELAROSA Address: [place] [address]
== END 2023-11-20 13:24 | disposition home or self-care (01) ==
PROVIDERS: PCP Internal Medicine; Visit Provider Nurse Practitioner Family
DX: R39.9 Unspecified symptoms and signs involving the genitourinary system (principal); R11.2 Nausea with vomiting, unspecified; R19.7 Diarrhea, unspecified; Z13.9 Encounter for screening, unspecified
CPT/HCPCS: 81003; 99213

== ENCOUNTER 2023-11-20 12:39 | Outpatient (REF) | payer OTHER, SELFPAY ==
[2023-11-20 16:09] LABS: Appearance Urine Clear; Color Urine Yellow; Glucose Urine UA Negative (Negative); Leukocyte Esterase Urine Trace (Negative); Nitrite Urine Negative (Negative); Specific Gravity - Urine <= 1.005 (1.005-1.025); UMIC TRIGGER UACC YES; Urine Blood Negative (Negative); Urine Ketones Negative (Negative); Urine Protein Negative (Neg-Trace)
[2023-11-20 16:14] LABS: Bacteria Urine None Seen (None Seen); Hyaline Casts Urine 0-2 /LPF (0-2); RBC Urine 0-2 /HPF (0-2); Squamous Epithelial Cell Urine 0-2 /HPF (0-2); UACC Culture Trigger YES
== END 2023-11-20 12:40 | disposition home or self-care (01) ==
LOC: HO.LAB 12:39
PROVIDERS: Visit Provider Nurse Practitioner Family
DX: R30.0 Dysuria (principal)
CPT/HCPCS: 81001

== ENCOUNTER 2023-11-20 13:00 | Emergency (ER) | payer OTHER, SELFPAY ==
[2023-11-20 13:09] VITALS: BP 113/65; PULSE 93; RESP 17; TEMP 37.7; O2SAT 95; BMI 43.8
--- NOTE | 2023-11-20 13:20 | ED.MALEGU ---
HPI - Male Genitourinary General Chief complaint: Urogenital-Male Stated complaint: abd pain-private area concerns Time Seen by Provider: 11/20/23 16:31 Source: patient Mode of arrival: ambulatory Limitations: no limitations History of Present Illness ED Provider: DR. Maynard HPI Narrative: 53-year-old male came in for evaluation of lower abdominal pain started 2 days ago, burning sensation when he urinates, frequent urination, no blood in the urine, subjective fever, patient not sexually active for the past 3 years with no risk for STDs no penile discharge, patient never had history of UTI. No flank pain, no blood in the urine. No nausea, no vomiting, no diarrhea, last bowel movement was this morning, passing flatus. No history of intra-abdominal surgery. Related Data Home Medications ?Medication ?Instructions ?Recorded ?Confirmed blood sugar diagnostic (FreeStyle #10 ea 02/28/22 08/20/23 Lite Strips) blood-glucose meter (FreeStyle #1 ea 02/28/22 08/20/23 Lite Meter kit) lancets 28 gauge (FreeStyle #100 ea 02/28/22 08/20/23 Lancets) calcium carbonate See Rx Instructions PO DAILY 09/06/22 08/20/23 levothyroxine 112 mcg tablet 112 mcg PO DAILY 11/20/23 prednisone 1 mg tablet 5 mg PO DAILY 11/20/23 testosterone 1 % (50 mg/5 gram) 2 packet transdermal DAILY 11/20/23 transdermal gel packet Previous Rx's ?Medication ?Instructions ?Recorded acetaminophen 325 mg tablet 325 mg PO Q6H Pain (Scale Score 09/09/22 (Tylenol) 1-3) 90 days #360 tabs cholecalciferol (vitamin D3) 25 25 mcg PO DAILY #180 tabs 03/07/23 mcg (1,000 unit) tablet desmopressin 0.1 mg tablet See Rx Instructions PO BID #90 tabs 03/31/23 cefuroxime axetil 500 mg tablet 500 mg PO BID #14 tabs 11/20/23 metoclopramide HCl 10 mg tablet 10 mg PO Q6H PRN nausea and 11/20/23 (Reglan) vomiting #30 tabs Allergies Allergy/AdvReac Type Severity Reaction Status Date / Time No Known Allergies Allergy Verified 11/20/23 13:11 Review of Systems Review of Systems: All other systems are reviewed and are negative Constitutional: Reports as per HPI and Reports no additional constitutional complaints Eyes: Reports as per HPI and Reports no additional eye complaints Reports system reviewed and no additional complaints, except as documented Cardiovascular: Reports as per HPI and Reports no additional cardiovascular complaints Respiratory: Reports as per HPI and Reports no additional respiratory complaints Gastrointestinal: Reports as per HPI and Reports no additional gastrointestinal complaints Genitourinary: Reports no additional female genitourinary complaints Musculoskeletal: Reports no additional musculoskeletal complaints Skin/Breast: Reports system reviewed and no additional complaints, except as docu Psychiatric: Reports no additional psychiatric complaints Endocrine: Reports no additional endocrine complaints Hematologic/Lymphatic: Reports no additional hematologic/lymphatic complaints Allergic/Immunologic: Reports no additional allergic/immunologic complaints Reports system reviewed and no additional complaints, except as documented and Reports Abnormal speech present [facility] Past Medical History Medical History Panhypopituitarism Pituitary tumor History of lumbar puncture Central hypothyroidism Primary central diabetes insipidus Migraine headache Rash Family History Family History Brother Brain cancer Social History Social History Household Members: None Household Members Other:: 1 Housing: House Are you a primary tree care foreman to a significant other at home: No Do you presently have visiting nurse or other home services: No Alcohol intake: current Alcohol intake frequency: does not drink Alcohol type: beer Patient Tobacco Use Status: Current everyday Tobacco user Tobacco use type: Cigarette Cigarettes Per Day: 4 Years Smoked: 20 years e-Cigarette/Vaping Use: Never Used Substance Use Type: Marijuana Do you have a plan to hurt others: No Plan service: No Current occupational status: unemployed and disabled Cognitive needs: No Hearing needs: No Vision needs: Yes Physical Exam Vital Signs: Vital Signs: Last Vital Signs Temp 99.8 F 11/20/23 13:09 Pulse 93 11/20/23 13:09 Resp 17 11/20/23 13:09 BP 113/65 11/20/23 13:09 Pulse Ox 95 11/20/23 13:09 O2 Del Method Room Air 11/20/23 13:09 BMI result Body Mass Index 43.8 Vital signs have been reviewed and appear to be correct. Blood pressure elevated. Heart rate normal. Respiratory rate normal. Temperature normal. Oxygen saturation normal. Appearance: Alert. Oriented X3. No acute distress. Head: Normal external exam. Normocephalic. Atraumatic. No Velazquez signs noted. No raccoon eyes noted Eyes: PERRLA. EOMI. Conjunctiva and sclera normal. Eyelids normal. ENT: TM's Normal. Pharynx normal. Uvula midline. Moist mucous membranes. No trismus noted. No drooling noted. No muffled voice noted. Neck: Normal inspection. Neck supple. FROM. No adenopathy. Thyroid Normal. No meningeal signs. No neck mass noted. CVS: Normal heart rate and rhythm. Heart sound normal. No murmurs noted. Pulses normal throughout. Respiratory: No respiratory distress. Painless inspiration. Breath sounds normal. No wheezes/rales/rhonchi noted. Chest nontender. No accessory muscle usage noted or decreased air movement noted. Abdomen: Soft and nontender. Bowel sounds normal in all 4 quadrants. No distention noted. No organomegaly noted. No visible injury noted. Back: No CVA tenderness. Full range of motion noted. Skin: Skin warm and dry. Normal skin color. Normal skin turgor. No rashes/lesions/lacerations noted. Extremities: No lower extremity edema. Extremities exhibit normal range of motion. Extremities nontender. Neuro: Oriented X 3. Cranial nerve exam: II-XII are grossly intact No motor deficit. No sensory deficit. Reflexes normal. Course Course Course Narrative: This is a Rapid Medical Examination (RME) performed by Norma Neville PA-C in triage. Full HPI, ROS, assessment and treatment plan per primary provider in the Main ED. 53 yo male hx of type 2 diabetes, hypertension, obesity, hypothyroidism, migraine here for eval of 4-5 days of lower abd pain, dysuria, incomplete bladder emptying, increased urinary freq. admits to assoc chills, fever, and night sweats. denies flank pain. Plan: labs, UA Reevaluation(s) Reevaluation #1: 53-year-old male with symptoms UA suggesting for UTI. 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 Uncommon for male in his each to get UTI no abdominal pain or tenderness consider follow-up with urologist. Patient was encouraged to drink plenty of fluids and will prostatic cefuroxime for 7 days. Time: 16:41 Medical Decision Making Differential Diagnosis Differential Diagnoses: The differential diagnosis associated with the presentation includes (UTI, pyelonephritis, acute appendicitis, colitis, diverticulitis acute cholecystitis, pancreatitis, electrolyte derangement, severe anemia.) Admission/Observation Consideration of admission/observation: Escalation of care including admission/observation considered Lab Data MDM Lab Attestation statement: I reviewed the patient's lab results. 11/20/23 13:25 11/20/23 13:25 Labs: Lab Results 11/20/23 Range/Units 13:25 WBC 10.8 (4.8-10.8) X10*3/uL RBC 5.45 (4.60-5.80) X10*6/uL Hgb 15.5 (14.0-18.0) g/dl Hct 47.6 (42.0-52.0) % MCV 87.3 (80.0-98.0) fL MCH 28.4 (27.0-33.0) pg MCHC 32.6 (31.0-36.0) g/dl RDW 14.5 (11.0-16.0) % Plt Count 328 (160-400) X10*3/uL MPV 9.6 (9.4-12.4) fL Immature Gran % (Auto) 0.4 (0.0-0.4) % Neut % (Auto) 75.2 H (45-73) % Lymph % (Auto) 14.6 L (20-40) % Williamson % (Auto) 6.9 (2-11) % Eos % (Auto) 1.9 (0-4) % Baso % (Auto) 1.0 (0-2) % Lymph # (Auto) 1.6 (1.2-4.9) X10*3/uL Williamson # (Auto) 0.7 (0.1-1.2) X10*3/uL Eos # (Auto) 0.2 (0.0-0.4) X10*3/uL Baso # (Auto) 0.1 (0.0-0.2) X10*3/uL Abs Immat Gran (auto) 0.04 H (0.00-0.03) X10*3/uL Absolute Neuts (auto) 8.1 (2.0-8.3) x10*3/uL Absolute Nucleated RBC 0.000 (0.0-0.012) X10*3/uL Nucleated RBC % (auto) 0.0 (0.0-0.2) /100WBC Sodium 141 (135-145) mmol/L Potassium 3.6 (3.3-5.1) mmol/L Chloride 107 (96-108) mmol/L Carbon Dioxide 25 (22-29) mmol/L Anion Gap 13 (12-20) BUN 7 L (9-16) mg/dL Creatinine 1.15 (0.5-1.4) mg/dL Estim Creat Clear Calc 86.9 Estimated GFR > 60 Random Glucose 108 (60-115) mg/dL Calcium 9.7 (8.4-10.2) mg/dL Total Bilirubin 1.1 H (0.0-1.0) mg/dL AST 22 (5-37) U/L ALT 25 (0-40) U/L Alkaline Phosphatase 81 (39-117) U/L Total Protein 8.1 H (6.5-8.0) g/dL Albumin 4.3 (3.5-5.0) g/dL Urine Color Yellow Urine Appearance Clear Urine pH 6.0 (5.0-9.0) Ur Specific [place] <= 1.005 (1.005-1.025) Urine Protein Negative (Neg-Trace) mg/dL Urine Glucose (UA) Negative (Negative) mg/dL Urine Ketones Negative (Negative) mg/dL Urine Blood Negative (Negative) Urine Nitrite Negative (Negative) Ur Leukocyte Esterase Moderate (2+) H (Negative) Urine RBC 0-2 (0-2) /HPF Urine WBC 21-50 H (0-5) /HPF Ur Squamous Epith Cells 0-2 (0-2) /HPF Urine Bacteria None Seen (None Seen) Hyaline Casts 3-5 (0-2) /LPF Discharge Plan Discharge Clinical Impression: Acute UTI Patient Disposition: Home, Self-Care Instructions: Urinary Tract Infection in Men (ED) Additional Instructions: Drink plenty of water, take your antibiotic, and follow-up with Dr. Flores as instructed. Prescriptions: New cefuroxime axetil 500 mg tablet 500 mg PO BID Qty: 14 0RF No Action acetaminophen [Tylenol] 325 mg tablet 325 mg PO Q6H 90 Days Qty: 360 0RF cholecalciferol (vitamin D3) 25 mcg (1,000 unit) tablet 25 mcg PO DAILY Qty: 180 0RF desmopressin 0.1 mg tablet See Rx Instructions PO BID Qty: 90 4RF Rx Instructions: Take 1 tab 0.1 in AM and 1/2 tab 0.05 mg in PM orally 2 times a day; calcium carbonate 500 mg calcium (1,250 mg) tablet See Rx Instructions PO DAILY Rx Instructions: 600mg orally daily; levothyroxine 112 mcg tablet 112 mcg PO DAILY prednisone 1 mg tablet 5 mg PO DAILY testosterone 1 % (50 mg/5 gram) gel in packet 2 packet transdermal DAILY metoclopramide HCl [Reglan] 10 mg tablet 10 mg PO Q6H PRN (Reason: nausea and vomiting) Qty: 30 0RF (DME) lancets [FreeStyle Lancets] 28 gauge misc See Rx Instructions .ROUTE .MEDSUPPLY Qty: 100 Rx Instructions: As directed (DME) FreeStyle Lite Strips Strip See Rx Instructions .ROUTE .MEDSUPPLY Qty: 10 Rx Instructions: As directed (DME) blood-glucose meter [FreeStyle Lite Meter] Kit See Rx Instructions .ROUTE .MEDSUPPLY Qty: 1 Rx Instructions: As directed Referrals: Bin Flores MD [Physician] - Ulisses Whitmore MD [Primary Care Provider] - Print Language: Turkish
[2023-11-20 13:31] LABS: MANUAL DIFF FLAG NO
[2023-11-20 13:36] LABS: Basophils Absolute Auto 0.1 X10*3/uL (0.0-0.2); Eosinophils Absolute Auto 0.2 X10*3/uL (0.0-0.4); Eosinophils Percent Auto 1.9 % (0-4); Hematocrit 47.6 % (42.0-52.0); Hemoglobin 15.5 g/dl (14.0-18.0); Imm Gran Abs Auto 0.04 X10*3/uL (0.00-0.03); Imm Gran Pct Auto 0.4 % (0.0-0.4); Lymphocytes Absolute Auto 1.6 X10*3/uL (1.2-4.9); Lymphocytes Percent Auto 14.6 % (20-40); Mean Corpuscular HGB Conc 32.6 g/dl (31.0-36.0); Mean Corpuscular Hemoglobin 28.4 pg (27.0-33.0); Mean Corpuscular Volume 87.3 fL (80.0-98.0); Mean Platelet Volume 9.6 fL (9.4-12.4); Monocytes Absolute Auto 0.7 X10*3/uL (0.1-1.2); Monocytes Percent Auto 6.9 % (2-11); Neutrophils Absolute Auto 8.1 x10*3/uL (2.0-8.3); Neutrophils Percent Auto 75.2 % (45-73); Platelet Count 328 X10*3/uL (160-400); Red Blood Count 5.45 X10*6/uL (4.60-5.80); Red Cell Distribution Width 14.5 % (11.0-16.0); White Blood Count 10.8 X10*3/uL (4.8-10.8)
[2023-11-20 13:37] LABS: Appearance Urine Clear; Color Urine Yellow; Glucose Urine UA Negative (Negative); Leukocyte Esterase Urine Moderate (2+) (Negative); Nitrite Urine Negative (Negative); Specific Gravity - Urine <= 1.005 (1.005-1.025); UMIC TRIGGER UACC YES; Urine Blood Negative (Negative); Urine Ketones Negative (Negative); Urine Protein Negative (Neg-Trace)
[2023-11-20 13:40] LABS: Bacteria Urine None Seen (None Seen); RBC Urine 0-2 /HPF (0-2); Squamous Epithelial Cell Urine 0-2 /HPF (0-2); UACC Culture Trigger YES; WBC Urine 21-50 /HPF (0-5)
[2023-11-20 13:47] LABS: Alanine Aminotransferase 25 U/L (0-40); Albumin Level 4.3 g/dL (3.5-5.0); Alkaline Phosphatase 81 U/L (39-117); Anion Gap 13 (12-20); Aspartate Amino Transferase 22 U/L (5-37); Bilirubin Total 1.1 mg/dL (0.0-1.0); Blood Urea Nitrogen 7 mg/dL (9-16); Calcium 9.7 mg/dL (8.4-10.2); Carbon Dioxide 25 mmol/L (22-29); Chloride 107 mmol/L (96-108); Creatinine Clr Calc Pharmacy 86.9; Estimated Glomerular Filt Rate > 60; Glucose Random 108 mg/dL (60-115); Potassium 3.6 mmol/L (3.3-5.1); Sodium 141 mmol/L (135-145); Total Protein 8.1 g/dL (6.5-8.0)
[2023-11-20 17:04] VITALS: BP 113/65; PULSE 93; RESP 17; TEMP 37.7; O2SAT 95
[2023-11-20] MEDS: cefuroxime axetiL 500 MG TABLET PO (17:10)
== END 2023-11-20 17:13 | disposition home or self-care (01) ==
PROVIDERS: Physician Assistant Medical; Emergency Provider Emergency Medicine; PCP Internal Medicine
DX: N39.0 Urinary tract infection, site not specified (principal); E11.9 Type 2 diabetes mellitus without complications; E78.5 Hyperlipidemia, unspecified; Z79.899 Other long term (current) drug therapy
CPT/HCPCS: 36415; 80053; 81001; 85025; 87086; 99282; 99283

== ENCOUNTER 2023-12-12 14:53 | Outpatient (AMB) | payer OTHER, SELFPAY ==
[2023-12-12 14:54] VITALS: BP 110/68; PULSE 75; O2SAT 95; BMI 44.4
--- NOTE | 2023-12-12 14:54 | MHC.PC.OV ---
Vital Signs 12/12/23 14:54 Height 5 ft 5 in Weight 267 lb 2 oz BMI 44.4 BP 110/68 Blood Pressure Location Rt brachial Pulse 75 Pulse Source Pulse Oximeter Pulse Oximetry (%) 95 Oxygen Delivery Method Room Air Intake Visit Reasons: Annual Pe Allergies No Known Allergies Allergy (Verified 12/12/23 14:55) Medication List - Last Reconciled 12/12/23 by Ulisses Whitmore MD acetaminophen (Tylenol) 325 mg PO Q6H 90 days blood sugar diagnostic (FreeStyle Lite Strips) As directed blood-glucose meter (FreeStyle Lite Meter kit) As directed desmopressin 0.1 mg orally Take 1 tablet in the morning a half a tablet every evening; lancets (FreeStyle Lancets) As directed levothyroxine 112 mcg PO DAILY testosterone 2 packets transdermal DAILY Tobacco use date assessed: 12/12/23 Dental Screening Dental Screen Date: 12/12/23 Did you have a dental visit in the last 12 months?: Yes Did you have a dental problem in the last 6 months where you did not have access to dental care?: No Was dental information given to patient?: Patient has dentist HPI Annual Pe HPI Details Patient is 53-year-old gentleman with pituitary adenoma causing diabetes, hypothyroidism, diabetes insipidus, and hypogonadism Came in today for physical examination Few weeks ago patient ended up in the emergency room with a chief complaint of dysuria and lower abdominal pain And found to have a urinary tract infection He was treated with antibiotic He has appointment coming up with Urology in December Patient most likely have prostatic hypertrophy, I am starting him on Flomax while he may to see Urology Patient was seeing Dr. Wheatley endocrinology [facility] but now is only being managed by endocrinology and neuro liquified natural gas specialist in [place] Dr. Gunter naval inspector and neuro liquified natural gas specialist Patient is on disability he is blind in his right eye and his left eye has a blurry vision He missed his colonoscopy appointment due to other appointments I have ordered Cologuard for the patient Also urinalysis order placed just in case if he started having dysuria again Lab orders through his other specialists Patient is morbidly obese and having difficulty losing weight. [facility] Medical History Panhypopituitarism Pituitary tumor History of lumbar puncture Central hypothyroidism Primary central diabetes insipidus Migraine headache Rash Family History Brother Brain cancer Social History Household Members: None Household Members Other:: 1 Housing: House Are you a primary intensive care anaesthetist to a significant other at home: No Do you presently have visiting nurse or other home services: No Alcohol intake: current Alcohol intake frequency: does not drink Alcohol type: beer Patient Tobacco Use Status: Current everyday Tobacco user Tobacco use type: Cigarette Cigarettes Per Day: 4 Years Smoked: 20 years e-Cigarette/Vaping Use: Never Used Substance Use Type: Marijuana service: No Current occupational status: unemployed and disabled Cognitive needs: No Hearing needs: No Vision needs: Yes Questionnaire PHQ-9 Over the last 2 weeks, how often have you been bothered by any of the following problems? 1. Little interest or pleasure in doing things: not at all 2. Feeling down, depressed, or hopeless: not at all 3. Trouble falling or staying asleep, or sleeping too much: not at all 4. Feeling tired or having little energy: not at all 5. Poor appetite or overeating: not at all 6. Feeling bad about yourself - or that you are a failure or have let yourself or your family down: not at all 7. Trouble concentrating on things, such as reading the newspaper or watching television: not at all 8. Moving or speaking so slowly that other people could have noticed. Or the opposite - being so fidgety or restless that you have been moving around a lot more than usual: not at all 9. Thoughts that you would be better off or of hurting yourself in some way: not at all Total score: 0 Depression Screening Interpretation: Negative Depression Screening Done: Yes 70803 - PHQ-9 Billing: Yes Source: Developed by Drs. Alfred Duran, Ivanna Samayoa, Jermain Sue and colleagues, with an educational alli from [employer]. Thrive Questionnaire Date Thrive assessed: 12/12/23 I am a: Patient What is your living situation today?: I have a steady place to live Within the past 12 months, did the food you bought not last and you didn't have the money to get more?: Never true Within the past 12 months, did you worry whether your food would run out before you got money to buy more?: Never true Do you have trouble paying for medicines?: No Do you have trouble getting transportation to medical appointments?: No Do you have trouble paying your heating and electricity bill?: No Do you have trouble taking care of your child, family member or friend?: No Do you have trouble with day-to-day activities such as bathing, preparing meals, shopping, managing finances, etc.?: No Are you currently unemployed and looking for a job?: No Are you interested in more education?: No Please select the resources that you would like help with: None Currently or been in a relationship where the following occur: No concerns reported THRIVE Score: 0 AUDIT C Alcohol Use Questionnaire (AUDIT-C) 1. How often do you have a drink containing alcohol?: Never 3. How often do you have six or more drinks on one occasion?: Never Total Score: 0 Score Reviewed/Action Taken: Yes RAMONA-7 AMB Questionnaire RAMONA-7 Date RAMONA - 7 assessed: 12/12/23 Feeling nervous, anxious, or on edge: 0 = Not at all Not being able to stop or control worryin = Not at all Worrying too much about different things: 0 = Not at all Trouble relaxin = Not at all Being so restless that it is hard to sit still: 0 = Not at all Becoming easily annoyed or irritable: 0 = Not at all Feeling afraid as if something awful might happen: 0 = Not at all Total RAMONA-7 score (0-4 normal; 5-9 mild; 10-14 moderate; 15-21 severe): 0 Source: Developed by Drs. Alfred Duran, Ivanna Samayoa, Jermain Sue and colleagues, with an educational alli from [employer]. RAMONA-7 Assessment Billing RAMONA-7 Assessment Tool: RAMONA-7 Assessment 82812 Review of Systems Const Denies chills, Denies fever(s) and Denies headache(s) ENT Denies headache(s), Denies nasal discharge, Denies nasal obstruction, Denies odynophagia and Denies sinus pain Card Denies chest pain at rest and Denies chest pain with activity Resp Denies cough and Denies hemoptysis GI Denies diarrhea, Denies odynophagia, Denies vomiting and Denies hematemesis Reports as per HPI Musc Denies abnormal gait Skin/Breast Reports as per HPI Neuro Denies Neuro-related abnormal movements, Denies Abnormal speech present, Denies abnormal gait and Denies headache(s) Psych Denies mood swings and Denies paranoia Endo Reports as per HPI Zaheer/Lymph Reports as per HPI Aller/Immun Reports as per HPI Physical exam (Primary Care) Vital Signs: Last Vital Signs Pulse 75 12/12/23 14:54 BP 110/68 12/12/23 14:54 Pulse Ox 95 12/12/23 14:54 Oxygen Delivery Method Room Air 12/12/23 14:54 BMI result Body Mass Index 44.4 Tobacco/Smoking Status: Tobacco use Status Tobacco use date assessed 12/12/23 12/12/23 14:56 Patient Tobacco Use Status Current everyday Tobacco 12/12/23 14:56 Tobacco use type Cigarette 12/12/23 14:56 e-Cigarette/Vaping Use Never Used 12/12/23 14:56 PHQ-9: PHQ-9 Score PHQ-9: Total score 0 12/12/23 14:56 Depression Screening Interpretation: Negative Thrive Assessment: Date of Thrive Assessment Date Thrive assessed 12/12/23 12/12/23 14:56 Currently or been in a relationship where the following occur: No concerns reported Const General: cooperative, comfortable and no acute distress Orientation/consciousness: patient oriented x3 HENMT Head: Yes normocephalic and Yes atraumatic Neck Neck: Yes supple and No lymphadenopathy Thyroid: Thyroid normal Lymphatic: no lymphadenopathy noted Resp Effort & Inspection: normal respiratory effort and able to speak in complete sentences Auscultation: clear to auscultation bilaterally Cardio Heart sounds: S1 normal heart sound present and S2 normal heart sound present GI Palpation (GI): Soft to palpation and nontender Auscultation: normal bowel sounds General: Yes no CVA tenderness Back/Spine/Pelvis Back: no CVA tenderness Skin General skin exam: elasticity normal and turgor normal Neuro General: patient oriented x3 and gait normal Speech: No Abnormal speech present Extrem General: Yes normal exam except as noted and No edema Assessment and Plan Assessment & Plan (1) Encounter for general adult medical examination with abnormal findings: Code(s): Z00.01 - Encounter for general adult medical examination with abnormal findings (2) Dysuria: Code(s): R30.0 - Dysuria (3) Prostatic hypertrophy: Code(s): N40.0 - Benign prostatic hyperplasia without lower urinary tract symptoms (4) Blind right eye: Code(s): H54.40 - Blindness, one eye, unspecified eye Qualifiers: Left eye visual impairment category: left - category 3 Qualified Code(s): H54.3 - Unqualified visual loss, both eyes (5) Morbid obesity due to excess calories: Code(s): E66.01 - Morbid (severe) obesity due to excess calories (6) Carotid stenosis, bilateral: Code(s): I65.23 - Occlusion and stenosis of bilateral carotid arteries (7) Hypertension, essential: Code(s): I10 - Essential (primary) hypertension (8) Lipid disorder: Code(s): E78.9 - Disorder of lipoprotein metabolism, unspecified (9) Primary central diabetes insipidus: Code(s): E23.2 - Diabetes insipidus (10) Central hypothyroidism: Code(s): E03.8 - Other specified hypothyroidism (11) Pituitary tumor: Code(s): D49.7 - Neoplasm of unspecified behavior of endocrine glands and other parts of nervous system (12) Panhypopituitarism: Code(s): E23.0 - Hypopituitarism (13) 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: Code(s): E11.9 - Type 2 diabetes mellitus without complications Qualifiers: 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 type: type 2 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 watermelon harvesting supervisor insulin use: without watermelon harvesting supervisor use 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 complication status: with other specified complication Qualified Code(s): E11.69 - Type 2 diabetes mellitus with other specified complication (14) Pituitary adenoma: Code(s): D35.2 - Benign neoplasm of pituitary gland (15) Blurred vision, left eye: Code(s): H53.8 - Other visual disturbances Plan Patient is 53-year-old gentleman with pituitary adenoma causing diabetes, hypothyroidism, diabetes insipidus, and hypogonadism Came in today for physical examination Few weeks ago patient ended up in the emergency room with a chief complaint of dysuria and lower abdominal pain And found to have a urinary tract infection He was treated with antibiotic He has appointment coming up with Urology in December Patient most likely have prostatic hypertrophy, I am starting him on Flomax while he may to see Urology Patient was seeing Dr. Wheatley endocrinology [facility] but now is only being managed by endocrinology and neuro liquified natural gas specialist in [place] Dr. Gunter naval inspector and neuro liquified natural gas specialist Patient is on disability he is blind in his right eye and his left eye has a blurry vision He missed his colonoscopy appointment due to other appointments I have ordered Cologuard for the patient Also urinalysis order placed just in case if he started having dysuria again Lab orders through his other specialists Patient is morbidly obese and having difficulty losing weight. Orders: Orders UA CC w/rflx Micro + Cult Today R30.0 - Dysuria Referrals Cologuard Test Z12.11 - Encounter for screening for malignant neoplasm of colon Medications: New tamsulosin (Flomax) 0.4 mg PO BEDTIME 90 caps 0RF Coding Level of Care Code Est Pt Level 4 (96119) Est Pt Prev Care 40-64y(70694) Diagnoses Encounter for general adult medical examination with abnormal findings Z00.01 Dysuria R30.0 Prostatic hypertrophy N40.0 Blindness of right eye with category 3 blindness of left eye H54.3 Left eye visual impairment category: left - category 3 Morbid obesity due to excess calories E66.01 Carotid stenosis, bilateral I65.23 Hypertension, essential I10 Lipid disorder E78.9 Primary central diabetes insipidus E23.2 Central hypothyroidism E03.8 Pituitary tumor D49.7 Panhypopituitarism E23.0 Type 2 diabetes mellitus with other specified complication, without long-term current use of insulin E11.69 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 type: type 2 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 watermelon harvesting supervisor insulin use: without watermelon harvesting supervisor use 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 complication status: with other specified complication Pituitary adenoma D35.2 Blurred vision, left eye H53.8 Additional Codes RAMONA-7 Assessment Billing - RAMONA-7 Assessment Tool: RAMONA-7 Assessment 75196 ([id number])
== END 2023-12-12 15:33 | disposition home or self-care (01) ==
PROVIDERS: PCP Internal Medicine; Visit Provider Internal Medicine
DX: Z00.00 Encounter for general adult medical examination without abnormal findings (principal); E66.01 Morbid (severe) obesity due to excess calories; E23.2 Diabetes insipidus; Z68.41 Body mass index [BMI] 40.0-44.9, adult; E23.0 Hypopituitarism; E11.69 Type 2 diabetes mellitus with other specified complication; D35.2 Benign neoplasm of pituitary gland; R30.0 Dysuria; N40.0 Benign prostatic hyperplasia without lower urinary tract symptoms; H54.3 Unqualified visual loss, both eyes; I65.23 Occlusion and stenosis of bilateral carotid arteries; I10 Essential (primary) hypertension
CPT/HCPCS: 99214; 99396

== ENCOUNTER 2024-01-12 11:25 | Emergency (ER) | payer OTHER, SELFPAY ==
--- NOTE | ~2024-01-12 | CT_ITS ---
EXAMINATION: CT ABDOMEN AND PELVIS WITH CONTRAST CLINICAL INFORMATION: Right flank and right lower quadrant pain. COMPARISON: CT abdomen/pelvis 03/29/2022. TECHNIQUE: Multidetector volumetric images were obtained from the superior aspect of the liver through the pubic symphysis following administration 85 mL of Omnipaque 350 intravenous contrast. Sagittal and coronal reformatted images were obtained on the technologist's workstation. Oral contrast: No This CT examination was performed using dose optimization techniques as appropriate, variously including the following: *Automated exposure control *Adjustment of mA and/or kV according to patient size (this includes techniques or standardized protocols for targeted exams where dose is matched to indication/reason for exam; i.e. extremities or head) *Use of iterative reconstruction technique DLP: 1065 mGy-cm FINDINGS: LUNG BASES: The visualized lung bases are unremarkable. LIVER, GALLBLADDER, AND BILIARY TREE: Decreased attenuation of the liver parenchyma consistent with hepatic steatosis. No focal hepatic lesion or biliary ductal dilatation is present. Gallbladder calculi without gallbladder wall thickening, or obvious pericholecystic inflammatory changes. PANCREAS: Unremarkable. SPLEEN: Unremarkable. ADRENAL GLANDS: Unremarkable. KIDNEYS AND URETERS: The kidneys are normal in size, shape, and attenuation. Simple appearing cyst in the upper pole of the left kidney for which no imaging follow-up is recommended. No hydronephrosis, hydroureter, or calculi seen. No perinephric stranding. BLADDER: Diffuse urinary bladder wall thickening with mild perivesical fat stranding. GASTROINTESTINAL TRACT: The stomach and the small bowel are nondilated. Normal appendix. Colonic diverticulosis without significant pericolonic inflammatory changes. Submucosal fatty deposition of the right hemicolon that could be related with patient body habitus or chronic inflammatory disease. ABDOMINAL WALL: No significant hernia is appreciated. LYMPH NODES: Increased size of a prominent periportal lymph node measuring 1.1 cm in short axis (3:25) previously 0.7 cm. VASCULAR: Normal caliber abdominal aorta. PELVIC VISCERA: Unremarkable. OSSEOUS STRUCTURES: No acute or aggressive appearing osseous findings. Degenerative changes of the spine. CT/CT abdomen pelvis w IV con IMPRESSION: 1. Diffuse urinary bladder wall thickening with mild perivesical fat stranding suggesting cystitis. Correlate with urinalysis. 2. Hepatic steatosis. 3. Cholelithiasis without evidence of acute cholecystitis. 4. Diverticulosis but no evidence of acute diverticulitis. 5. Increased size of a prominent periportal lymph node, most likely reactive. Attention on follow-up in future examinations recommended. Electronically signed by: Shannan Berger MD 01/12/2024 10:28 PM EDT RP
[2024-01-12 11:42] VITALS: BP 124/72; PULSE 90; RESP 20; TEMP 37.1; O2SAT 95; BMI 41.6
--- NOTE | 2024-01-12 11:58 | ED_ITS ---
HPI - General Adult General Chief complaint: Abdominal Pain Stated complaint: UTI Time Seen by Provider: 01/12/24 19:54 History of Present Illness ED Provider: Hitesh AUSTIN narrative: 53-year-old male with past medical history of diabetes, hypertension presenting for dysuria. Patient states that he was diagnosed with a UTI 2 months ago and he was treated with antibiotics with resolution of symptoms. This past Friday he began experiencing right flank pain that radiated to his groin. He is now endorsing urine urgency/frequency and dysuria. He states that he had nausea, chills and fever over the weekend with a T-max of 102. He denies chest pain, shortness of breath, cough. Related Data Home Medications ?Medication ?Instructions ?Recorded ?Confirmed blood sugar diagnostic (FreeStyle #10 ea 02/28/22 12/12/23 Lite Strips) blood-glucose meter (FreeStyle #1 ea 02/28/22 12/12/23 Lite Meter kit) lancets 28 gauge (FreeStyle #100 ea 02/28/22 12/12/23 Lancets) levothyroxine 112 mcg tablet 112 mcg PO DAILY 11/20/23 12/12/23 testosterone 1 % (50 mg/5 gram) 2 packet transdermal DAILY 11/20/23 12/12/23 transdermal gel packet Previous Rx's ?Medication ?Instructions ?Recorded acetaminophen 325 mg tablet 325 mg PO Q6H Pain (Scale Score 09/09/22 (Tylenol) 1-3) 90 days #360 tabs desmopressin 0.1 mg tablet 0.1 mg PO .COMPLEX #135 tabs 12/03/23 tamsulosin 0.4 mg capsule (Flomax) 0.4 mg PO BEDTIME #90 caps 12/12/23 nitrofurantoin 100 mg PO BID 7 days #14 caps 01/13/24 monohydrate/macrocrystals 100 mg capsule (Macrobid) Allergies Allergy/AdvReac Type Severity Reaction Status Date / Time No Known Allergies Allergy Verified 01/12/24 11:46 Review of Systems 2 Review of Systems: Patient endorses dysuria, urine frequency/urgency, fevers, chills, nausea Patient denies chest pain, shortness of breath, cough, vomiting, diarrhea, head pain, neck pain Yes all other systems are reviewed and are negative PMFSH Past Medical History Medical History Panhypopituitarism Pituitary tumor History of lumbar puncture Central hypothyroidism Primary central diabetes insipidus Migraine headache Rash Family History Family History Brother Brain cancer Social History Social History Household Members: None Household Members Other:: 1 Housing: House Are you a primary critical care transport nurse to a significant other at home: No Do you presently have visiting nurse or other home services: No Alcohol intake: current Alcohol intake frequency: does not drink Alcohol type: beer Patient Tobacco Use Status: Current everyday Tobacco user Tobacco use type: Cigarette Cigarettes Per Day: 4 Years Smoked: 20 years Smoked in Last 30 Days: Yes e-Cigarette/Vaping Use: Never Used Use of substances other than those prescribed or required for medical reasons: Yes Substance Use Type: Marijuana Advance Directives: No Advance Directives Information Provided: Yes Do you have a plan to hurt others: No Plan service: No Current occupational status: unemployed and disabled Cognitive needs: No Hearing needs: No Vision needs: Yes Physical Exam ED Vital Signs: Vital Signs - 24 hr 01/12/24 11:42 01/12/24 20:01 Temperature 98.7 F 99.2 F Pulse Rate 90 81 Respiratory Rate 20 16 Blood Pressure 124/72 129/72 Pulse Oximetry 95 96 Oxygen Delivery Method Room Air Room Air BMI result Body Mass Index 41.6 Lungs clear to auscultation bilaterally; normal S1-S2 regular rate rhythm; abdomen is soft, nontender nondistended; no CVA tenderness; no focal neurologic deficits appreciated Course Course Course Narrative: This is an RME: Additional HPI, ROS, PE not included below will be deferred to primary provider. RME assessment and note performed by: Brandi Cooley PA-C This is a 53-year-old male, with a hx of hypothyroidism, pituitary tumor, primary central diabetes insipidus, who presents to the ER with complaints of low back pain, increased urination, nausea, vomiting, fevers. Was seen here 6 weeks ago and was diagnosed with UTI. Finished ABX, however symptoms started back this weekend. Plan: Labs, UA, blood cultures, further ER evaluation needed. Medications Administered Discontinued Medications Generic Name Dose Route Start Last Admin Trade Name Freq PRN Reason Stop Dose Admin Iohexol 85 ml 01/12/24 21:15 01/12/24 21:16 Iohexol 350 Mg/Ml 100 Ml Infus..Btl IV 01/12/24 21:16 85 ml ONCE ONE Administration Medical Decision Making Medical Decision Making [facility] Narrative: This is a 53-year-old male presenting with UTI symptoms. I am concerned for UTI, pyelonephritis, kidney stone I am also considering GI pathology such as cholelithiasis, pancreatitis, diverticulitis however this less likely - labs notable for we will H&H and no white count, normal electrolytes and creatinine, LFTs within normal limits, normal lipase - WBCs in UA --> concern for UTI - I did not appreciate hydronephrosis on CTA abd pelv and radiologist interpretation notes bladder thickening - no conern for pyelo or systemic infection at this time - abx ordered and script sent to pt's pharmacy - pt given followup instructions and return precautions Differential Diagnosis Differential Diagnoses: The differential diagnosis associated with the presentation includes UTI, pyelonephritis, kidney stone Lab Data 01/12/24 12:45 01/12/24 12:45 Labs: Lab Results 01/12/24 01/12/24 Range/Units 12:45 20:56 WBC 6.5 (4.8-10.8) X10*3/uL RBC 5.02 (4.60-5.80) X10*6/uL Hgb 14.3 (14.0-18.0) g/dl Hct 42.5 (42.0-52.0) % MCV 84.7 (80.0-98.0) fL MCH 28.5 (27.0-33.0) pg MCHC 33.6 (31.0-36.0) g/dl RDW 13.5 (11.0-16.0) % Plt Count 220 D (160-400) X10*3/uL MPV 9.6 (9.4-12.4) fL Immature Gran % (Auto) 0.3 (0.0-0.4) % Neut % (Auto) 74.8 H (45-73) % Lymph % (Auto) 15.0 L (20-40) % Woodruff % (Auto) 8.0 (2-11) % Eos % (Auto) 0.8 (0-4) % Baso % (Auto) 1.1 (0-2) % Lymph # (Auto) 1.0 L (1.2-4.9) X10*3/uL Woodruff # (Auto) 0.5 (0.1-1.2) X10*3/uL Eos # (Auto) 0.1 (0.0-0.4) X10*3/uL Baso # (Auto) 0.1 (0.0-0.2) X10*3/uL Abs Immat Gran (auto) 0.02 (0.00-0.03) X10*3/uL Absolute Neuts (auto) 4.9 (2.0-8.3) x10*3/uL Absolute Nucleated RBC 0.000 (0.0-0.012) X10*3/uL Nucleated RBC % (auto) 0.0 (0.0-0.2) /100WBC Sodium 136 (135-145) mmol/L Potassium 3.5 (3.3-5.1) mmol/L Chloride 105 (96-108) mmol/L Carbon Dioxide 22 (22-29) mmol/L Anion Gap 13 (12-20) BUN 9 (9-16) mg/dL Creatinine 1.03 (0.5-1.4) mg/dL Estim Creat Clear Calc 94.2 Estimated GFR > 60 Random Glucose 114 (60-115) mg/dL Calcium 9.9 (8.4-10.2) mg/dL Total Bilirubin 1.1 H (0.0-1.0) mg/dL AST 25 (5-37) U/L ALT 25 (0-40) U/L Alkaline Phosphatase 62 (39-117) U/L Total Protein 7.3 (6.5-8.0) g/dL Albumin 3.9 (3.5-5.0) g/dL Lipase 14 (8-78) U/L Urine Color Yellow Urine Appearance Clear Urine pH 6.0 (5.0-9.0) Ur Specific Gardner 1.015 (1.005-1.025) Urine Protein Trace (Neg-Trace) mg/dL Urine Glucose (UA) Negative (Negative) mg/dL Urine Ketones 15 (Negative) mg/dL Urine Blood Negative (Negative) Urine Nitrite Negative (Negative) Ur Leukocyte Esterase Small (1+) H (Negative) Urine RBC 0-2 (0-2) /HPF Urine WBC 11-20 H (0-5) /HPF Ur Squamous Epith Cells 3-5 (0-2) /HPF Urine Bacteria Trace (None Seen) Hyaline Casts 0-2 (0-2) /LPF Discharge Plan Discharge Clinical Impression: Acute UTI Patient Disposition: Home, Self-Care Additional Instructions: Please pick pulling machine operator your new prescription and take as instructed If you develop any new or worsening symptoms please return to the emergency department Please follow up with your primary care provider in the next 24-48 hours Prescriptions: New nitrofurantoin monohyd/m-cryst [Macrobid] 100 mg capsule 100 mg PO BID 7 Days Qty: 14 0RF Rx Instructions: must administer with a meal/food No Action acetaminophen [Tylenol] 325 mg tablet 325 mg PO Q6H 90 Days Qty: 360 0RF desmopressin 0.1 mg tablet 0.1 mg PO .COMPLEX Qty: 135 2RF Rx Instructions: 0.1 mg orally Take 1 tablet in the morning a half a tablet every evening; levothyroxine 112 mcg tablet 112 mcg PO DAILY testosterone 1 % (50 mg/5 gram) gel in packet 2 packet transdermal DAILY (DME) lancets [FreeStyle Lancets] 28 gauge misc See Rx Instructions .ROUTE .MEDSUPPLY Qty: 100 Rx Instructions: As directed (DME) FreeStyle Lite Strips Strip See Rx Instructions .ROUTE .MEDSUPPLY Qty: 10 Rx Instructions: As directed (DME) blood-glucose meter [FreeStyle Lite Meter] Kit See Rx Instructions .ROUTE .MEDSUPPLY Qty: 1 Rx Instructions: As directed tamsulosin [Flomax] 0.4 mg capsule 0.4 mg PO BEDTIME Qty: 90 0RF Print Language: Comoran
[2024-01-12 12:51] LABS: MANUAL DIFF FLAG NO
[2024-01-12 12:52] LABS: Basophils Absolute Auto 0.1 X10*3/uL (0.0-0.2); Basophils Percent Auto 1.1 % (0-2); Eosinophils Absolute Auto 0.1 X10*3/uL (0.0-0.4); Eosinophils Percent Auto 0.8 % (0-4); Hematocrit 42.5 % (42.0-52.0); Hemoglobin 14.3 g/dl (14.0-18.0); Imm Gran Abs Auto 0.02 X10*3/uL (0.00-0.03); Imm Gran Pct Auto 0.3 % (0.0-0.4); Mean Corpuscular HGB Conc 33.6 g/dl (31.0-36.0); Mean Corpuscular Hemoglobin 28.5 pg (27.0-33.0); Mean Corpuscular Volume 84.7 fL (80.0-98.0); Mean Platelet Volume 9.6 fL (9.4-12.4); Monocytes Absolute Auto 0.5 X10*3/uL (0.1-1.2); Neutrophils Absolute Auto 4.9 x10*3/uL (2.0-8.3); Neutrophils Percent Auto 74.8 % (45-73); Platelet Count 220 X10*3/uL (160-400); Red Blood Count 5.02 X10*6/uL (4.60-5.80); Red Cell Distribution Width 13.5 % (11.0-16.0); White Blood Count 6.5 X10*3/uL (4.8-10.8)
[2024-01-12 12:59] LABS: Appearance Urine Clear; Color Urine Yellow; Glucose Urine UA Negative (Negative); Leukocyte Esterase Urine Small (1+) (Negative); Nitrite Urine Negative (Negative); Specific Gravity - Urine 1.015 (1.005-1.025); UMIC TRIGGER UACC YES; Urine Blood Negative (Negative); Urine Ketones 15 mg/dL (Negative); Urine Protein Trace mg/dL (Neg-Trace)
[2024-01-12 13:04] LABS: Bacteria Urine Trace (None Seen); Hyaline Casts Urine 0-2 /LPF (0-2); RBC Urine 0-2 /HPF (0-2); UACC Culture Trigger YES
[2024-01-12 13:25] LABS: Alanine Aminotransferase 25 U/L (0-40); Albumin Level 3.9 g/dL (3.5-5.0); Alkaline Phosphatase 62 U/L (39-117); Anion Gap 13 (12-20); Aspartate Amino Transferase 25 U/L (5-37); Bilirubin Total 1.1 mg/dL (0.0-1.0); Blood Urea Nitrogen 9 mg/dL (9-16); Calcium 9.9 mg/dL (8.4-10.2); Carbon Dioxide 22 mmol/L (22-29); Chloride 105 mmol/L (96-108); Creatinine Clr Calc Pharmacy 94.2; Estimated Glomerular Filt Rate > 60; Glucose Random 114 mg/dL (60-115); Potassium 3.5 mmol/L (3.3-5.1); Sodium 136 mmol/L (135-145); Total Protein 7.3 g/dL (6.5-8.0)
[2024-01-12 20:01] VITALS: BP 129/72; PULSE 81; RESP 16; TEMP 37.3; O2SAT 96
--- NOTE | 2024-01-12 20:09 | PC.NURSE ---
Pt a&ox4, no signs of distress Pt reports was seen about 6wks ago for a UTI and given abx but is now having sx again. Pt vitals stable Pt ambulates with a steady gait Pt changed in hospital attire Pt given urine cup. Plan of care ongoing.
--- NOTE | 2024-01-12 21:10 | PC.NURSE ---
Pt with CT Plan of care ongoing.
[2024-01-12 21:12] LABS: Lipase 14 U/L (8-78)
[2024-01-12] MEDS: iohexoL 350 MG/ML 100 ML INFUS..BTL 85 ML IV (21:16)
--- NOTE | 2024-01-12 21:20 | PC.NURSE ---
Pt back from CT Plan of care ongoing.
[2024-01-13] MEDS: cefTRIAXone sodium 1 GM VIAL IVPUSH (00:28)
[2024-01-13 00:30] VITALS: BP 108/74; PULSE 81; RESP 14; TEMP 37.1; O2SAT 97
[2024-01-13 00:40] VITALS: BP 108/74; PULSE 81; RESP 14; TEMP 37.1; O2SAT 97
== END 2024-01-13 00:51 | disposition home or self-care (01) ==
PROVIDERS: Emergency Provider Student in an Organized Health Care Education/Training Program; PCP Internal Medicine
DX: N39.0 Urinary tract infection, site not specified (principal); R10.9 Unspecified abdominal pain; Z79.899 Other long term (current) drug therapy
CPT/HCPCS: 36415; 74177; 80053; 81001; 83690; 85025; 87040; 87086; 87088; 87186; 96374; 99284; J0696; Q9967

== ENCOUNTER 2024-01-21 14:35 | Outpatient (AMB) | payer OTHER, SELFPAY ==
--- NOTE | 2024-01-21 14:59 | MHC.OFFVIS ---
Intake Visit Reasons: UTI- ER referral Intake Note: Patient is present for UTI ER Referral Urology Medication:tamsulosin, testosterone Antibiotic Allergy:none Blood Thinner:none Gaming Investigator Required: No Allergies No Known Allergies Allergy (Verified 01/21/24 15:00) Medication List - Last Reconciled 01/21/24 by Venkat Robles MD acetaminophen (Tylenol) 325 mg PO Q6H 90 days blood sugar diagnostic (FreeStyle Lite Strips) As directed blood-glucose meter (FreeStyle Lite Meter kit) As directed desmopressin 0.1 mg orally Take 1 tablet in the morning a half a tablet every evening; lancets (FreeStyle Lancets) As directed levothyroxine 112 mcg PO DAILY nitrofurantoin monohyd/m-cryst 100 mg (Macrobid) 100 mg PO BID 7 days tamsulosin (Flomax) 0.4 mg PO BEDTIME testosterone 2 packets transdermal DAILY HPI Comments Details: 53-year-old male with past medical history of diabetes, hypertension presented to ED for dysuria. Patient states that he was diagnosed with a UTI 2 months ago and he was treated with antibiotics with resolution of symptoms. Nicotine use over 20 years. Father prostate cancer approx age 55 - Sister--age 63-- bladder cancer --. 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 He is currently on prednisone 5 mg daily and rituximab infusions as well as IVIG PSA 03/05/23--0.41. [facility] Medical History Panhypopituitarism Pituitary tumor History of lumbar puncture Central hypothyroidism Primary central diabetes insipidus Migraine headache Rash Family History Brother Brain cancer Social History Household Members: None Household Members Other:: 1 Housing: House Are you a primary manager home healthcare to a significant other at home: No Do you presently have visiting nurse or other home services: No Alcohol intake: current Alcohol intake frequency: does not drink Alcohol type: beer Patient Tobacco Use Status: Current everyday Tobacco user Tobacco use type: Cigarette Cigarettes Per Day: 4 Years Smoked: 20 years e-Cigarette/Vaping Use: Never Used Substance Use Type: Marijuana service: No Current occupational status: unemployed and disabled Cognitive needs: No Hearing needs: No Vision needs: Yes Review of Systems Const All systems reviewed & are unremarkable except as noted in HPI and below Reports no additional complaints Eyes Reports no additional complaints ENT Reports no additional complaints Card Reports no additional complaints Resp Reports no additional complaints GI Reports no additional complaints Reports as per HPI Musc Reports no additional complaints Skin/Breast Reports system reviewed and no additional complaints, except as documented Neuro Reports no additional complaints Psych Reports no additional complaints Endo Reports no additional complaints Zaheer/Lymph Reports no additional complaints Aller/Immun Reports no additional complaints Physical Exam Const General: healthy appearing, no acute distress and well developed Orientation/consciousness: patient oriented x3 HEENT Head: Yes normocephalic and Yes atraumatic Eyes Conjunctivae: conjunctivae normal Neck Neck: Yes normal visual inspection Chest Chest palpation & inspection: normal inspection of the chest Resp Effort & Inspection: normal respiratory effort Cardio Rate: regular rate GI Inspection: Yes normal to inspection Neuro General: patient oriented x3 Extrem General: No pedal edema Psych Appearance: grossly normal Affect: normal affect Results AMB Urinalysis, Automated UA Leukoctes 0 Facundo/uL Last Edit by CURT Jefferson on 01/21/24 15:17 UA Nitrite Negative Last Edit by CURT Jefferson on 01/21/24 15:17 UA Urobilinogen 0.2 mg/dL Last Edit by CURT Jefferson on 01/21/24 15:17 UA Protein 0 mg/dL Last Edit by CURT Jefferson on 01/21/24 15:17 UA pH 6.0 Last Edit by CURT Jefferson on 01/21/24 15:17 UA Blood 0 Gorge/uL Last Edit by CURT Jefferson on 01/21/24 15:17 UA Specific [place] 1.005 Last Edit by CURT Jefferson on 01/21/24 15:17 UA Ketone Negative Last Edit by CURT Jefferson on 01/21/24 15:17 UA Bilirubin 0 mg/dL Last Edit by CURT Jefferson on 01/21/24 15:17 UA Glucose 0 mg/dL Last Edit by CURT Jefferson on 01/21/24 15:17 Results Reviewed Results Reviewed: Laboratory Last Values Urine pH (Auto) 6.0 01/21/24 15:15 Specific [place] (Auto) 1.005 01/21/24 15:15 Urine Protein (Auto) 0 mg/dL 01/21/24 15:15 Glucose (UA)(Auto) 0 mg/dL 01/21/24 15:15 Urine Ketones (Auto) Negative 01/21/24 15:15 Urine Blood (Auto) 0 Gorge/uL 01/21/24 15:15 Urine Nitrite (Auto) Negative 01/21/24 15:15 Urine Bilirubin (Auto) 0 mg/dL 01/21/24 15:15 Urine Urobilinogen (Auto) 0.2 mg/dL 01/21/24 15:15 Leukocyte Esterase (Auto) 0 Facundo/uL 01/21/24 15:15 Date of Service: 01/12/24 CT ABDOMEN AND PELVIS WITH CONTRAST CLINICAL INFORMATION: Right flank and right lower quadrant pain. COMPARISON: CT abdomen/pelvis 03/29/2022. TECHNIQUE: Multidetector volumetric images were obtained from the superior aspect of the liver through the pubic symphysis following administration 85 mL of Omnipaque 350 intravenous contrast. Sagittal and coronal reformatted images were obtained on the technologist's workstation. Oral contrast: No This CT examination was performed using dose optimization techniques as appropriate, variously including the following: *Automated exposure control *Adjustment of mA and/or kV according to patient size (this includes techniques or standardized protocols for targeted exams where dose is matched to indication/reason for exam; i.e. extremities or head) *Use of iterative reconstruction technique DLP: 1065 mGy-cm FINDINGS: LUNG BASES: The visualized lung bases are unremarkable. LIVER, GALLBLADDER, AND BILIARY TREE: Decreased attenuation of the liver parenchyma consistent with hepatic steatosis. No focal hepatic lesion or biliary ductal dilatation is present. Gallbladder calculi without gallbladder wall thickening, or obvious pericholecystic inflammatory changes. PANCREAS: Unremarkable. SPLEEN: Unremarkable. ADRENAL GLANDS: Unremarkable. KIDNEYS AND URETERS: The kidneys are normal in size, shape, and attenuation. Simple appearing cyst in the upper pole of the left kidney for which no imaging follow-up is recommended. No hydronephrosis, hydroureter, or calculi seen. No perinephric stranding. BLADDER: Diffuse urinary bladder wall thickening with mild perivesical fat stranding. GASTROINTESTINAL TRACT: The stomach and the small bowel are nondilated. Normal appendix. Colonic diverticulosis without significant pericolonic inflammatory changes. Submucosal fatty deposition of the right hemicolon that could be related with patient body habitus or chronic inflammatory disease. ABDOMINAL WALL: No significant hernia is appreciated. LYMPH NODES: Increased size of a prominent periportal lymph node measuring 1.1 cm in short axis (3:25) previously 0.7 cm. VASCULAR: Normal caliber abdominal aorta. PELVIC VISCERA: Unremarkable. OSSEOUS STRUCTURES: No acute or aggressive appearing osseous findings. Degenerative changes of the spine. IMPRESSION: 1. Diffuse urinary bladder wall thickening with mild perivesical fat stranding suggesting cystitis. Correlate with urinalysis. 2. Hepatic steatosis. 3. Cholelithiasis without evidence of acute cholecystitis. 4. Diverticulosis but no evidence of acute diverticulitis. 5. Increased size of a prominent periportal lymph node, most likely reactive. Attention on follow-up in future examinations recommended. Collected: 01/12/24-UNK Status: COMP Req#: [id number] Received: 01/12/24 Source: [facility] Sp Desc: Clean Cat Subm Dr: Generic ED Physician Ordered: Urine Culture Procedure Result Verified Urine Culture Final 01/14/24 Organism 1 Escherichia coli Quant > 100,000 cfu/mL E coli M.I.C. RX --------- --- Ampicillin <=2 S Cefazolin <=4 S Ceftriaxone <=0.25 S Ciprofloxacin <=0.25 S Gentamicin <=1 S Nitrofurantoin <=16 S Trimethoprim/Sulfamethoxazole <=20 S Assessment & Plan Assessment & Plan (1) Recurrent UTI: Code(s): N39.0 - Urinary tract infection, site not specified Category: Medical (2) FH: prostate carcinoma: Code(s): Z80.42 - Family history of malignant neoplasm of prostate Category: Medical (3) BPH (benign prostatic hyperplasia): Code(s): N40.0 - Benign prostatic hyperplasia without lower urinary tract symptoms Category: Medical Plan Cystoscopy possible bladder biopsy. Orders: Orders AMB Urinalysis Automated Today Z13.9 - Encounter for screening, unspecified Patient Instructions: The patient had an opportunity to ask questions regarding treatment plan. The patient expressed understanding and agreement with the above treatment plan. The patient is aware they should contact our office by phone for worsening of their current condition or the appearance of new symptoms. Compliance is encouraged with any medications and followup testing that is ordered. It is a privilege to be allowed the opportunity to participate in the urologic care of your patient. If you have any questions or concerns regarding treatment for the above conditions please do not hesitate to contact me. The office telephone contact is [phone]. This note is constructed in part using voice recognition software. While every effort has been made to ensure accuracy specialty person errors may have been included. Yours sincerely, Venkat Robles MD Coding Level of Care Code New Pt Level 4 (74787) Diagnoses Recurrent UTI N39.0 FH: prostate carcinoma Z80.42 BPH (benign prostatic hyperplasia) N40.0
== END 2024-01-21 16:09 | disposition home or self-care (01) ==
PROVIDERS: PCP Internal Medicine; Visit Provider Urology
DX: N39.0 Urinary tract infection, site not specified (principal); Z80.42 Family history of malignant neoplasm of prostate; N40.0 Benign prostatic hyperplasia without lower urinary tract symptoms
CPT/HCPCS: 99204

== ENCOUNTER → 2024-01-21 14:35 | Outpatient (BNVA) | payer OTHER, SELFPAY | PROVIDERS: PCP Internal Medicine; Visit Provider Urology | DX: N40.0 Benign prostatic hyperplasia without lower urinary tract symptoms (principal); N39.0 Urinary tract infection, site not specified; Z80.42 Family history of malignant neoplasm of prostate | CPT/HCPCS: 81003; 99202 ==

== ENCOUNTER 2024-02-03 09:51 | Day surgery (SDC) | payer OTHER, SELFPAY ==
--- NOTE | 2024-02-02 09:14 | P.CONAN_ITS ---
Documented by User: Anju Stein NP 02/02/24 13:31 HPI - Anesthesia Eval Consult details Narrative: 53yo M for Cystoscopy & Bladder Biopsy Pituitary adenoma causing diabetes, hypothyroidism, diabetes insipidus, and hypogonadism. Follows neuroendocrinology [facility] [place]. Last office visit 08/2023. *Prednisone 4mg daily* PMFSH Active Problems Active Problems: All Active Problems BPH (benign prostatic hyperplasia) (Acute) FH: prostate carcinoma (Acute) Recurrent UTI (Acute) Prostatic hypertrophy (Acute) Encounter for general adult medical examination with abnormal findings (Acute) Dysuria (Acute) Crackling sound in ear (Acute) 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 (Acute) Acute pneumonia (Acute) Chest congestion (Acute) Other specified hypothyroidism (Acute) Daytime somnolence (Acute) Snoring (Acute) Pruritic condition (Acute) Itch of eye (Acute) Facial dermatitis (Acute) Cellulitis, face (Acute) Diabetes insipidus (Acute) Pituitary adenoma (Acute) Acute hyperglycemia (Acute) Intracranial mass (Acute) New onset type 2 diabetes mellitus (Acute) Encounter for screening colonoscopy (Acute) Blurred vision, left eye (Acute) Lipid disorder (Acute) Right retinal artery branch occlusion (Acute) Hypertension, essential (Acute) Carotid stenosis, bilateral (Acute) Morbid obesity due to excess calories (Acute) Blind right eye (Acute) Elevated blood pressure reading (Acute) Hospital discharge follow-up (Acute) Headache syndrome (Acute) Dissection of right carotid artery (Acute) Encounter for screening for COVID-19 (Acute) Atopic dermatitis (Acute) Tinea pedis (Acute) Cellulitis of foot (Acute) Panhypopituitarism (Acute) Pituitary tumor (Acute) Primary central diabetes insipidus (Acute) Central hypothyroidism (Acute) Migraine headache (Acute) Rash (Acute) Past Medical History Medical History (Updated 02/02/24 @ 07:50 by Humaira Pantoja RN) Carotid stenosis Blind right eye Panhypopituitarism Pituitary tumor History of lumbar puncture Central hypothyroidism Primary central diabetes insipidus Migraine headache Rash Family History Family History Brother Brain cancer Family history of problems with anesthesia: No Surgical History Surgical History (Updated 02/03/24 @ 10:22 by Bridgette Curiel RN) H/O wisdom tooth extraction History of surgery History of Problems with Anesthesia: No Social History Social History Household Members: None Household Members Other:: 1 Housing: House Are you a primary critical care physician to a significant other at home: No Do you presently have visiting nurse or other home services: No Alcohol intake: current Alcohol intake frequency: does not drink Alcohol type: beer Patient Tobacco Use Status: Current everyday Tobacco user Tobacco use type: Cigarette Cigarettes Per Day: 6 Years Smoked: 20 years e-Cigarette/Vaping Use: Never Used Use of substances other than those prescribed or required for medical reasons: Yes Substance Use Type: Marijuana Are you DNR?: No Advance Directives: No Advance Directives Information Provided: Yes Advance Directives on File: No Recently lost weight without trying: No Nutrition Risks: No Nutritional Risk Poor oral hygiene: No service: No Current occupational status: unemployed and disabled Cognitive needs: No Hearing needs: No Vision needs: Yes Meds Allergies Allergy/AdvReac Type Severity Reaction Status Date / Time No Known Allergies Allergy Verified 01/21/24 15:00 Home Medications ?Medication ?Instructions ?Recorded ?Confirmed ?Last Taken ?Type blood sugar diagnostic (FreeStyle #10 ea 02/28/22 01/21/24 Unknown History Lite Strips) blood-glucose meter (FreeStyle #1 ea 02/28/22 01/21/24 Unknown History Lite Meter kit) lancets 28 gauge (FreeStyle #100 ea 02/28/22 01/21/24 Unknown History Lancets) levothyroxine 112 mcg tablet 112 mcg PO DAILY 11/20/23 02/03/24 02/03/24 History testosterone 1 % (50 mg/5 gram) 2 packet transdermal DAILY 11/20/23 01/21/24 Unknown History transdermal gel packet prednisone 1 mg tablet 4 mg PO QAM 02/02/24 02/03/24 02/03/24 History Exam Pertinent Lab Results Pertinent Lab Results: Laboratory Tests 01/12/24 12:45 WBC 6.5 Hgb 14.3 Hct 42.5 Plt Count 220 D Sodium 136 Potassium 3.5 Chloride 105 Carbon Dioxide 22 BUN 9 Creatinine 1.03 Assessment and Plan Assessment Anesthesia Assessment: Chart Reviewed Final Anesthetic Review Family History of Problems with Anesthesia: No History of Problems with Anesthesia: No Documented by User: Tevin Matamoros MD 02/03/24 12:21 PMFSH Past Medical History Medical History (Updated 02/02/24 @ 07:50 by Humaira Pantoja, [place]) Carotid stenosis Blind right eye Panhypopituitarism Pituitary tumor History of lumbar puncture Central hypothyroidism Primary central diabetes insipidus Migraine headache Rash Family History Family History Brother Brain cancer Surgical History Surgical History (Updated 02/03/24 @ 10:22 by Bridgette Curiel RN) H/O wisdom tooth extraction History of surgery Social History Social History Household Members: None Household Members Other:: 1 Housing: House Are you a primary critical care physician to a significant other at home: No Do you presently have visiting nurse or other home services: No Alcohol intake: current Alcohol intake frequency: does not drink Alcohol type: beer Patient Tobacco Use Status: Current everyday Tobacco user Tobacco use type: Cigarette Cigarettes Per Day: 6 Years Smoked: 20 years e-Cigarette/Vaping Use: Never Used Use of substances other than those prescribed or required for medical reasons: Yes Substance Use Type: Marijuana Are you DNR?: No Advance Directives: No Advance Directives Information Provided: Yes Advance Directives on File: No Recently lost weight without trying: No Nutrition Risks: No Nutritional Risk Poor oral hygiene: No service: No Current occupational status: unemployed and disabled Cognitive needs: No Hearing needs: No Vision needs: Yes Meds Allergies Allergy/AdvReac Type Severity Reaction Status Date / Time No Known Allergies Allergy Verified 01/21/24 15:00 Home Medications ?Medication ?Instructions ?Recorded ?Confirmed ?Last Taken ?Type blood sugar diagnostic (FreeStyle #10 ea 02/28/22 01/21/24 Unknown History Lite Strips) blood-glucose meter (FreeStyle #1 ea 02/28/22 01/21/24 Unknown History Lite Meter kit) lancets 28 gauge (FreeStyle #100 ea 02/28/22 01/21/24 Unknown History Lancets) levothyroxine 112 mcg tablet 112 mcg PO DAILY 11/20/23 02/03/24 02/03/24 History testosterone 1 % (50 mg/5 gram) 2 packet transdermal DAILY 11/20/23 01/21/24 Unknown History transdermal gel packet prednisone 1 mg tablet 4 mg PO QAM 02/02/24 02/03/24 02/03/24 History Exam Airway Mallampati Class: III TM Dist: <=3cm Neck ROM: Full Loose/Missing/Broken Teeth: No Heart: ok Lungs: ok Assessment and Plan Assessment Anesthesia Assessment: Anesthesia Plan Discussed Final Anesthetic Review NPO: Yes ASA Class: III Final Preanesthetic Review: No Changes in Pt Med Stat, Meds/Allgs Chart Reviewed, Consent Obtained/Reviewed and Anes Risks/Benef Reviewed Patient Risk: High Procedure Risk: Low Anesthetic Plan Anesthetic Plan: GA and Agree w/ Assess. and Plan Disposition: Standard PACU
[2024-02-03 10:23] VITALS: BMI 43.4
[2024-02-03 10:45] VITALS: BP 119/67; PULSE 85; RESP 16; TEMP 36.9; O2SAT 97
[2024-02-03 10:56] LABS: Glucose, Whole Blood 117 mg/dL (60-115)
[2024-02-03] MEDS: Lactated Ringers 1,000 ML 100 ML IVCONT (10:57)
--- NOTE | 2024-02-03 12:28 | MHC.SHP ---
Pre-Procedural Eval Section A - 24 Hr Update-Section A only Date of Service: 02/03/24 The patient is an INPATIENT: No The patient has been examined within 24 hours of the surgical procedure. The History & Physical has been completed within 30 days and I have reviewed it.: Yes Section B - Complete if H&P > 30 days Chief Complaint: Urinary tract infection, site not specified Allergies: Allergies Allergy/AdvReac Type Severity Reaction Status Date / Time No Known Allergies Allergy Verified 01/21/24 15:00 Plan Diagnosis/Plan: Unchanged I have reviewed the history and physical and performed a pertinent physical examination on my patient. No changes have occurred unless specified. Cystoscopy. Possible bladder biopsies. Discussed risks to include but not limited to, blood in the urine, burning with urination, urgency. Time Spent With Patient Time: Total time managing care of this patient today ____ minutes.
--- NOTE | 2024-02-03 13:06 | W.PM.OPN ---
Operative Note Operative Note Date of Service: 02/03/24 Narrative: PREOP DIAGNOSIS: Microscopic Hematuria, Recurrent UTIs, history of nicotine use POSTOP DIAGNOSIS: Microscopic Hematuria, Recurrent UTIs, history of nicotine use PROCEDURE: CYSTOSCOPY SURGEON: Venkat Robles MD ANESTHESIA: General Findings: Obstructive prostate no suspicious bladder lesions visualized. Details of procedure: The patient was brought into the operating room placed on the OR table in supine position. 2 g of Ancef IV. General anesthesia was administered. The patient was repositioned into lithotomy position, prepped and draped in the usual sterile fashion. Time-out was done per protocol. A 22 fr cystoscope was placed transurethrally into the bladder. The bulbous urethra was within normal limits. The prostatic urethra was obstructing with a high median lobe. The right and left ureteral orifices were visualized. The entire bladder was visualized with both a 30 degree lens and a 70 degree lens. There were no suspicious bladder lesions seen. The cystoscope was removed. 2% lidocaine urojet was passed transurethrally into the bladder. The patient was brought out of anesthesia and taken to recovery in stable condition. Complications: None EBL: Minimal Drains: None
[2024-02-03 13:08] VITALS: BP 112/80; PULSE 76; RESP 18; TEMP 36.6; O2SAT 94
[2024-02-03 13:13] VITALS: BP 104/61; PULSE 72; RESP 16; O2SAT 96
[2024-02-03 13:18] VITALS: BP 105/73; PULSE 71; RESP 16; O2SAT 96
[2024-02-03] MEDS: Phenazopyridine HCL 200 MG TABLET PO (13:20)
[2024-02-03] MEDS: oxyCODONE HCl Immed Release 5 MG TABLET PO (13:20)
[2024-02-03] MEDS: Acetaminophen 325 MG TABLET 975 MG PO (13:21)
[2024-02-03 13:23] VITALS: BP 107/64; PULSE 67; RESP 16; O2SAT 97
[2024-02-03 13:38] VITALS: BP 109/73; PULSE 65; RESP 20; TEMP 36.1; O2SAT 98
== END 2024-02-03 14:05 | disposition home or self-care (01) ==
PROVIDERS: PCP Internal Medicine; Visit Provider Urology
PROC: (CPT 52000; principal; 2024-02-03 12:10)
DX: N40.1 Benign prostatic hyperplasia with lower urinary tract symptoms (principal); R31.29 Other microscopic hematuria; R30.0 Dysuria; N39.0 Urinary tract infection, site not specified; I10 Essential (primary) hypertension; E23.2 Diabetes insipidus; E23.0 Hypopituitarism; E03.8 Other specified hypothyroidism; R21 Rash and other nonspecific skin eruption; G43.909 Migraine, unspecified, not intractable, without status migrainosus; Z80.8 Family history of malignant neoplasm of other organs or systems; Z80.42 Family history of malignant neoplasm of prostate; Z80.52 Family history of malignant neoplasm of bladder; Z79.52 Long term (current) use of systemic steroids; Z79.899 Other long term (current) drug therapy; Z87.891 Personal history of nicotine dependence; Z98.890 Other specified postprocedural states
CPT/HCPCS: 52000; 82947; J0690; J2003; J2704; J3010

== ENCOUNTER → 2024-02-03 09:51 | Outpatient (BNV) | payer OTHER, SELFPAY | PROVIDERS: PCP Internal Medicine; Visit Provider Urology | DX: R31.29 Other microscopic hematuria (principal); N39.0 Urinary tract infection, site not specified | CPT/HCPCS: 52000 ==

== ENCOUNTER 2024-02-20 15:21 | Outpatient (AMB) | payer OTHER, SELFPAY ==
--- NOTE | 2024-02-20 02:49 | MHC.OFFVIS ---
Intake Visit Reasons: Follow up outpatient cystoscopy Intake Note: Patient is present for BLADDER BIOPSY F/U Urology Medication:TAMSULOSIN Antibiotic Allergy:NONE Blood Thinner:NONE Data Report Analyst Required: No Allergies No Known Allergies Allergy (Verified 02/20/24 15:23) HPI Comments Details: 02/20/24-- 53-year-old male with past medical history of diabetes, hypertension initially evaluated on 01/21/24 for UTI and dysuria. Patient states that he was diagnosed with a UTI 2 months ago and he was treated with antibiotics with resolution of symptoms. Nicotine use over 20 years. He is here in fu post outpatient cystoscopy. Discussed with patient that bladder mucosa was within normal limits, no suspicious lesions, no biopsy was needed. FU in one year. PSA prior. Review of chart 01/21/24--53-year-old male with past medical history of diabetes, hypertension presented to ED for dysuria. Patient states that he was diagnosed with a UTI 2 months ago and he was treated with antibiotics with resolution of symptoms. Nicotine use over 20 years. Father prostate cancer approx age 55 - Sister--age 63-- bladder cancer --. 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 He is currently on prednisone 5 mg daily and rituximab infusions as well as IVIG PSA 03/05/23--0.41. [facility] Medical History (Updated 02/02/24 @ 07:50 by Humaira Pantoja RN) Carotid stenosis Blind right eye Panhypopituitarism Pituitary tumor History of lumbar puncture Central hypothyroidism Primary central diabetes insipidus Migraine headache Rash Surgical History (Updated 02/03/24 @ 10:22 by Bridgette Curiel RN) H/O wisdom tooth extraction History of surgery Family History Brother Brain cancer Social History Household Members: None Household Members Other:: 1 Housing: House Are you a primary residential care officer to a significant other at home: No Do you presently have visiting nurse or other home services: No Alcohol intake: current Alcohol intake frequency: does not drink Alcohol type: beer Patient Tobacco Use Status: Current everyday Tobacco user Tobacco use type: Cigarette Cigarettes Per Day: 6 Years Smoked: 20 years e-Cigarette/Vaping Use: Never Used Substance Use Type: Marijuana service: No Current occupational status: unemployed and disabled Cognitive needs: No Hearing needs: No Vision needs: Yes Review of Systems Const All systems reviewed & are unremarkable except as noted in HPI and below Reports no additional complaints Eyes Reports no additional complaints ENT Reports no additional complaints Card Reports no additional complaints Resp Reports no additional complaints GI Reports no additional complaints Reports as per HPI Musc Reports no additional complaints Skin/Breast Reports system reviewed and no additional complaints, except as documented Neuro Reports no additional complaints Psych Reports no additional complaints Endo Reports no additional complaints Zaheer/Lymph Reports no additional complaints Aller/Immun Reports no additional complaints Telehealth Telehealth Telehealth Platform: Jeeran Location of provider rendering services: practice address Location of patient: address on file Patient Identification confirmed using: Name, : Yes Telehealth method: video Patient verbally consented to treatment: Yes Patient verbally consented to billing insurance company: Yes Patient informed of any privacy concerns related to visit: Yes Results Reviewed Results Reviewed: Date of Service: 01/12/24 CT ABDOMEN AND PELVIS WITH CONTRAST CLINICAL INFORMATION: Right flank and right lower quadrant pain. COMPARISON: CT abdomen/pelvis 03/29/2022. TECHNIQUE: Multidetector volumetric images were obtained from the superior aspect of the liver through the pubic symphysis following administration 85 mL of Omnipaque 350 intravenous contrast. Sagittal and coronal reformatted images were obtained on the technologist's workstation. Oral contrast: No This CT examination was performed using dose optimization techniques as appropriate, variously including the following: *Automated exposure control *Adjustment of mA and/or kV according to patient size (this includes techniques or standardized protocols for targeted exams where dose is matched to indication/reason for exam; i.e. extremities or head) *Use of iterative reconstruction technique DLP: 1065 mGy-cm FINDINGS: LUNG BASES: The visualized lung bases are unremarkable. LIVER, GALLBLADDER, AND BILIARY TREE: Decreased attenuation of the liver parenchyma consistent with hepatic steatosis. No focal hepatic lesion or biliary ductal dilatation is present. Gallbladder calculi without gallbladder wall thickening, or obvious pericholecystic inflammatory changes. PANCREAS: Unremarkable. SPLEEN: Unremarkable. ADRENAL GLANDS: Unremarkable. KIDNEYS AND URETERS: The kidneys are normal in size, shape, and attenuation. Simple appearing cyst in the upper pole of the left kidney for which no imaging follow-up is recommended. No hydronephrosis, hydroureter, or calculi seen. No perinephric stranding. BLADDER: Diffuse urinary bladder wall thickening with mild perivesical fat stranding. GASTROINTESTINAL TRACT: The stomach and the small bowel are nondilated. Normal appendix. Colonic diverticulosis without significant pericolonic inflammatory changes. Submucosal fatty deposition of the right hemicolon that could be related with patient body habitus or chronic inflammatory disease. ABDOMINAL WALL: No significant hernia is appreciated. LYMPH NODES: Increased size of a prominent periportal lymph node measuring 1.1 cm in short axis (3:25) previously 0.7 cm. VASCULAR: Normal caliber abdominal aorta. PELVIC VISCERA: Unremarkable. OSSEOUS STRUCTURES: No acute or aggressive appearing osseous findings. Degenerative changes of the spine. IMPRESSION: 1. Diffuse urinary bladder wall thickening with mild perivesical fat stranding suggesting cystitis. Correlate with urinalysis. 2. Hepatic steatosis. 3. Cholelithiasis without evidence of acute cholecystitis. 4. Diverticulosis but no evidence of acute diverticulitis. 5. Increased size of a prominent periportal lymph node, most likely reactive. Attention on follow-up in future examinations recommended. Collected: 01/12/24-UNK Status: COMP Req#: [id number] Received: 01/12/24 Source: [facility] Desc: Clean Cat Subm Dr: Generic ED Physician Ordered: Urine Culture Procedure Result Verified Urine Culture Final 01/14/24 Organism 1 Escherichia coli Quant > 100,000 cfu/mL E coli M.I.C. RX --------- --- Ampicillin <=2 S Cefazolin <=4 S Ceftriaxone <=0.25 S Ciprofloxacin <=0.25 S Gentamicin <=1 S Nitrofurantoin <=16 S Trimethoprim/Sulfamethoxazole <=20 S Assessment & Plan Assessment & Plan (1) Recurrent UTI: Code(s): N39.0 - Urinary tract infection, site not specified Category: Medical (2) FH: prostate carcinoma: Code(s): Z80.42 - Family history of malignant neoplasm of prostate Category: Medical (3) BPH (benign prostatic hyperplasia): Code(s): N40.0 - Benign prostatic hyperplasia without lower urinary tract symptoms Category: Medical Plan monitor PSA fu one year Patient Instructions: The patient had an opportunity to ask questions regarding treatment plan. The patient expressed understanding and agreement with the above treatment plan. The patient is aware they should contact our office by phone for worsening of their current condition or the appearance of new symptoms. Compliance is encouraged with any medications and followup testing that is ordered. It is a privilege to be allowed the opportunity to participate in the urologic care of your patient. If you have any questions or concerns regarding treatment for the above conditions please do not hesitate to contact me. The office telephone contact is [phone]. This note is constructed in part using voice recognition software. While every effort has been made to ensure accuracy amalgamator errors may have been included. Yours sincerely, Venkat Robles MD Coding Level of Care Code Tele Est Pt Level 4 (29404) Diagnoses Recurrent UTI N39.0 FH: prostate carcinoma Z80.42 BPH (benign prostatic hyperplasia) N40.0
== END 2024-02-20 16:27 | disposition home or self-care (01) ==
LOC: HO.HUSH 15:21
PROVIDERS: PCP Internal Medicine; Visit Provider Urology
DX: N39.0 Urinary tract infection, site not specified (principal); Z80.42 Family history of malignant neoplasm of prostate; N40.0 Benign prostatic hyperplasia without lower urinary tract symptoms
CPT/HCPCS: 99214

== ENCOUNTER → 2024-02-20 15:21 | Outpatient (BNVA) | payer OTHER, SELFPAY | PROVIDERS: PCP Internal Medicine; Visit Provider Urology ==

== ENCOUNTER 2024-12-14 13:03 | Outpatient (REF) | payer MEDICARE, SELFPAY ==
[2024-12-14 16:20] LABS: MANUAL DIFF FLAG NO
[2024-12-14 16:24] LABS: Hematocrit 45.5 % (42.0-52.0); Hemoglobin 15.5 g/dl (14.0-18.0); Imm Gran Abs Auto 0.02 X10*3/uL (0.00-0.03); Imm Gran Pct Auto 0.2 % (0.0-0.4); Lymphocytes Absolute Auto 2.2 X10*3/uL (1.2-4.9); Mean Corpuscular HGB Conc 34.1 g/dl (31.0-36.0); Mean Corpuscular Hemoglobin 28.9 pg (27.0-33.0); Mean Corpuscular Volume 84.7 fL (80.0-98.0); NRBC Abs Auto 0.000 X10*3/uL (0.0-0.012); NRBC Pct Auto 0.0 /100WBC (0.0-0.2); Platelet Count 301 X10*3/uL (160-400); Red Blood Count 5.37 X10*6/uL (4.60-5.80); White Blood Count 8.8 X10*3/uL (4.8-10.8)
[2024-12-14 16:33] LABS: Hemoglobin A1C 153.1156 umol/L
[2024-12-14 16:57] LABS: Albumin Level 4.3 g/dL (3.5-5.0); Alkaline Phosphatase 58 U/L (39-117); Anion Gap 11 (12-20); Aspartate Amino Transferase 48 U/L (5-37); Blood Urea Nitrogen 10 mg/dL (9-16); Calcium 9.2 mg/dL (8.4-10.2); Carbon Dioxide 23 mmol/L (22-29); Chloride 112 mmol/L (96-108); Estimated Glomerular Filt Rate > 60; Potassium 4.1 mmol/L (3.3-5.1); Sodium 142 mmol/L (135-145); Total Protein 7.2 g/dL (6.5-8.0)
[2024-12-14 17:03] LABS: Alanine Aminotransferase 54 U/L (0-40)
[2024-12-14 17:09] LABS: Prostate Specific Antigen 2.68 ng/mL (<0.05-4.0); Vitamin B12 347 pg/mL (200-900)
[2024-12-14 18:51] LABS: Free T4 (Free Thyroxine) 1.20 ng/dL (0.71-1.85)
[2024-12-20 20:13] LABS: Vitamin D 25-OH, D2 <4 ng/mL; Vitamin D 25-OH, D3 38 ng/mL; Vitamin D 25-OH, Total 38 ng/mL (30-100)
== END 2024-12-14 13:04 | disposition home or self-care (01) ==
LOC: HO.HMGCLDS 13:03
PROVIDERS: PCP Internal Medicine; Visit Provider Internal Medicine
DX: Z00.01 Encounter for general adult medical examination with abnormal findings (principal); Z12.5 Encounter for screening for malignant neoplasm of prostate; I10 Essential (primary) hypertension; E11.9 Type 2 diabetes mellitus without complications; E03.8 Other specified hypothyroidism; E23.2 Diabetes insipidus; N40.0 Benign prostatic hyperplasia without lower urinary tract symptoms; H53.8 Other visual disturbances; H54.3 Unqualified visual loss, both eyes; D35.2 Benign neoplasm of pituitary gland; E23.0 Hypopituitarism; K80.20 Calculus of gallbladder without cholecystitis without obstruction; K57.90 Diverticulosis of intestine, part unspecified, without perforation or abscess without bleeding; E66.01 Morbid (severe) obesity due to excess calories; Z68.42 Body mass index [BMI] 45.0-49.9, adult; Z71.3 Dietary counseling and surveillance
CPT/HCPCS: 36415; 80053; 82306; 82607; 83036; 83721; 84153; 84403; 84439; 84443; 85025; 96127; 99212

== ENCOUNTER 2024-12-14 13:03 | Outpatient (AMB) | payer MEDICARE, MEDICAID, SELFPAY ==
[2024-12-14 13:21] VITALS: BP 112/78; PULSE 76; O2SAT 97; BMI 45.6
--- NOTE | 2024-12-14 13:21 | A.OFFPC_ITS ---
Vital Signs 12/14/24 13:21 Height 5 ft 5 in Weight 274 lb BMI 45.6 BP 112/78 Blood Pressure Location Lt brachial Position Sitting Pulse 76 Pulse Source Pulse Oximeter Pulse Oximetry (%) 97 Oxygen Delivery Method Room Air Intake Visit Reasons: Annual visit- A1C needed Allergies No Known Allergies Allergy (Verified 12/14/24 13:22) Medication List - Last Reconciled 12/14/24 by Ulisses Whitmore MD acetaminophen (Tylenol) 325 mg PO Q6H 90 days blood sugar diagnostic (FreeStyle Lite Strips) As directed blood-glucose meter (FreeStyle Lite Meter kit) As directed desmopressin 0.1 mg orally Take 1 tablet in the morning a half a tablet every evening; lancets (FreeStyle Lancets) As directed levothyroxine 112 mcg PO DAILY prednisone 4 mg PO QAM tamsulosin (Flomax) 0.4 mg PO BEDTIME testosterone 2 packets transdermal DAILY Tobacco use date assessed: 12/14/24 Dental Screening Dental Screen Date: 12/14/24 Did you have a dental visit in the last 12 months?: Yes Did you have a dental problem in the last 6 months where you did not have access to dental care?: No Was dental information given to patient?: Patient has dentist HPI Annual visit- A1C needed HPI Details Physical exam appointment The patient is a 54-year-old male presenting for a routine visit and management of chronic health conditions. Pituitary Adenoma: - The patient has a history of a pituita ry adenoma that has led to multiple hormonal imbalances. 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 Hypothyroidism: - The patient is on levothyroxine treatm ent for hypothyroidism as part of the hormonal imbalances associated with the pituitary adenoma. Diabetes Insipidus: - The patient manages this condition wit h desmopressin and experiences related challenges with the disorder. 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 Blindness in the right eye: - Disability due to blindness, managemen t includes regular consultations with a neuro-rare/endangered species specialist. Blurred vision in the left eye: - Progressive blurriness is monitored by specialists. Obesity: - The patient acknowledges obesity and f inds weight loss challenging. Osteoporosis: - The patient received treatment for os teoporosis by healthcare provider. Benign Prostatic Hyperplasia: - Managed with tamsulosin for symptomati c control; the patient monitors symptoms. Cholelithiasis: - Not currently symptomatic; the gallbla dder remains intact. Diverticulosis: - stable Urinary Bladder Wall Thickening: - Noted on a CT scan performed in [facility] er [facility]; no acute concerns at present. Medical History: - Pituitary Adenoma - Diabetes Mellitus secondary to pituita ry dysfunction - Hypothyroidism - Diabetes Insipidus - Hypergonadotropic Hypogonadism - Osteoporosis - Obesity - Benign Prostatic Hyperplasia - Cholelithiasis - Diverticulosis - Urinary Bladder Wall Thickening Social History: - The patient is currently on disability due to blindness. - Lives with his daughter, who assists w ith cooking and cleaning. - The patient manages medication indepen dently. - Difficulty traveling due to vision imp airment and relies on assistance from his ex-partner. Health Maintenance - Cologuard test was discussed but not c ompleted last year patient never returned it; the patient was advised on how to use the test and plans to complete it. - Vaccinations: The patient has received the shingles vaccine and expressed willingness to receive the flu vaccine. [place] of Care - Dr. Wheatley (Machine Erector previously seen) - Dr. Gunter (Current Machine Erector) - Dr. Malone (Neuro-rare/endangered species specialist) - Daughter (Caregiver and resident in [facility] same household) Medications - Desmopressin for Diabetes Insipidus - Levothyroxine for Hypothyroidism - Prednisone (specific indication not sp ecified) - Tamsulosin for Benign Prostatic Hyperp lasia - Testosterone for Hypergonadotropic Hyp ogonadism Patient Instructions - Complete the Cologuard test as instruc prince and mail the sample for analysis. - Discuss potential gallbladder removal if cholelithiasis becomes symptomatic. - Continue current medications as prescr ibed. - Monitor health with regular follow-ups with specialists as planned. labs to be done f.u 1 year or earlier after labs Review of Systems - General: No fever no chills - Neurological: No headaches no dizzin ess - Ear nose throat: No sore throat no hearing difficulty no ear pain - Cardiovascular: No syncope, no chest pain, no palpitations - Gastrointestinal: No nausea vomiting or diarrhea - Skin: No new complaints Physical Exam General: Cooperative, healthy appearing, comfortable, no acute distress, particularly obese Orientation: Patient oriented x3 Head: Normal to inspection Ears: Within normal limit visually Nose: Normal external nose present Face and sinus: Normal facial exam Eyes: Blindness in right eye, left eye blurry Neck: Normal visual inspection and supple Respiratory: Normal respiratory effort and able to speak in complete sentences. Clear to auscultation, no stridor Cardiovascular: S1 and S2 RRR GI: Normal to inspection. Soft to palpation and nontender Skin: Turgor normal, no acute findings Neuro: Patient oriented x3, motor intact , risk for fall Extremities: Normal to inspection, slight puffiness noted of right ankle PFSH Medical History Carotid stenosis Blind right eye Panhypopituitarism Pituitary tumor History of lumbar puncture Central hypothyroidism Primary central diabetes insipidus Migraine headache Rash Surgical History H/O wisdom tooth extraction History of surgery Family History Brother Brain cancer Social History Household Members: None Household Members Other:: 1 Housing: House Are you a primary wound care technician to a significant other at home: No Do you presently have visiting nurse or other home services: No Alcohol intake: current Alcohol intake frequency: does not drink Alcohol type: beer Patient Tobacco Use Status: Current everyday Tobacco user Tobacco use type: Cigarette Cigarettes Per Day: 6 Years Smoked: 20 years e-Cigarette/Vaping Use: Never Used Substance Use Type: Marijuana service: No Current occupational status: unemployed and disabled Cognitive needs: No Hearing needs: No Vision needs: Yes Questionnaire PHQ-9 Over the last 2 weeks, how often have you been bothered by any of the following problems? 1. Little interest or pleasure in doing things: not at all 2. Feeling down, depressed, or hopeless: not at all 3. Trouble falling or staying asleep, or sleeping too much: not at all 4. Feeling tired or having little energy: not at all 5. Poor appetite or overeating: not at all 6. Feeling bad about yourself - or that you are a failure or have let yourself or your family down: not at all 7. Trouble concentrating on things, such as reading the newspaper or watching television: not at all 8. Moving or speaking so slowly that other people could have noticed. Or the opposite - being so fidgety or restless that you have been moving around a lot more than usual: not at all 9. Thoughts that you would be better off or of hurting yourself in some way: not at all Total score: 0 Depression Screening Interpretation: Negative Depression Screening Done: Yes 98093 - PHQ-9 Billing: Yes Source: Developed by Drs. Alfred Duran, Ivanna Samayoa, Jermain Sue and colleagues, with an educational alli from [employer]. Thrive Questionnaire Date Thrive assessed: 12/14/24 I am a: Patient What is your living situation today?: I have a steady place to live Within the past 12 months, did the food you bought not last and you didn't have the money to get more?: Never true Within the past 12 months, did you worry whether your food would run out before you got money to buy more?: Never true Do you have trouble paying for medicines?: No Do you have trouble getting transportation to medical appointments?: No Do you have trouble paying your heating and electricity bill?: No Do you have trouble taking care of your child, family member or friend?: No Do you have trouble with day-to-day activities such as bathing, preparing meals, shopping, managing finances, etc.?: No Are you currently unemployed and looking for a job?: No Are you interested in more education?: No Please select the resources that you would like help with: None Currently or been in a relationship where the following occur: No concerns reported THRIVE Score: 0 AUDIT C Alcohol Use Questionnaire (AUDIT-C) 1. How often do you have a drink containing alcohol?: Never 3. How often do you have six or more drinks on one occasion?: Never Total Score: 0 Score Reviewed/Action Taken: Yes RAMONA-7 AMB Questionnaire RAMONA-7 Date RAMONA - 7 assessed: 12/14/24 Feeling nervous, anxious, or on edge: 0 = Not at all Not being able to stop or control worryin = Not at all Worrying too much about different things: 0 = Not at all Trouble relaxin = Not at all Being so restless that it is hard to sit still: 0 = Not at all Becoming easily annoyed or irritable: 0 = Not at all Feeling afraid as if something awful might happen: 0 = Not at all Total RAMONA-7 score (0-4 normal; 5-9 mild; 10-14 moderate; 15-21 severe): 0 Source: Developed by Drs. Alfred Duran, Ivanna Samayoa, Jermain Sue and colleagues, with an educational alli from [employer]. RAMONA-7 Assessment Billing RAMONA-7 Assessment Tool: RAMONA-7 Assessment 50001 Physical exam (Primary Care) Vital Signs: Last Vital Signs Pulse 76 12/14/24 13:21 BP 112/78 12/14/24 13:21 Pulse Ox 97 12/14/24 13:21 Oxygen Delivery Method Room Air 12/14/24 13:21 BMI result Body Mass Index 45.6 Tobacco/Smoking Status: Tobacco use Status Tobacco use date assessed 12/14/24 12/14/24 13:23 Patient Tobacco Use Status Current everyday Tobacco 12/14/24 13:23 Tobacco use type Cigarette 12/14/24 13:23 e-Cigarette/Vaping Use Never Used 12/14/24 13:23 PHQ-9: PHQ-9 Score PHQ-9: Total score 0 12/14/24 16:00 Depression Screening Interpretation: Negative Thrive Assessment: Date of Thrive Assessment Date Thrive assessed 12/14/24 12/14/24 13:23 Currently or been in a relationship where the following occur: No concerns reported Coding Level of Care Code Est Pt Level 4 (30108) Est Pt Prev Care 40-64y(16913) Diagnoses Encounter for general adult medical examination with abnormal findings Z00.01 Hypertension, essential I10 New onset type 2 diabetes mellitus E11.9 Central hypothyroidism E03.8 Panhypopituitarism E23.0 Morbid obesity due to excess calories E66.01 Diabetes insipidus E23.2 Prostatic hypertrophy N40.0 Blurred vision, left eye H53.8 Blindness of right eye with category 3 blindness of left eye H54.3 Left eye visual impairment category: left - category 3 Pituitary adenoma D35.2 Gall stones K80.20 Diverticulosis K57.90 Skin cancer screening Z12.83 Additional Codes RAMONA-7 Assessment Billing - RAMONA-7 Assessment Tool: RAMONA-7 Assessment 12822 ([id number]) PHQ-9 - 52723 - PHQ-9 Billing: Yes ([id number]) Assessment & Plan Assessment & Plan (1) Encounter for general adult medical examination with abnormal findings: Code(s): Z00.01 - Encounter for general adult medical examination with abnormal findings Category: Medical (2) Hypertension, essential: Code(s): I10 - Essential (primary) hypertension Category: Medical (3) New onset type 2 diabetes mellitus: Code(s): E11.9 - Type 2 diabetes mellitus without complications Category: Medical (4) Central hypothyroidism: Code(s): E03.8 - Other specified hypothyroidism Category: Medical (5) Panhypopituitarism: Code(s): E23.0 - Hypopituitarism Category: Medical (6) Morbid obesity due to excess calories: Code(s): E66.01 - Morbid (severe) obesity due to excess calories Category: Medical (7) Diabetes insipidus: Code(s): E23.2 - Diabetes insipidus Category: Medical (8) Prostatic hypertrophy: Code(s): N40.0 - Benign prostatic hyperplasia without lower urinary tract symptoms Category: Medical (9) Blurred vision, left eye: Code(s): H53.8 - Other visual disturbances Category: Medical (10) Blind right eye: Code(s): H54.40 - Blindness, one eye, unspecified eye Category: Medical Qualifiers: Left eye visual impairment category: left - category 3 Qualified Code(s): H54.3 - Unqualified visual loss, both eyes (11) Pituitary adenoma: Code(s): D35.2 - Benign neoplasm of pituitary gland Category: Medical (12) Gall stones: Code(s): K80.20 - Calculus of gallbladder without cholecystitis without obstruction Category: Medical (13) Diverticulosis: Code(s): K57.90 - Diverticulosis of intestine, part unspecified, without perforation or abscess without bleeding Category: Medical (14) Skin cancer screening: Code(s): Z12.83 - Encounter for screening for malignant neoplasm of skin Category: Medical Plan Physical exam appointment The patient is a 54-year-old male presenting for a routine visit and management of chronic health conditions. Pituitary Adenoma: - The patient has a history of a pituitary adenoma that has led to multiple hormonal imbalances. 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 Hypothyroidism: - The patient is on levothyroxine treatment for hypothyroidism as part of the ho rmonal imbalances associated with the pituitary adenoma. Diabetes Insipidus: - The patient manages this condition with desmopressin and experiences related challenges with the disorder. 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 Blindness in the right eye: - Disability due to blindness, management includes regular consultations with a neuro-rare/endangered species specialist. Blurred vision in the left eye: - Progressive blurriness is monitored by specialists. Obesity: - The patient acknowledges obesity and finds weight loss challenging. Osteoporosis: - The patient received treatment for osteoporosis by healthcare provider. Benign Prostatic Hyperplasia: - Managed with tamsulosin for symptomatic control; the patient monitors sy mptoms. Cholelithiasis: - Not currently symptomatic; the gallbladder remains intact. Diverticulosis: - stable Urinary Bladder Wall Thickening: - Noted on a CT scan performed in January 2024; no acute concerns at present. 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 - Lives with his daughter, who assists with cooking and cleaning. - The patient manages medication independently. - Difficulty traveling due to vision impairment and relies on assistance from his ex-partner. Health Maintenance - Cologuard test was discussed but not completed last year patient never returned it; the patient was advised on how to use the test and plans to complete it. - Vaccinations: The patient has received the shingles vaccine and expressed willingness to receive the flu vaccine. [place] of Care - Dr. Wheatley (Machine Erector previously seen) - Dr. Gunter (Current Machine Erector) - Dr. Malone (Neuro-rare/endangered species specialist) - Daughter (Caregiver and resident in the same household) Medications - Desmopressin for Diabetes Insipidus - Levothyroxine for Hypothyroidism - Prednisone (specific indication not specified) - Tamsulosin for Benign Prostatic Hyperplasia - Testosterone for Hypergonadotropic Hypogonadism Patient Instructions - Complete the Cologuard test as instructed and mail the sample for analysis. - Discuss potential gallbladder removal if cholelithiasis becomes symptomatic. - Continue current medications as prescribed. - Monitor health with regular follow-ups with specialists as planned. labs to be done f.u 1 year or earlier after labs Orders: Orders Hemoglobin A1c Today E03.8 - Other specified hypothyroidism, E11.9 - Type 2 diabetes mellitus without complications, E23.0 - Hypopituitarism, E23.2 - Diabetes insipidus, E66.01 - Morbid (severe) obesity due to excess calories, I10 - Essential (primary) hypertension Complete Blood Count Auto Diff Today E03.8 - Other specified hypothyroidism, E11.9 - Type 2 diabetes mellitus without complications, E23.0 - Hypopituitarism, E23.2 - Diabetes insipidus, E66.01 - Morbid (severe) obesity due to excess calories, I10 - Essential (primary) hypertension LDL Cholesterol Direct Today E03.8 - Other specified hypothyroidism, E11.9 - Type 2 diabetes mellitus without complications, E23.0 - Hypopituitarism, E23.2 - Diabetes insipidus, E66.01 - Morbid (severe) obesity due to excess calories, I10 - Essential (primary) hypertension Vitamin D 25-OH (D2 and D3) Today E03.8 - Other specified hypothyroidism, E11.9 - Type 2 diabetes mellitus without complications, E23.0 - Hypopituitarism, E23.2 - Diabetes insipidus, E66.01 - Morbid (severe) obesity due to excess calories, I10 - Essential (primary) hypertension Vitamin B12 Today E03.8 - Other specified hypothyroidism, E11.9 - Type 2 diabetes mellitus without complications, E23.0 - Hypopituitarism, E23.2 - Diabetes insipidus, E66.01 - Morbid (severe) obesity due to excess calories, I10 - Essential (primary) hypertension Prostate Specific Antigen Today N40.0 - Benign prostatic hyperplasia without lower urinary tract symptoms TSH reflex Free T4 Today E03.8 - Other specified hypothyroidism, E11.9 - Type 2 diabetes mellitus without complications, E23.0 - Hypopituitarism, E23.2 - Diabetes insipidus, E66.01 - Morbid (severe) obesity due to excess calories, I10 - Essential (primary) hypertension Comprehensive Met. Panel Today E03.8 - Other specified hypothyroidism, E11.9 - Type 2 diabetes mellitus without complications, E23.0 - Hypopituitarism, E23.2 - Diabetes insipidus, E66.01 - Morbid (severe) obesity due to excess calories, I10 - Essential (primary) hypertension Testosterone, Total Today E03.8 - Other specified hypothyroidism, E11.9 - Type 2 diabetes mellitus without complications, E23.0 - Hypopituitarism, E23.2 - Diabetes insipidus, E66.01 - Morbid (severe) obesity due to excess calories, I10 - Essential (primary) hypertension Referrals Dermatology Referral Z12.83 - Encounter for screening for malignant neoplasm of skin Cologuard Test Z12.11 - Encounter for screening for malignant neoplasm of colon, Z12.12 - Encounter for screening for malignant neoplasm of rectum
--- OUTSIDE RECORDS SUMMARY | 2024-12-14 16:59 | XMS_ITS | Encounter Summary ---
Author Organization [facility] Address [address] [place] [address] Phone Care Team Providers Care Aeronautical Design Engineer Name Role Phone Pcp, Unknown Primary Care Provider Ulisses Garg MD Primary Care Provider [phone] Encounter Details Date Type Department Care Team (Late st Contact Info) Description 03/14/[address] [facility] MRI, [address] [facility] [place] [address] Social History Tobacco Use Types Packs/Day Years Used Date Smoking Tobacco: Never Assessed Sex and Gender Information Value Date Recorded Sex Assigned at Male 02/03/2023 9:14 AM EST Legal Sex Male 9:11 AM EDT Gender Identity Male 02/03/2023 9:14 AM EST Sexual Orientation Straight 02/03/2023 9: 14 AM EST documented as of this encounter Plan of Treatment Upcoming Encounters Date Type Department Care Team (Late st Contact Info) Description 06/02/2025 1:30 PM EST Office Visit [facility] [address], [address] [place] [address] Abhilash Maddxo MD, PhD [address] [facility] [address] [place] [address] [email or web address] 09/21/2025 10:20 AM EDT Office Visit [facility] Rheumatology [address], [address] [place] [address] Giancarlo Bangura MD, MPH [address] [place] [address] [email or web address] documented as of this encounter Visit Diagnoses Not on filedocumented in this encounter Additional Health Concerns Infection Onset Date Last Indicated Resolved Time MRSA 03/13/2022 03/20/2022 03/19/2024 1:21 AM EST CoV-Risk Comment:Per note documentation 04/16/2022 04/16/2022 6:00 AM EST Influenza 04/16/2022 04/16/2022 04/24/2022 10:0 6 AM EST documented as of this encounter Care Teams Aeronautical Design Engineer Relationship Specialty Start Date End Date Pcp, Unknown PCP - General 11/23/21 03/20/22 Ulisses Whitmore MD [facility] [place] [address] PCP - General Internal Medicine 03/21/22 documented as of this encounter Additional Source Comments The information contained in this document represents components of the legal health record. It is not the complete legal health record.[facility]
--- OUTSIDE RECORDS SUMMARY | 2024-12-14 16:59 | XMS_ITS | Encounter Summary ---
Author Organization [facility] Address [address] [facility] [address] [place] [id number] Phone Care Team Providers Care Film Librarian Name Role Phone Pcp, Unknown Primary Care Provider Ulisses Garg MD Primary Care Provider [phone] Encounter Details Date Type Department Care Team (Late st Contact Info) Description 03/13/2022 Procedure Pass [facility] MRI, [address] [facility] [place] [address] Social History Tobacco Use Types Packs/Day Years Used Date Smoking Tobacco: Never Assessed Sex and Gender Information Value Date Recorded Sex Assigned at Male 02/03/2023 9:14 AM EST Legal Sex Male 9:11 AM EDT Gender Identity Male 02/03/2023 9:14 AM EST Sexual Orientation Straight 02/03/2023 9: 14 AM EST documented as of this encounter Functional Status * Calculated C-SSRS Risk Score (Lifetime/Recent) Answer Date of Assessment Author No Risk Indicated 03/13/2022 5:00 PM EST Melanie Puente, LEXA * [place] Suicide Severity Rating Scale (Screener/Recent Self-Report) Question Answer Date of Assessment Author 1. Wish to be (Past 1 Month) No 022 5:00 PM Melanie Yeh, RN 2. Non-Specific Active Suici nadege Thoughts (Past 1 Month) No 03/13/2022 5:00 PM Melanie Yeh , LEXA 6. Suicidal Behavior (Lifetime) No 2 5:00 PM EST Melanie Puente, RN documented as of this encounter Plan of Treatment Upcoming Encounters Date Type Department Care Team (Late st Contact Info) Description 06/02/2025 1:30 PM EST Office Visit [facility] Clinical Center [address] [facility], [address] [place] [address] Abhilash Maddox MD, PhD [address] [facility] [address] [place] [address] [email or web address] 09/21/2025 10:20 AM EDT Office Visit [facility] Rheumatology [address], [address] [place] [address] Giancarlo Bangura MD, MPH [address] [place] [address] [email or web address] documented as of this encounter Visit Diagnoses Not on filedocumented in this encounter Additional Health Concerns Infection Onset Date Last Indicated Resolved Time MRSA 03/13/2022 03/20/2022 03/19/2024 1:21 AM EST CoV-Risk Comment:Per note documentation 04/16/2022 04/16/2022 6:00 AM EST Influenza 04/16/2022 04/16/2022 04/24/2022 10:0 6 AM EST documented as of this encounter Care Teams Film Librarian Relationship Specialty Start Date End Date Pcp, Unknown PCP - General 11/23/21 03/20/22 Ulisses Whitmore MD [address] [place] [address] PCP - General Internal Medicine 03/21/22 documented as of this encounter Additional Source Comments The information contained in this document represents components of the legal health record. It is not the complete legal health record.[facility]
--- OUTSIDE RECORDS SUMMARY | 2024-12-14 16:59 | XMS_ITS | Clinical Summary ---
Author Organization [facility] Address [address] [address] Phone Care Team Providers Care Sole Buffer Name Role Phone Ulisses Whitmore MD Primary Care Provider [phone] Allergies No known active allergies Medications sodium chloride (OCEAN) 0.65 % nasal spray 1 spray by Nasal route 3 (three) times a day as needed for congestion. 15 mL 1 2021 Active immune globulin, human, (GAMMAGARD LIQUID) 10 % Soln IV injectionIndications:h ypopituitarism and hypogammaglobulinemia Inject 25 g into the vein every 28 days. Indications: hypopituitarism and hypogammaglobulinemia 2022 Active hydrocortisone sodium succinate, PF, (SOLU-CORTEF) 100 mg/2 mL SolRIndications:Adrena l insufficiency Inject 2 mL (100 mg total) into the muscle once as needed. For use in emergencies for adrenal insufficiency when unable to take glucocorticoids by mouth 2 mL 3 2023 Active Additional Information Patient not taking.Reported on 11/09/2024 syringe with needle (BD LUER-RAMESH SYRINGE) 3 mL 23 gauge x 1 1/2 SyrgIndications:Hypogo nadism in male USE DIRECTED ONCE A WEEK TO BE USED WITH TESTOSTERONE INJECTIONS 50 each 1 2023 Active predniSONE (DELTASONE) 10 MG tablet TAKE 1 TABLET (10 MG TOTAL) BY MOUTH DAILY NEEDED. TAKE DURING SICK DAYS. 30 tablet 1 2024 Active calcium citrate-vitamin D3 315 mg-6.25 mcg (250 unit) per tablet Take 2 tablets by mouth every evening. 180 tablet 3 08/06 Active cholecalciferol (VITAMIN D3) 2,000 unit capsule Take 1 capsule (2,000 Units total) by mouth daily. 90 capsule 3 2024 Active desmopressin (DDAVP) 0.1 MG tabletIndications:Diab etes insipidus, neurohypophyseal TAKE 1 TABLET BY MOUTH up to three times per day for excess urination 270 tablet 3 2024 Active levothyroxine (SYNTHROID, LEVOTHROID) 112 MCG tabletIndications:Cent ral hypothyroidism TAKE 1 TABLET BY MOUTH EVERY DAY IN THE MORNING 90 tablet 1 2024 Active predniSONE (DELTASONE) 1 MG tabletIndications:Adre nal insufficiency TAKE 4 TABLETS BY MOUTH DAILY WITH BREAKFAST 120 tablet 2 2024 Active Active Problems Problem Noted Date Diagnosed Date Age-related osteoporosis collin bloom current pathological fracture 06/10/2024 Class 3 severe obesity with body mass index (BMI) of 40.0 to 44.9 in adult 09/27/2023 Hypogonadism in male 04/11/2023 Assessment & Plan (09/27/2023 12:07 PM EDT): Symptomatic improvement on 100 mg weekly testosterone. Unfortunately his Testosterone labs will not be reflective of this dose, as he has not had injections for 2 weeks. Will be reasonable to switch to the androgel rather than injections if that is what is preferred. Explained this is a daily medication that he will apply to his upper deltoid. Should then cover with his shirt/sleeve so as not to transfer to other people he encounters, such as his 12-year old grandson or daughter Melanie. He should be sure to wash his hands thoroughly after application. We will plan to recheck levels at his follow up in the fall. Should plan to check levels 4 hours after application. So take at 10 am, then come in to have janet stim at 1:30 pm with testosterone level measured at the same time. Assessment & Plan (04/11/2023 9:40 PM EST): Will likely benefit greatly from testosterone replacement, given his symptoms of sexual dysfunction, fatigue and low mood in the context of a low testosterone level of 5. Discussed gel vs. Injections and patient would prefer the injections. Will first screen for prostate cancer with PSA. Has recent CBCd in system without polycythemia. Discussed risk for blood clots. Will discuss initiation after lab tests. 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 No abdominal pain and bili levels are WNL. Likely medication related, as he was started on Valtrex 04/19 for rash. Will continue to follow LFTs closely while on this medication, currently downtrending. - Trend LFTs - Obtain RUQUS if bili levels rise or abd pain develops, defer for now Hyperglycemia 04/17/2022 Assessment & Plan (05/02/2022 10:45 AM EST): #T2DM Recently diagnosed with DMII in January 2022 for which he was taking Metformin and Glipizide. Hgb A1c was reportedly 7.1% in January, but found to be 9.9% this admission. He presented with uncontrolled hyperglycemia in the setting of high dose steroid use for his hypopituitarism. He reported blood sugars were 300-400s at home and presented to the hospital once he reached 600. Although he does admit to nutrition knowledge deficient for DM, this uncontrolled hyperglycemia could also be related to IgG4 disease causing endocrine pancreatic dysfunction with concurrent recent high dose steroids. 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 Does not need refills today for levothyroxine. Assessment & Plan (04/11/2023 9:37 PM EST): Most recent FT4 is elevated at 2.1 suggesting need to decrease dose. Counseled on reducing levothyroxine to 150 mcg daily for 6 days instead of 7 (will skip Sundays). Will have him recheck his FT4 in 4 weeks. Counseled on taking medication on an empty stomach. Assessment & Plan (04/30/2022 3:43 PM EST): History of secondary hypothyroidism iso hypopituitarism. Of note, Levothyroxine dose was decreased from 213 to 175mcg daily by endocrine during last admission in the setting of elevated FT4. FT4 elevated to 2.3 this admission with TSH of < 0.01. Endocrine was consulted this admission and recommended further decreasing Levothyroxine from 175mcg to 150mcg. - Appreciate Endocrine's recommendations - Continue decreased Levothyroxine 150mcg daily - Repeat FT4 in 4 weeks (05/15) Adrenal insufficiency 04/17/2022 Assessment & Plan (09/27/2023 12:11 PM EDT): Continue on 4 mg prednisone daily for now. Should plan to repeat a cosyntropin stimulation test to evaluate for HPA axis recovery given ongoing improvement on IVIg from IgG4 disease. We reviewed sick day dosing and emergency use with Solucortef pen as well as travel counselor on wearing med alert bracelet. In light of prolonged steroid use (initially supraphysiologic and now physiologic) he is at risk for GIOP (glucorticoid-induced osteoporosis) so we will also order a DXA scan. Can travel counselor on calcium intake at next visit, as we do not have time today. He has regained the weight he initially lost over the last year, but BMI is quite elevated. Next visit can discuss initiation of GLP1RA and rescreen for diabetes. We do not have time to discuss this today. 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 Can discuss calcium/Vit D intake at next appt -Will plan to discuss GLP1RA at next visit for weight loss Assessment & Plan (04/11/2023 9:32 PM EST): His recent AM cortisol of 0.6 is suggestive of ongoing secondary adrenal insufficiency. Will defer on repeat PL[employer]RIER as it's unlikely he will pass. Will decrease to 4 mg prednisone daily for a more physiologic dose. Discussed sick day rules and encouraged wearing his medical alert bracelet. Will prescribe Solucortef. 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 Of note, every time he was tapered below 20mg Prednisone Daily, he lost vision, so was maintained on 20mg Prednisone daily. 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 In the context of steroid related myopathy, he is undergoing steroid taper, but will require physiologic dosing given AI. Reassuringly, he has maintained normal BPs this admission. Endocrine is following and plans to assess HPA axis following steroid taper in the outpatient setting. - Appreciate Endocrine recommendations - Continue steroid taper as outlined elsewhere - Continue to trend BPs Weakness generalized 04/17/2022 Assessment & Plan (04/30/2022 4:10 PM EST): Presented with 2 weeks of progressive BLE muscle weakness (R side weaker than L) most noticeable when trying to stand up. Initially thought this was in the setting of Flu and LE edema, although somewhat concerning given progressive nature and concurrent low back pain with incontinence. Reassuringly, he notes this low back pain does not travel down his legs. Neurology was consulted and recommended obtaining EMG which was consistent with myopathy. Additional work-up showed normal CK and elevated Aldolase to 12 (unclear significance iso normal CK). HMGCR Ab negative, MUSK Ab negative. Although possibly multifactorial in the setting of Flu, this weakness most likely represents steroid related myopathy given correction high dose steroids. Weakness has improved with steroid taper. - Appreciate Neurology recommendations - Appreciate PT consult and recommendations: home PT and support - Appreciate nutrition recommendations - F/u Myositis panel and final myasthenia gravis evaluation - Continue holding statin, likely resume on discharge Bilateral lower extremity edema 04/17/2022 Assessment & Plan (04/30/2022 3:39 PM EST): Presented with new onset bilateral lower extremity edema x2 weeks. BNP normal, possibly underestimated in the setting of obesity, though he has no pulmonary edema on CXR or respiratory symptoms suggestive of CHF. IgG4 disease can cause renal and hepatic involvement, however, he has no proteinuria on UA. He does have mildly elevated LFTs, though albumin was 3.8 arguing against significant hepatic synthetic dysfunction. May be secondary to steroid use. Have trialed low dose diuretics for symptomatic management. Given he is also on DDAVP, will need to discuss any further diuretic dosing with endocrine before it is given. On exam, continues to have significant BLE edema. 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 In the Summer of 2021, he developed rapid loss of L eye vision. This was thought to be in the setting of optic neuritis and was responsive to steroids. 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 He was admitted to neurosurgery at that time and steroids were increased with resultant improvement in vision. Of note, he is followed by Neuro- Ophthalmology at [facility], Dr. Gregorio Meyer, in the outpatient setting. MRI brain/ orbits was performed and was unchanged aside from interval decrease in sellar mass. HIV negative. - Appreciate Neuro-Ophthalmology and Rheumatology recommendations - Steroid taper as outlined elsewhere Panhypopituitarism Assessment & Plan (05/02/2022 10:47 AM EST): #IgG4 disease #Chronic Hypophysitis #Gonadotroph Adenoma Recently diagnosed with hypopituitarism and found to have a sellar mass with extension into the optic chiasm and resultant left eye vision loss. He is s/p transphenoidal pituitary biopsy in 02/2022, with results suggestive of hypophysitis secondary to IgG4 related disease. In terms of his hypopituitarism, labs have been consistent with hypothyroidism, central adrenal insufficiency (also related to rodent exterminator steroid use), diabetes insipidus, and hypogonadism. Other than [employer]ER involvement/hypophysitis, he has no clear evidence of IgG4 involvement of other organ systems at this time but may need further outpatient work up. Rheumatology recommended initiation of Rituximab for IgG4 with appropriate vaccination prior. ID was consulted regarding vaccination recommendations in the setting of recent flu and active HSV. He received influenza, COVID bivalent booster, Shingrix, PCV20, Tdap, and Hep B vaccines this admission. - Appreciate Neuro and Neuro-Ophthalmology's recommendations re: steroid/ immunosuppression - Appreciate Rheumatology's recommendations re: rituximab initiation (plan to delay 2 weeks post-vaccinations ~05/12) --- Rheum f/u on 05/07 with plans to initiate ritux as outpatient - Appreciate ID re: Vaccines --- High dose booster of HBV in 3 months and 6 months - Continue steroid taper as follows: --- s/p Dexamethasone 4mg BID x7 days (04/23 - 04/30) --- Continue Dexamethasone 4mg Daily x7 days (05/01 - 05/08) --- Followed by 5mg Prednisone Daily until further instructed (Not yet ordered) - Continue Bactrim daily for PJP prophylaxis - Continue Omeprazole for GI prophylaxis Diabetes insipidus, neurohypophyseal Assessment & Plan (09/27/2023 12:15 PM EDT): Doing well on 0.1 mg ddAVP twice daily, with few night time wakenings, drinking appropriately to thirst during the day without orthostatic symptoms. Will continue on this current dosing. Most recent BMP with Na in normal range. Plan: -Continue 0.1 mg ddAVP twice daily Assessment & Plan (04/11/2023 9:34 PM EST): Continues to have significant polyuria especially overnight despite adding nightly ddAVP. Will increase to 0.1 mg ddAVP twice daily. Will recheck BMP in one week of increased dose. Counseled on signs/symptoms of SIAD, which would require him to hold next ddAVP dose and go to the lab for BMP. Assessment & Plan (04/27/2022 3:32 PM EST): Noted to have central DI (complication of hypophysitis) for which he started desmopressin in January. He was found to have mild hypernatremia this admission with associated polydipsia and polyuria. Endocrine is following and guiding titration of desmopressin. - Appreciate Endocrine's recommendations - Continue to trend Na daily - Continue Desmopressin 0.1mg Daily, 0.05mg Nightly - Allow patient to drink to thirst - Continue to monitor urine output --- If >500cc/hr UOP in 2 consecutive hours, send UA, Uosm, Alivia, and call Endocrine fellow w/ results Rash and nonspecific skin eruption Assessment & Plan (04/30/2022 4:14 PM EST): Developed tender, nonpruritic, friable rash with ulcerative lesions over gluteal cleft after d/c 03/21 for which he represented and was admitted to OSH 04/05 for management. At that time, skin biopsy was performed which was unrevealing and he was DC'd on cephalexin x5 days. This rash was initially thought to be in part due to moisture, although HSV PCR was found to be positive. Dermatology was consulted and recommended valacyclovir x7 days or until lesions are crusted over. Dermatology reviewed updated pictures in media tab on 04/30 and feel there is some improvement. Anticipate it will continue to heal with time and ongoing Valtrex. - Appreciate Dermatology's recommendations - Continue Valacyclovir 1g q12h until lesions are crusted (04/19- ) --- Given location of lesions, patient likely won't be able to assess for this once he leaves the hospital. Dermatology recommends continuing 1g Q12H dosing until Derm f/u (they will arrange this) --- Will likely need long-term suppressive therapy if starting Rituximab (500mg BID vs. 1g QD) - Dressing changes per nursing Resolved Problems Problem Noted Date Diagnosed Date Resolved Date Flu 04/17/2022 04/25/2022 Assessment & Plan (04/24/2022 12:45 PM EST): Found to be Flu A positive. He has no clear URI symptoms other than cough overall weakness - oseltamivir 75mg BID X 5 days - Droplet precautions removed on 04/24 by infection control Known medical problems 04/21 Assessment & Plan (04/19/2022 5:11 PM EST): # HLD: - holding home atorvastatin per Neurology Encounters Date Type Department Care Team Description 12/02/2024 3:34 PM EDT - 12/02/2024 11:59 PM EDT Hospital Encounter [facility] PATH[facility] [address] [facility] [place] [address] Abhilash Maddox MD, PhD Discharge Disposition: Home or Self Care 12/02/2024 2:30 PM EDT Office Visit [facility] [address] [place] [address], [address] [place] [address] Abhilash Maddox MD, PhD Central hypothyroidism (Primary Dx) 11/09/2024 10:30 AM EDT Office Visit [facility] Neurology [address] [place] [address], [address] [place] [address] Gregorio Meyer MD IgG4 related disease (Primary Dx); Hypophysitis; Optic neuropathy 11/09/2024 Orders Only [facility] [address] [address] Vanna Stafford Age-related osteoporosis without current pathological fracture 10/30/[address] [facility] [address], [address] [place] [address] Justina Avendano MD Medication Refill 10/11/[address] [facility] Rheumatology [address], [address] [place] [address] Leeann Downey RN 10/07/[address] [facility] [address], [address] [place] [address] Abhilash Maddox MD, PhD Med Change Request 09/21/[address] [facility] Rheumatology [address], [address] [place] [address] Leeann Downey RN from Last 3 Months Immunizations Immunization Administration Dates Next Due COVID-19 (Pre) Moderna Vaccine, mRNA, PF 0 07/26/2020,06/23/2020 COVID-19 (Pre-01/20) Pfizer Vaccine, Bivalent 12 + 04/27/2022 Hepatitis B Dialysis 04/28/2022 Influenza Quadrivalent Preservative Free IM 04/01 Pneumococcal conjugate PCV20 04/26/2022 Tdap 04/28/2022 Zoster recombinant 04/26/2022 Family History Medical History Relation Comments Cancer Father Heart disease Mother Relation Status Comments Brother Father Mother Social History Tobacco Use Types Packs/Day Years Used Date Smoking Tobacco: Every Day Cigarettes Smokeless Tobacco: Never Tobacco Cessation:Ready to Q uit: Not Asked; Counseling Given: Not Answered Alcohol Use Standard Drinks/Week Comments Not Currently 0 (1 standard drink = 0.6 oz pur e alcohol) Education Answer Date Recorded Are you interested in more education? Not on emily e 07/25/2022 Are you concerned about learning? Not on file 07/25/2022 No 07/25/2022 No 07/25/2022 Digital Access Answer Date Recorded No 08/22/2022 No 08/22/2022 Reliable internet access at home? Not on file 08/22/2022 Device with a working camera? Not on file Intimate Partner Violence Answer Date R ecorded Are you denied basic needs s uch as food, clothing, or medical care? No 04/16/2022 In the past 12 months have y ou been in a relationship with a person who hurts, threatens, or tries to control you? No 04/16/2022 Are you denied basic needs s uch as food, clothing, or medical care? No 04/16/2022 In the past 12 months have y ou been in a relationship with a person who hurts, threatens, or tries to control you? No 04/16/2022 Sex and Gender Information Value Date Recorded Sex Assigned at Male 02/03/2023 9:14 AM EST Legal Sex Male 9:11 AM EDT Gender Identity Male 02/03/2023 9:14 AM EST Sexual Orientation Straight 02/03/2023 9: 14 AM EST Last Filed Vital Signs Vital Sign Reading Time Taken Comments Blood Pressure 124/77 12/02/2024 2:53 PM EDT Pulse 72 12/02/2024 2:53 PM EDT Temperature 35.8 C (96.5 F) 11/09/2024 10:02 AM EDT Respiratory Rate 18 07/22/2022 8:52 AM EDT Oxygen Saturation 99% 11/09/2024 10:02 AM EDT Inhaled Oxygen Concentration - - Weight 124.3 kg (274 lb) 12/02/2024 2:53 PM EDT Height 165.1 cm (5' 5 ) 12/02/2024 2:53 PM EDT Body Mass Index 45.6 12/02/2024 2:53 PM EDT Plan of Treatment Upcoming Encounters Date Type Department Care Team (Late st Contact Info) Description 06/02/2025 1:30 PM EST Office Visit [facility] [address], [address] [place] [address] Abhilash Maddox MD, PhD [address] [place] [address] [place] [id number] [email or web address] 09/21/2025 10:20 AM EDT Office Visit [facility] Rheumatology [address], [address] [place] [address] Giancarlo Bangura MD, MPH [address] [place] [address] [email or web address] Maintenance Due Date Last Done Comments DEPRESSION SCREENING 1980 SMOKING Hx and SMOKELESS TOBACCO SCREENING 1981 COLOGUARD 2013 COLONOSCOPY 2013 COLORECTAL CANCER SCREENING 2013 FIT TEST 2013 FOBT 2013 SIGMOIDOSCOPY 2013 VIRTUAL COLONOSCOPY 2013 ZOSTER VACCINES (2 of 2) 06/21/2022 04/26/2022 TSH LEVEL 03/18/2024 03/18/2023, 03/31, 03/13/2022 INFLUENZA VACCINE (#1) 2024 04/27/2022 COVID-19 VACCINE ( season) 2024 04/27/2022, 08/23/2020, 07/26/2020, Additional history exists SCREENING FOR DIABETES 09/01/2027 08/31/2024, 2024 LIPID PANEL 03/18/2028 03/18/2023, 05/07/2022 Adult Td,Tdap Booster 04/28/2032 04/28/2022 HEPATITIS C SCREENING Completed 04/24/2022 HIV ONE-TIME SCREENING (18-65 YEARS) Completed 04/26/2022 PNEUMOCOCCAL VACCINES (50+ years) Completed 04/26/2022 HEPATITIS A VACCINES Aged Out No long er eligible based on patient's age to complete this topic HIB VACCINES Aged Out No longer eligi ble based on patient's age to complete this topic MENINGOCOCCAL VACCINES (ACWY) Aged Out No longer eligible based on patient's age to complete this topic MENINGOCOCCAL VACCINES (B) Aged Out N o longer eligible based on patient's age to complete this topic Medical Devices Not on file Procedures Procedure Name Priority Date/Time Associated Diagnosis Comments FREE T4 Routine 12/02/2024 3:44 PM EDT Central hypothyroidism PARATHYROID HORMONE (PTH) Routine 11/09/2024 9:16 AM EDT Age-related osteoporosis without current pathological fracture LIPID PANEL Routine 03/18/2023 11:42 AM EST IgG4 related disease Hypothyroidism, unspecified type TSH WITH REFLEX Routine 03/18/2023 11:42 AM EST Hypothyroidism, unspecified type HEPATITIS C ANTIBODY, QUALITATIVE Routine 04/24/2022 6:10 AM EST from Last 3 Months or Most Recently Relevant to Health Maintenance Results * Free T4 (12/02/2024 3:44 PM EDT) Pathologist [facility] FREE T4 1.4 0.9 - 1.8 ng/dL [facility] 12/02/2024 3:44 PM EDT 12/02/2024 4:59 PM EDT Abhilash Maddox MD, PhD LAB BLOOD ORDERABLES Final Result Performing Organization Address City/[facility] Co de Phone Number [address] [address] * (ABNORMAL) Parathyroid hormone (PTH) (11/09/2024 9:16 AM EDT) [facility] PARATHYROID HORMONE 102(H) 10 - 60 pg/mL [facility] 11/09/2024 9:16 AM EDT 11/09/2024 9:55 AM EDT Jacoby Eagle MD, DSc LAB BLOOD ORDERABLES F inal Result Performing Organization Address [facility] Co de Phone Number [address] [address] * (ABNORMAL) TSH with reflex (03/18/2023 11:42 AM EST) [facility] SCREENING PANEL: TSH <0.01(L) 0.40 - 5.00 uIU/mL [facility] Blood 03/18/2023 11:4 2 AM EST 03/18/2023 5:15 PM EST us Giancarlo Bangura MD, MPH LAB BLOOD ORDERABLES Final Result Performing Organization Address City/[facility] Co de Phone Number [address] [address] * (ABNORMAL) Lipid panel (03/18/2023 11:42 AM EST) [facility] HDL 47 35 - 100 mg/dL [facility] CHOLESTEROL 133 <200 mg/dL [facility] TRIGLYCERIDES 167(H) 40 - 150 mg/dL [facility] LDL 53 50 - 129 mg/dL [facility] HOSPITAL CARDIAC RISK RATIO 2.8 0.0 - 5.0 [facility] NON-HDL CHOLESTEROL 86 mg/dL [facility] Comment:NCEP ATP III guideli hortensia suggest a non-HDL cholesterol goal 30 mg/dl higher than the patient-specific LDL goal. Blood 03/18/2023 11:4 2 AM EST 03/18/2023 5:15 PM EST us Giancarlo Bangura MD, MPH LAB BLOOD ORDERABLES Final Result Performing Organization Address City/[facility]/ZIP Co de Phone Number [address] [address] * Hepatitis C antibody, qualitative (04/24/2022 6:10 AM EST) HCV ANTIBODY Negative Negative [facility] Comment:Antibodies to HCV no t detected. Does not exclude the possibility of exposure to HCV. Blood 04/24/2022 6:10 AM EST 04/24/2022 6:23 AM EST Monse Najera PA-C LAB BLOOD ORDERABLES Dee l Result Performing Organization Address City/State/[facility] Co de Phone Number [address] [address] from Last 3 Months or Most Recently Relevant to Health Maintenance Insurance [facility] MEDICARE PART A & B MEDICARE PART A & [place] [address] [address] [address] MEDICARE PART A & B [facility] MED[employer] PART A & B [facility] MED[employer] PART A & B [facility] MEDICARE PART A [place] [address] [place] [address] Advance Directives For more information, please contact: [phone] (9AM - 5PM [place]/[facility], Friday-Friday) Documents on File Type Date Recorded Patient Webbing Seamer Pound Net Expl anation Healthcare Proxy 05/07/2022 11:58 AM * Full Code (Latest Code Status on File) Date Activated Date Inactivated Comments 03/14/2022 6:07 PM Question Answer Comments Code Status Confirmed With: Patient Care Teams Sole Buffer Relationship Specialty Start Date End Date Ulisses Whitmore MD [address] [facility] [address] [place] [address] PCP - General Internal Medicine 03/21/22 Additional Source Comments The information contained in this document represents components of the legal health record. It is not the complete legal health record.[facility]
--- OUTSIDE RECORDS SUMMARY | 2024-12-14 16:59 | XMS_ITS | Encounter Summary ---
Author Organization [facility] Address [address] [facility] [address] [place] [address] Phone Care Team Providers Care Construction Code Administrator Name Role Phone Ulisses Whitmore MD Primary Care Provider [phone] Encounter Details Date Type Department Care Team (Late st Contact Info) Description 05/26/2023 Procedure Pass [facility] - [facility], [facility] [address] [place] [address] Social History Tobacco Use Types Packs/Day Years Used Date Smoking Tobacco: Every Day Cigarettes Smokeless Tobacco: Never Alcohol Use Standard Drinks/Week Comments Not Currently [...] Description 06/02/2025 1:30 PM EST Office Visit [facility] [address] [facility], [address] [place] [address] Abhilash Maddox MD, PhD 55 [facility] [address] [place] [address] [email or web address] 09/21/2025 10:20 AM EDT Office Visit [facility] [address], [address] [place] [address] Giancarlo Bangura MD, MPH [address] [place] [address] [email or web address] documented as of this encounter Visit Diagnoses Not on filedocumented in this encounter Additional Health Concerns Infection Onset Date Last Indicated Resolved Time MRSA 03/13/2022 03/20/2022 03/19/2024 1:21 AM EST documented as of this encounter Care Teams Construction Code Administrator Relationship Specialty Start Date End Date Ulisses Whitmore MD [facility] [place] [address] PCP - General Internal Medicine 03/21/22 documented as of this encounter Additional Source Comments The information contained in this document represents components of the legal health record. It is not the complete legal health record.[facility]
--- OUTSIDE RECORDS SUMMARY | 2024-12-14 16:59 | XMS_ITS | Encounter Summary ---
Author Organization [facility] Address [address] [facility] [address] [place] [address] Phone Care Team Providers Care Driver Service Technician Name Role Phone Ulisses Whitmore MD Primary Care Provider [phone] Encounter Details Date Type Department Care Team (Late st Contact Info) Description 04/24/2022 Procedure Pass [facility] MRI, [address] [facility], 6th [place] [address] Social History Tobacco Use Types Packs/Day Years Used Date Smoking Tobacco: Every Day Cigarettes Smokeless Tobacco: Never Alcohol Use Standard Drinks/Week Comments Not Currently 0 (1 standard drink = 0.6 oz pur e alcohol) Intimate Partner Violence Answer Date R ecorded [...] Description 06/02/2025 1:30 PM EST Office Visit [facility] [address] [facility] [facility], [address] [place] [address] Abhilash Maddox MD, PhD 55 [facility] [address] [place] [address] [email or web address] 09/21/2025 10:20 AM EDT Office Visit [facility] Rheumatology [address], [address] [place] [address] Giancarlo Bangura MD, MPH 55 [place] [address] TREASURE@[email or web address] documented as of this encounter Visit Diagnoses Not on filedocumented in this encounter Additional Health Concerns Infection Onset Date Last Indicated Resolved Time MRSA 03/13/2022 03/20/2022 03/19/2024 1:21 AM EST Influenza 04/16/2022 04/16/2022 04/24/2022 10:0 6 AM EST documented as of this encounter Care Teams Driver Service Technician Relationship Specialty Start Date End Date Ulisses Whitmore MD [facility] [place] [address] PCP - General Internal Medicine 03/21/22 documented as of this encounter Additional Source Comments The information contained in this document represents components of the legal health record. It is not the complete legal health record.[facility]
--- OUTSIDE RECORDS SUMMARY | 2024-12-14 16:59 | XMS_ITS | Encounter Summary ---
Author Organization [facility] Address [address] [facility] [address] [place] [address] Phone Care Team Providers Care Grievance Coordinator Name Role Phone Ulisses Whitmore MD Primary Care Provider [phone] Encounter Details Date Type Department Care Team (Late st Contact Info) Description 08/05/2022 Procedure Pass [facility], [facility] [address] [place] [address] Social History Tobacco Use Types Packs/Day Years Used Date Smoking Tobacco: Every Day Cigarettes Smokeless Tobacco: Never Alcohol Use Standard Drinks/Week Comments Not Currently 0 (1 standard drink = 0.6 oz pur e alcohol) Education Answer Date Recorded Are you interested in more education? Not on emily e 07/25/2022 Are you concerned about learning? Not on file 07/25/2022 No 07/25/2022 No 07/25/2022 Intimate Partner Violence Answer Date R ecorded [...] Description 06/02/2025 1:30 PM EST Office Visit [facility] [address] [facility], [address] [place] [address] Abhilash Maddox MD, PhD 55 [facility] [address] [place] [address] [email or web address] 09/21/2025 10:20 AM EDT Office Visit [facility] Rheumatology [address], [address] [place] [address] Giancarlo Bangura MD, MPH 55 [place] [address] [email or web address] documented as of this encounter Visit Diagnoses Not on filedocumented in this encounter Additional Health Concerns Infection Onset Date Last Indicated Resolved Time MRSA 03/13/2022 03/20/2022 03/19/2024 1:21 AM EST documented as of this encounter Care Teams Grievance Coordinator Relationship Specialty Start Date End Date Ulisses Whitmore MD [facility] [place] [address] PCP - General Internal Medicine 03/21/22 documented as of this encounter Additional Source Comments The information contained in this document represents components of the legal health record. It is not the complete legal health record.[facility]
--- OUTSIDE RECORDS SUMMARY | 2024-12-14 16:59 | XMS_ITS | Encounter Summary ---
Author Organization [facility] Address [address] [facility] [address] [place] [address] Phone Care Team Providers Care Graduate Advisor Name Role Phone Ulisses Whitmore MD Primary Care Provider [phone] Encounter Details Date Type Department Care Team (Late st Contact Info) Description 05/26/2023 Procedure Pass [facility], [facility] [address] [place] [address] Social History Tobacco Use Types Packs/Day Years [...] Description 06/02/2025 1:30 PM EST Office Visit [facility] [address] [facility], [address] [place] [address] Abhilash Maddox MD, PhD 55 [facility] [address] [place] [address] [email or web address] 09/21/2025 10:20 AM EDT Office Visit [facility] Rheumatology [address], [address] [place] [address] Giancarlo Bangura MD, MPH 55 [place] [address] [email or web address] documented as of this encounter Visit Diagnoses Not on filedocumented in this encounter Additional Health Concerns Infection Onset Date Last Indicated Resolved Time MRSA 03/13/2022 03/20/2022 03/19/2024 1:21 AM EST documented as of this encounter Care Teams Graduate Advisor Relationship Specialty Start Date End Date Ulisses Whitmore MD [facility] [place] [address] PCP - General Internal Medicine 03/21/22 documented as of this encounter Additional Source Comments The information contained in this document represents components of the legal health record. It is not the complete legal health record.[facility]
--- OUTSIDE RECORDS SUMMARY | 2024-12-14 16:59 | XMS_ITS | Encounter Summary ---
Author Organization [facility] Address [address] [address] [place] [address] Phone Care Team Providers Care Psychiatric Nursing Aide Name Role Phone Ulisses Whitmore MD Primary Care Provider Encounter Details Date Type Department Care Team (Late st Contact Info) Description 04/24/2022 Procedure Pass [facility] MRI, [place] [address] [facility], 6th [place] [address] Social History Tobacco Use Types Packs/Day Years [...] Description 06/02/2025 1:30 PM EST Office Visit [facility] [address] [facility], [address] [place] [address] Abhilash Maddox MD, PhD 55 [facility] [address] [place] [address] [email or web address] 09/21/2025 10:20 AM EDT Office Visit [facility] Rheumatology [address], [address] [place] [address] Giancarlo Bangura MD, MPH 55 [place] [address] [email or web address]@[email or web address] documented as of this encounter Visit Diagnoses Not on filedocumented in this encounter Additional Health Concerns Infection Onset Date Last Indicated Resolved Time MRSA 03/13/2022 03/20/2022 03/19/2024 1:21 AM EST Influenza 04/16/2022 04/16/2022 04/24/2022 10:0 6 AM EST documented as of this encounter Care Teams Psychiatric Nursing Aide Relationship Specialty Start Date End Date Ulisses Whitmore MD [facility] [place] [address] PCP - General Internal Medicine 03/21/22 documented as of this encounter Additional Source Comments The information contained in this document represents components of the legal health record. It is not the complete legal health record.[facility]
--- OUTSIDE RECORDS SUMMARY | 2024-12-14 16:59 | XMS_ITS | Encounter Summary ---
Author Organization [facility] Address [address] [employer] [facility] [address] [place] [address] Phone Care Team Providers Care Director Clinical Information Services Name Role Phone Pcp, Unknown Primary Care Provider Ulisses Garg MD Primary Care Provider [phone] Encounter Details Date Type Department Care Team (Late st Contact Info) Description 03/13/2022 Procedure Pass [facility], [address] [facility], 6th [place] [address] Social History Tobacco Use Types Packs/Day Years [...] 5:00 PM EST Melanie Puente, L[place] * [place] Suicide Severity Rating Scale (Screener/Recent Self-Report) Question [...] Description 06/02/2025 1:30 PM EST Office Visit [facility] [address] [facility], [address] [place] [address] Abhilash Maddox MD, PhD 55 [facility] [address] [place] [address] [email or web address] 09/21/2025 10:20 AM EDT Office Visit [facility] [place] [address], [address] [place] [address] Giancarlo Bangura MD, MPH 55 [place] [address] TREASURE@[email or web address] documented as of this encounter Visit Diagnoses Not on filedocumented in this encounter Additional Health Concerns Infection Onset Date Last Indicated Resolved Time MRSA 03/13/2022 03/20/2022 03/19/2024 1:21 AM EST CoV-Risk Comment:Per note documentation 04/16/2022 04/16/2022 6:00 AM EST Influenza 04/16/2022 04/16/2022 04/24/2022 10:0 6 AM EST documented as of this encounter Care Teams Director Clinical Information Services Relationship Specialty Start Date End Date Pcp, Unknown PCP - General 11/23/21 03/20/22 Ulisses Whitmore MD [address] [facility] [place] [address] PCP - General Internal Medicine 03/21/22 documented as of this encounter Additional Source Comments The information contained in this document represents components of the legal health record. It is not the complete legal health record.[facility]
--- OUTSIDE RECORDS SUMMARY | 2024-12-14 16:59 | XMS_ITS | Encounter Summary ---
Author Organization [facility] Address [address] [employer] [facility] [address] [place] [address] Phone Care Team Providers Care School Operations Manager Name Role Phone Ulisses Whitmore MD Primary Care Provider [phone] Encounter Details Date Type Department Care Team (Late st Contact Info) Description 11/09/2024 Orders Only [facility] [address] [place] [address] Vanna [email or web address] Age-related osteoporosis without current pathological fracture Social History Tobacco Use Types Packs/Day Years [...] Description 06/02/2025 1:30 PM EST Office Visit [facility] [address] [facility], [address] [place] [address] Abhilash Maddox MD, PhD [address] [place] [address] [address] [place] [address] [email or web address] 09/21/2025 10:20 AM EDT Office Visit [facility] Rheumatology [address], [address] [place] [address] Giancarlo Bangura MD, MPH [address] [place] [address] TREASURE@[email or web address] documented as of this encounter Procedures Procedure Name Priority Date/Time Associated Diagnosis Comments PARATHYROID HORMONE (PTH) Routine 11/09/2024 9:16 AM EDT Age-related osteoporosis without current pathological fracture documented in this encounter Results * (ABNORMAL) Parathyroid hormone (PTH) (11/09/2024 9:16 AM EDT) PARATHYROID HORMONE 102(H) 10 - 60 pg/mL [facility] 11/09/2024 9:16 AM EDT 11/09/2024 9:55 AM EDT us Jacoby Eagle MD, DSc LAB BLOOD ORDERABLES F inal Result [facility] [address] [place] [address] documented in this encounter Visit Diagnoses Diagnosis Age-related osteoporosis without current pathological fracture documented in this encounter Care Teams School Operations Manager Relationship Specialty Start Date End Date Ulisses Whitmore MD [address] [place] [address] PCP - General Internal Medicine 03/21/22 documented as of this encounter Additional Source Comments The information contained in this document represents components of the legal health record. It is not the complete legal health record.[facility]
--- OUTSIDE RECORDS SUMMARY | 2024-12-14 16:59 | XMS_ITS | Encounter Summary ---
Author Organization [facility] Address [address] [employer] [facility] [address] [place] [address] Phone Care Team Providers Care Gas System Operator Name Role Phone Pcp, Unknown Primary Care Provider Ulisses Garg MD Primary Care Provider [phone] Encounter Details Date Type Department Care Team (Late st Contact Info) Description 03/20/2022 Procedure Pass [facility] PERIOPER[facility]IVE DEPT [address] [place] [id number] Social History Tobacco Use Types Packs/Day Years [...] Encounters Date Type Department Care Team (Late Contact Info) Description 06/02/2025 1:30 PM EST Office Visit [facility] [address] [facility], [address] [place] [address] Abhilash Maddox MD, PhD 55 [facility] Their [address] [place] [address] [email or web address] 09/21/2025 10:20 AM EDT Office Visit [facility] Rheumatology [address], [address] [place] [address] Giancarlo Bangura MD, MPH [address] [place] [address] [email or web address] documented as of this encounter Visit Diagnoses Not on filedocumented in this encounter Additional Health Concerns Infection Onset Date Last Indicated Resolved Time MRSA 03/13/2022 03/20/2022 03/19/2024 1:21 AM EST CoV-Risk Comment:Per note documentation 04/16/2022 04/16/2022 6:00 AM EST Influenza 04/16/2022 04/16/2022 04/24/2022 10:0 6 AM EST documented as of this encounter Care Teams Gas System Operator Relationship Specialty Start Date End Date Pcp, Unknown PCP - General 11/23/21 03/20/22 Ulisses Whitmore MD [facility] [place] [address] PCP - General Internal Medicine 03/21/22 documented as of this encounter Additional Source Comments The information contained in this document represents components of the legal health record. It is not the complete legal health record.[facility]
--- OUTSIDE RECORDS SUMMARY | 2024-12-14 16:59 | XMS_ITS | Encounter Summary ---
Author Organization [facility] Address [address] [employer] [facility] [address] [place] [address] Phone Care Team Providers Care Boiler Helper Name Role Phone Ulisses Whitmore MD Primary Care Provider [phone] Encounter Details Date Type Department Care Team (Late st Contact Info) Description 08/18/2024 Procedure Pass [facility] - MRI [address] [facility], 6th [place] [address] Social History Tobacco Use Types Packs/Day Years [...] AM EST documented as of this encounter Last Filed Vital Signs Vital Sign Reading Time Taken Comments Blood Pressure - - Pulse - - Temperature - - Respiratory Rate - - Oxygen Saturation - - Inhaled Oxygen Concentration - - Weight 120.2 kg (265 lb) 08/18/2024 1:21 PM EDT Height 165.1 cm (5' 5 ) 08/18/2024 1:21 PM EDT Body Mass Index 44.1 08/18/2024 1:21 PM EDT documented in this encounter Plan of Treatment Upcoming Encounters Date Type Department Care Team (Late st Contact Info) Description 06/02/2025 1:30 PM EST Office Visit [address], [address] [place] [address] Abhilash Maddox MD, PhD [address] [place] [address] [place] [address] [email or web address] 09/21/2025 10:20 AM EDT Office Visit [facility] Rheumatology [address], [address] [place] [address] Giancarlo Bangura MD, MPH [address] [place] [address] [email or web address] documented as of this encounter Visit Diagnoses Not on filedocumented in this encounter Care Teams Boiler Helper Relationship Specialty Start Date End Date Ulisses Whitmore MD [address] [facility] [place] [address] PCP - General Internal Medicine 03/21/22 documented as of this encounter Additional Source Comments The information contained in this document represents components of the legal health record. It is not the complete legal health record.[facility]
--- OUTSIDE RECORDS SUMMARY | 2024-12-14 16:59 | XMS_ITS | Encounter Summary ---
Author Organization [facility] Address [address] [facility] [address] [place] [address] Phone Care Team Providers Care Transmission Worker Name Role Phone Pcp, Unknown Primary Care Provider Ulisses Garg MD Primary Care Provider [phone] Encounter Details Date Type Department Care Team (Late st Contact Info) Description 03/20/2022 Procedure Pass [facility] 4 ENDO DEPT 55 [facility], 4th [place] [address] Social History Tobacco Use Types Packs/Day Years [...] Description 06/02/2025 1:30 PM EST Office Visit [facility] [address] [facility], [address] [place] [address] Abhilash Maddox MD, PhD 55 [facility] Their [address] [place] [address] [email or web address] 09/21/2025 10:20 AM EDT Office Visit [facility] Rheumatology [address], [address] [place] [address] Giancarlo Bangura MD, MPH [address] [place] [address] [email or web address] documented as of this encounter Visit Diagnoses Not on filedocumented in this encounter Additional Health Concerns Infection Onset Date Last Indicated Resolved Time MRSA 03/13/2022 03/20/2022 03/19/2024 1:21 AM EST CoV-Risk Comment:Per note documentation 04/16/2022 04/16/2022 6:00 AM EST Influenza 04/16/2022 04/16/2022 04/24/2022 10:0 6 AM EST documented as of this encounter Care Teams Transmission Worker Relationship Specialty Start Date End Date Pcp, Unknown PCP - General 11/23/21 03/20/22 Ulisses Whitmore MD [facility] [place] [address] PCP - General Internal Medicine 03/21/22 documented as of this encounter Additional Source Comments The information contained in this document represents components of the legal health record. It is not the complete legal health record.[facility]
--- OUTSIDE RECORDS SUMMARY | 2024-12-14 16:59 | XMS_ITS | Patient Health Record ---
Author Organization [facility] Address [address] [place] [address] Care Team Providers Care Train Control Electronic Technician Name Role Phone Arash Urbina Primary Care Provider Reason For Referral No Information Plan Of Treatment No Information Insurance Providers Payer Name Payer Address Payer Phone Subscriber Number Group Number Insured Name Patient Relationship to Insured Coverage Start Date Coverage End Date [facility] [address] [place] [id number] Gurdeep Jordan Self - patient is the insured
--- OUTSIDE RECORDS SUMMARY | 2024-12-14 16:59 | XMS_ITS | Encounter Summary ---
Author Organization [facility] Address [address] [place] [id number] Phone Care Team Providers Care Exchange Clerk Name Role Phone Ulisses Whitmore MD Primary Care Provider [phone] Encounter Details Date Type Department Care Team (Late st Contact Info) Description 08/05/2022 Procedure Pass [facility] - MRI, [facility] [address] [place] [address] Social History Tobacco Use Types Packs/Day Years [...] - Inhaled Oxygen Concentration - - Weight 111.1 kg (245 lb) 08/06/2022 10:37 AM EDT Height 165.1 cm (5' 5 ) 08/06/2022 10:37 AM EDT Body Mass Index 40.77 08/06/2022 10:37 AM EDT documented in this encounter Plan of Treatment Upcoming Encounters Date Type Department Care Team (Late st Contact Info) Description 06/02/2025 1:30 PM EST Office Visit [address], [address] [place] [address] Abhilash Maddox MD, PhD [address] [place] [address] [place] [phone] [email or web address]) 09/21/2025 10:20 AM EDT Office Visit [facility] Rheumatology [address], [address] [place] [address] Giancarlo Bangura MD, MPH [address] [place] [id number] [email or web address] documented as of this encounter Visit Diagnoses Not on filedocumented in this encounter Additional Health Concerns Infection Onset Date Last Indicated Resolved Time MRSA 03/13/2022 03/20/2022 03/19/2024 1:21 AM EST documented as of this encounter Care Teams Exchange Clerk Relationship Specialty Start Date End Date Ulisses Whitmore MD [address] [place] [address] PCP - General Internal Medicine 03/21/22 documented as of this encounter Additional Source Comments The information contained in this document represents components of the legal health record. It is not the complete legal health record.[facility]
== END 2024-12-14 13:54 | disposition home or self-care (01) ==
PROVIDERS: PCP Internal Medicine; Visit Provider Internal Medicine
DX: E11.9 Type 2 diabetes mellitus without complications (principal); E66.01 Morbid (severe) obesity due to excess calories; D35.2 Benign neoplasm of pituitary gland; Z68.42 Body mass index [BMI] 45.0-49.9, adult; I10 Essential (primary) hypertension; E03.8 Other specified hypothyroidism; E23.0 Hypopituitarism; E23.2 Diabetes insipidus; N40.0 Benign prostatic hyperplasia without lower urinary tract symptoms; H53.8 Other visual disturbances; H54.3 Unqualified visual loss, both eyes

== ENCOUNTER 2025-02-17 12:35 | Outpatient (AMB) | payer OTHER, SELFPAY ==
--- NOTE | 2025-02-17 13:09 | A.OFFVIS_ITS ---
Intake Visit Reasons: 1 year PSA Intake Note: Patient is present for a 1yr follow up with PSA * 12/14 PSA:2.68 Urology Medication:TAMSULOSIN Antibiotic Allergy:NONE Blood Thinner:NONE PVR:0ml [employer] Operating [employer] Required: No Allergies No Known Allergies Allergy (Verified 02/17/25 13:09) [facility] Medical History Carotid stenosis Blind right eye Panhypopituitarism Pituitary tumor History of lumbar puncture Central hypothyroidism Primary central diabetes insipidus Migraine headache Rash Surgical History H/O wisdom tooth extraction History of surgery Family History Brother Brain cancer Social History Household Members: None Household Members Other:: 1 Housing: House Are you a primary child caregiver to a significant other at home: No Do you presently have visiting nurse or other home services: No Alcohol intake: current Alcohol intake frequency: does not drink Alcohol type: beer Patient Tobacco Use Status: Current everyday Tobacco user Tobacco use type: Cigarette Cigarettes Per Day: 6 Years Smoked: 20 years e-Cigarette/Vaping Use: Never Used Substance Use Type: Marijuana service: No Current occupational status: unemployed and disabled Cognitive needs: No Hearing needs: No Vision needs: Yes Results AMB Urinalysis, Automated UA Leukoctes 0 Facundo/uL Last Edit by Anahi Venegas on 02/17/25 15:21 UA Nitrite Negative Last Edit by Anahi Venegas on 02/17/25 15:21 UA Urobilinogen 0.2 mg/dL Last Edit by Anahi Venegas on 02/17/25 15:21 UA Protein 15 mg/dL Last Edit by Anahi Venegas on 02/17/25 15:21 UA pH 6.0 Last Edit by Anahi Venegas on 02/17/25 15:21 UA Blood 0 Gorge/uL Last Edit by Anahi Venegas on 02/17/25 15:21 UA Specific Greene 1.015 Last Edit by Anahi Venegas on 02/17/25 15:21 UA Ketone Negative Last Edit by Anahi Venegas on 02/17/25 15:21 UA Bilirubin 0 mg/dL Last Edit by Anahi Venegas on 02/17/25 15:21 UA Glucose 0 mg/dL Last Edit by Anahi Venegas on 02/17/25 15:21 Results Reviewed Results Reviewed: Date of Service: 01/12/24 CT ABDOMEN AND PELVIS WITH CONTRAST CLINICAL INFORMATION: Right flank and right lower quadrant pain. COMPARISON: CT abdomen/pelvis 03/29/2022. TECHNIQUE: Multidetector volumetric images were obtained from the superior aspect of the liver through the pubic symphysis following administration 85 mL of Omnipaque 350 intravenous contrast. Sagittal and coronal reformatted images were obtained on the technologist's workstation. Oral contrast: No This CT examination was performed using dose optimization techniques as appropriate, variously including the following: *Automated exposure control *Adjustment of mA and/or kV according to patient size (this includes techniques or standardized protocols for targeted exams where dose is matched to indication/reason for exam; i.e. extremities or head) *Use of iterative reconstruction technique DLP: 1065 mGy-cm FINDINGS: LUNG BASES: The visualized lung bases are unremarkable. LIVER, GALLBLADDER, AND BILIARY TREE: Decreased attenuation of the liver parenchyma consistent with hepatic steatosis. No focal hepatic lesion or biliary ductal dilatation is present. Gallbladder calculi without gallbladder wall thickening, or obvious pericholecystic inflammatory changes. PANCREAS: Unremarkable. SPLEEN: Unremarkable. ADRENAL GLANDS: Unremarkable. KIDNEYS AND URETERS: The kidneys are normal in size, shape, and attenuation. Simple appearing cyst in the upper pole of the left kidney for which no imaging follow-up is recommended. No hydronephrosis, hydroureter, or calculi seen. No perinephric stranding. BLADDER: Diffuse urinary bladder wall thickening with mild perivesical fat stranding. GASTROINTESTINAL TRACT: The stomach and the small bowel are nondilated. Normal appendix. Colonic diverticulosis without significant pericolonic inflammatory changes. Submucosal fatty deposition of the right hemicolon that could be related with patient body habitus or chronic inflammatory disease. ABDOMINAL WALL: No significant hernia is appreciated. LYMPH NODES: Increased size of a prominent periportal lymph node measuring 1.1 cm in short axis (3:25) previously 0.7 cm. VASCULAR: Normal caliber abdominal aorta. PELVIC VISCERA: Unremarkable. OSSEOUS STRUCTURES: No acute or aggressive appearing osseous findings. Degenerative changes of the spine. IMPRESSION: 1. Diffuse urinary bladder wall thickening with mild perivesical fat stranding suggesting cystitis. Correlate with urinalysis. 2. Hepatic steatosis. 3. Cholelithiasis without evidence of acute cholecystitis. 4. Diverticulosis but no evidence of acute diverticulitis. 5. Increased size of a prominent periportal lymph node, most likely reactive. Attention on follow-up in future examinations recommended. Collected: 01/12/24-UNK Status: COMP Req#: [id number] Received: 01/12/24 Source: [facility] Sp Desc: Clean Cat Subm Dr: Generic ED Physician Ordered: Urine Culture Procedure Result Verified Urine Culture Final 01/14/24 Organism 1 Escherichia coli Quant > 100,000 cfu/mL E coli M.I.C. RX --------- --- Ampicillin <=2 S Cefazolin <=4 S Ceftriaxone <=0.25 S Ciprofloxacin <=0.25 S Gentamicin <=1 S Nitrofurantoin <=16 S Trimethoprim/Sulfamethoxazole <=20 S Assessment & Plan Assessment & Plan Orders: Orders AMB Urinalysis Automated Today Z13.9 - Encounter for screening, unspecified AMB Post Void Residual by ultrasound Today N39.0 - Urinary tract infection, site not specified, N40.0 - Benign prostatic hyperplasia without lower urinary tract symptoms, R30.0 - Dysuria Coding
== END 2025-02-17 14:14 | disposition home or self-care (01) ==
LOC: HO.HUSH 12:36
PROVIDERS: PCP Internal Medicine; Visit Provider Urology
DX: Z13.9 Encounter for screening, unspecified (principal)

== ENCOUNTER → 2025-02-17 12:35 | Outpatient (BNVA) | payer MEDICARE, MEDICAID, SELFPAY | PROVIDERS: PCP Internal Medicine; Visit Provider Urology | DX: N40.0 Benign prostatic hyperplasia without lower urinary tract symptoms (principal); Z13.9 Encounter for screening, unspecified; Z80.42 Family history of malignant neoplasm of prostate | CPT/HCPCS: 81003; 99212 ==